=== PATIENT | female | born 1960 | race Caucasian/White ===

== ENCOUNTER 2020-08-21 20:07 | Inpatient (IN) ==
[2020-08-21] MEDS ORDERED: methylPREDNISolone 125 MG/2 ML VIAL IV STA (20:17)
[2020-08-21] MEDS ORDERED: ALBUT/IPRATROP 3MG/0.5MG NEB 3 ML VIAL NEB ONE (20:17)
[2020-08-21] MEDS ORDERED: MAGNESIUM SULFATE / D5W 1 GM/100 ML BAG IV STA ×2 (20:20→20:57)
--- NOTE | 2020-08-21 20:23 | Emergency Department Note ---
History of Present Illness General Chief complaint: Shortness of Breath/Dyspnea Stated complaint: SOB Time Seen by Provider: 08/21/20 20:17 Source: patient Mode of arrival: ambulatory Limitations: no limitations History of Present Illness Provider complaint: sob Onset (ago): day(s) Exacerbated By: + movement Associated symptoms: + chest pain, + cough, + fever/chills and + shortness of breath Treatments prior to arrival: none This is a 60-year-old female presents emergency department complaining of several days of increased cough and shortness of breath. Patient states she does have a history of COPD however does not wear home oxygen. Patient states she only recently moved to the area and tried to take out her nebulizer treatment to begin other breathing treatments at home. Patient states initially several days ago she thought she just had increased allergy symptoms with nasal congestion and cough. Patient states she then began to feel as though she was developing congestion in her chest and a possible recurrent bronchitis which she states she has had previously. No prior history of pneumonia. No history of heart problems. Patient denies any recent leg swelling or calf tenderness. She denies fevers or chills. Denies any known sick contact and states she has been vaccinated against coronavirus. Patient was 78% on room air when I was called to the room, patient was initially placed on nasal cannula at 4 L/min and slowly improved. RT was immediately contacted. Pt seen during a time of high acuity and national emergency pandemic while wearing PPE. Home Medications Medication Instructions Recorded Confirmed Type amlodipine 5 mg PO QAM 08/21/20 08/21/20 History aspirin 81 mg PO QAM 08/21/20 08/21/20 History atenolol 25 mg PO QAM 08/21/20 08/21/20 History atorvastatin 10 mg PO QAM 08/21/20 08/21/20 History calcium carbonate-vitamin D3 1 tab PO QAM 08/21/20 08/21/20 History [Calcium 500 + D (D3)] cholecalciferol (vitamin D3) 125 mcg PO QAM 08/21/20 08/21/20 History [Vitamin D3] escitalopram oxalate 10 mg PO QAM 08/21/20 08/21/20 History infliximab [Remicade] 0 mg IV DIRECTED 08/21/20 08/21/20 History lansoprazole 30 mg PO QAM 08/21/20 08/21/20 History lisinopril 20 mg PO QAM 08/21/20 08/21/20 History lorazepam 0.5 mg PO DAILY PRN 08/21/20 08/21/20 History metformin 500 mg PO QAM 08/21/20 08/21/20 History multivitamin 1 tab PO QAM 08/21/20 08/21/20 History vitamin B complex 1 tab PO QAM 08/21/20 08/21/20 History Allergies Allergy/AdvReac Type Severity Reaction Status Date / Time Iodinated Contrast Media Allergy Intermediate Hives Verified 08/21/20 20:58 Past Med/Surg History Medical History (Updated 08/23/20 @ 02:07 by Hanna Gandara DO) Anxiety and depression COPD (chronic obstructive pulmonary disease) Crohn's disease Diabetes mellitus GERD (gastroesophageal reflux disease) Hyperlipidemia Hypertension Tobacco use disorder Social History Smoking Status: Current every day smoker Cigarettes Per Day: 10-15; Hx Alcohol Use: Yes Alcohol type: hard liquor Hx Substance Use: No Preferred Language: Sammarinese Communication Ability: Effective Cad Operator Required: No Beliefs That Will Affect Care: None Current Living Situation: Family Current Living Situation Comment: Lives with brother and [place] Feels Safe at Home: Yes Safety Concerns: Feels Safe At This Time Assistive Devices: Oxygen - Continuous Assistive Devices Comment: O2 is acute Review of Systems See HPI for pertinent positives & negatives. and A total of 10 systems reviewed and were otherwise negative Physical Exam Vital Signs Vital Signs - 24 hr 08/21/20 20:08 08/21/20 20:16 08/21/20 20:18 Temperature 36.6 C Temperature Source Temporal Artery Scan Pulse Rate 93 H 87 Pulse Rate [Right Finger] Respiratory Rate 18 28 H Respiratory Effort / Characteristics Non-Labored Respiratory Depth Normal Blood Pressure 111/75 109/82 Blood Pressure Mean 87 91 Pulse Oximetry 83 L 98 Oxygen Delivery Method Room Air Room Air Oxygen Flow Rate Fraction of Inspired Oxygen 77 Sepsis Recent Fever Within 48 Hours No Sepsis New/Unexplained Change in Mental Status No Sepsis Action Taken by Nursing No Action Required Oxygen Flow Rate - Titration 6 Pulse Oximetry Post Tiitration 96 08/21/20 21:02 08/21/20 21:24 08/21/20 21:30 Temperature Temperature Source Pulse Rate 93 H 94 H Pulse Rate [Right Finger] 91 H Respiratory Rate 20 27 H 26 H Respiratory Effort / Characteristics Non-Labored Spontaneous Respiratory Depth Blood Pressure 124/73 126/74 Blood Pressure Mean 90 91 Pulse Oximetry 95 98 98 Oxygen Delivery Method Nasal Cannula Oxygen Flow Rate 4 Fraction of Inspired Oxygen Sepsis Recent Fever Within 48 Hours Sepsis New/Unexplained Change in Mental Status Sepsis Action Taken by Nursing Oxygen Flow Rate - Titration Pulse Oximetry Post Tiitration 08/21/20 22:00 Temperature Temperature Source Pulse Rate 106 H Pulse Rate [Right Finger] Respiratory Rate 22 Respiratory Effort / Characteristics Respiratory Depth Blood Pressure 160/112 H Blood Pressure Mean 128 Pulse Oximetry 98 Oxygen Delivery Method Oxygen Flow Rate Fraction of Inspired Oxygen Sepsis Recent Fever Within 48 Hours Sepsis New/Unexplained Change in Mental Status Sepsis Action Taken by Nursing Oxygen Flow Rate - Titration Pulse Oximetry Post Tiitration GENERAL: alert, well appearing, well nourished, no distress, non-toxic EYE EXAM: normal conjunctiva, PERRL and EOM's grossly intact OROPHARYNX: no exudate, no erythema, lips, buccal mucosa, and tongue normal and mucous membranes are moist NECK: supple, no nuchal rigidity, no adenopathy, non-tender LUNGS: Decreased to auscultation. Normal chest wall mechanics, slightly barrel chested, increased work of breathing and tachypnea noted, faint scattered expiratory wheeze, no rhonchi or rales HEART: no murmurs, S1 normal and S2 normal ABDOMEN: abdomen soft, non-tender, normo-active bowel sounds, no masses, no rebound or guarding. BACK: Back is symmetrical on inspection and there is no deformity, no midline tenderness, no CVA tenderness. SKIN: no rashes and no bruising UPPER EXTREMITIES: upper extremities are grossly normal. FROM, nml pulses b/l. LOWER EXTREMITIES: No pitting edema. FROM, nml pulses b/l. NEURO EXAM: Normal sensorium, cranial nerves II-XII grossly intact, normal speech, no gross weakness of arms, no gross weakness of legs. Gross sensation intact. Course Administered Medications Albuterol (Albut/Ipratrop 3mg/0.5mg Neb 3 Ml Vial) 3 ml NEB [facility] Stop: 09/21/20 06:59 Last Admin: 08/22/20 17:59 Dose: 3 ml Documented by: [id number] Admin: 08/22/20 15:23 Dose: 3 ml Documented by: [id number] Admin: 08/22/20 11:08 Dose: 3 ml Documented by: [id number] Admin: 08/22/20 06:55 Dose: 3 ml Documented by: [id number] Amlodipine Besylate (Amlodipine Besylate 5 Mg Tab) [facility] [place]: 09/21/20 08:59 Last Admin: 08/22/20 09:56 Dose: 5 mg Documented by: [id number] Aspirin (Aspirin 81 Mg Ectab) 81 mg PO [facility] Stop: 09/21/20 08:59 Last Admin: 08/22/20 09:55 Dose: 81 mg Documented by: [id number] Atenolol (Atenolol 25 Mg Tablet) 25 mg PO [facility] Stop: 09/21/20 08:59 Last Admin: 08/22/20 09:56 Dose: 25 mg Documented by: [id number] Atorvastatin Calcium (Atorvastatin 10 Mg Tab) 10 mg PO [facility] Stop: 09/21/20 08:59 Last Admin: 08/22/20 09:56 Dose: 10 mg Documented by: [id number] Enoxaparin Sodium (Enoxaparin Inj 40 Mg/0.4 Ml Syr) 40 mg SQ Q24H [facility] Stop: 09/21/20 07:59 Last Admin: 08/22/20 09:47 Dose: 40 mg Documented by: [id number] Escitalopram Oxalate (Escitalopram Oxalate 10 Mg Tab) 10 [facility] [place]: 09/21/20 08:59 Last Admin: 08/22/20 09:55 Dose: 10 mg Documented by: [id number] Guaifenesin (Guaifenesin 600 Mg Tabcr) 600 mg PO Q12 [facility] Stop: 09/21/20 08:59 Last Admin: 08/22/20 20:12 Dose: 600 mg Documented by: [id number] Admin: 08/22/20 09:54 Dose: 600 mg Documented by: [id number] Insulin Aspart (Insulin Aspart 100 Units/Ml 3 Ml Pen) [facility]: 09/21/20 00:59 Last Admin: 08/22/20 20:51 Dose: 9 units Documented by: [id number] Cosigned by: [id number] Admin: 08/22/20 17:29 Dose: 10 units Documented by: [id number] Cosigned by: [id number] Admin: 08/22/20 12:45 Dose: 5 units Documented by: [id number] Cosigned by: [id number] Admin: 08/22/20 09:43 Dose: 6 units Documented by: [id number] Cosigned by: [id number] Admin: 08/22/20 01:29 Dose: 6 units Documented by: [id number] Cosigned by: [id number] Lisinopril (Lisinopril 20 Mg Tab) 20 mg PO QAM [facility] Stop: 09/21/20 08:59 Last Admin: 08/22/20 09:55 Dose: 20 mg Documented by: [id number] Multivitamins (Multivitamin Tab) 1 tab PO QAM [facility] Stop: 09/21/20 08:59 Last Admin: 08/22/20 09:54 Dose: 1 tab Documented by: [id number] Multivitamins/Minerals (Calcium 600mg + Vit D 400 Iu Tab) 1 tab PO QAM [facility] Stop: 09/21/20 08:59 Last Admin: 08/22/20 09:56 Dose: 1 tab Documented by: [id number] Pantoprazole Sodium (Pantoprazole 40 Mg Tab) 40 [facility] [place] 09/21/20 08:59 Last Admin: 08/22/20 09:54 Dose: 40 mg Documented by: [id number] Vitamin B Complex (Vitamin B Complex Tab) 1 tab [facility] [place]: 09/21/20 08:59 Last Admin: 08/22/20 09:54 Dose: 1 tab Documented by: [id number] Vitamin D (Cholecalciferol 1,000 Units 25 Mcg Tab) 5,000 units PO QAM [facility] Stop: 09/21/20 08:59 Last Admin: 08/22/20 09:55 Dose: 5,000 units Documented by: [id number] Discontinued Medications Albuterol (Albut/Ipratrop 3mg/0.5mg Neb 3 Ml Vial) 12 ml NEB ONE ONE Stop: 08/21/20 20:18 Last Admin: 08/21/20 20:52 Dose: 12 ml Documented by: [id number] Magnesium Sulfate/Dextrose (Magnesium Sulfate / D5w) 1 gm in 100 mls @ 100 mls/hr IV NOW STA Stop: 08/21/20 21:19 Last Infusion: 08/21/20 22:16 Dose: 0 mls/hr Documented by: [id number] Admin: 08/21/20 20:34 Dose: 100 mls/hr Documented by: [id number] Magnesium Sulfate/Dextrose (Magnesium Sulfate / D5w) 1 gm in 100 mls @ 100 mls/hr IV NOW STA Stop: 08/21/20 21:56 Last Infusion: 08/21/20 22:31 Dose: 0 mls/hr Documented by: [id number] Admin: 08/21/20 21:21 Dose: 100 mls/hr Documented by: [id number] Azithromycin 500 mg/ Dextrose 255 mls @ 125 mls/hr IV Q24H [facility] Stop: 08/29/20 00:59 Last Infusion: 08/22/20 04:45 Dose: 0 mls/hr Documented by: [id number] Admin: 08/22/20 01:37 Dose: 125 mls/hr Documented by: [id number] Methylprednisolone 60 mg/ (Syringe) 0.96 mls @ 1.5 mls/min IV Q6H [facility] Stop: 09/21/20 01:59 Last Admin: 08/22/20 09:49 Dose: 1.5 mls/min Documented by: [id number] Admin: 08/22/20 03:17 Dose: 1.5 mls/min Documented by: [id number] Insulin Aspart (Insulin Aspart 100 Units/Ml 3 Ml Pen) 6 units SC ONE ONE Stop: 08/22/20 07:01 Last Admin: 08/22/20 07:22 Dose: 6 units Documented by: [id number] Cosigned by: [id number] Insulin Glargine (Insulin Glargine Solostar 100 Units/Ml 3 Ml Pen) 10 units SC BID [facility] Stop: 09/21/20 00:54 Last Admin: 08/22/20 09:51 Dose: 10 units Documented by: [id number] Cosigned by: [id number] Admin: 08/22/20 01:29 Dose: 10 units Documented by: [id number] Cosigned by: [id number] Methylprednisolone (Methylprednisolone 125 Mg/2 Ml Vial) 60 mg IV NOW STA Stop: 08/21/20 20:18 Last Admin: 08/21/20 20:34 Dose: 60 mg Documented by: [id number] Medical Decision Making Differential Diagnosis Differential diagnoses includes but is not limited to pneumonia, bronchitis, COPD/Asthma exacerbation, pneumothorax, pulmonary embolism, congestive heart failure, acute coronary syndrome Medical Records Attestation: I reviewed the patient's medical records. Home Medications Current Medication List: was personally reviewed by me Laboratory Data Attestation: I reviewed the patient's lab results. Result diagrams: 08/21/20 20:25 08/21/20 20:25 Lab Results 08/21/20 08/21/20 08/21/20 Range/Units 20:25 20:25 21:00 WBC 7.22 (4.8-10.8) K/uL RBC 3.93 L (4.2-5.4) M/uL Hgb 13.1 (12.0-16.0) g/dL Hct 38.2 (37-47) % MCV 97.2 (80-100) fL MCH 33.3 (25-34) pg MCHC 34.3 (32-36) g/dL RDW Std Deviation 42.4 (36.4-46.3) fL RDW Coeff of [place] 11.8 (11.5-14.5) % Plt Count 154 (130-400) K/uL MPV 10.4 (7.4-10.4) fL Immature Gran % (Auto) 0.3 % Neut % (Auto) 63.6 % Lymph % (Auto) 26.3 % [place] % (Auto) 9.4 % Eos % (Auto) 0.0 % Baso % (Auto) 0.4 % Neut # (Auto) 4.59 (1.4-6.5) K/uL Lymph # (Auto) 1.90 (1.2-3.4) K/uL [place] # (Auto) 0.68 H (0.11-0.59) K/uL Eos # (Auto) 0.00 (0-0.5) K/uL Baso # (Auto) 0.03 (0-0.2) K/uL Immature Gran # (Auto) 0.02 (0.00-0.02) K/uL POC pH (7.35-7.45) POC pCO2 (35-46) mmHg POC pO2 (80-95) mmHg POC HCO3 (19-24) cookie/L POC Total CO2 (24-31) mmol/L POC Base Excess (-9-1.8) cookie/L POC ABG O2 Sat (90-95) % Sodium 135 L (136-145) mmol/L Potassium 3.8 (3.5-5.1) mmol/L Chloride 100 (98-107) mmol/L Carbon Dioxide 27 (21-32) mmol/L Anion Gap 8.0 (3-11) BUN 16 (7-18) mg/dl Creatinine 1.04 (0.6-1.2) mg/dl Est Cr Clr Drug Dosing 59.1 ml/min Est GFR ( Amer) 66.7 ml/min Est GFR (Non-Af Amer) 57.5 ml/min BUN/Creatinine Ratio 15.7 (10-20) Glucose 113 H (70-99) mg/dl Calcium 9.0 (8.5-10.1) mg/dl Magnesium 1.4 L (1.8-2.4) mg/dl Total Bilirubin 0.4 (0.2-1) mg/dl AST 25 (15-37) U/L ALT 48 (12-78) U/L Alkaline Phosphatase 74 (45-117) U/L Troponin I < 0.015 (0-0.045) ng/ml NT-Pro-B Natriuret Pep 215 (0-900) pg/ml Total Protein 8.4 H (6.4-8.2) gm/dl Albumin 4.3 (3.4-5.0) gm/dl Globulin 4.1 H (2.5-4.0) gm/dl Albumin/Globulin Ratio 1.0 (0.9-2) COVID-19 Eval Order Covid19 at [facility] SARS-CoV-2 (PCR) (Negative) 08/21/20 08/21/20 Range/Units 21:00 21:03 WBC (4.8-10.8) K/uL RBC (4.2-5.4) M/uL Hgb (12.0-16.0) g/dL Hct (37-47) % MCV (80-100) fL MCH (25-34) pg MCHC (32-36) g/dL RDW Std Deviation (36.4-46.3) fL RDW Coeff of [place] (11.5-14.5) % Plt Count (130-400) K/uL MPV (7.4-10.4) fL Immature Gran % (Auto) % Neut % (Auto) % Lymph % (Auto) % [place] % (Auto) % Eos % (Auto) % Baso % (Auto) % Neut # (Auto) (1.4-6.5) K/uL Lymph # (Auto) (1.2-3.4) K/uL [place] # (Auto) (0.11-0.59) K/uL Eos # (Auto) (0-0.5) K/uL Baso # (Auto) (0-0.2) K/uL Immature Gran # (Auto) (0.00-0.02) K/uL POC pH 7.42 (7.35-7.45) POC pCO2 41 (35-46) mmHg POC pO2 72 L (80-95) mmHg POC HCO3 27 H (19-24) cookie/L POC Total CO2 28 (24-31) mmol/L POC Base Excess 2.0 H (-9-1.8) cookie/L POC ABG O2 Sat 95.0 (90-95) % Sodium (136-145) mmol/L Potassium (3.5-5.1) mmol/L Chloride (98-107) mmol/L Carbon Dioxide (21-32) mmol/L Anion Gap (3-11) BUN (7-18) mg/dl Creatinine (0.6-1.2) mg/dl Est Cr Clr Drug Dosing ml/min Est GFR ( Amer) ml/min Est GFR (Non-Af Amer) ml/min BUN/Creatinine Ratio (10-20) Glucose (70-99) mg/dl Calcium (8.5-10.1) mg/dl Magnesium (1.8-2.4) mg/dl Total Bilirubin (0.2-1) mg/dl AST (15-37) U/L ALT (12-78) U/L Alkaline Phosphatase (45-117) U/L Troponin I (0-0.045) ng/ml NT-Pro-B Natriuret Pep (0-900) pg/ml Total Protein (6.4-8.2) gm/dl Albumin (3.4-5.0) gm/dl Globulin (2.5-4.0) gm/dl Albumin/Globulin Ratio (0.9-2) COVID-19 Eval Order SARS-CoV-2 (PCR) NEGATIVE (Negative) Imaging Data Radiologist's Impression: Chest X-Ray 08/21/20 20:17 SINGLE VIEW CHEST CLINICAL HISTORY: Dyspnea. FINDINGS: An AP, portable, upright chest radiograph is compared to study dated 12/06/2009. The cardiomediastinal silhouette is unremarkable. The lungs and pleur al spaces are clear. No pneumothorax is seen. The bony thorax is grossly intact. IMPRESSION: No active disease in the chest. ACT 112: Negative or not required by law. Electronically signed by: Shukri Casper M.D. 08/21/2020 8:47 PM ECG Data Attestation: I personally reviewed and interpreted this ECG as follows: Indication: + SOB/dyspnea Rate (beats per minute): 87 Rhythm: + normal sinus ECG Intervals/blocks: + Normal QRS and + Normal QT ECG [place]: + Left axis deviation ECG ST segments: + Normal ST segments MDM Narrative Patient ill-appearing on arrival here with significant increased work of breathing and markedly diminished breath sounds. Patient does have a history of COPD however does not wear home oxygen and initial saturation on room air was 78%. Patient did improve with application of nasal cannula and RT was immediately contacted. Patient placed on a continuous nebulizer treatment and slowly began to improve. With improved air movement more wheezing was finally heard. No hypercapnia noted on ABG. Patient's other labs and chest x-ray reassuring. Given her description of recent evolving symptoms and what she tho ught was likely seasonal allergies, I am more suspicious of bronchitis or COPD exacerbation. Patient was given IV magnesium and IV Solu-Medrol. Patient had no fever and no leukocytosis, no obvious infiltrate on chest x-ray, use of antibiotics was deferred to the hospitalist. Case discussed with hospitalist for additional evaluation and management. Patient was made aware of all results, verbalized understanding was in agreement with plan. I do not suspect ACS, CHF, or PE at this time. An order was placed for continuous cardiac monitoring. The monitor shows a rate of _86_ with _normal sinus rhythm. Impression & Plan Hypoxia, Acute exacerbation of chronic obstructive pulmonary disease (COPD), Hypomagnesemia Discharge Plan Visit Data Chief Complaint: Shortness of Breath/Dyspnea Stated Complaint: SOB ED Provider: Hanna Gandara Discharge Problem: Hypoxia, Acute exacerbation of chronic obstructive pulmonary disease (COPD), Hypomagnesemia Patient Disposition: Admitted As Inpatient Discharge Instructions Interventions: ED Discharge Assessment Last Done: 08/21/20 23:28
[2020-08-21 20:35] LABS: Basophils # (auto) 0.03 K/uL (0-0.2); Basophils % (auto) 0.4 %; Hematocrit (blood only) 38.2 % (37-47); Hemoglobin 13.1 g/dL (12.0-16.0); Immature Granulocytes # (auto) 0.02 K/uL (0.00-0.02); Immature Granulocytes % (auto) 0.3 %; Lymphocytes % (auto) 26.3 %; Mean Corpuscular Hemoglobin 33.3 pg (25-34); Mean Corpuscular Hgb Conc 34.3 g/dL (32-36); Mean Corpuscular Volume 97.2 fL (80-100); Mean Platelet Volume 10.4 fL (7.4-10.4); Monocytes # (auto) 0.68 K/uL (0.11-0.59); Monocytes % (auto) 9.4 %; Neutrophils # (auto) 4.59 K/uL (1.4-6.5); Neutrophils % (auto) 63.6 %; Platelet Count 154 K/uL (130-400); RDW Coefficient of Variation 11.8 % (11.5-14.5); RDW Standard Deviation 42.4 fL (36.4-46.3); Red Blood Count 3.93 M/uL (4.2-5.4); White Blood Count 7.22 K/uL (4.8-10.8)
--- NOTE | 2020-08-21 20:48 | XRay Report ---
SINGLE VIEW CHEST CLINICAL HISTORY: Dyspnea. FINDINGS: An AP, portable, upright chest radiograph is compared to study dated 12/06/2009. The cardiom ediastinal silhouette is unremarkable. The lungs and pleural spaces are clear. No pneumothorax is see n. The bony thorax is grossly intact. IMPRESSION: No active disease in the chest. ACT 112: Negative or not required by law. Electronically signed by: Shukri Casper M.D. 08/21/2020 8:47 PM
[2020-08-21 20:53] LABS: Alanine Aminotransferase 48 U/L (12-78); Albumin Level 4.3 gm/dl (3.4-5.0); Aspartate Aminotransferase 25 U/L (15-37); BUN Creatinine Ratio 15.7 (10-20); Blood Urea Nitrogen 16 mg/dl (7-18); Carbon Dioxide 27 mmol/L (21-32); Chloride 100 mmol/L (98-107); Creatinine Clr Calc Pharmacy 59.1 ml/min; Est GFR (African American) 66.7 ml/min; Est GFR (Non-African American) 57.5 ml/min; Glucose 113 mg/dl (70-99); Magnesium 1.4 mg/dl (1.8-2.4); Potassium 3.8 mmol/L (3.5-5.1); Sodium 135 mmol/L (136-145)
[2020-08-21 20:57] LABS: Alkaline Phosphatase 74 U/L (45-117); Bilirubin,Total 0.4 mg/dl (0.2-1); Globulin 4.1 gm/dl (2.5-4.0); NT Pro B Type Natriuretic Pept 215 pg/ml (0-900); Total Protein 8.4 gm/dl (6.4-8.2); Troponin I < 0.015 ng/ml (0-0.045)
[2020-08-21 21:17] LABS: iSTAT Arterial Blood Gas HCO3 27 meg/L (19-24); iSTAT Arterial Blood Gas pCO2 41 mmHg (35-46); iSTAT Arterial Blood Gas pH 7.42 (7.35-7.45); iSTAT Arterial Blood Gas pO2 72 mmHg (80-95); iSTAT Carbon Dioxide 28 mmol/L (24-31)
--- NOTE | 2020-08-21 22:19 | History & Physical Report ---
Date of Service August 21, 2020 Assessment & Plan (1) Acute exacerbation of chronic obstructive pulmonary disease (COPD): Acute COPD exacerbation with hypoxia- Duonebs every 4 hours while awake and every 2 hours when necessary. Methylprednisolone 60 mg IV every 6 hours Guaifenesin extended release 600 mg p.o. twice daily Azithromycin 500 mg IV daily Nasal cannula oxygen, titrate to keep pulse ox around 94% Present on Admission?: Yes (2) Hypoxia: See above Present on Admission?: Yes (3) Crohn's disease: On Remicade as outpatient Present on Admission?: Yes (4) Hypertension: Continue amlodipine, aspirin, atenolol and lisinopril Present on Admission?: Yes (5) Hyperlipidemia: Continue atorvastatin Present on Admission?: Yes (6) Anxiety and depression: Continue Escitalopram and lorazepam Present on Admission?: Yes (7) GERD (gastroesophageal reflux disease): Continue lansoprazole/pantoprazole. If no other reason for low magnesium, may need to manager change to a medication like famotidine Present on Admission?: Yes (8) Diabetes mellitus: Hold Metformin Placed on Accu-Cheks before meals and at bedtime with NovoLog coverage per scale Check hemoglobin A1c Present on Admission?: Yes (9) Tobacco use disorder: Cessation counseling Present on Admission?: Yes (10) Hypomagnesemia: Magnesium 1.4 upon admission. Replace with 2 g of mag IV, and recheck laboratories in a.m. Present on Admission?: Yes History of Present Illness Chief Complaint: The patient presents with worsening intermittently productive cough and shortness of breath over the past 4 days. Primary Care Provider: NO PCP The patient is a 60-year-old female with a past medical history including Crohn's disease, hypertension, hyperlipidemia, vitamin D deficiency, anxiety with depression, GERD, diabetes mellitus and tobacco use disorder. She denies any recent travels or sick exposures. She does not require oxygen use at home. She has not had symptoms like this for couple years. She was COVID-19 negative while in the ED. Significant abnormal laboratories: Sodium 135, glucose 113, magnesium 1.4. Lowest pulse ox upon admission was 83% on room air In the emergency department, patient received a DuoNeb, Solu-Medrol 60 mg IV and magnesium sulfate 2 g IV by the ED. Allergies Allergy/AdvReac Type Severity Reaction Status Date / Time Iodinated Contrast Media Allergy Intermediate Hives Verified 08/21/20 20:58 Home Medications Medication Instructions Recorded Confirmed Type amlodipine 5 mg PO QAM 08/21/20 08/21/20 History aspirin 81 mg PO QAM 08/21/20 08/21/20 History atenolol 25 mg PO QAM 08/21/20 08/21/20 History atorvastatin 10 mg PO QAM 08/21/20 08/21/20 History calcium carbonate-vitamin D3 1 tab PO QAM 08/21/20 08/21/20 History [Calcium 500 + D (D3)] cholecalciferol (vitamin D3) 125 mcg PO QAM 08/21/20 08/21/20 History [Vitamin D3] escitalopram oxalate 10 mg PO QAM 08/21/20 08/21/20 History infliximab [Remicade] 0 mg IV DIRECTED 08/21/20 08/21/20 History lansoprazole 30 mg PO QAM 08/21/20 08/21/20 History lisinopril 20 mg PO QAM 08/21/20 08/21/20 History lorazepam 0.5 mg PO DAILY PRN 08/21/20 08/21/20 History metformin 500 mg PO QAM 08/21/20 08/21/20 History multivitamin 1 tab PO QAM 08/21/20 08/21/20 History vitamin B complex 1 tab PO QAM 08/21/20 08/21/20 History Past Med/Surg History Medical History COPD (chronic obstructive pulmonary disease) Crohn's disease Social History Smoking Status: Current every day smoker Cigarettes Per Day: 10-15; Hx Alcohol Use: Yes Alcohol type: hard liquor Hx Substance Use: No Preferred Language: [place] Communication Ability: Effective 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 Beliefs That Will Affect Care: None Current Living Situation: Family Current Living Situation Comment: Lives with brother and [place] Feels Safe at Home: Yes Safety Concerns: Feels Safe At This Time Assistive Devices: Glasses and Oxygen - Continuous Assistive Devices Comment: O2 is acute Review of Systems Review of Systems: The patient denies chest pain, palpitations, lower extremity swelling, sore throat, fevers, chills, sweats, nausea, vomiting, diarrhea , constipation, abdominal pain, pelvic pain, blood in urine or stool, dysuria, urinary frequency or urgency, lightheadedness, dizziness, headache, memory loss, loss of consciousness, rash, abnormal bruising or bleeding, imbalance, focal or generalized weakness, numbness or tingling in arms or legs, generalized arthralgias or myalgias, back or neck pain, or night sweats. The review of systems is otherwise negative other than for that already noted above, and at least 10 systems have been reviewed. Physical Exam Physical Exam: The patient is awake, alert and oriented 3, well developed and well nourished, normocephalic and atraumatic, lying in bed and in no acute distress. HEENT--PERRL, EOMI, mucous membranes and oropharynx normal Neck--supple. No JVD. No bruits. Thyroid normal, trachea midline, no adenopathy. Heart--normal S1 and S2. No murmurs, rubs or gallops. Lungs--significantly decreased breath sounds throughout. Faint wheezing anteriorly on the right. No respiratory distress, no accessory muscle use. Abdomen--normal bowel sounds and soft. Nontender. Nondistended, no hernias or masses, no organomegaly. Extremities--no cyanosis or clubbing. No edema. Dermatologic--normal skin turgor, normal color, no abnormal lymph nodes, no rash. Neurologic--cranial nerves II through XII grossly intact. Rheumatologic--normal range of motion. Psychiatric--normal affect. Results & Data Results & Data ([facility]) Vital Signs (Past 12 Hours) Vital Signs Temp Pulse Pulse Resp BP Pulse Ox 08/21/20 22:00 106 H 22 160/112 H 98 08/21/20 21:30 94 H 26 H 126/74 98 08/21/20 21:24 93 H 27 H 124/73 98 08/21/20 21:02 91 H 20 95 08/21/20 20:18 87 28 H 109/82 98 08/21/20 20:08 97.9 F 93 H 18 111/75 83 L Laboratory Results Laboratory Results WBC 7.22 K/uL (4.8-10.8) 08/21/20 20:25 RBC 3.93 M/uL (4.2-5.4) L 08/21/20 20: Hgb 13.1 g/dL (12.0-16.0) 08/21/20 20: Hct 38.2 % (37-47) 08/21/20: MCV 97.2 fL (80-100) 08/21/20 20: MCH 33.3 pg (25-34) 08/21/20: MCHC 34.3 g/dL (32-36) 08/21/20: RDW Std Deviation 42.4 fL (36.4-46.3) 08/21/20: RDW Coeff of Bijan 11.8 % (11.5-14.5) 08/21/20: Plt Count 154 K/uL (130-400) 08/21/20: MPV 10.4 fL (7.4-10.4) 08/21/20: Immature Gran % (Auto) 0.3 % 08/21/20: Neut % (Auto) 63.6 % 08/21/20: Lymph % (Auto) 26.3 % 08/21/20: [place] % (Auto) 9.4 % 08/21/20: Eos % (Auto) 0.0 % 08/21/20: Baso % (Auto) 0.4 % 08/21/20: Neut # (Auto) 4.59 K/uL (1.4-6.5) 08/21/20: Lymph # (Auto) 1.90 K/uL (1.2-3.4) 08/21/20: [place]es # (Auto) 0.68 K/uL (0.11-0.59) H 08/21/20: Eos # (Auto) 0.00 K/uL (0-0.5) 08/21/20: Baso # (Auto) 0.03 K/uL (0-0.2) 08/21/20: Immature Gran # (Auto) 0.02 K/uL (0.00-0.02) 08/21/20 20: POC pH 7.42 (7.35-7.45) 08/21/20 21:03 POC pCO2 41 mmHg (35-46) 08/21/20 21:03 POC pO2 72 mmHg (80-95) L 08/21/20 21:03 POC HCO3 27 cookie/L (19-24) H 08/21/20 21:03 POC Total CO2 28 mmol/L (24-31) 08/21/20 21:03 POC Base Excess 2.0 cookie/L (-9-1.8) H 08/21/20 21:03 POC ABG O2 Sat 95.0 % (90-95) 08/21/20 21:03 Sodium 135 mmol/L (136-145) L 08/21/20 20:25 Potassium 3.8 mmol/L (3.5-5.1) 08/21/20 20:25 Chloride 100 mmol/L (98-107) 08/21/20 20:25 Carbon Dioxide 27 mmol/L (21-32) 08/21/20 20:25 Anion Gap 8.0 (3-11) 08/21/20 20:25 BUN 16 mg/dl (7-18) 08/21/20 20:25 Creatinine 1.04 mg/dl (0.6-1.2) 08/21/20 20:25 Est Cr Clr Drug Dosing 59.1 ml/min 08/21/20 20:25 Est GFR ( Amer) 66.7 ml/min 08/21/20 20:25 Est GFR (Non-Af Amer) 57.5 ml/min 08/21/20 20:25 BUN/Creatinine Ratio 15.7 (10-20) 08/21/20 20:25 Glucose 113 mg/dl (70-99) H 08/21/20 20:25 POC Glucose 340 mg/dl (70-99) H* 08/22/20 01:20 Calcium 9.0 mg/dl (8.5-10.1) 08/21/20 20:25 Magnesium 1.4 mg/dl (1.8-2.4) L 08/21/20 20:25 Total Bilirubin 0.4 mg/dl (0.2-1) 08/21/20 20:25 AST 25 U/L (15-37) 08/21/20 20:25 ALT 48 U/L (12-78) 08/21/20 20:25 Alkaline Phosphatase 74 U/L (45-117) 08/21/20 20:25 Troponin I < 0.015 ng/ml (0-0.045) 08/21/20 20:25 NT-Pro-B Natriuret Pep 215 pg/ml (0-900) 08/21/20 20:25 Total Protein 8.4 gm/dl (6.4-8.2) H 08/21/20 20:25 Albumin 4.3 gm/dl (3.4-5.0) 08/21/20 20:25 Globulin 4.1 gm/dl (2.5-4.0) H 08/21/20 20:25 Albumin/Globulin Ratio 1.0 (0.9-2) 08/21/20 20:25 COVID-19 Eval Order Covid19 at [facility] 08/21/20 21:00 SARS-CoV-2 (PCR) NEGATIVE (Negative) 08/21/20 21:00 Impressions Chest X-Ray 08/21/20 20:17 SINGLE VIEW CHEST CLINICAL HISTORY: Dyspnea. FINDINGS: An AP, portable, upright chest radiograph is compared to study dated 12/06/2009. The cardiomediastinal silhouette is unremarkable. The lungs and pleural spaces are clear. No pneumothorax is seen. The bony thorax is grossly intact. IMPRESSION: No active disease in the chest. ACT 112: Negative or not required by law. Electronically signed by: Shukri Casper M.D. 08/21/2020 8:47 PM Code Status & VTE Plan Code Status Full code VTE Prophylaxis Plan VTE Prophylaxis will be ordered: Yes PG Care Time/CCT Total # of Minutes Spent Total Time Spent with Patient: Total time spent is greater than 50% in coordination of care (as documented) at patient's floor/unit and/or counseling patient: Coding Level of Care Code 04521 Initial Inpt Care Lvl 3 Diagnoses Acute exacerbation of chronic obstructive pulmonary disease (COPD) J44.1 Hypoxia R09.02 Crohn's disease K50.90 Hypertension I10 Hyperlipidemia E78.5 Anxiety and depression F41.9; F32.9 GERD (gastroesophageal reflux disease) K21.9 Diabetes mellitus E11.9 Tobacco use disorder F17.200 Hypomagnesemia E83.42
[2020-08-22] MEDS ORDERED: ACETAMINOPHEN 325 MG TAB PO PRN
[2020-08-22] MEDS ORDERED: ONDANSETRON INJ 2 MG/ML 2 ML VIAL IV PRN
[2020-08-22] MEDS ORDERED: LORazepam 0.5 MG TAB PO PRN
[2020-08-22] MEDS ORDERED: DEXTROSE 50% 50 ML SYRINGE IV PRN (00:46)
[2020-08-22] MEDS ORDERED: GLUCOSE 10 TABS/TUBE PO PRN (00:46)
[2020-08-22] MEDS ORDERED: GLUCAGON FOR INJ 1 MG VIAL SQ PRN (00:46)
[2020-08-22] MEDS ORDERED: CARBOHYDRATES FOR HYPOGLYCEMIA PO PRN (00:46)
[2020-08-22] MEDS ORDERED: GLUCOSE 40% GEL 15 GM TUBE PO PRN (00:46)
[2020-08-22] MEDS ORDERED: AZITHROMYCIN 500 MG in DEXTROSE 5% 250 ML IV SCH (01:00)
[2020-08-22] MEDS: INSULIN GLARGINE SOLOSTAR 100 UNITS/ML 3 ML PEN SC SCH ×2 (01:29→09:51)
[2020-08-22] MEDS: INSULIN ASPART 100 UNITS/ML 3 ML PEN SC SCH ×5 (01:29→20:51)
[2020-08-22] MEDS: methylPREDNISolone 60 MG in SYRINGE 0 ML IV SCH ×2 (03:17→09:49)
[2020-08-22] MEDS ORDERED: INSULIN ASPART PER UNIT 6 UNITS in SYRINGE 0 ML SC STA (06:53)
[2020-08-22] MEDS: ALBUT/IPRATROP 3MG/0.5MG NEB 3 ML VIAL NEB SCH ×4 (06:55→17:59)
[2020-08-22] MEDS ORDERED: INSULIN ASPART 100 UNITS/ML 3 ML PEN SC ONE (07:00)
[2020-08-22] MEDS ORDERED: INSULIN GLARGINE SOLOSTAR 100 UNITS/ML 3 ML PEN SC SCH ×2 (09:00→21:00)
[2020-08-22] MEDS: ENOXAPARIN INJ 40 MG/0.4 ML SYR SQ SCH (09:47)
[2020-08-22] MEDS: VITAMIN B COMPLEX TAB PO SCH (09:54)
[2020-08-22] MEDS: MULTIVITAMIN TAB PO SCH (09:54)
[2020-08-22] MEDS: guaiFENesin 600 MG TABCR PO SCH ×2 (09:54→20:12)
[2020-08-22] MEDS: PANTOprazole 40 MG TAB PO SCH (09:54)
[2020-08-22] MEDS: CHOLECALCIFEROL 1,000 UNITS 25 MCG TAB PO SCH (09:55)
[2020-08-22] MEDS: lisinopril 20 MG TAB PO SCH (09:55)
[2020-08-22] MEDS: ESCITALOPRAM OXALATE 10 MG TAB PO SCH (09:55)
[2020-08-22] MEDS: ASPIRIN 81 MG ECTAB PO SCH (09:55)
[2020-08-22] MEDS: amLODIPine BESYLATE 5 MG TAB PO SCH (09:56)
[2020-08-22] MEDS: ATENOLOL 25 MG TABLET PO SCH (09:56)
[2020-08-22] MEDS: ATORVASTATIN 10 MG TAB PO SCH (09:56)
[2020-08-22] MEDS: CALCIUM 600MG + VIT D 400 IU TAB PO SCH (09:56)
[2020-08-22] MEDS ORDERED: ALBUT/IPRATROP 3MG/0.5MG NEB 3 ML VIAL NEB PRN (13:02)
--- NOTE | 2020-08-22 13:11 | Hospitalist Progress Note ---
Date of Service August 22, 2020 Assessment & Plan (1) Acute exacerbation of chronic obstructive pulmonary disease (COPD): No infiltrate on CXR. - Switched to azithromycin PO. - Duonebs standing and PRN - Switch to prednisone - Guaifenesin extended release 600 mg p.o. twice daily - Wean O2 as able -> Not on home O2. (2) Hypoxia: See above (3) Crohn's disease: On Remicade as outpatient. No indication of flare. - Monitor (4) Diabetes mellitus: No known A1c. - Hold metformin - Sugars not well controlled today. Lowered steroid to help. Adjusted sliding scale and added NPH in the morning to help counteract the steroid effect. (5) Hypertension: BP today is 120/70. - Continue amlodipine, aspirin, atenolol, and lisinopril (6) Hyperlipidemia: - Continue atorvastatin (7) Anxiety and depression: - Continue escitalopram and lorazepam (8) GERD (gastroesophageal reflux disease): - Continue PPI (9) Tobacco use disorder: Cessation counseling (10) DVT prophylaxis: Lovenox 40 mg SQ daily Admission and Anticipated Discharge Date Admission Date: August 21, 2020 Subjective Improving today. Definitely feeling better, less wheezing, less shortness of breath. Reports no fevers/chills, chest pain, abdominal pain, nausea, or vomiting. Physical Exam Constitutional: WD/WN, vitals as above Eyes: EOM intact bilaterally; no conjunctival abnormality ENMT: external ear and nose normal, oropharynx normal Neck: trachea midline, no thyromegaly normal visual inspection Respiratory: no respiratory distress Auscultation: + wheezes (Mild, end expiratory) Cardiovascular: RRR, no murmur, no edema Gastrointestinal (Abdomen): Inspection/Auscultation: abdomen normal to inspection; abdomen not distended Musculoskeletal: no cyanosis or clubbing, extremities motor strength 5/5 Skin: no rashes, warm and dry Neurologic: moves all extremities and awake Psychiatric: Orientation: alert, oriented to person and cooperative Results & Data Results & Data ([facility]) Vital Signs (Past 12 Hours) Vital Signs Temp Pulse Pulse Pulse Resp BP Pulse Ox 08/22/20 11:42 36.6 C 74 18 120/68 95 08/22/20 11:10 80 20 94 08/22/20 06:55 79 18 97 08/22/20 06:36 36.7 C 78 18 111/68 99 08/22/20 03:09 36.8 C 92 H 16 106/62 97 08/22/20 02:27 97 H PG Care Time/CCT Total # of Minutes Spent Total Time Spent with Patient: Total time spent is greater than 50% in coordination of care (as documented) at patient's floor/unit and/or counseling patient: Coding Level of Care Code 23088 Subseq Hosp Care Lvl 3 Diagnoses Acute exacerbation of chronic obstructive pulmonary disease (COPD) J44.1 Hypoxia R09.02 Crohn's disease K50.90 Diabetes mellitus E11.9 Hypertension I10 Hyperlipidemia E78.5 Anxiety and depression F41.9; F32.9 GERD (gastroesophageal reflux disease) K21.9 Tobacco use disorder F17.200 DVT prophylaxis Z29.9
--- NOTE | 2020-08-22 15:12 | Electrocardiogram Report ---
Test Reason : Blood Pressure : / mmHG Vent. Rate : 087 BPM Atrial Rate : 087 BPM P-R Int : 154 ms QRS Dur : 086 ms QT Int : 364 ms P-R-T Axes : 080 -71 077 degrees QTc Int : 438 ms Normal sinus rhythm Left anterior fascicular block Abnormal ECG When compared with ECG of 06-DEC-2009 22:52, Left anterior fascicular block is now Present Confirmed by Barber Mccoy ([id number]) on 08/22/2020 3:12:31 PM Referred By: REFERRED SELF Confirmed By:Barber Mccoy
[2020-08-23] MEDS ORDERED: INSULIN ASPART PER SC STA (02:13)
[2020-08-23] MEDS ORDERED: INSULIN ASPART 100 UNITS/ML 3 ML PEN SC ONE (02:45)
[2020-08-23] MEDS: ALBUT/IPRATROP 3MG/0.5MG NEB 3 ML VIAL NEB SCH ×2 (07:04→10:30)
[2020-08-23 07:22] LABS: Hematocrit (blood only) 37.2 % (37-47); Hemoglobin 12.6 g/dL (12.0-16.0); Mean Corpuscular Hemoglobin 33.2 pg (25-34); Mean Corpuscular Hgb Conc 33.9 g/dL (32-36); Mean Corpuscular Volume 97.9 fL (80-100); Mean Platelet Volume 10.3 fL (7.4-10.4); Platelet Count 157 K/uL (130-400); RDW Coefficient of Variation 11.8 % (11.5-14.5); RDW Standard Deviation 42.2 fL (36.4-46.3); White Blood Count 14.01 K/uL (4.8-10.8)
[2020-08-23 08:11] LABS: BUN Creatinine Ratio 37.4 (10-20); Calcium 8.7 mg/dl (8.5-10.1); Est GFR (African American) 78.4 ml/min; Est GFR (Non-African American) 67.6 ml/min; Magnesium 2.2 mg/dl (1.8-2.4); Potassium 4.7 mmol/L (3.5-5.1)
[2020-08-23] MEDS: INSULIN ASPART 100 UNITS/ML 3 ML PEN SC SCH ×2 (08:54→12:03)
[2020-08-23] MEDS: ENOXAPARIN INJ 40 MG/0.4 ML SYR SQ SCH (08:56)
[2020-08-23] MEDS: ATORVASTATIN 10 MG TAB PO SCH (08:57)
[2020-08-23] MEDS: ATENOLOL 25 MG TABLET PO SCH (08:57)
[2020-08-23] MEDS: CHOLECALCIFEROL 1,000 UNITS 25 MCG TAB PO SCH (08:57)
[2020-08-23] MEDS: PANTOprazole 40 MG TAB PO SCH (08:58)
[2020-08-23] MEDS: amLODIPine BESYLATE 5 MG TAB PO SCH (08:58)
[2020-08-23] MEDS: CALCIUM 600MG + VIT D 400 IU TAB PO SCH (08:58)
[2020-08-23] MEDS: lisinopril 20 MG TAB PO SCH (08:58)
[2020-08-23] MEDS: ESCITALOPRAM OXALATE 10 MG TAB PO SCH (08:58)
[2020-08-23] MEDS: VITAMIN B COMPLEX TAB PO SCH (08:58)
[2020-08-23] MEDS: guaiFENesin 600 MG TABCR PO SCH (08:58)
[2020-08-23] MEDS: MULTIVITAMIN TAB PO SCH (08:58)
[2020-08-23] MEDS: ASPIRIN 81 MG ECTAB PO SCH (08:58)
[2020-08-23] MEDS ORDERED: INSULIN HUMAN NPH SC SCH (09:00)
[2020-08-23] MEDS ORDERED: predniSONE 20 MG TAB PO SCH (09:00)
[2020-08-23] MEDS ORDERED: AZITHROMYCIN 250 MG TAB PO SCH (09:00)
--- NOTE | 2020-08-23 16:44 | Discharge Summary ---
Date of Service August 23, 2020 Admission HPI Per Admitting Provider The patient is a 60-year-old female with a past medical history including Crohn's disease, hypertension, hyperlipidemia, vitamin D deficiency, anxiety with depression, GERD, diabetes mellitus and tobacco use disorder. She denies any recent travels or sick exposures. She does not require oxygen use at home. She has not had symptoms like this for couple years. She was COVID-19 negative while in the ED. Significant abnormal laboratories: Sodium 135, glucose 113, magnesium 1.4. Lowest pulse ox upon admission was 83% on room air In the emergency department, patient received a DuoNeb, Solu-Medrol 60 mg IV and magnesium sulfate 2 g IV by the ED. Principal Diagnosis COPD exacerbation Discharge Exam Constitutional WD/WN, vitals as above Eyes EOM intact bilaterally; no conjunctival abnormality ENMT external ear and nose normal, oropharynx normal Neck trachea midline, no thyromegaly normal visual inspection Respiratory no respiratory distress Auscultation: + wheezes (Mild, end expiratory) Cardiovascular RRR, no murmur, no edema Gastrointestinal (Abdomen) Inspection/Auscultation: abdomen normal to inspection; abdomen not distended Musculoskeletal no cyanosis or clubbing, extremities motor strength 5/5 Skin no rashes, warm and dry Neurologic moves all extremities and awake Psychiatric Orientation: alert, oriented to person and cooperative Discharge Data Allergies Allergy/AdvReac Type Severity Reaction Status Date / Time Iodinated Contrast Media Allergy Intermediate Hives Verified 08/21/20 20:58 Consultations 08/21/20 22:27 ED Decision to Admit Stat Hospital Course (1) Acute exacerbation of chronic obstructive pulmonary disease (COPD): No infiltrate on CXR. - Switched to azithromycin PO. - Duonebs standing and PRN - Switch to prednisone - Guaifenesin extended release 600 mg p.o. twice daily - Wean O2 as able -> Not on home O2. - [place] better by discharge. [place] she would be safe at home and could recover better there. Weaned off O2. Discharged on prednisone and final 3 days of azithromycin. Unfortunately, does not have insurance. All inhalers (apart from albuterol) were $200 - $500 /month. Will need to work with PCP to see what might be affordable. (2) Hypoxia: See above (3) Crohn's disease: On Remicade as outpatient. No indication of flare. - Monitor (4) Diabetes mellitus: No known A1c. - Hold metformin - Sugars not well controlled in the hospital. - Discussed with glycemic pharmacist. Given short duration of steroids, increasing metformin is the most practical and cost-effective method to improve glycemic control. Will need to follow with PCP. (5) Hypertension: BP today is 120/70. - Continue amlodipine, aspirin, atenolol, and lisinopril (6) Hyperlipidemia: - Continue atorvastatin (7) Anxiety and depression: - Continue escitalopram and lorazepam (8) GERD (gastroesophageal reflux disease): - Continue PPI (9) Tobacco use disorder: Cessation counseling (10) DVT prophylaxis: Lovenox 40 mg SQ daily Total Time Total Time Spent Total Time Spent (In Minutes): 35 Discharge Plan Discharge Items Patient Disposition: Home - Self-Care Reason For Visit: COPD EXACERBATION Discharge Diagnosis: COPD exacerbation Activity: Resume your previous activity Non-emergency contact: Primary Care Provider Call non-emergency contact if: your symptoms worsen Follow-up/Referrals: Fariba Abdi MD [Physician] - 08/25/20 4:30 pm PCP,NO [Primary Care Provider] - Diet: Carb Consistent or DM2 Addtl Attending Provider Instructions: Ms. Calloway, You were admitted to the hospital for shortness of breath and cough. We treated you with antibiotics and a steroid and this has improved your breathing! This is great! Unfortunately, your regimen for COPD is not ideal, and this is possibly because the inhalers have such a high cost. Please finish the 3 days of steroids and antibiotics to help you feel better. I have also sent an "as needed" albuterol inhaler to your pharmacy as well as a longer-acting inhaler. Hopefully these can help you breath better on a daily basis. Please see your PCP to help with your breathing. Please start taking your metformin twice a day to help keep your blood sugars under better control. This can be slowly increased by your PCP. Pending Studies at Discharge: No Stand-Alone Forms: My [facility] [place], Smoking Cessation Medications and DC Order Prescriptions: New azithromycin 250 mg Tablet 250 mg PO QAM Qty: 3 RF: 0 prednisone 20 mg Tablet 40 mg PO QAM Qty: 6 RF: 0 albuterol sulfate 90 mcg/actuation HFA aerosol inhaler 2 inh inhalation Q6H PRN (Reason: shortness of breath or wheezing) Qty: 6.7 RF: 0 tiotropium bromide 18 mcg capsule, w/inhalation device 1 cap inhalation DAILY Qty: 30 RF: 0 Continued multivitamin Tablet 1 tab PO QAM RF: 0 atorvastatin 10 mg tablet 10 mg PO QAM RF: 0 atenolol 25 mg tablet 25 mg PO QAM RF: 0 amlodipine 5 mg tablet 5 mg PO QAM RF: 0 aspirin 81 mg Tablet,Delayed Release (Dr/Ec) 81 mg PO QAM RF: 0 lorazepam 0.5 mg Tablet 0.5 mg PO DAILY PRN (Reason: Anxiety) RF: 0 Remicade 100 mg recon soln 0 mg IV DIRECTED RF: 0 lansoprazole 30 mg capsule,delayed release(DR/EC) 30 mg PO QAM RF: 0 vitamin B complex Tablet 1 tab PO QAM RF: 0 lisinopril 40 mg tablet 20 mg PO QAM RF: 0 escitalopram oxalate 10 mg tablet 10 mg PO QAM RF: 0 calcium carbonate-vitamin D3 500 mg(1,250mg) -125 unit Tablet 1 tab PO QAM RF: 0 cholecalciferol (vitamin D3) [Vitamin D3] 125 mcg (5,000 unit) Tablet 125 mcg PO QAM RF: 0 Changed metformin 500 mg tablet extended release 24 hr 500 mg PO BID Qty: 60 RF: 0 Discharge Orders: Discharge Order (Routine); Ordered 08/23/20 Ordered By: Maurilio Elam Admission Data Admit Date/Time: 08/21/20 22:18 Attending Provider: Maurilio Elam Admit Provider: Devendra Horowitz Primary Care Provider: PCP,NO Other Providers: Maurilio Elam Other Interventions: Discharge Summary Assessment (RN) Last Done: 08/23/20 12:44 Coding Level of Care Code D/C Day Management >30 mins Diagnoses Acute exacerbation of chronic obstructive pulmonary disease (COPD) J44.1 Hypoxia R09.02 Crohn's disease K50.90 Diabetes mellitus E11.9 Hypertension I10 Hyperlipidemia E78.5 Anxiety and depression F41.9; F32.9 GERD (gastroesophageal reflux disease) K21.9 Tobacco use disorder F17.200 DVT prophylaxis Z29.9
== END 2020-08-23 13:54 | disposition home or self-care (01) | DRG 191 ==
LOC: ED 20:07 → SUATTDRO 22:18 → 2W 22:18
DX: R09.02 Hypoxemia; F41.9 Anxiety disorder, unspecified; Z79.82 Long term (current) use of aspirin; E78.5 Hyperlipidemia, unspecified; E83.42 Hypomagnesemia; Z79.84 Long term (current) use of oral hypoglycemic drugs; I10 Essential (primary) hypertension; E11.9 Type 2 diabetes mellitus without complications; F17.210 Nicotine dependence, cigarettes, uncomplicated; K50.90 Crohn's disease, unspecified, without complications; J44.1 Chronic obstructive pulmonary disease with (acute) exacerbation; F32.9 Major depressive disorder, single episode, unspecified; K21.9 Gastro-esophageal reflux disease without esophagitis

== ENCOUNTER 2021-03-28 16:48 | Inpatient (IN) ==
--- NOTE | 2021-03-28 17:36 | XRay Report ---
XR chest 1V portable CLINICAL HISTORY: Syncope. COMPARISON STUDY: Chest CT January 29, 2021. Chest radiograph August 21, 2020. FINDINGS: Lung volumes are normal. Lungs are clear. There is no pneumothorax or pleural effusion. Car diac size is normal. Mediastinal contours are normal. There is no evidence for pulmonary edema. Nippl e shadow projects over the right lower lung. IMPRESSION: No acute cardiopulmonary findings. ACT 112: Negative or not required by law. Electronically signed by: Lukas Abdi M.D. 03/28/2021 5:35 PM
[2021-03-28 17:39] LABS: Basophils # (auto) 0.02 K/uL (0-0.2); Basophils % (auto) 0.2 %; Eosinophils # (auto) 0.04 K/uL (0-0.5); Eosinophils % (auto) 0.5 %; Hematocrit (blood only) 37.3 % (37-47); Immature Granulocytes # (auto) 0.03 K/uL (0.00-0.02); Immature Granulocytes % (auto) 0.4 %; Lymphocytes # (auto) 1.35 K/uL (1.2-3.4); Lymphocytes % (auto) 16.2 %; Mean Corpuscular Hemoglobin 33.5 pg (25-34); Mean Corpuscular Hgb Conc 34.9 g/dL (32-36); Mean Corpuscular Volume 96.1 fL (80-100); Mean Platelet Volume 10.2 fL (7.4-10.4); Monocytes # (auto) 0.91 K/uL (0.11-0.59); Monocytes % (auto) 10.9 %; Neutrophils % (auto) 71.8 %; Platelet Count 227 K/uL (130-400); RDW Coefficient of Variation 12.2 % (11.5-14.5); RDW Standard Deviation 42.6 fL (36.4-46.3); Red Blood Count 3.88 M/uL (4.2-5.4); White Blood Count 8.35 K/uL (4.8-10.8)
[2021-03-28 18:01] LABS: Troponin I < 0.03 ng/ml (0-0.04)
[2021-03-28 18:09] LABS: Anion Gap 12 (3-11); BUN Creatinine Ratio 21.6 (10-20); Blood Urea Nitrogen 22 mg/dl (6-23); Calcium 8.1 mg/dl (8.5-10.1); Carbon Dioxide 23 mmol/L (21-32); Chloride 96 mmol/L (98-107); Creatinine Clr Calc Pharmacy 64.4 ml/min; Est GFR (African American) 68.3 ml/min; Est GFR (Non-African American) 58.9 ml/min; Glucose 191 mg/dl (70-99(Fasting)); Potassium 4.2 mmol/L (3.5-5.1); Sodium 131 mmol/L (136-145)
[2021-03-28 18:12] LABS: Alanine Aminotransferase 20 U/L (7-52); Albumin Globulin Ratio 1.6 (0.9-2); Albumin Level 4.4 gm/dl (3.4-5.0); Alkaline Phosphatase 60 U/L (34-104); Aspartate Aminotransferase 19 U/L (13-39); Bilirubin,Total 0.5 mg/dl (0.2-1.0); Globulin 2.7 gm/dl (2.5-4.0); Magnesium < 0.5 mg/dl (1.7-2.4); Total Protein 7.1 gm/dl (6.0-8.3)
--- NOTE | 2021-03-28 18:51 | Emergency Department Note ---
History of Present Illness General Chief complaint: Fall Stated complaint: FELL, LIGHTHEADED, DIZZY SPELLS Time Seen by Provider: 03/28/21 18:39 Source: patient Mode of arrival: ambulatory Limitations: no limitations History of Present Illness Provider complaint: fall, head injury Onset (ago): month(s) 1 Maximum Pain Intensity: 2 This is a 60-year-old female presents the emergency department complaining of weakness and fall. Patient states she has had increased weakness leading to multiple falls over the course of the last month. She states today she was in the [employer] parking lot and fell backwards and struck her head. She denies any loss of consciousness and states to gentleman there helped her up. She was advised by her PCP to come to the emergency room. Patient states she fell several days ago in addition, and does show areas of resolving ecchymosis over the left elbow. Patient states she has had intermittent weakness that does slowly seem to be worsening, with accompanying muscle aches and lightheadedness. Patient denies any prior similar events. Patient denies headaches, chest pain, palpitations or recent illness. Patient does have a history of COPD and follows with pulmonology. She states she saw pulmonology approximately month ago and additional allergy medications were prescribed. She states her family doctor also increased her Metformin from 500 mg daily to 1000 mg twice daily. She states since the change in her Metformin she has had increased diarrhea, however she was told to expect that due to the side effects of Metformin. Pt seen during a time of high acuity and national emergency pandemic while wearing PPE. Home Medications Medication Instructions Recorded Confirmed Type aspirin 81 mg tablet,delayed 81 mg PO QAM 08/21/20 03/28/21 History release calcium carbonate 500 mg-vitamin 1 tab PO QAM 08/21/20 03/28/21 History D3 3.125 mcg (125 unit) tablet cholecalciferol (vitamin D3) 125 125 mcg PO QAM 08/21/20 03/28/21 History mcg (5,000 unit) tablet (Vitamin D3) lansoprazole 30 mg capsule,delayed 30 mg PO QAM 08/21/20 03/28/21 History release (Prevacid) lisinopril 40 mg tablet 20 mg PO QAM 08/21/20 03/28/21 History multivitamin 1 tab PO QAM 08/21/20 03/28/21 History vitamin B complex 1 tab PO QAM 08/21/20 03/28/21 History albuterol sulfate 90 mcg/actuation 2 inh INHALATION Q6H PRN #6.7 g 08/23/20 03/28/21 Rx aerosol inhaler amlodipine 5 mg tablet 5 mg PO QAM 09/27/20 03/28/21 History fluticasone fur. 100 mcg-umeclid 1 inh INHALATION QAM #60 ea 10/13/20 03/28/21 Rx 62.5 mcg-vilant 25 mcg inhalat.powder (Trelegy Ellipta) atenolol 25 mg tablet 25 mg PO DAILY #90 tab 01/19/21 03/28/21 Rx escitalopram oxalate 10 mg tablet 10 mg PO DAILY #90 tab 01/19/21 03/28/21 Rx doxycycline hyclate 100 mg capsule 100 mg PO BID 7 Days #14 cap 01/29/21 03/28/21 Rx azithromycin 250 mg tablet 250 mg PO MOWEFR 30 Days #18 tab 02/02/21 03/28/21 Rx chlorpheniramine maleate 4 mg 4 mg PO Q12H 30 Days #60 tab 02/02/21 03/28/21 Rx tablet (Allergy Relief (chlorpheniramine)) pseudoephedrine HCl 120 mg 120 mg PO BID 30 Days #60 tab 02/02/21 03/28/21 Rx tablet,extended release (Sudafed 12 Hour) roflumilast 250 mcg tablet 250 mcg PO DAILY 28 Days #28 tab 02/02/21 03/28/21 Rx (Daliresp) sodium chloride, sodium See Rx Instructions .ROUTE 02/02/21 03/28/21 Rx bicarb-nasal rinse squeeze bottle .COMPLEX #50 ea with packet (Neilmed Sinus Rinse Complete) atorvastatin 40 mg tablet 40 mg PO DAILY #90 tab 02/03/21 03/28/21 Rx metformin 1,000 mg tablet,extended 2,000 mg PO DAILY #180 tab 02/03/21 03/28/21 Rx release 24hr fluticasone propionate 50 1 spray INTRANASAL BID #18.2 ml 03/22/21 03/28/21 Rx mcg/actuation nasal spray,suspension (Flonase Allergy Relief) Allergies Allergy/AdvReac Type Severity Reaction Status Date / Time Iodinated Contrast Media Allergy Intermediate Hives Verified 03/28/21 19:33 Past Med/Surg History Medical History Anxiety and depression Chronic sinusitis COPD (chronic obstructive pulmonary disease) Coronary artery disease Seen on lung CT scan Crohn's disease in remission GERD (gastroesophageal reflux disease) Hyperlipidemia Hypertension Osteoarthritis Tobacco abuse Tubular adenoma (10/2020) Type 2 diabetes mellitus Surgical History History of bilateral tubal ligation History of section History of colonoscopy History of esophagogastroduodenoscopy (EGD) History of tonsillectomy History of tooth extraction Family History Aunt Breast cancer Mother Diabetes Hypertension Other Cancer Heart disease Lung disease No family history of adverse response to anesthesia Denies family history of Ovarian cancer Prostate cancer Myocardial infarction Colorectal cancer Asthma Social History Smoking Status: Current every day smoker Age Quit Using Tobacco: 11; packs per day: 1; Years Smoked: 49; Cigarettes Per Day: 20; Second Hand Exposure: No; Hx Alcohol Use: No Hx Substance Use: No Preferred Language: Luxembourgish Communication Ability: Effective Visual Impairment: No Limitations Hearing Ability: Normal [employer] Required: No Beliefs That Will Affect Care: None marital status: / Current Living Situation: Family Current Living Situation Comment: Lives with brother and sister in law Feels Safe at Home: Yes Dental Care, Regularly: Yes Physical Activity Frequency: Does not Exercise Assistive Devices: Glasses Review of Systems A total of 10 systems reviewed and were otherwise negative All systems reviewed & are unremarkable except as noted in HPI & below Physical Exam Vital Signs Vital Signs - 24 hr 03/28/21 16:55 03/28/21 20:00 03/28/21 20:30 Temperature 36.3 C L Temperature Source Oral Pulse Rate - Lying Pulse Rate - Sitting Pulse Rate - Standing Pulse Rate 71 Respiratory Rate 18 Respiratory Effort / Characteristics Non-Labored Respiratory Depth Normal Blood Pressure - Lying Blood Pressure - Sitting Blood Pressure- Standing Blood Pressure 116/82 146/93 H 143/88 H Blood Pressure Mean 93 110 106 Blood Pressure Position Sitting Pulse Oximetry 97 Oxygen Delivery Method Room Air Sepsis Recent Fever Within 48 Hours No Sepsis New/Unexplained Change in Mental Status No Sepsis Action Taken by Nursing No Action Required 03/28/21 21:53 Temperature Temperature Source Pulse Rate - Lying 78 Pulse Rate - Sitting 79 Pulse Rate - Standing 91 H Pulse Rate Respiratory Rate Respiratory Effort / Characteristics Respiratory Depth Blood Pressure - Lying 133/89 Blood Pressure - Sitting 157/94 H Blood Pressure- Standing 122/95 Blood Pressure Blood Pressure Mean Blood Pressure Position Pulse Oximetry Oxygen Delivery Method Sepsis Recent Fever Within 48 Hours Sepsis New/Unexplained Change in Mental Status Sepsis Action Taken by Nursing GENERAL: alert, well appearing, thin body habitus, no distress, non-toxic HEAD: nc/at, no adkins signs, no raccoon eyes EYE EXAM: normal conjunctiva, PERRL and EOM's grossly intact, no nystagmus OROPHARYNX: no exudate, no erythema, lips, buccal mucosa, and tongue normal and mucous membranes are moist NECK: supple, no nuchal rigidity, no adenopathy, non-tender LUNGS: Clear to auscultation. Normal chest wall mechanics, no w/r/r HEART: no murmurs, S1 normal and S2 normal ABDOMEN: abdomen soft, non-tender, normo-active bowel sounds, no masses, no rebound or guarding. BACK: Back is symmetrical on inspection and there is no deformity, no midline tenderness, no CVA tenderness. SKIN: no rashes and no bruising UPPER EXTREMITIES: upper extremities are grossly normal. FROM, nml pulses b/l. LOWER EXTREMITIES: No pitting edema. FROM, nml pulses b/l. NEURO EXAM: Normal sensorium, cranial nerves II-XII grossly intact, normal speech, no gross weakness of arms, no gross weakness of legs. No ataxia. Gross sensation intact. Course Administered Medications Discontinued Medications Magnesium Sulfate/Dextrose (Magnesium Sulfate / D5w) 1 gm in 100 mls @ 100 mls/hr IV Q1H RHIANNON Stop: 03/28/21 20:38 Last Infusion: 03/28/21 22:18 Dose: 0 mls/hr Documented by: [id number] Admin: 03/28/21 20:41 Dose: 100 mls/hr Documented by: [id number] Infusion: 03/28/21 20:41 Dose: 0 mls/hr Documented by: [id number] Admin: 03/28/21 19:27 Dose: 100 mls/hr Documented by: [id number] Medical Decision Making Differential Diagnosis Differential diagnosis includes etiologies such as benign positional vertigo, dehydration, hypovolemia, anemia, tumor, infection, hypoglycemia, electrolyte abnormalities, cardiac sources, intracerebral event, toxicologic, neurologic, as well as others were entertained. Medical Records Attestation: I reviewed the patient's medical records. Home Medications Current Medication List: was personally reviewed by me Laboratory Data Attestation: I reviewed the patient's lab results. Result diagrams: 03/28/21 17:23 03/28/21 17:23 Lab Results 03/28/21 03/28/21 03/28/21 Range/Units 17:23 17:23 17:23 WBC 8.35 (4.8-10.8) K/uL RBC 3.88 L (4.2-5.4) M/uL Hgb 13.0 (12.0-16.0) g/dL Hct 37.3 (37-47) % MCV 96.1 (80-100) fL MCH 33.5 (25-34) pg MCHC 34.9 (32-36) g/dL RDW Std Deviation 42.6 (36.4-46.3) fL RDW Coeff of [place] 12.2 (11.5-14.5) % Plt Count 227 (130-400) K/uL MPV 10.2 (7.4-10.4) fL Immature Gran % (Auto) 0.4 % Neut % (Auto) 71.8 % Lymph % (Auto) 16.2 % [place] % (Auto) 10.9 % Eos % (Auto) 0.5 % Baso % (Auto) 0.2 % Neut # (Auto) 6.00 (1.4-6.5) K/uL Lymph # (Auto) 1.35 (1.2-3.4) K/uL [place] # (Auto) 0.91 H (0.11-0.59) K/uL Eos # (Auto) 0.04 (0-0.5) K/uL Baso # (Auto) 0.02 (0-0.2) K/uL Immature Gran # (Auto) 0.03 H (0.00-0.02) K/uL Sodium 131 L (136-145) mmol/L Potassium 4.2 (3.5-5.1) mmol/L Chloride 96 L (98-107) mmol/L Carbon Dioxide 23 (21-32) mmol/L Anion Gap 12 H (3-11) BUN 22 (6-23) mg/dl Creatinine 1.02 (0.6-1.2) mg/dl Est Cr Clr Drug Dosing 64.4 ml/min Est GFR ( Amer) 68.3 ml/min Est GFR (Non-Af Amer) 58.9 ml/min BUN/Creatinine Ratio 21.6 H (10-20) Glucose 191 H (70-99(Fasting)) mg/dl Calcium 8.1 L (8.5-10.1) mg/dl Magnesium < 0.5 L* (1.7-2.4) mg/dl Total Bilirubin 0.5 (0.2-1.0) mg/dl AST 19 (13-39) U/L ALT 20 (7-52) U/L Alkaline Phosphatase 60 (34-104) U/L Troponin I < 0.03 (0-0.04) ng/ml Total Protein 7.1 (6.0-8.3) gm/dl Albumin 4.4 (3.4-5.0) gm/dl Globulin 2.7 (2.5-4.0) gm/dl Albumin/Globulin Ratio 1.6 (0.9-2) TSH 1.148 (0.300-4.500) uIu/ml SARS-CoV-2, RNA, NAAT (NEGATIVE) 03/28/21 Range/Units 20:08 WBC (4.8-10.8) K/uL RBC (4.2-5.4) M/uL Hgb (12.0-16.0) g/dL Hct (37-47) % MCV (80-100) fL MCH (25-34) pg MCHC (32-36) g/dL RDW Std Deviation (36.4-46.3) fL RDW Coeff of [place] (11.5-14.5) % Plt Count (130-400) K/uL MPV (7.4-10.4) fL Immature Gran % (Auto) % Neut % (Auto) % Lymph % (Auto) % [place] % (Auto) % Eos % (Auto) % Baso % (Auto) % Neut # (Auto) (1.4-6.5) K/uL Lymph # (Auto) (1.2-3.4) K/uL [place] # (Auto) (0.11-0.59) K/uL Eos # (Auto) (0-0.5) K/uL Baso # (Auto) (0-0.2) K/uL Immature Gran # (Auto) (0.00-0.02) K/uL Sodium (136-145) mmol/L Potassium (3.5-5.1) mmol/L Chloride (98-107) mmol/L Carbon Dioxide (21-32) mmol/L Anion Gap (3-11) BUN (6-23) mg/dl Creatinine (0.6-1.2) mg/dl Est Cr Clr Drug Dosing ml/min Est GFR ( Amer) ml/min Est GFR (Non-Af Amer) ml/min BUN/Creatinine Ratio (10-20) Glucose (70-99(Fasting)) mg/dl Calcium (8.5-10.1) mg/dl Magnesium (1.7-2.4) mg/dl Total Bilirubin (0.2-1.0) mg/dl AST (13-39) U/L ALT (7-52) U/L Alkaline Phosphatase (34-104) U/L Troponin I (0-0.04) ng/ml Total Protein (6.0-8.3) gm/dl Albumin (3.4-5.0) gm/dl Globulin (2.5-4.0) gm/dl Albumin/Globulin Ratio (0.9-2) TSH (0.300-4.500) uIu/ml SARS-CoV-2, RNA, NAAT NEGATIVE (NEGATIVE) Imaging Data Radiologist's Impression: Chest X-Ray 03/28/21 16:58 XR chest 1V portable CLINICAL HISTORY: Syncope. COMPARISON STUDY: Chest CT January 29, 2021. Chest radiograph August 21, 2020. FINDINGS: Lung volumes are normal. Lungs are clear. There is no pneumothorax or pleural effusion. Cardiac size is normal. Mediastinal contours are normal. There is no evidence for pulmonary edema. Nipple shadow projects over the right lower lung. IMPRESSION: No acute cardiopulmonary findings. ACT 112: Negative or not required by law. Electronically signed by: Lukas Abdi M.D. 03/28/2021 5:[address] 03/28/21 19:00 CT OF THE HEAD WITHOUT CONTRAST CLINICAL HISTORY: trauma COMPARISON STUDY: No previous studies for comparison. CT DOSE: 537.48 mGy.cm TECHNIQUE: Helical axial images of the head were obtained without IV contrast. Automated exposure control was utilized for the study. A dose lowering technique was utilized adhering to the principles of ALARA. FINDINGS: No acute intracranial hemorrhage, midline shift or mass effect is present. The ventricular system is unremarkable. The basal cisterns are patent. No extra-axial collections are present. There are no findings to suggest acute dural sinus thrombosis or acute territorial infarct. There is no calvarial fracture. Trace fluid within the bilateral mastoid air cells is present. There are secretions within the dependent aspects of the maxillary sinuses. IMPRESSION: 1. No acute intracranial findings. 2. No calvarial fracture. ACT 112: Negative or not required by law. Electronically signed by: Lukas Abdi M.D. 03/28/2021 7:55 PM ECG Data Attestation: I personally reviewed and interpreted this ECG as follows: Indication: + weakness Rate (beats per minute): 83 Rhythm: + normal sinus ECG Intervals/blocks: + Normal QRS and + Normal QT ECG [place]: + Normal ECG ST segments: + Normal ST segments MDM Narrative This is a 60-year-old female who presents due to concern for fall today. Patient describes 1 month of increased dizziness, weakness, and several frequent falls. Protocol orders initiated by nursing staff as patient was initially seen in the waiting room as there was no available ER bed. Patient was hemodynamically stable. Labs reviewed with the patient during my exam patient found to have sev ere hypomagnesemia. Patient otherwise hemodynamically stable, EKG reassuring. CT imaging unremarkable in light of recent dizziness as well as close head injury sustained today. Patient otherwise had a nonfocal neuro exam. We did discuss recent medication changes, with side effect of diarrhea due to increase in Metformin as potentially contributing to this. I do suspect the hypomagnesemia likely has been contributing to her weakness and dizziness. Discussed with patient need for repletion with IV magnesium and ongoing monitoring as well as additional evaluation. She verbalized understanding and was in agreement with plan. Case discussed with hospitalist. I do not suspect additional occult tra umatic injury. No other evidence for focal infection. No evidence for GENESIS. An order was placed for continuous cardiac monitoring. The monitor shows a rate of _78_ with _normal sinus_ rhythm. Impression & Plan Dizziness, Fall, Hypomagnesemia, CHI (closed head injury) Discharge Plan Visit Data Chief Complaint: Fall Stated Complaint: FELL, LIGHTHEADED, DIZZY SPELLS ED Provider: Hanna Gandara Discharge Problem: Dizziness, Fall, Hypomagnesemia, CHI (closed head injury) Patient Disposition: Being Evaluated by Hospitalist Forms Stand Alone Forms: My [facility] Prescriptions Prescriptions: No Action Trelegy Ellipta 100-62.5-25 mcg blister with device 1 inh inhalation QAM Qty: 60 RF: 5 escitalopram oxalate 10 mg tablet 10 mg PO DAILY Qty: 90 RF: 3 atenolol 25 mg tablet 25 mg PO DAILY Qty: 90 RF: 3 doxycycline hyclate 100 mg capsule 100 mg PO BID 7 Days Qty: 14 RF: 0 metformin 1,000 mg tablet extended release 24hr 2,000 mg PO DAILY Qty: 180 RF: 3 atorvastatin 40 mg tablet 40 mg PO DAILY Qty: 90 RF: 3 fluticasone propionate [Flonase Allergy Relief] 50 mcg/actuation spray,suspension 1 spray intranasal BID Qty: 18.2 RF: 2 pseudoephedrine HCl [Sudafed 12 Hour] 120 mg tablet extended release 120 mg PO BID 30 Days Qty: 60 RF: 3 chlorpheniramine maleate [Allergy Relief(chlorpheniramn)] 4 mg tablet 4 mg PO Q12H 30 Days Qty: 60 RF: 3 Neilmed Sinus Rinse Complete Packet With Rinse Device See Rx Instructions .Route .COMPLEX Qty: 50 RF: 3 azithromycin 250 mg tablet 250 mg PO MOWEFR 30 Days Qty: 18 RF: 6 Daliresp 250 mcg tablet 250 mcg PO DAILY 28 Days Qty: 28 RF: 4 multivitamin Tablet 1 tab PO QAM RF: 0 aspirin 81 mg Tablet,Delayed Release (Dr/Ec) 81 mg PO QAM RF: 0 lansoprazole [Prevacid] 30 mg capsule,delayed release(DR/EC) 30 mg PO QAM RF: 0 vitamin B complex Tablet 1 tab PO QAM RF: 0 lisinopril 40 mg tablet 20 mg PO QAM RF: 0 calcium carbonate-vitamin D3 500 mg(1,250mg) -125 unit Tablet 1 tab PO QAM RF: 0 cholecalciferol (vitamin D3) [Vitamin D3] 125 mcg (5,000 unit) Tablet 125 mcg PO QAM RF: 0 albuterol sulfate 90 mcg/actuation HFA aerosol inhaler 2 inh inhalation Q6H PRN (Reason: shortness of breath or wheezing) Qty: 6.7 RF: 0 amlodipine 5 mg tablet 5 mg PO QAM RF: 0 Referrals Referrals: Fariba Abdi MD [Primary Care Provider] -
[2021-03-28] MEDS: MAGNESIUM SULFATE / D5W 1 GM/100 ML BAG IV SCH ×2 (19:27→20:41)
--- NOTE | 2021-03-28 19:57 | CT Scan Report ---
CT OF THE HEAD WITHOUT CONTRAST CLINICAL HISTORY: trauma COMPARISON STUDY: No previous studies for comparison. CT DOSE: 537.48 mGy.cm TECHNIQUE: Helical axial images of the head were obtained without IV contrast. Automated exposure con trol was utilized for the study. A dose lowering technique was utilized adhering to the principles o f ALARA. FINDINGS: No acute intracranial hemorrhage, midline shift or mass effect is present. The ventricular system is unremarkable. The basal cisterns are patent. No extra-axial collections are present. There are no findings to suggest acute dural sinus thrombosis or acute territorial infarct. There is no alejo varial fracture. Trace fluid within the bilateral mastoid air cells is present. There are secretions within the dependent aspects of the maxillary sinuses. IMPRESSION: 1. No acute intracranial findings. 2. No calvarial fracture. ACT 112: Negative or not required by law. Electronically signed by: Lukas Abdi M.D. 03/28/2021 7:55 PM
--- NOTE | 2021-03-28 20:26 | History & Physical Report ---
Date of Service March 28, 2021 Assessment & Plan (1) Fall: Plan: 60 yo female with PMHx of crohns, COPD, CAD, GERD, HLD, HTN, and DM2 presented to the ER for presyncope and fall. (1) Fall -presented with increasing episodes of presyncope and falls over the last 2 months. -possible ddx hypomagnesia, hyponatremia, orthostatic hypotension, POTS, vasovagal -less likely cardiogenic -chest XR: no acute findings -head CT: no acute findings -EKG: normal sinus, anterior infarct age undetermined -orthostatics pending; consider tilt table testing -consider echo if symptomatic after magnesium correction -fall precautions placed -CBC, BMP am (2) Hypomagnesemia -Mg <0.5 -1g IV magnesium x2 in ED -will start magnesium drip: 1g/hr, monitor q4h labs -placed communication note for deep tendon reflexes q4h -monitor telemetry -ionized calcium pending -random spot urine creatinine and urine magnesium pending; calculate fractional excretion magnesium to evaluate for GI vs renal loss (3) Hyponatremia -Na 131, likely due to dehydration, monitor (4) H/o of peripheral artery bypass, left leg -complains of worsening numbness/tingling in left leg over the past few months -would consider left leg arterial doppler in near future as an outpatient (4) HTN -cont. home amlodipine, atenolol, lisinopril (5) HLD -cont. home statin (6) COPD -cont. home albuterol, roflumilast, azithromycin (7) CAD -cont. home aspirin, statin (8) Anxiety/depression -cont. home lexapro (9) GERD -hold PPI; potential cause of hypomagnesemia (10) DM2 -hold metformin -SSI + basal insulin DVT ppx: heparin 5000 units BID FEN/GI: heart healthy, DM2 Code Status: Full Dispo: med/tele History of Present Illness Chief Complaint: Dizziness, Fall Primary Care Provider: Fariba Abdi MD 60 yo female with PMHx of crohns in remission, COPD, CAD, GERD, HLD, HTN, and DM2 presented to the ER for presyncope and fall. She has been experiencing these symptoms for the last 4-6 weeks but have become progressively more frequent. When she begins walking after standing up, she will begin getting lightheaded and dizzy. She has had trouble with her balance especially going up and down stairs. Many times she feels the need to catch herself to prevent falling. She does have prodrome symptoms including lightheadedness, tremors, nausea, and cold sweats. Relief with sitting or laying down till spells pass. Today was her most recent fall in the [employer] parking lot. She fell backwards and hit her head but denies LOC. She states these falls are more due to feeling nauseous and dizzy rather than weakness. Alcohol use limited to a couple of drinks per month. She also complains of some loose stools over the last month about 2x/day. Denies changes in diet, no loss of appetite, stays well hydrated. She has had some medication changes as well in the past month, but states these symptoms, although not as frequent, did begin before any of the changes. 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 medications as well -denies change in PPI Allergies Allergy/AdvReac Type Severity Reaction Status Date / Time Iodinated Contrast Media Allergy Intermediate Hives Verified 03/28/21 19:33 Home Medications Medication Instructions Recorded Confirmed Type aspirin 81 mg tablet,delayed 81 mg PO QAM 08/21/20 03/28/21 History release calcium carbonate 500 mg-vitamin 1 tab PO QAM 08/21/20 03/28/21 History D3 3.125 mcg (125 unit) tablet cholecalciferol (vitamin D3) 125 125 mcg PO QAM 08/21/20 03/28/21 History mcg (5,000 unit) tablet (Vitamin D3) lansoprazole 30 mg capsule,delayed 30 mg PO QAM 08/21/20 03/28/21 History release (Prevacid) lisinopril 40 mg tablet 20 mg PO QAM 08/21/20 03/28/21 History multivitamin 1 tab PO QAM 08/21/20 03/28/21 History vitamin B complex 1 tab PO QAM 08/21/20 03/28/21 History albuterol sulfate 90 mcg/actuation 2 inh INHALATION Q6H PRN #6.7 g 08/23/20 03/28/21 Rx aerosol inhaler amlodipine 5 mg tablet 5 mg PO QAM 09/27/20 03/28/21 History fluticasone fur. 100 mcg-umeclid 1 inh INHALATION QAM #60 ea 10/13/20 03/28/21 Rx 62.5 mcg-vilant 25 mcg inhalat.powder (Trelegy Ellipta) atenolol 25 mg tablet 25 mg PO DAILY #90 tab 01/19/21 03/28/21 Rx escitalopram oxalate 10 mg tablet 10 mg PO DAILY #90 tab 01/19/21 03/28/21 Rx doxycycline hyclate 100 mg capsule 100 mg PO BID 7 Days #14 cap 01/29/21 03/28/21 Rx azithromycin 250 mg tablet 250 mg PO MOWEFR 30 Days #18 tab 02/02/21 03/28/21 Rx chlorpheniramine maleate 4 mg 4 mg PO Q12H 30 Days #60 tab 02/02/21 03/28/21 Rx tablet (Allergy Relief (chlorpheniramine)) pseudoephedrine HCl 120 mg 120 mg PO BID 30 Days #60 tab 02/02/21 03/28/21 Rx tablet,extended release (Sudafed 12 Hour) roflumilast 250 mcg tablet 250 mcg PO DAILY 28 Days #28 tab 02/02/21 03/28/21 Rx (Daliresp) sodium chloride, sodium See Rx Instructions .ROUTE 02/02/21 03/28/21 Rx bicarb-nasal rinse squeeze bottle .COMPLEX #50 ea with packet (Neilmed Sinus Rinse Complete) atorvastatin 40 mg tablet 40 mg PO DAILY #90 tab 02/03/21 03/28/21 Rx metformin 1,000 mg tablet,extended 2,000 mg PO DAILY #180 tab 02/03/21 03/28/21 Rx release 24hr fluticasone propionate 50 1 spray INTRANASAL BID #18.2 ml 03/22/21 03/28/21 Rx mcg/actuation nasal spray,suspension (Flonase Allergy Relief) Past Med/Surg History Medical History Anxiety and depression Chronic sinusitis COPD (chronic obstructive pulmonary disease) Coronary artery disease Seen on lung CT scan Crohn's disease in remission GERD (gastroesophageal reflux disease) Hyperlipidemia Hypertension Osteoarthritis Tobacco abuse Tubular adenoma (10/2020) Type 2 diabetes mellitus Surgical History History of bilateral tubal ligation History of section History of colonoscopy History of esophagogastroduodenoscopy (EGD) History of tonsillectomy History of tooth extraction Family History Aunt Breast cancer Mother Diabetes Hypertension Other Cancer Heart disease Lung disease No family history of adverse response to anesthesia Denies family history of Ovarian cancer Prostate cancer Myocardial infarction Colorectal cancer Asthma Social History Smoking Status: Current every day smoker Age Quit Using Tobacco: 11; packs per day: 1; Years Smoked: 49; Cigarettes Per Day: 20; Second Hand Exposure: No; Hx Alcohol Use: No Hx Substance Use: No Preferred Language: Urdu Communication Ability: Effective Visual Impairment: No Limitations Hearing Ability: Normal Employee Benefits Specialist Required: No Beliefs That Will Affect Care: None marital status: / Current Living Situation: Family Current Living Situation Comment: Lives with brother and sister in law Feels Safe at Home: Yes Dental Care, Regularly: Yes Physical Activity Frequency: Does not Exercise Assistive Devices: Glasses Review of Systems Review of Systems: Constitutional: denies fevers, chills, fatigue HEENT: denies congestion, sore throat CV: denies chest pain, palpitations Resp: +chronic cough (due to COPD). denies shortness of breath GI: +loose stools. denies abdominal pain, nausea, vomiting, constipation : denies pain with urination, change in urinary frequency Skin: denies new rash Neuro: +numbness and tingling in left leg for past 4 months (history of peripheral artery bypass left leg), +LE weakness when walking (chronically) Physical Exam Physical Exam: Constitutional: in no acute distress, pleasant and normal affect. Vitals as below.. HEENT: Wears glasses. No scleral injection or discharge.Clear oropharynx.No exudate.TMs clear bilaterally. Neck: Supple without lymphadenopathy or thyromegaly. Trachea midline. Lungs: Clear to auscultation bilaterally. Cardiac: Regular rate and rhythm.No murmurs.No extremity edema. Pedal pulses present. Abdomen: Bowel sounds present. Soft, nontender, and nondistended.No guarding. MSK: Full ROM of hips and knees. Extremities motor strength 5/5. Normal sensation. Positive straight leg raise bilaterally. Skin: abrasions over left elbow region s/p fall without signs of infection Neurologic: 2+ patellar and ankle tendon reflexes bilaterally. PERRL. Negative [id number] test. When patient stood up from bed she did begin to get shaky and dizzy. Results & Data Results & Data ([facility]) Vital Signs (Past 12 Hours) Vital Signs Temp Pulse Resp BP Pulse Ox 03/28/21 16:55 36.3 C L 71 18 116/82 97 Laboratory Results Laboratory Results WBC 8.35 K/uL (4.8-10.8) 03/28/21 17: RBC 3.88 M/uL (4.2-5.4) L 03/28/21 17: Hgb 13.0 g/dL (12.0-16.0) 03/28/21 17: Hct 37.3 % (37-47) 03/28/21 17: MCV 96.1 fL (80-100) 03/28/21 17: MCH 33.5 pg (25-34) 03/28/21 17: MCHC 34.9 g/dL (32-36) 03/28/21 17: RDW Std Deviation 42.6 fL (36.4-46.3) 03/28/21 17: RDW Coeff of Bijan 12.2 % (11.5-14.5) 03/28/21 17: Plt Count 227 K/uL (130-400) 03/28/21 17: MPV 10.2 fL (7.4-10.4) 03/28/21 17: Immature Gran % (Auto) 0.4 % 03/28/21: Neut % (Auto) 71.8 % 03/28/21 17: Lymph % (Auto) 16.2 % 03/28/21 17: Martin % (Auto) 10.9 % 03/28/21 17: Eos % (Auto) 0.5 % 03/28/21 17: Baso % (Auto) 0.2 % 03/28/21 17: Neut # (Auto) 6.00 K/uL (1.4-6.5) 03/28/21 17: Lymph # (Auto) 1.35 K/uL (1.2-3.4) 03/28/21 17:23 Martin # (Auto) 0.91 K/uL (0.11-0.59) H 03/28/21 17:23 Eos # (Auto) 0.04 K/uL (0-0.5) 03/28/21 17: Baso # (Auto) 0.02 K/uL (0-0.2) 03/28/21 17: Immature Gran # (Auto) 0.03 K/uL (0.00-0.02) H 03/28/21 17: Sodium 131 mmol/L (136-145) L 03/28/21 17: Potassium 4.2 mmol/L (3.5-5.1) 03/28/21 17: Chloride 96 mmol/L (98-107) L 03/28/21 17: Carbon Dioxide 23 mmol/L (21-32) 03/28/21 17:23 Anion Gap 12 (3-11) H 03/28/21 17:23 BUN 22 mg/dl (6-23) 03/28/21 17: Creatinine 1.02 mg/dl (0.6-1.2) 03/28/21 17: Est Cr Clr Drug Dosing 64.4 ml/min 03/28/21 17:23 Est GFR ( Amer) 68.3 ml/min 03/28/21 17: Est GFR (Non-Af Amer) 58.9 ml/min 03/28/21 17:23 BUN/Creatinine Ratio 21.6 (10-20) H 03/28/21 17: Glucose 191 mg/dl (70-99(Fasting)) H 03/28/21 17: Calcium 8.1 mg/dl (8.5-10.1) L 03/28/21 17: Magnesium < 0.5 mg/dl (1.7-2.4) L* 03/28/21 17: Total Bilirubin 0.5 mg/dl (0.2-1.0) 01/26/22 17:23 AST 19 U/L (13-39) 03/28/21 17:23 ALT 20 U/L (7-52) 03/28/21 17:23 Alkaline Phosphatase 60 U/L (34-104) 03/28/21 17:23 Troponin I < 0.03 ng/ml (0-0.04) 03/28/21 17:23 Total Protein 7.1 gm/dl (6.0-8.3) 03/28/21 17:23 Albumin 4.4 gm/dl (3.4-5.0) 03/28/21 17:23 Globulin 2.7 gm/dl (2.5-4.0) 03/28/21 17: Albumin/Globulin Ratio 1.6 (0.9-2) 03/28/21 17: TSH 1.148 uIu/ml (0.300-4.500) 03/28/21 17:23 SARS-CoV-2, RNA, NAAT NEGATIVE (NEGATIVE) 03/28/21 20:08 Impressions Chest X-Ray 03/28/21 16:58 XR chest 1V portable CLINICAL HISTORY: Syncope. COMPARISON STUDY: Chest CT January 29, 2021. Chest radiograph August 21, 2020. FINDINGS: Lung volumes are normal. Lungs are clear. There is no pneumothorax or pleural effusion. Cardiac size is normal. Mediastinal contours are normal. There is no evidence for pulmonary edema. Nipple shadow projects over the right lower lung. IMPRESSION: No acute cardiopulmonary findings. ACT 112: Negative or not required by law. Electronically signed by: Lukas Abdi M.D. 03/28/2021 5:[address] 03/28/21 19:00 CT OF THE HEAD WITHOUT CONTRAST CLINICAL HISTORY: trauma COMPARISON STUDY: No previous studies for comparison. CT DOSE: 537.48 mGy.cm TECHNIQUE: Helical axial images of the head were obtained without IV contrast. Automated exposure control was utilized for the study. A dose lowering technique was utilized adhering to the principles of ALARA. FINDINGS: No acute intracranial hemorrhage, midline shift or mass effect is present. The ventricular system is unremarkable. The basal cisterns are patent. No extra-axial collections are present. There are no findings to suggest acute dural sinus thrombosis or acute territorial infarct. There is no calvarial fracture. Trace fluid within the bilateral mastoid air cells is present. There are secretions within the dependent aspects of the maxillary sinuses. IMPRESSION: 1. No acute intracranial findings. 2. No calvarial fracture. ACT 112: Negative or not required by law. Electronically signed by: Lukas Abdi M.D. 03/28/2021 7:55 PM Supervising Physician Co-Signing Physician Notes Patient seen and examined, chart reviewed, case discussed with Dr. Garcia and I agree with the assessment and plan as above. In brief, patient is a 60yo female presenting with weakness and frequent falls. Found with severely low Mg at <0.5 Exam is unremarkable +S1/S2, regular Lungs CTA Abd soft, NT/ND Ext warm, well perfused Reflexes 2+ Labs and images reviewed Assessment/Plan -Mg repletion with drip - discussed with pharmacy. -Monitor Mg levels q 4 hours -Monitor reflexes -Check orthostatics -Remainder as above Resident Activity Tracking Resident Involvement: Resident Care Provided Care Provided: Adult Hospital Medicine
--- NOTE | 2021-03-28 23:46 | Communication Note ---
Date of Service: March 28, 2021 Due to severe hypomagnesemia, please check deep tendon reflexes q4h while on magnesium drip. Resident Activity Tracking Resident Involvement: Resident Care Provided Care Provided: Adult [facility]
[2021-03-29] MEDS ORDERED: DEXTROSE 50% 50 ML SYRINGE IV PRN (00:40)
[2021-03-29] MEDS ORDERED: POLYETHYLENE (MIRALAX) 17 GM PACK PO PRN ×2 (00:40→05:04)
[2021-03-29] MEDS ORDERED: GLUCOSE 40% GEL 15 GM TUBE PO PRN (00:40)
[2021-03-29] MEDS ORDERED: ALBUTEROL HFA 8 GM INHALER INH PRN (00:40)
[2021-03-29] MEDS ORDERED: CARBOHYDRATES FOR HYPOGLYCEMIA PO PRN (00:40)
[2021-03-29] MEDS ORDERED: ACETAMINOPHEN 325 MG TAB PO PRN (00:40)
[2021-03-29] MEDS ORDERED: MAGNESIUM SULFATE / WTR 40 GM/1,000 ML BAG IV SCH (00:40)
[2021-03-29] MEDS ORDERED: GLUCOSE 10 TABS/TUBE PO PRN (00:40)
[2021-03-29] MEDS ORDERED: ALUMINUM/MAGNESIUM SUSP 30 ML UDC PO PRN (00:40)
[2021-03-29] MEDS ORDERED: MAGNESIUM HYDROXIDE SUSP 30 ML UDC PO PRN (00:40)
[2021-03-29] MEDS ORDERED: GLUCAGON FOR INJ 1 MG VIAL SQ PRN (00:40)
[2021-03-29] MEDS ORDERED: MoRPHine SULFATE 2 MG/ML CARP IV PRN (00:40)
[2021-03-29] MEDS ORDERED: ONDANSETRON INJ 2 MG/ML 2 ML VIAL IV PRN (00:40)
[2021-03-29] MEDS ORDERED: NITROGLYCERIN SL 0.4 MG/TAB TAB SL PRN (00:40)
[2021-03-29 01:30] LABS: Appearance Urine Clear (Clear); Bilirubin Urine Negative (Negative); Blood Urine Negative (Negative); Color Urine Yellow; Glucose Urine UA Negative (Negative); Ketones Urine Negative (Negative); Leukocyte Esterase Urine Negative (Negative); Nitrite Urine Negative (Negative); Protein Urine Negative (Negative); Specific Gravity Urine 1.005 (1.000-1.030); Urobilinogen Urine Negative (Negative); pH Urine 5.5 (4.5-7.5)
--- NOTE | 2021-03-29 05:41 | Billing Data ---
Date of Service March 28, 2021 Coding Level of Care Code 10544 Initial Inpt Care Lvl 3
[2021-03-29 05:59] LABS: Basophils # (auto) 0.02 K/uL (0-0.2); Basophils % (auto) 0.4 %; Eosinophils % (auto) 1.8 %; Hematocrit (blood only) 36.5 % (37-47); Hemoglobin 12.6 g/dL (12.0-16.0); Immature Granulocytes # (auto) 0.02 K/uL (0.00-0.02); Immature Granulocytes % (auto) 0.4 %; Mean Corpuscular Hemoglobin 33.3 pg (25-34); Mean Corpuscular Hgb Conc 34.5 g/dL (32-36); Mean Corpuscular Volume 96.6 fL (80-100); Mean Platelet Volume 10.1 fL (7.4-10.4); Monocytes # (auto) 0.52 K/uL (0.11-0.59); Monocytes % (auto) 9.3 %; Neutrophils # (auto) 3.54 K/uL (1.4-6.5); Neutrophils % (auto) 63.1 %; Platelet Count 208 K/uL (130-400); RDW Coefficient of Variation 12.2 % (11.5-14.5); RDW Standard Deviation 42.9 fL (36.4-46.3); Red Blood Count 3.78 M/uL (4.2-5.4)
[2021-03-29 06:32] LABS: BUN Creatinine Ratio 19.5 (10-20); Calcium 8.5 mg/dl (8.5-10.1); Creatinine Clr Calc Pharmacy 80.1 ml/min; Est GFR (African American) 88.9 ml/min; Est GFR (Non-African American) 76.7 ml/min; Magnesium 2.5 mg/dl (1.7-2.4); Potassium 4.1 mmol/L (3.5-5.1)
[2021-03-29] MEDS ORDERED: STAT IV STA (07:33)
--- NOTE | 2021-03-29 07:41 | Hospitalist Progress Note ---
Date of Service March 29, 2021 Assessment & Plan (1) Fall: Plan: 60 yo female with PMHx of Crohn's disease, COPD, CAD, GERD, HLD, HTN, and DM2 admitted for generalized weakness with hypocalcemia and hypomagnesemia. Lightheadedness, fall: - Presented with increasing episodes of presyncope and falls over the last 2 months. - Suspect symptoms are multifactorial with orthostatic hypotension, electrolyte derangements, loose stools. - No signs on labwork to suggest infectious cause. - CT Head without evidence of stroke, bleeding. - Noted to have hypocalcemia and hypomagnesemia on admit, see interventions below. - Orthostatic vitals positive, will hold amlodipine. - No findings on telemetry to suggest cardiac arrhythmia. - Echo without significant valvular pathology. Normal EF with Grade I diastolic dysfunction (abnormal relaxation pattern). - PT and OT orders placed; patient to be evaluated before discharge. Hypomagnesemia: - Mg <0.5 on admission. - Received 1g IV magnesium x2 in ED, and was on magnesium gtt for several hours with repeat Mg of 2.5. - Repeat Mg in AM. - Etiology possibly due to GI losses from metformin dose increase. Hypocalcemia: - Possibly from HypoMg. Repleted with 1g calcium gluconate today. - PTH and Vitamin D levels normal. - Repeat BMP in AM. HTN: - Hold home amlodipine, lisinopril. HLD: - Continue home statin. COPD: - Continue home albuterol, roflumilast, azithromycin. CAD: - Continue home aspirin, statin. Anxiety/depression: - Continue home Lexapro, atenolol. GERD: - D/C PPI due to hypomagnesemia. - Famotidine 20mg BID for GERD. DM2: - Hold metformin in favor of basal/bolus insulin. Code Status: Full Code DVT ppx: Heparin 5000 units BID FEN/GI: heart healthy, DM2 Dispo: med/surg with telemetry Admission and Anticipated Discharge Date Admission Date: March 28, 2021 Supervising Physician Co-Signing Physician Notes Patient seen and examined with PGY-3 Dr. Schroeder. Agree with history, exam findings, assessment and plan of care as outlined. In brief, Ms. Calloway is a 60 year old female with history of COPD, TONYA, HTN, GERD, DM admitted with presyncope and a fall. This morning, she feels better, but mostly gets dizzy with position changes. No dizziness with turning her head. No palpitations or chest pain. VS and nursing notes reviewed. Well appearing. Heart with regular rate and rhythm. Lungs are clear to auscultation; no wheezing, ronchi, or rales. Labs and imaging reviewed. 1. Fall, presyncope. CXR and CT Head unremarkable. EKG with sinus rhythm. Continue CCM. Positive orthostatics this morning. TTE with grade 1 diastolic dysfunction; no valvular dysfunction. D/ana amlodipine for now. Titrate to a seated or standing blood pressure rather than a supine blood pressure. 2. HTN/CAD. D/Ana amlodipine. Continue atenolol, lisinopril, statin. 3. Hyponatremia. Na 131 initially, now 136 after IVFs. 4. Hypomagnesemia. S/p IV mag. Now Mg 2.5. Stopped PPI. No reflux symptoms, but if they recur, consider H2 dali. 5. Hypocalcemia. Unclear cause. PTH and vitamin D levels within normal range. May be secondary to all the other electrolyte derangements. S/p calcium gluconate. Recheck calcium level in the AM. 6. DM. basal bolus insulin. Other chronic issues are stable; home medications continued. Dispo: possible discharge tomorrow if she continues to do well and blood pressures are adequate. Subjective Patient without acute events overnight. Reports feeling less lightheaded with walking and sitting today as compared to the last several weeks. No complaints of chest pain, SOB, palpitations. Admits that she has had increase in loose stools since increasing metformin dose about 6 weeks ago. She also reports that she only ever feels the lightheadedness sensation when she is standing up or walking. Review of Systems Review of Systems: All systems reviewed & are unremarkable except as noted in HPI & below Constitutional: no fever, no chills and no malaise Respiratory: no cough and no dyspnea Cardiovascular: no chest pain, no palpitations and no edema Gastrointestinal: + diarrhea/loose stools; no abdominal pain and no constipation Genitourinary: no dysuria and no hematuria Physical Exam Constitutional: WD/WN, vitals as above Respiratory: normal respiratory effort, lungs clear to auscultation Cardiovascular: RRR, no murmur, no edema Gastrointestinal (Abdomen): normal bowel sounds, soft, nontender, no hepatosplenomegaly Skin: no rashes, warm and dry Psychiatric: A+Ox3, euthymic affect Results & Data Results & Data ([facility]) Vital Signs (Past 12 Hours) Vital Signs Pulse Pulse Resp BP BP Pulse Ox Pulse Ox 03/29/21 04:51 90 24 133/67 95 03/29/21 00:40 83 21 160/82 H 96 96 03/29/21 00:35 88 18 162/90 H 96 03/28/21 20:30 143/88 H 03/28/21 20:00 146/93 H Resident Activity Tracking Resident Involvement: Resident Care Provided Care Provided: Adult Hospital Medicine
[2021-03-29] MEDS ORDERED: CALCIUM GLUCONATE 10% 1,000 MG in DEXTROSE 5% 50 ML IV ONE (07:45)
[2021-03-29] MEDS: ATORVASTATIN 40 MG TAB PO SCH (08:24)
[2021-03-29] MEDS: ASPIRIN 81 MG ECTAB PO SCH (08:24)
[2021-03-29] MEDS: HEPARIN SOD 5,000 UNIT/0.5 ML VIAL SQ SCH ×2 (08:25→20:20)
[2021-03-29] MEDS: ROFLUMILAST 500 MCG TAB PO SCH (08:25)
[2021-03-29] MEDS: ATENOLOL 25 MG TABLET PO SCH (08:25)
[2021-03-29] MEDS: ESCITALOPRAM OXALATE 10 MG TAB PO SCH (08:25)
[2021-03-29] MEDS: INSULIN GLARGINE SOLOSTAR 100 UNITS/ML 3 ML PEN SC SCH ×2 (08:40→20:19)
[2021-03-29] MEDS ORDERED: lisinopril 20 MG TAB PO SCH (09:00)
[2021-03-29] MEDS ORDERED: amLODIPine BESYLATE 5 MG TAB PO SCH (09:00)
[2021-03-29] MEDS: INSULIN ASPART PER UNIT SC SCH ×4 (09:45→20:20)
--- NOTE | 2021-03-29 11:31 | XCELERA ---
[id number]
--- NOTE | 2021-03-29 12:09 | Electrocardiogram Report ---
Test Reason : Blood Pressure : / mmHG Vent. Rate : 083 BPM Atrial Rate : 083 BPM P-R Int : 150 ms QRS Dur : 082 ms QT Int : 374 ms P-R-T Axes : 079 060 078 degrees QTc Int : 439 ms Normal sinus rhythm Anterior infarct , age undetermined Abnormal ECG When compared with ECG of 21-AUG-2020 20:19, Left anterior fascicular block is no longer Present Anterior infarct is now Present Confirmed by Umer Soriano ([id number]) on 03/29/2021 12:09:41 PM Referred By: REFERRED SELF Confirmed By:Eleno Soriano
[2021-03-29] MEDS: FAMOTIDINE 20 MG TAB PO SCH (20:19)
--- NOTE | 2021-03-30 06:58 | Hospitalist Progress Note ---
Date of Service March 30, 2021 Assessment & Plan (1) Fall: Plan: 60 yo female with PMHx of Crohn's disease, COPD, CAD, GERD, HLD, HTN, and DM2 admitted for generalized weakness with hypocalcemia and hypomagnesemia. Lightheadedness, fall: - Presented with increasing episodes of presyncope and falls over the last 2 months. - Suspect symptoms are multifactorial with orthostatic hypotension, electrolyte derangements, loose stools. - No signs on labwork to suggest infectious cause. - CT Head without evidence of stroke, bleeding. - Noted to have hypocalcemia and hypomagnesemia on admit, see interventions below. - Orthostatic vitals positive, will hold amlodipine. - No findings on telemetry to suggest cardiac arrhythmia. - Echo without significant valvular pathology. Normal EF with Grade I diastolic dysfunction (abnormal relaxation pattern). - PT and OT orders placed; patient to be evaluated before discharge. Hypomagnesemia: - Mg <0.5 on admission. - Received 1g IV magnesium x2 in ED, and was on magnesium gtt for several hours with repeat Mg of 2.5. - Repeat Mg in AM. - Etiology possibly due to GI losses from metformin dose increase. Hypocalcemia: - Possibly from HypoMg. Repleted with 1g calcium gluconate today. - PTH and Vitamin D levels normal. - Repeat BMP in AM. HTN: - Hold home amlodipine, lisinopril. HLD: - Continue home statin. COPD: - Continue home albuterol, roflumilast, azithromycin. CAD: - Continue home aspirin, statin. Anxiety/depression: - Continue home Lexapro, atenolol. GERD: - D/C PPI due to hypomagnesemia. - Famotidine 20mg BID for GERD. DM2: - Hold metformin in favor of basal/bolus insulin. Code Status: Full Code DVT ppx: Heparin 5000 units BID FEN/GI: heart healthy, DM2 Dispo: med/surg with telemetry Admission and Anticipated Discharge Date Admission Date: March 28, 2021 Results & Data Results & Data ([facility]) Vital Signs (Past 12 Hours) Vital Signs Temp Pulse Pulse Resp BP Pulse Ox 03/30/21 03:30 36.7 C 71 18 128/74 96 03/29/21 22:37 36.7 C 83 18 155/74 H 98 03/29/21 22:19 76 03/29/21 19:19 36.5 C 88 18 94/58 L 97
[2021-03-30 07:29] LABS: Albumin Globulin Ratio 1.5 (0.9-2); Albumin Level 4.2 gm/dl (3.4-5.0); BUN Creatinine Ratio 24.4 (10-20); Bilirubin,Total 0.4 mg/dl (0.2-1.0); Calcium 8.8 mg/dl (8.5-10.1); Est GFR (African American) 79.4 ml/min; Est GFR (Non-African American) 68.5 ml/min; Globulin 2.8 gm/dl (2.5-4.0); Magnesium 1.7 mg/dl (1.7-2.4); Potassium 4.6 mmol/L (3.5-5.1)
[2021-03-30] MEDS: ROFLUMILAST 500 MCG TAB PO SCH (08:04)
[2021-03-30] MEDS: INSULIN ASPART PER UNIT SC SCH ×2 (08:04→12:18)
[2021-03-30] MEDS: ESCITALOPRAM OXALATE 10 MG TAB PO SCH (08:07)
[2021-03-30] MEDS: ATENOLOL 25 MG TABLET PO SCH (08:07)
[2021-03-30] MEDS: FAMOTIDINE 20 MG TAB PO SCH (08:07)
[2021-03-30] MEDS: ATORVASTATIN 40 MG TAB PO SCH (08:07)
[2021-03-30] MEDS: INSULIN GLARGINE SOLOSTAR 100 UNITS/ML 3 ML PEN SC SCH (08:07)
[2021-03-30] MEDS: ASPIRIN 81 MG ECTAB PO SCH (08:07)
[2021-03-30] MEDS: HEPARIN SOD 5,000 UNIT/0.5 ML VIAL SQ SCH (08:07)
[2021-03-30] MEDS ORDERED: AZITHROMYCIN 250 MG TAB PO SCH (09:00)
--- NOTE | 2021-03-30 15:34 | Discharge Summary ---
Date of Service March 30, 2021 Admission HPI Per Admitting Provider 60 yo female with PMHx of crohns in remission, COPD, CAD, GERD, HLD, HTN, and DM2 presented to the ER for presyncope and fall. She has been experiencing these symptoms for the last 4-6 weeks but have become progressively more frequent. When she begins walking after standing up, she will begin getting lightheaded and dizzy. She has had trouble with her balance especially going up and down stairs. Many times she feels the need to catch herself to prevent falling. She does have prodrome symptoms including lightheadedness, tremors, nausea, and cold sweats. Relief with sitting or laying down till spells pass. Today was her most recent fall in the [employer] parking lot. She fell backwards and hit her head but denies LOC. She states these falls are more due to feeling nauseous and dizzy rather than weakness. Alcohol use limited to a couple of drinks per month. She also complains of some loose stools over the last month about 2x/day. Denies changes in diet, no loss of appetite, stays well hydrated. She has had some medication changes as well in the past month, but states these symptoms, although not as frequent, did begin before any of the changes. Medication changes were as follows: -metformin 500mg to 2000mg daily; fasting glucose doesn't drop below 140 when she checks -lisinopril from 20mg to 40mg daily; systolic over 100 when she checks at home -manager storage changed some of the allergy medications as well -denies change in PPI Admission Exam Per Admitting Provider Constitutional: in no acute distress, pleasant and normal affect. Vitals as below.. HEENT: Wears glasses. No scleral injection or discharge.Clear oropharynx.No exudate.TMs clear bilaterally. Neck: Supple without lymphadenopathy or thyromegaly. Trachea midline. Lungs: Clear to auscultation bilaterally. Cardiac: Regular rate and rhythm.No murmurs.No extremity edema. Pedal pulses present. Abdomen: Bowel sounds present. Soft, nontender, and nondistended.No guarding. MSK: Full ROM of hips and knees. Extremities motor strength 5/5. Normal sensation. Positive straight leg raise bilaterally. Skin: abrasions over left elbow region s/p fall without signs of infection Neurologic: 2+ patellar and ankle tendon reflexes bilaterally. PERRL. Negative zwhxbn-st-yiwe test. When patient stood up from bed she did begin to get shaky and dizzy. Principal Diagnosis Lightheadedness, fall Discharge Exam Constitutional WD/WN, vitals as above Respiratory normal respiratory effort, lungs clear to auscultation Cardiovascular RRR, no murmur, no edema Gastrointestinal (Abdomen) normal bowel sounds, soft, nontender, no hepatosplenomegaly Discharge Data Allergies Allergy/AdvReac Type Severity Reaction Status Date / Time Iodinated Contrast Media Allergy Intermediate Hives Verified 03/28/21 19:33 Consultations 03/28/21 19:49 ED Decision to Admit Stat Ordered Studies 03/28/21 19:00 CT head/brain wo con Stat Hospital Course (1) Fall: 60 yo female with PMHx of Crohn's disease, COPD, CAD, GERD, HLD, HTN, and DM2 admitted for generalized weakness with hypocalcemia and hypomagnesemia. Lightheadedness, fall - Presented with increasing episodes of presyncope and falls over the last 2 months. - Suspect symptoms are multifactorial with orthostatic hypotension, electrolyte derangements, loose stools. - No signs on labwork to suggest infectious cause. - CT Head without evidence of stroke, bleeding. - Noted to have hypocalcemia and hypomagnesemia on admit, see interventions below. - Orthostatic vitals positive, will hold amlodipine. - No findings on telemetry to suggest cardiac arrhythmia. - Echo without significant valvular pathology. Normal EF with Grade I diastolic dysfunction (abnormal relaxation pattern). Hypomagnesemia - Mg <0.5 on admission. - Received 1g IV magnesium x2 in ED, and was on magnesium gtt for several hours with repeat Mg of 2.5. - Repeat Mg in AM. - Etiology possibly due to GI losses from metformin dose increase. Hypocalcemia - Possibly from HypoMg. Repleted with 1g calcium gluconate today. - PTH and Vitamin D levels normal. HTN - Hold home atenolol, amlodipine, lisinopril. Held all antihypertensives at discharge, as pressures were stable, well within normal ranges without them. Told patient to follow-up with PCP for further management. HLD: - Continue home statin. COPD: - Continue home albuterol, roflumilast, azithromycin. CAD: - Continue home aspirin, statin. Anxiety/depression: - Continue home Lexapro, atenolol. GERD: - D/C PPI due to hypomagnesemia. - Famotidine 20mg BID for GERD. DM2: - Hold metformin in favor of basal/bolus insulin. Total Time Total Time Spent Total Time Spent (In Minutes): <30 Discharge Plan Discharge Items Patient Disposition: Home - Self-Care Reason For Visit: DIZZINESS, FALL Discharge Diagnosis: Lightheadedness, fall Activity: Per Instructions section Non-emergency contact: Primary Care Provider Call non-emergency contact if: your symptoms worsen and you have a fever Follow-up/Referrals: Fariba Abdi MD [Primary Care Provider] - 04/09/21 4:00 pm Diet: Regular Addtl Attending Provider Instructions: You were admitted to the hospital for lightheadedness and associated falls. You were treated with fluids, imaging, medications and evaluated by our physicians. A discharge summary will be sent to your primary care physician to ensure continuity of care. Please bring this discharge summary with you to your next office appointment so that your provider can review it at that time. Follow-up appointments: * Make a follow-up appointment with your PCP within the next week. It is very important that you follow up with them shortly after discharge from the hospital. Medications: Your medication list has been reviewed and reconciled upon discharge to ensure accuracy and continuity of care. An updated list of all your medications is included with your hospital discharge paperwork. Please review this list closely, and make note of any changes. * We stopped your blood pressure medications Lisinopril, Amlodipine, and Atenolol. Please, do not take them until you have been seen by your primary care physician. * We stopped your Prevacid, as we believe it may have been contributing to your low magnesium. We replaced it with a different medication called Pepcid. Take Pepcid 20 mg twice daily as needed for management of your GERD. Take your medications as instructed; do not skip a dose of your medicines. Make sure all of your doctors know every medicine you are taking (including musf-zcv-tgwyxtq medicines, vitamins, and supplements). Call your primary care provider before taking any new medicines (including dmam-ivv-lgdqpfx medicines, vitamins, and supplements), because some of these may interact with your current medications, or may make your symptoms worse. Tell your primary care provider if you cannot afford your medications. CONTACT YOUR PRIMARY CARE PROVIDER if you experience any of the following: * Sudden weakness, lightheadedness, or dizziness * Increased muscle twitching, spasms or muscle weakness * Difficulty following your treatment plan, or difficulty taking medications CALL 911 OR GO TO THE EMERGENCY DEPARTMENT if you experience any of the following: * Sudden, severe abdominal pain or nausea/vomiting * Severe chest pain, or chest pain that radiates (moves) to your jaw or arm * Sudden, severe shortness of breath or difficulty breathing Thank you for allowing us to participate in your care. Pending Studies at Discharge: No Stand-Alone Forms: My [facility] GiveLoop, Smoking Cessation Medications and DC Order Prescriptions: New famotidine 20 mg Tablet 20 mg PO BID Qty: 60 RF: 0 Continued Trelegy Ellipta 100-62.5-25 mcg blister with device 1 inh inhalation QAM Qty: 60 RF: 5 escitalopram oxalate 10 mg tablet 10 mg PO DAILY Qty: 90 RF: 3 doxycycline hyclate 100 mg capsule 100 mg PO BID 7 Days Qty: 14 RF: 0 metformin 1,000 mg tablet extended release 24hr 2,000 mg PO DAILY Qty: 180 RF: 3 atorvastatin 40 mg tablet 40 mg PO DAILY Qty: 90 RF: 3 fluticasone propionate [Flonase Allergy Relief] 50 mcg/actuation spray,suspension 1 spray intranasal BID Qty: 18.2 RF: 2 pseudoephedrine HCl [Sudafed 12 Hour] 120 mg tablet extended release 120 mg PO BID 30 Days Qty: 60 RF: 3 chlorpheniramine maleate [Allergy Relief(chlorpheniramn)] 4 mg tablet 4 mg PO Q12H 30 Days Qty: 60 RF: 3 Neilmed Sinus Rinse Complete Packet With Rinse Device See Rx Instructions .Route .COMPLEX Qty: 50 RF: 3 azithromycin 250 mg tablet 250 mg PO MOWEFR 30 Days Qty: 18 RF: 6 multivitamin Tablet 1 tab PO QAM RF: 0 aspirin 81 mg Tablet,Delayed Release (Dr/Ec) 81 mg PO QAM RF: 0 lansoprazole [Prevacid] 30 mg capsule,delayed release(DR/EC) 30 mg PO QAM RF: 0 vitamin B complex Tablet 1 tab PO QAM RF: 0 calcium carbonate-vitamin D3 500 mg(1,250mg) -125 unit Tablet 1 tab PO QAM RF: 0 cholecalciferol (vitamin D3) [Vitamin D3] 125 mcg (5,000 unit) Tablet 125 mcg PO QAM RF: 0 albuterol sulfate 90 mcg/actuation HFA aerosol inhaler 2 inh inhalation Q6H PRN (Reason: shortness of breath or wheezing) Qty: 6.7 RF: 0 Discontinued atenolol 25 mg tablet 25 mg PO DAILY Qty: 90 RF: 3 lisinopril 40 mg tablet 20 mg PO QAM RF: 0 amlodipine 5 mg tablet 5 mg PO QAM RF: 0 Discharge Orders: Discharge Order (Routine); Ordered 03/30/21 Ordered By: Tushar Adair Admission Data Admit Date/Time: 03/28/21 23:04 Attending Provider: Edd Bill Admit Provider: Milton Garcia Primary Care Provider: Fariba Abdi Other Providers: Tere Rapp Other Interventions: Discharge Summary Assessment (RN) Last Done: 03/30/21 15:32 Supervising Physician Co-Signing Physician Notes Attending attestation Pt seen and examined in concert with Dr. Adair. In agreement with the documented findings as noted in the resident documentation with any exceptions or additions as noted here. Ongoing stable LUE pain with activity well controlled on present medication regimen. On examination, S1/S2 nl RRR no MCG. CTAB. Abd NT/ND BS+ve Lightheadedness w/ fall, likely orthostatic - PT/OT evaluation with good tolerance, no further orthostatic symptom Hypertension - currently off BP medications and tolerating well. Encourage restart under primary care supervision Hypomagnesemia - improved, encourage oral supplementation, avoid PPI 2/2 Mg lowering effect. Else see resident documentation as noted. Total attending time spent on this patients case on the day of discharge: 40 minutes. Resident Activity Tracking Resident Involvement: Resident Care Provided Care Provided: Adult Hospital Medicine
[2021-04-03 18:56] LABS: Magnesium, Random Urine 58 mg/g creat (22-130)
== END 2021-03-30 16:47 | disposition home or self-care (01) | DRG 312 ==
LOC: ED 16:48 → EDINP 23:04 → SUATTDRO 23:04 → EDINP 03-29 00:35 → 2N 03-29 12:22

== ENCOUNTER 2023-11-03 14:41 | Inpatient (IN) ==
--- OUTSIDE RECORDS SUMMARY | 2023-11-03 14:46 | External Medical Summary | Continuity of Care Document ---
Author Name Unknown Organization [address] Address [address] [facility] [address] [facility] [address] [place] [id number] Care Team Providers Care Obiee Consultant Name Role Phone Fariba Abdi Primary Care Physician [phone] [id number] Date(s[facility] 10/22/23 - 10/22/[address] [place] [facility] [place] [facility] [address] [facility] [place] [address] [phone] Encounter Diagnosis Aortoiliac occlusive disease(Discharge Diagnosis) - 10/22/23 Discharge Disposition: Home or Self Care Attending Physician: MD East Aditya Referring Physician: MD Kita, Sebastian Allergies, Adverse Reactions, Alerts Substance Criticality Severity Reaction Reaction Severity Status mercaptopurine Pancreatitis Ac tive IVP dye Hives Active Medications acetaminophen Start: 09/17/23 10:10:00 AM EDT, 650 mg =, PO, q6h Start Date: 09/17/23 Status: Ordered albuterol CFC free 90 mcg/inh MDI Start: 04/14/23 3:21:00 PM EST, 2 puff, inhaled, qid, PRN: as needed for wheezing Start Date: 04/14/23 Status: Ordered amiodarone 200 mg oral tablet Start: 09/17/23 9:57:00 AM EDT, 1 tab, PO, Daily Start Date: 09/17/23 Status: Ordered aspirin 81 mg oral delayed release tablet Start: 04/14/23 3:21:00 PM EST, 1 tab, PO, qAM Start Date: 04/14/23 Status: Ordered atorvastatin 40 mg oral tablet 1 tab, PO, qhs Start Date: 04/14/23 Status: Ordered escitalopram 10 mg oral tablet 1 tab, PO, qAM, take 1 tablet by mouth once daily Start Date: 04/14/23 Status: Ordered gabapentin 100 mg oral capsule Start: 10/22/23 12:07:00 PM EDT, 1 cap, PO, tid, Disp# 90 cap, Refills: 2, Pharmacy: [id number] Start Date: 10/22/23 Status: Ordered glimepiride 1 mg oral tablet take 1 tablet by mouth every morning with BREAKFAST Start Date: 04/14/23 Status: Ordered labetalol 100 mg oral tablet Start: 09/17/23 9:59:00 AM EDT, 2 tab, PO, bid Start Date: 09/17/23 Status: Ordered lisinopril 40 mg oral tablet Start: 09/17/23 9:56:00 AM EDT, 1 tab, PO, Daily Start Date: 09/17/23 Status: Ordered MetFORMIN (Eqv-Glucophage XR) 500 mg oral tablet, extended release 1 tab, PO, bid, morning and evening Start Date: 04/14/23 Status: Ordered mirtazapine Start: 09/17/23 9:59:00 AM EDT, 7.5 mg =, PO, qPM Start Date: 09/17/23 Status: Ordered multivitamin Start: 04/14/23 3:22:00 PM EST, 1 tab, PO, qAM Start Date: 04/14/23 Status: Ordered omeprazole 20 mg oral delayed release capsule 1 cap, PO, qAM, take 1 capsule by mouth daily Start Date: 04/14/23 Status: Ordered oxyCODONE 5 mg oral tablet Start: 09/17/23 10:01:00 AM EDT, 5 mg =, PO, q4h, Disp# 30 tab, Refills: 0, PRN: pain - moderate (4-6) Start Date: 09/17/23 Status: Ordered rivaroxaban 20 mg oral tablet Start: 09/17/23 9:56:00 AM EDT, 1 tab, PO, Daily Start Date: 09/17/23 Status: Ordered Trelegy Ellipta 100 mcg-62.5 mcg-25 mcg/inh inhalation powder 1 puff, inhaled, qAM, inhale 1 puff by mouth and INTO THE LUNGS once daily Start Date: 04/14/23 Status: Ordered Mental Status 10/22/23 Barriers to Learning one year None evide nt Mandatory Health Literacy Documentation Yes Communication Barrier Present No Health Literacy Communication Barriers N ever Primary Language [place] Problem List Condition Confirmation Course Effective Dates Status Health St atus Informant Diabetes mellitus Confirmed Active Aortoiliac occlusive disease Confirmed Active Peripheral arterial disease Confirmed Active Subclavian artery stenosis Confirmed Active Tobacco user Confirmed Active Diagnosis Diagnosis Type Effective Dates Health Status Clinical Service Informant Aortoiliac occlusive disease Discharge Diagnosis 10/22/23 Procedures Procedure Date Related Diagnosis Body Site Status Artery- bypass 2013 Completed section Complete d Colonoscopy Completed Tonsillectomy Completed Social History Social History Type Response Smoking Status Former Smoker, quit > 1 yr Sex Female Sex Representation Female (finding) Implantable Device List Procedure Provider Procedure Date Device Type Site Unknown Unknown 08/29/23 Unknown Unknown Device Identifier Serial Number Lot or Batch Number Manufacturing Date Expiration Date Distinct Identification Code MRI Safety Implantable Status Assigning Authority Unknown Unknown [id number] Unknown 11/30/26 Unknown Unknown Active Unkn own Patient Care team information Care Team Personnel Name: MD Abdi Cynthia D Position: Referring Member Role: Primary Care Provider [address]: [address] [place] [id number] [place] Name: FLAVIO Ramos Terra L Position: Nurse Pract - Vascular Surg Member Role: Lifetime Relationship Address: [address] [place] [address] [place] Name: Vasu Jeong Amy E Position: Pharmacist Member Role: Pharmacy - Lifetime Address: [facility] [address] [place] [address] [place] Name: Vasu Box Ann Position: Pharmacist Member Role: Pharmacy - Lifetime Name: DIMA Quevedo Lynn Position: Physician House Nurse Exempt - Vasc Surg Member Role: Lifetime Relationship Address: [address] [place] [id number] [place] Care Team Related Persons Name: INDIGO BAEZ
--- OUTSIDE RECORDS SUMMARY | 2023-11-03 14:46 | External Medical Summary | Continuity of Care Document ---
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 Name Role Phone Chapo Abdi Primary Care Physician [phone] [facility] [id number] Date(s): 08/29/23 - 09/17/[address] [id number] [phone] Encounter Diagnosis Acute pain(Discharge Diagnosis) - 08/29/23 Hypotension(Discharge Diagnosis) - 08/30/23 Lactic acidosis(Discharge Diagnosis) - 08/31/23 Acute blood loss anemia(Discharge Diagnosis) - 08/31/23 Thrombocytopenia(Discharge Diagnosis) - 08/31/23 Critical illness myopathy(Discharge Diagnosis) - 09/06/23 Anxiety(Discharge Diagnosis) - 09/04/23 Leukocytosis(Discharge Diagnosis) - 09/11/23 Encounter for geriatric assessment(Discharge Diagnosis) - 09/15/23 Insomnia(Discharge Diagnosis) - 09/15/23 Nicotine dependence with withdrawal(Discharge Diagnosis) - 09/15/23 Mesenteric ischemia due to arterial insufficiency(Discharge Diagnosis) - 08/29/23 Peripheral arterial disease(Discharge Diagnosis) - 09/04/23 Acute hypoxic respiratory failure(Discharge Diagnosis) - 09/04/23 Critical limb ischemia of both lower extremities(Discharge Diagnosis) - 08/29/23 Atrial fibrillation with RVR(Discharge Diagnosis) - 09/02/23 Hypertension(Discharge Diagnosis) - 09/04/23 Accelerated essential hypertension(Discharge Diagnosis) - 09/17/23 Discharge Disposition: Inpatient Rehab Facility/Unit Attending Physician: MD East Aditya Admitting Physician: MD East Aditya Allergies, Adverse Reactions, Alerts Substance Criticality Severity Reaction Reaction Severity Status mercaptopurine Pancreatitis Ac tive IVP dye Hives Active Functional Status 09/17/23 Neurological Symptoms Weakness ADLs Moderate assistance Facial Symmetry Symmetric Gait Steady Swallowing Difficulty None Level of Consciousness Neuro Alert Hallucinations Present None History of Fall in Last 3 Months Nicolas N o Presence of Secondary Diagnosis Nicolas Ye s Use of Ambulatory Aid Nicolas Crutches/can e/walker IV/Heparin Lock Fall Risk Nicolas Yes Gait/Transferring Fall Risk Nicolas Weak Mental Status Fall Risk Nicolas Oriented t o own ability Nicolas Fall Risk Score 60 Nicolas Fall Risk High risk Speech Pattern Clear Medications acetaminophen Start: 09/17/23 10:10:00 AM EDT, [...] PO, qhs Start Date: 04/14/23 Status: Ordered doxycycline Start: 09/17/23 9:59:00 AM EDT, 100 mg =, PO, bid Start Date: 09/17/23 Status: Ordered escitalopram 10 mg oral tablet 1 tab, PO, qAM, take 1 tablet by mouth once daily Start Date: 04/14/23 Status: Ordered glimepiride 1 mg oral tablet take 1 tablet by mouth every morning with BREAKFAST Start Date: 04/14/23 Status: Ordered HumaLOG Sliding Scale Ultra Low Dose Range: SSI, injection, subQ, 09/16/23 10:00:00 PM EDT, 09/16/23 9:10:36 PM EDT, Estimated correction need for patients using total insulin daily dose less than or equal to 30 units. Nursing to order low dose syringes from [facility] (see order comments)., 09/13/23 11:00:00 EDT Start Date: 09/16/23 Stop Date: 09/16/23 Status: Completed HumaLOG Sliding Scale Ultra Low Dose Range: SSI, injection, subQ, 09/17/23 7:30:00 AM EDT, 09/17/23 7:48:53 AM EDT, Estimated correction need for patients using total insulin daily dose less than or equal to 30 units. Nursing to order low dose syringes from [facility] (see order comments)., 09/13/23 11:00:00 EDT Start Date: 09/17/23 Stop Date: 09/17/23 Status: Completed HumaLOG Sliding Scale Ultra Low Dose Range: SSI, injection, subQ, 09/17/23 11:30:00 AM EDT, 09/17/23 12:36:23 PM EDT, Estimated correction need for patients using total insulin daily dose less than or equal to 30 units. Nursing to order low dose syringes from [facility] (see order comments)., 09/13/23 11:00:00 EDT Start Date: 09/17/23 Stop Date: 09/17/23 Status: Completed labetalol 100 mg oral tablet Start: 09/17/23 9:59:00 AM EDT, 2 tab, PO, bid Start Date: 09/17/23 Status: Ordered lisinopril 40 mg oral tablet Start: 09/17/23 9:56:00 AM EDT, 1 tab, PO, Daily Start Date: 09/17/23 Status: Ordered Melatonin Start: 09/17/23 10:00:00 AM EDT, 3 mg =, PO, qhs, PRN: insomnia Start Date: 09/17/23 Status: Ordered MetFORMIN (Eqv-Glucophage XR) 500 mg oral tablet, extended release 1 tab, PO, bid, morning and evening Start Date: 04/14/23 Status: Ordered MiraLax Start: 09/17/23 10:00:00 AM EDT, 17 g =, PO, Daily, PRN: constipation Start Date: 09/17/23 Status: Ordered mirtazapine Start: 09/17/23 9:59:00 AM [...] moderate (4-6) Start Date: 09/17/23 Status: Ordered povidone iodine 10% topical ointment Start: 09/17/23 10:10:00 AM EDT, 1 appl, topical, Daily, apply thin film to abdominal incision and left groin incision daily, PRN: dressing changes Start Date: 09/17/23 Status: Ordered rivaroxaban 20 mg oral tablet Start: 09/17/23 9:56:00 AM EDT, 1 tab, PO, Daily Start Date: 09/17/23 Status: Ordered Trelegy Ellipta 100 mcg-62.5 mcg-25 mcg/inh inhalation powder 1 puff, inhaled, qAM, inhale 1 puff by mouth and INTO THE LUNGS once daily Start Date: 04/14/23 Status: Ordered Mental Status 09/10/23 Primary Language Cymraes 09/09/23 Communication Barrier Present No Problem List Condition Confirmation Course Effective Dates Status Health St atus Informant Diabetes mellitus Confirmed Active Aortoiliac occlusive disease Confirmed Active Peripheral arterial disease Confirmed Active Subclavian artery stenosis Confirmed Active Tobacco user Confirmed Active Diagnosis Diagnosis Type Effective Dates Health Status Clinical Service Informant Acute pain Discharge Diagnosis 08/29/23 Non-Specified Mesenteric ischemia due to arterial insufficiency Discharge Diagnosis 08/29/23 Non-Specified Critical limb ischemia of both lower extremities Discharge Diagnosis 08/29/23 Non-Specified Hypotension Discharge Diagnosis 08/30/23 Non-Specified Acute blood loss anemia Discharge Diagnosis 08/31/23 Non-Specified Thrombocytopenia Discharge Diagnosis 08/31/23 Non-Specified Lactic acidosis Discharge Diagnosis 08/31/23 Non-Specified Atrial fibrillation with RVR Discharge Diagnosis 09/02/23 Anxiety Discharge Diagnosis 09/04/23 Non-Specified Acute hypoxic respiratory failure Discharge Diagnosis 09/04/23 Non-Specified Peripheral arterial disease Discharge Diagnosis 09/04/23 Non-Specified Hypertension Discharge Diagnosis 09/04/23 Non-Specified Critical illness myopathy Discharge Diagnosis 09/06/23 Non-Specified Leukocytosis Discharge Diagnosis 09/11/23 Non-Specified Encounter for geriatric assessment Discharge Diagnosis 09/15/23 Non-Specified Insomnia Discharge Diagnosis 09/15/23 Non-Specified Nicotine dependence with withdrawal Discharge Diagnosis 09/15/23 Non-Specified Accelerated essential hypertension Discharge Diagnosis 09/17/23 Non-Specified Procedures Procedure Date Related Diagnosis Body Site Status Artery- bypass 2013 Completed section Complete d Colonoscopy Completed Tonsillectomy Completed Results Laboratory List Name Date Glucose Meter (GLUCOSE METER) 09/17/23 Glucose Meter (GLUCOSE METER) 09/17/23 Vitamin D, 25-Hydroxy Level, Total Complete Blood Count (CBC w Platelets) Magnesium Level 09/17/23 Nephrology Panel 09/17/23 Glucose Meter (GLUCOSE METER) 09/16/23 Complete Blood Count (CBC w Platelets) Magnesium Level 09/16/23 Nephrology Panel 09/16/23 Partial Thromboplastin Time (PTT) 4 Partial Thromboplastin Time (PTT) 4 Partial Thromboplastin Time (PTT) 4 Magnesium Level 09/15/23 Complete Blood Count (CBC w Platelets) Nephrology Panel 09/15/23 Vancomycin, Trough Level 09/13/23 MRSA Surveillance (Nasal Swab) 09/12/23 Added on Lab order 09/11/23 Complete Blood Count w Differential (CBC ,DIFFH) 09/11/23 Added on Lab order 09/10/23 Vancomycin, Trough Level 09/10/23 Lactic Acid Level 09/09/23 Lactic Acid Level 09/09/23 Lactic Acid Level 09/09/23 Urine Analysis w/ Reflexed Microscopic. (UA w/ Reflexed Microscopic.) 09/08/23 Specimen Type (SPECIMEN TYPE) 09/08/23 Urine Container on Hold in Laboratory (E XTRA URINE) 09/08/23 Blood Type/Antibody Screen ( for possible transfusion) (Type and Screen (for possible transfusion)) 09/08/23 Troponin T ( 5th Gen) 09/07/23 Troponin T ( 5th Gen) 09/07/23 Added on Lab order 09/07/23 Blood Glucose Monitoring Nurse POC (Gluc ose Meter Nurse POC) 09/07/23 Blood Glucose Monitoring Nurse POC (Gluc ose Meter Nurse POC) 09/07/23 Amylase Level 09/07/23 Bilirubin, Direct (Fractionated Bilirubi n) 09/07/23 Bilirubin, Total (Total Bilirubin) 4 Lipase Level 09/07/23 ALT Level (ALT) 09/07/23 AST Level (AST) 09/07/23 Calcium, Ionized (Ionized Calcium) 4 Calcium, Ionized 09/03/23 Calcium, Ionized (Ionized Calcium) 4 Hepatic Function Panel 09/03/23 Arterial Blood Gases w/ Hgb and O2 Sat ( ABGs, w/ Hgb and O2 Sat) 09/02/23 Prothrombin Time w/ INR 09/02/23 Troponin T ( 5th Gen) 09/02/23 Potassium Level, Whole Blood (K Level, W hole Blood) 09/02/23 Potassium Level, Whole Blood (K Level, W hole Blood) 09/02/23 Arterial Blood Gases w/ Hgb and O2 Sat ( ABGs, w/ Hgb and O2 Sat) 09/02/23 Hepatic Function Panel 09/02/23 Prothrombin Time w/ INR 09/02/23 Liver Profile (LIVER PROFILE) 09/02/23 Protein, Total (PROTEIN) 09/02/23 Arterial Blood Gases w/ Hgb and O2 Sat ( ABGs, w/ Hgb and O2 Sat) 09/01/23 Prothrombin Time w/ INR 09/01/23 Arterial Blood Gases w/ Hgb and O2 Sat ( ABGs, w/ Hgb and O2 Sat) 09/01/23 Blood Type/Antibody Screen ( for possible transfusion) (Type and Screen (for possible transfusion)) 09/01/23 Arterial Blood Gases w/ Hgb and O2 Sat ( ABGs, w/ Hgb and O2 Sat) 08/31/23 Arterial Blood Gases w/ Hgb and O2 Sat ( ABGs, w/ Hgb and O2 Sat) 08/31/23 Istat Gases Arterial (RES THERAPY) (I-ST AT GAS,ART(RESPIRATORY THERAPY)) 08/31/23 Potassium Level, Whole Blood (K Level, W hole Blood) 08/31/23 Arterial Blood Gases w/ Hgb and O2 Sat ( ABGs, w/ Hgb and O2 Sat) 08/31/23 Lactic Acid Level, Whole Blood 08/31/23 Extra Green ([place] Heparin) (EXTRA GRE EN (LIHEP)) 08/31/23 Arterial Blood Gases w/ Hgb and O2 Sat ( ABGs, w/ Hgb and O2 Sat) 08/30/23 Lactic Acid Level, Whole Blood 08/30/23 Lactic Acid Level, Whole Blood 08/30/23 Prepare Platelets. 08/30/23 Istat Gases Arterial (RES THERAPY) (I-ST AT GAS,ART(RESPIRATORY THERAPY)) 08/29/23 MRSA Surveillance (Nasal Swab) 08/29/23 IStat Gases, Arterial (ANES) (I-STAT GAS ,ART(ANES)) 08/29/23 Fibrinogen 08/29/23 IStat Gases, Arterial (ANES) (I-STAT GAS ,ART(ANES)) 08/29/23 IStat Gases, Venous (ANES) (I-STAT GAS,V EN(ANES)) 08/29/23 ATC, Celite, by I-Stat (Anes) (ACT CELIT E ISTAT (ANES)) 08/29/23 ATC, Celite, by I-Stat (Anes) (ACT CELIT E ISTAT (ANES)) 08/29/23 ATC, Celite, by I-Stat (Anes) (ACT CELIT E ISTAT (ANES)) 08/29/23 Blood Glucose Monitoring Nurse POC (Gluc ose Meter Nurse POC) 08/29/23 Blood Type (ABO/Rh) 08/29/23 Blood Type/Antibody Screen ( for possible transfusion) (Type and Screen (for possible transfusion)) 08/29/23 Most recent to oldest [Reference Range]: 1 2 3 4 Hct, POC [38-51 %] 34 % *LOW* (08/31/23 9:19 AM) 34 % *LOW* (08/29/23 6:42 PM) 24 % *LOW* (08/29/23 4:51 PM) Hgb, POC [12-17 g/dL] 11.6 g/dL *LOW* (08/31/23 9:19 AM) 11.6 g/dL *LOW* (08/29/23 6:42 PM) 8.2 g/dL *LOW* (08/29/23 4:51 PM) Green ([place] Heparin) Specimen available from 0 to 3 days based on specimen stability. Please use addon order if you wish to order testing. (08/31/23 3:06 AM) Urine Container Specimen available from 0 to 3 days based on specimen stability. Please use addon order if you wish to order testing. (09/08/23 2:15 PM) ABO/Rh A POSITIVE (09/08/23 3:38 AM) A POSITIVE (09/01/23 2:57 AM) A POSITIVE (08/29/23 7:20 AM) A POSITIVE (08/29/23 7:20 AM) Antibody Scr NEGATIVE (09/08/23 3:38 AM) NEGATIVE (09/01/23 2:57 AM) NEGATIVE (08/29/23 7:20 AM) Expires at 0600AM on 09/11/2023 (09/08/23 3:38 AM) 09/04/2023 (09/01/23 2:57 AM) 09/01/2023 (08/29/23 7:20 AM) # Units 3 (09/08/23 3:38 AM) 0 (09/01/23 2:57 AM) 1 (08/30/23 5:08 PM) R Number NRQ (09/08/23 3:38 AM) NRQ (09/01/23 2:57 AM) NRQ (08/29/23 7:20 AM) eGFR CKD-EPI [>60 mL/min/1.73 m2] 75 mL/min/1.73 m2 (09/17/23 4:29 AM) 65 mL/min/1.73 m2 (09/16/23 3:49 AM) 79 mL/min/1.73 m2 (09/15/23 7:01 AM) Base Deficit, POC [0-2 mmol/L] 2 mmol/L (08/29/23 6:42 PM) 1 mmol/L (08/29/23 4:51 PM) 3 mmol/L *HI* (08/29/23 3:32 PM) Base Deficit (v), POC [0-2 mmol/L] 8 mmol/L *HI* (08/29/23 1:48 PM) Blood Glucose [70-120 mg/dL] 156 mg/dL 1 *HI* (09/17/23 12:36 PM) 166 mg/dL 2 *HI* (09/17/23 7:48 AM) 203 mg/dL 3 *HI* (09/16/23 9:10 PM) Glu (wb), POC by IStat [70-105 mg/dL] 168 mg/dL *HI* (08/31/23 9:19 AM) 170 mg/dL *HI* (08/29/23 6:42 PM) 161 mg/dL *HI* (08/29/23 4:51 PM) Blood Glucose Ref Range [70 - 120 mg/dl] (09/07/23 4:34 PM) [70 - 120 mg/dl] (09/07/23 11:36 AM) [70 - 120 mg/dl] (08/29/23 7:24 AM) SaO2(a), POC [95-98 %] 95 % (08/31/23 9:19 AM) 98 % (08/29/23 6:42 PM) 98 % (08/29/23 4:51 PM) SaO2(v), POC [20-90 %] 99 % *HI* (08/29/23 1:48 PM) Vitamin D, 25-Hydroxy [30-100 ng/mL] 24 ng/mL 4 *LOW* (09/17/23 4:29 AM) Lactate, Whole Blood [0.6-1.8 mmol/L] 1.0 mmol/L (08/31/23 3:10 AM) 1.5 mmol/L (08/30/23 11:55 PM) 1.4 mmol/L (08/30/23 10:41 PM) Troponin T ( 5th Gen) [<14 ng/L] 23 ng/L 5 *HI* (09/07/23 6:58 PM) 22 ng/L 6 *HI* (09/07/23 5:53 PM) 52 ng/L 7 *HI* (09/02/23 1:47 PM) Troponin T ( 5th Gen) Delta 1-hour delta NEGATIVE (09/07/23 6:58 PM) NOT CALCULATED (09/07/23 5:53 PM) 2-hour delta NEGATIVE (09/02/23 1:47 PM) Request of Physician Diff to CBC (09/11/23 6:41 AM) Nephrology Panel (09/10/23 12:02 PM) AST ALT (09/07/23 10:22 AM) Action Taken YES (09/11/23 6:41 AM) YES (09/10/23 12:02 PM) YES (09/07/23 10:22 AM) FiO2 (a) 95 % (09/02/23 4:03 PM) 30 % (08/31/23 3:10 AM) 30 % (08/30/23 11:55 PM) O2 Flow (a) 1 L/min (09/02/23 4:03 PM) 2 L/min (09/02/23 2:33 AM) 2 L/min (09/01/23 3:56 PM) Estimated CrCl 64.86 mL/min (09/17/23 5:23 AM) 57.51 mL/min (09/16/23 5:21 AM) 68.03 mL/min (09/15/23 8:11 AM) MPV [9.0-12.2 fL] 9.8 fL (09/17/23 4:29 AM) 9.9 fL (09/16/23 3:49 AM) 9.7 fL (09/15/23 7:01 AM) Immature Gran% 2.3 % (09/11/23 6:41 AM) Neut% 77.6 % (09/11/23 6:41 AM) Lymph% 11.6 % (09/11/23 6:41 AM) Bledsoe% 7.7 % (09/11/23 6:41 AM) Baso% 0.4 % (09/11/23 6:41 AM) Eos% 0.4 % (09/11/23 6:41 AM) Immat Gran, Abs [0-0.4 K/uL] 0.36 K/uL (09/11/23 6:41 AM) Neut, Abs [2.0-7.7 K/uL] 11.91 K/uL *HI* (09/11/23 6:41 AM) Lymph, Abs [1.0-3.4 K/uL] 1.78 K/uL (09/11/23 6:41 AM) Bledsoe, Abs [0-1.0 K/uL] 1.19 K/uL *HI* (09/11/23 6:41 AM) Baso, Abs [0-0.1 K/uL] 0.06 K/uL (09/11/23 6:41 AM) Eos, Abs [0-0.5 K/uL] 0.06 K/uL (09/11/23 6:41 AM) Type of Diff: AUTO (09/11/23 6:41 AM) RDW [11.5-14.2 %] 17.0 % *HI* (09/17/23 4:29 AM) 16.8 % *HI* (09/16/23 3:49 AM) 16.7 % *HI* (09/15/23 7:01 AM) Base Deficit 1.6 mmol/L (09/02/23 2:33 AM) 1.3 mmol/L (09/01/23 3:56 PM) 0.3 mmol/L (09/01/23 2:57 AM) K, wb [3.5-5.0 mmol/L] 4.1 mmol/L (09/02/23 5:05 AM) 3.8 mmol/L (09/02/23 2:35 AM) 4.0 mmol/L (08/31/23 8:09 AM) pH (a), POC [7.35-7.45 unit] 7.459 unit *HI* (08/31/23 9:19 AM) 7.291 unit *LOW* (08/29/23 6:42 PM) 7.323 unit *LOW* (08/29/23 4:51 PM) pCO2 (a), POC [35-45 mmHg] 35.0 mmHg (08/31/23 9:19 AM) 52.2 mmHg *HI* (08/29/23 6:42 PM) 47.8 mmHg *HI* (08/29/23 4:51 PM) pO2 (a), POC [80-105 mmHg] 68 mmHg *LOW* (08/31/23 9:19 AM) 118 mmHg *HI* (08/29/23 6:42 PM) 119 mmHg *HI* (08/29/23 4:51 PM) Base XS(a), POC [0-3 mmol/L] 1 mmol/L (08/31/23 9:19 AM) HCO3(a), POC [22-26 mmol/L] 24.9 mmol/L (08/31/23 9:19 AM) 25.4 mmol/L (08/29/23 6:42 PM) 24.8 mmol/L (08/29/23 4:51 PM) Ion Ca(wb), POC [1.12-1.32 mmol/L] 1.13 mmol/L (08/31/23 9:19 AM) 1.18 mmol/L (08/29/23 6:42 PM) 1.08 mmol/L *LOW* (08/29/23 4:51 PM) Na (wb), POC [138-146 mmol/L] 140 mmol/L (08/31/23 9:19 AM) 139 mmol/L (08/29/23 6:42 PM) 140 mmol/L (08/29/23 4:51 PM) K (wb), POC [3.5-4.9 mmol/L] 4.1 mmol/L (08/31/23 9:19 AM) 5.0 mmol/L *HI* (08/29/23 6:42 PM) 5.0 mmol/L *HI* (08/29/23 4:51 PM) pH (v), POC [7.31-7.41 unit] 7.194 unit *Critical Low* (08/29/23 1:48 PM) pCO2 (v), POC [41-51 mmHg] 50.8 mmHg (08/29/23 1:48 PM) pO2 (v), POC [15-60 mmHg] 144 mmHg *HI* (08/29/23 1:48 PM) HCO3(v), POC [23-28 mmol/L] 19.7 mmol/L *LOW* (08/29/23 1:48 PM) Component RED CELLS (09/08/23 3:38 AM) RED CELLS (09/01/23 2:57 AM) PLATELETS (08/30/23 5:08 PM) Squamous Epithelial Cells (u) NONE (09/08/23 2:16 PM) MRSA Surveillance, on Admission [MSND] MRSA NOT detected (09/12/23 2:29 PM) MRSA NOT detected (08/29/23 6:41 PM) Anion Gap [5-14 mmol/L] 11 mmol/L (09/17/23 4:29 AM) 14 mmol/L (09/16/23 3:49 AM) 13 mmol/L (09/15/23 7:01 AM) Hgb(a) [12.0-18.0 g/dL] 10.1 g/dL *LOW* (09/02/23 4:03 PM) 10.5 g/dL *LOW* (09/02/23 2:33 AM) 10.1 g/dL *LOW* (09/01/23 3:56 PM) Alb [3.5-5.2 g/dL] 3.0 g/dL *LOW* (09/17/23 4:29 AM) 3.1 g/dL *LOW* (09/16/23 3:49 AM) 3.5 g/dL (09/15/23 7:01 AM) Alk Phos [35-115 unit/L] 47 unit/L 8 (09/03/23 3:18 AM) REQUEST CREDITED unit/L 9 (09/02/23 2:33 AM) 43 unit/L 10 (09/02/23 2:32 AM) ALT [0-33 unit/L] 12 unit/L (09/07/23 10:21 AM) 16 unit/L (09/03/23 3:18 AM) REQUEST CREDITED unit/L 11 (09/02/23 2:33 AM) Amylase [28-110 unit/L] 19 unit/L *LOW* (09/07/23 10:21 AM) AST [0-32 unit/L] 21 unit/L (09/07/23 10:21 AM) 26 unit/L (09/03/23 3:18 AM) REQUEST CREDITED unit/L 12 (09/02/23 2:33 AM) Bact (u) [NONE-NONE] NONE (09/08/23 2:16 PM) Base XS(a) 1.5 mmol/L (09/02/23 4:03 PM) 2.6 mmol/L (08/31/23 3:07 PM) 0.0 mmol/L (08/31/23 10:52 AM) Bili (u) [NEG] NEGATIVE 13 (09/08/23 2:16 PM) BUN [6-23 mg/dL] 16 mg/dL (09/17/23 4:29 AM) 15 mg/dL (09/16/23 3:49 AM) 13 mg/dL (09/15/23 7:01 AM) Ca [8.4-10.2 mg/dL] 8.7 mg/dL (09/17/23 4:29 AM) 8.5 mg/dL (09/16/23 3:49 AM) 8.8 mg/dL (09/15/23 7:01 AM) Ion Ca [1.15-1.27 mmol/L] 1.21 mmol/L (09/03/23 11:56 AM) 1.10 mmol/L *LOW* (09/03/23 8:01 AM) 1.07 mmol/L *LOW* (09/03/23 3:18 AM) Cl- [98-107 mmol/L] 103 mmol/L (09/17/23 4:29 AM) 102 mmol/L (09/16/23 3:49 AM) 97 mmol/L *LOW* (09/15/23 7:01 AM) HCO3 [22-29 mmol/L] 23 mmol/L (09/17/23 4:29 AM) 19 mmol/L *LOW* (09/16/23 3:49 AM) 21 mmol/L *LOW* (09/15/23 7:01 AM) Cret [0.60-1.00 mg/dL] 0.86 mg/dL (09/17/23 4:29 AM) 0.97 mg/dL (09/16/23 3:49 AM) 0.82 mg/dL (09/15/23 7:01 AM) D Bili [0.0-0.3 mg/dL] 0.4 mg/dL *HI* (09/07/23 10:21 AM) <0.2 mg/dL (09/03/23 3:18 AM) REQUEST CREDITED mg/dL 14 (09/02/23 2:33 AM) Vanco tr 20.8 ug/mL 15 (09/13/23 11:50 AM) 12.2 ug/mL 16 (09/10/23 12:01 PM) BF Source Urine in YELLOW top tube without preservatives (09/08/23 2:15 PM) Fibr [208-435 mg/dL] 114 mg/dL *LOW* (08/29/23 4:38 PM) Glu [74-109 mg/dL] 147 mg/dL 17 *HI* (09/17/23 4:29 AM) 136 mg/dL 18 *HI* (09/16/23 3:49 AM) 148 mg/dL 19 *HI* (09/15/23 7:01 AM) Gluc Meter [74-109 mg/dL] 156 mg/dL *HI* (09/17/23 12:04 PM) 166 mg/dL *HI* (09/17/23 7:43 AM) 203 mg/dL *HI* (09/16/23 9:08 PM) HCO3(a) [21-28 mmol/L] 26.6 mmol/L (09/02/23 4:03 PM) 22.9 mmol/L (09/02/23 2:33 AM) 22.4 mmol/L (09/01/23 3:56 PM) Hct [35-44 %] 35.0 % (09/17/23 4:29 AM) 36.1 % (09/16/23 3:49 AM) 34.7 % *LOW* (09/15/23 7:01 AM) Hgb [11.7-15.0 g/dL] 11.1 g/dL *LOW* (09/17/23 4:29 AM) 11.7 g/dL (09/16/23 3:49 AM) 11.7 g/dL (09/15/23 7:01 AM) INR [0.9-1.1] 1.3 20 *HI* (09/02/23 4:03 PM) 1.3 21 *HI* (09/02/23 2:32 AM) 1.3 22 *HI* (09/01/23 3:56 PM) K [3.5-5.1 mmol/L] 3.8 mmol/L 23 (09/17/23 4:29 AM) 4.2 mmol/L 24 (09/16/23 3:49 AM) 4.1 mmol/L (09/15/23 7:01 AM) Ketones [NEG mg/dL] NEGATIVE mg/dL 25 (09/08/23 2:16 PM) Lactate [0.5-2.2 mmol/L] 1.5 mmol/L (09/09/23 5:22 PM) 1.5 mmol/L (09/09/23 1:08 PM) 2.1 mmol/L (09/09/23 11:02 AM) Lipase [13-60 unit/L] 15 unit/L (09/07/23 10:21 AM) Leuk Est [NEG] NEGATIVE 26 (09/08/23 2:16 PM) MCH [28-33 pg] 30.5 pg (09/17/23 4:29 AM) 30.5 pg (09/16/23 3:49 AM) 31.0 pg (09/15/23 7:01 AM) MCHC [32-36 g/dL] 31.7 g/dL *LOW* (09/17/23 4:29 AM) 32.4 g/dL (09/16/23 3:49 AM) 33.7 g/dL (09/15/23 7:01 AM) MCV [81-96 fL] 96.2 fL *HI* (09/17/23 4:29 AM) 94.0 fL (09/16/23 3:49 AM) 91.8 fL (09/15/23 7:01 AM) Mg [1.6-2.6 mg/dL] 2.4 mg/dL (09/17/23 4:29 AM) 2.1 mg/dL (09/16/23 3:49 AM) 1.6 mg/dL (09/15/23 12:48 PM) Na [136-145 mmol/L] 137 mmol/L (09/17/23 4:29 AM) 135 mmol/L *LOW* (09/16/23 3:49 AM) 131 mmol/L *LOW* (09/15/23 7:01 AM) Nitrite (u) [NEG] NEGATIVE 27 (09/08/23 2:16 PM) SaO2(a) [95.0-98.0 %] 98.7 % *HI* (09/02/23 4:03 PM) 98.6 % *HI* (09/02/23 2:33 AM) 98.4 % *HI* (09/01/23 3:56 PM) pCO2(a) [35-48 mmHg] 43.0 mmHg (09/02/23 4:03 PM) 37.0 mmHg (09/02/23 2:33 AM) 33.0 mmHg *LOW* (09/01/23 3:56 PM) pH(a) [7.35-7.45 unit] 7.400 unit (09/02/23 4:03 PM) 7.400 unit (09/02/23 2:33 AM) 7.440 unit (09/01/23 3:56 PM) PO4 [2.5-4.5 mg/dL] 3.0 mg/dL (09/17/23 4:29 AM) 3.1 mg/dL (09/16/23 3:49 AM) 3.2 mg/dL (09/15/23 7:01 AM) Plts [150-350 K/uL] 250 K/uL (09/17/23 4:29 AM) 248 K/uL (09/16/23 3:49 AM) 230 K/uL (09/15/23 7:01 AM) pO2(a) [83-108 mmHg] 84.0 mmHg (09/02/23 4:03 PM) 90.0 mmHg (09/02/23 2:33 AM) 84.0 mmHg (09/01/23 3:56 PM) PT [12.0-14.2 seconds] 15.8 seconds *HI* (09/02/23 4:03 PM) 16.4 seconds *HI* (09/02/23 2:32 AM) 16.3 seconds *HI* (09/01/23 3:56 PM) PTT [23-35 seconds] 50 seconds 28 *HI* (09/16/23 3:49 AM) 40 seconds 29 *HI* (09/15/23 10:11 PM) 34 seconds (09/15/23 3:36 PM) RBC [3.90-5.00 M/uL] 3.64 M/uL *LOW* (09/17/23 4:29 AM) 3.84 M/uL *LOW* (09/16/23 3:49 AM) 3.78 M/uL *LOW* (09/15/23 7:01 AM) ACT (Celite), POC [74-125 seconds] 178 seconds *HI* (08/29/23 1:47 PM) 195 seconds *HI* (08/29/23 1:06 PM) 232 seconds *HI* (08/29/23 12:36 PM) T Bili [0.0-1.2 mg/dL] 2.0 mg/dL *HI* (09/07/23 10:21 AM) 0.5 mg/dL (09/03/23 3:18 AM) REQUEST CREDITED mg/dL 30 (09/02/23 2:33 AM) Temp(a) 36.6 C (09/02/23 4:03 PM) 36.6 C (09/02/23 2:33 AM) 36.7 C (09/01/23 3:56 PM) Prot [6.4-8.3 g/dL] 5.3 g/dL *LOW* (09/03/23 3:18 AM) REQUEST CREDITED g/dL 31 (09/02/23 2:33 AM) 5.7 g/dL *LOW* (09/02/23 2:32 AM) Appear (u) CLOUDY (09/08/23 2:16 PM) Color (u) RED 32 (09/08/23 2:16 PM) Glu (u) [NEG mg/dL] NEGATIVE mg/dL 33 (09/08/23 2:16 PM) Hgb (u) [NEG] LARGE 34 *Abnormal* (09/08/23 2:16 PM) pH (u) [5.0-8.0 unit] 5.0 unit 35 (09/08/23 2:16 PM) Prot (u) [NEG mg/dL] 30 mg/dL 36 *Abnormal* (09/08/23 2:16 PM) RBC (u) [0-4 /HPF] 50+ /HPF (09/08/23 2:16 PM) Urobili [0.1-1.0 EU/dL] 0.1-1.0 EU/dL 37 (09/08/23 2:16 PM) SG [1.005-1.030] 1.025 38 (09/08/23 2:16 PM) WBC (u) [0-4 /HPF] 0-4 /HPF (09/08/23 2:16 PM) Temp(v) 36.6 C (08/29/23 1:48 PM) WBC [4.0-10.4 K/uL] 8.45 K/uL (09/17/23 4:29 AM) 9.16 K/uL (7/16/24 3:49 AM) 9.63 K/uL (09/15/23 7:01 AM) 1Result Comment: Performed at: [facility], [address] [place] [address] [place] [id number] 2Result Comment: Performed at: [facility], [address] [place] [address] [place] [phone] 3Result Comment: Performed at: [address] [place] [phone] 4Result Comment: Deficiency: <20 ng/mL Insufficiency: 21-29 ng/mL Sufficiency: 30-100 ng/mL Potenial Toxicity: >150 ng/mL 5Result Comment: To use the high-sensitivity cTnT assay, at least 2 blood samples should be drawnat time 0 and then at least 1h later. If the cTnT concentration at time 0 is greater than or equal to 53 ng/L in a patient whose clinicalpresentation is consistent with acute coronary syndrome, then there is a high likelihood that acutemyocardial injury is present. However, confirmation of acute myocardial injury still requires a second cTnT aamir drawn. Delta cut-offs for determining the presence of acute myocardial injury have beenvalidated at the 1-hour and 2-hour time points referenced here. A 1-hour delta troponin >5 ng/L indicates acute myocardial injury. A 2h delta troponin >7 ng/L indicates acute myocardial injury. Values below these are consistent with chronic myocardial injury. For patients where there is a high index of suspicion for acute coronary syndrome, repeating the tests at 1 or 2 hours, and calculating a new delta, may be indicated. If the second sample is collected in less than 60 minutes, no delta calculationwill be performed. Deltas for blood samples drawn more than 3 hours apart have not been validated and will not be reported. Please interpret with caution. 6Result Comment: To use the high-sensitivity cTnT assay, at least 2 blood samples should be drawnat time 0 and then at least 1h later. If the cTnT concentration at time 0 is greater than or equal to 53 ng/L in a patient whose clinicalpresentation is consistent with acute coronary syndrome, then there is a high likelihood that acutemyocardial injury is present. However, confirmation of acute myocardial injury still requires a second cTnT aamir drawn. Delta cut-offs for determining the presence of acute myocardial injury have beenvalidated at the 1-hour and 2-hour time points referenced here. A 1-hour delta troponin >5 ng/L indicates acute myocardial injury. A 2h delta troponin >7 ng/L indicates acute myocardial injury. Values below these are consistent with chronic myocardial injury. For patients where there is a high index of suspicion for acute coronary syndrome, repeating the tests at 1 or 2 hours, and calculating a new delta, may be indicated. If the second sample is collected in less than 60 minutes, no delta calculationwill be performed. Deltas for blood samples drawn more than 3 hours apart have not been validated and will not be reported. Please interpret with caution. 7Result Comment: To use the high-sensitivity cTnT assay, at least 2 blood samples should be drawnat time 0 and then at least 1h later. If the cTnT concentration at time 0 is greater than or equal to 53 ng/L in a patient whose clinicalpresentation is consistent with acute coronary syndrome, then there is a high likelihood that acutemyocardial injury is present. However, confirmation of acute myocardial injury still requires a second cTnT aamir drawn. Delta cut-offs for determining the presence of acute myocardial injury have beenvalidated at the 1-hour and 2-hour time points referenced here. A 1-hour delta troponin >5 ng/L indicates acute myocardial injury. A 2h delta troponin >7 ng/L indicates acute myocardial injury. Values below these are consistent with chronic myocardial injury. For patients where there is a high index of suspicion for acute coronary syndrome, repeating the tests at 1 or 2 hours, and calculating a new delta, may be indicated. If the second sample is collected in less than 60 minutes, no delta calculationwill be performed. Deltas for blood samples drawn more than 3 hours apart have not been validated and will not be reported. Please interpret with caution. 8Result Comment: Low levels of ALKP may indicate a deficiency in zinc, magnesium, or malnutritionbutcan also be an indicator of a rare genetic disease hypophosphatasia (HPP). 9Result Comment: Lab orders combined with other orders received on the same specimen. 10Result Comment: Low levels of ALKP may indicate a deficiency in zinc, magnesium, or malnutritionbutcan also be an indicator of a rare genetic disease hypophosphatasia (HPP). 11Result Comment: Lab orders combined with other orders received on the same specimen. 12Result Comment: Lab orders combined with other orders received on the same specimen. 13Result Comment: POSSIBLE INTERFERING SUBSTANCE. RESULTS MAY BE UNRELIABLE. 14Result Comment: Lab orders combined with other orders received on the same specimen. 15Result Comment: Trough Level: Therapeutic Level: 10.0-15.0 ug/mL (but 15.0-20.0 ug/mL for some indications) Potentially Toxic Level: >20.0 ug/mL 16Result Comment: Trough Level: Therapeutic Level: 10.0-15.0 ug/mL (but 15.0-20.0 ug/mL for some indications) Potentially Toxic Level: >20.0 ug/mL 17Result Comment: ADA recommendation for FASTING Serum/Plasma Glucose: Normal: 70-100 mg/dL Prediabetes: 100-125 mg/dL Diabetes: 126 mg/dL or higher 18Result Comment: ADA recommendation for FASTING Serum/Plasma Glucose: Normal: 70-100 mg/dL Prediabetes: 100-125 mg/dL Diabetes: 126 mg/dL or higher 19Result Comment: ADA recommendation for FASTING Serum/Plasma Glucose: Normal: 70-100 mg/dL Prediabetes: 100-125 mg/dL Diabetes: 126 mg/dL or higher 20Result Comment: Suggested therapeutic range for low-intensity Coumadin therapy for venous thromboembolism is INR 2.0-3.0 (ex: atrial fibrillation, history of TIA/stroke). For high risk patients, the suggested therapeutic range is INR 2.5-3.5 (ex: mechanical prosthetic valves). 21Result Comment: Suggested therapeutic range for low-intensity Coumadin therapy for venous thromboembolism is INR 2.0-3.0 (ex: atrial fibrillation, history of TIA/stroke). For high risk patients, the suggested therapeutic range is INR 2.5-3.5 (ex: mechanical prosthetic valves). 22Result Comment: Suggested therapeutic range for low-intensity Coumadin therapy for venous thromboembolism is INR 2.0-3.0 (ex: atrial fibrillation, history of TIA/stroke). For high risk patients, the suggested therapeutic range is INR 2.5-3.5 (ex: mechanical prosthetic valves). 23Result Comment: HEMOLYZED SPECIMEN 24Result Comment: HEMOLYZED SPECIMEN 25Result Comment: POSSIBLE INTERFERING SUBSTANCE. RESULTS MAY BE UNRELIABLE. 26Result Comment: POSSIBLE INTERFERING SUBSTANCE. RESULTS MAY BE UNRELIABLE. 27Result Comment: POSSIBLE INTERFERING SUBSTANCE. RESULTS MAY BE UNRELIABLE. 28Result Comment: Heparin therapeutic range for Anti XA Activity from 0.3 to 0.7 IU/mL is 65-105 seconds. 29Result Comment: Heparin therapeutic range for Anti XA Activity from 0.3 to 0.7 IU/mL is 65-105 seconds. 30Result Comment: Lab orders combined with other orders received on the same specimen. 31Result Comment: Lab orders combined with other orders received on the same specimen. 32Result Comment: POSSIBLE INTERFERING SUBSTANCE. RESULTS MAY BE UNRELIABLE. 33Result Comment: POSSIBLE INTERFERING SUBSTANCE. RESULTS MAY BE UNRELIABLE. 34Result Comment: POSSIBLE INTERFERING SUBSTANCE. RESULTS MAY BE UNRELIABLE. 35Result Comment: POSSIBLE INTERFERING SUBSTANCE. RESULTS MAY BE UNRELIABLE. 36Result Comment: POSSIBLE INTERFERING SUBSTANCE. RESULTS MAY BE UNRELIABLE. 37Result Comment: POSSIBLE INTERFERING SUBSTANCE. RESULTS MAY BE UNRELIABLE. 38Result Comment: POSSIBLE INTERFERING SUBSTANCE. RESULTS MAY BE UNRELIABLE. Orders for Microbiology Reports Name Date Nasal Culture 09/13/23 C difficile Toxin Gene PCR Assay. 4 Blood Culture (Aerobic AND Anaerobic) 09/07/23 Blood Culture (Aerobic AND Anaerobic) 09/07/23 Microbiology Reports TEST:Thr/Nasal.Cx STATUS:Auth (Verified) BODY SITE: SOURCE:Nasal COLLECTED DATE/TIME:09/13/23 6:20 PM Status FINAL 09/16/2023 TEST:C.Diff Toxin STATUS:Auth (Verified) BODY SITE: SOURCE:Stool COLLECTED DATE/TIME:09/10/23 5:55 PM Culture No Clostridium difficile toxin genes detected. TEST:Blood.Cx STATUS:Auth (Verified) BODY SITE: SOURCE:Blood COLLECTED DATE/TIME:09/07/23 10:35 AM Status FINAL 09/12/2023 TEST:Blood.Cx STATUS:Auth (Verified) BODY SITE: SOURCE:Blood COLLECTED DATE/TIME:09/07/23 10:21 AM Status FINAL 09/12/2023 Radiology Reports (Most Recent Ten) * Exam Date Time Procedure Performing Provider Status 09/09/23 10:11 AM VL Lower Ext Arterial Duplex Limited Y Nancy jenkins; Final Notes: (VL Lower Ext Arterial Duplex Limited) Reason For Exam: r/o R groin pseudoaneurysm VL Lower Ext Arterial Duplex Limited [facility] FINAL REPORT Name: PORTER JEFFERSON : 1960 Visit: [id number] Date: 09 Sep 2023 TYPE OF TEST: Extremity Arterial Duplex REASON FOR TEST R/O pseudoaneurysm INTERPRETATION/FINDINGS Arterial and venous duplex exam of the right groin reveals: 1. No evidence of pseudoaneurysm noted in the right groin. 2. Hematoma noted in the groin extending into the proximal thigh measuring 5.10cm x 4.71cm. 3.Patent distal external iliac, common femoral, profunda femoris, and proximal superficial femoral arteries without evidence of a significant stenosis. 4. Due to hematoma and patient in pain, limited visualization of the distal external iliac, common femoral, deep femoral, and proximal femoral veins. Phasic flow noted throughout. Cannot rule out thrombosis in these vessels. Lili Ramos notified of technologist's preliminary findings via [facility] at 1004am on 09/09/23 read back and verified. IMPRESSION/COMMENTS I have personally reviewed the data relevant to the interpretation of this study. TECHNOLOGIST: Nancy Garvey RVT PHYSICIAN: Dara Melara M.D. Signed: 09/09/2023 10:49 AM Final Dictated by:MD Melara Kristine L Dictated DT/TM:09/09/2023 10:49 Signed by:MD Melara Kristine L Signed (Electronic Signature):09/09/2023 10:49 Transcribed by:SOPHIE * Exam Date Time Procedure Performing Provider Status 09/09/23 12:20 AM US Abdomen Limited Afsaneh Virgen; F inal Notes: (US Abdomen Limited) Reason For Exam: leukocytosis US Abdomen Limited EXAMINATION: US Abdomen Limited CLINICAL HISTORY: RUQ eval for cholecystitis. Leukocytosis. Additional information from partial: Patient is on pain medication. COMPARISON: Abdominal radiograph dated 09/07/2023. FINDINGS: PANCREAS: Not visualized. LIVER: Normal size, contour, and echogenicity. No solid mass is seen. Visualized portal vein and hepatic vein show normal direction of flow. Length: 16.8 cm. GALLBLADDER AND BILE DUCTS: Bile ducts: No biliary dilation. Common bile duct: 7 mm. Gallbladder: Distended gallbladder with intraluminal biliary sludge. No gallbladder wall thickening. Fluid around the gallbladder favored to reflect sequela of intra-abdominal ascites rather than primary cholecystic fluid. RIGHT KIDNEY: Normal in size, shape, and echogenicity. Renal cortical thickness is maintained. Moderate right hydronephrosis. Length: 9.5 cm. OTHER: Perihepatic ascites. Right partially visualized pleural effusion. IMPRESSION: 1. No cholelithiasis or evidence of acute cholecystitis. Distended gallbladder with intraluminal debris, nonspecific. 2. Moderate right renal hydronephrosis. 3. Ascites. Right pleural effusion. [place] Act 112: This study does not meet the requirements of [place] Act 112. Dr. Alireza Estrella is the dictating resident. Finalized report status indicates that the attending has reviewed the images and report, and agrees with the interpretation. Preliminary report status should be regarded as NOT interpreted by the attending radiologist. Workstation ID: [id number] Final Dictated by:MD Estrella Luis T Dictated DT/TM:09/09/2023 6:56 Resident:MD Estrella Luis T Signed by:DO Pereira Ali H Signed (Electronic Signature):09/09/2023 6:54 a * Exam Date Time Procedure Performing Provider Status 09/08/23 9:11 AM US Groin Right Sukh Novak; Final Notes: (US Groin Right) Reason For Exam: new fluid collection US Groin Right EXAMINATION: US Groin Right CLINICAL HISTORY: new fluid collection COMPARISON: None. TECHNIQUE: Focused ultrasound evaluation of the proximal right lower extremity. FINDINGS: Complex cystic solid collection within the superficial soft tissues over the area of interest, measuring approximately 7.3 x 5 x 4.6 cm. The most superficial component of the collection is approximately 0.8 cm below the skin. No significant vascularity within the collection or surrounding hyperemia. Edematous surrounding superficial soft tissues. IMPRESSION: Complex collection in the area of interest, the appearance of which favours hematoma, less likely abscess. Adjacent soft tissue edema. Dr. Abraham Elam is the dictating resident. Finalized reports status indicates that the attendinghas reviewed the images and report, and agrees with the interpretation. Preliminary report status should be regarded as NOT interpreted by the attending radiologist. [place] Act 112: This study does not meet the requirements of [place] Act 112. Workstation ID: [id number] Final Dictated by:MD Elam Anthony Robert Dictated DT/TM:09/08/2023 1:30 Resident:MD Elam Anthony Robert Signed by:MD Martinez James H Signed (Electronic Signature):09/08/2023 1:29 p * Exam Date Time Procedure Performing Provider Status 09/08/23 7:43 AM XR Chest 1 View Juan Chapman; Bria ramos Notes: (XR Chest 1 View) Reason For Exam: elevated WBC r/o pneumonia XR Chest 1 View EXAMINATION: XR Chest 1 View CLINICAL HISTORY: elevated WBC r/o pneumonia COMPARISON: Multiple prior radiographs, most recent 09/07/2023. FINDINGS: AP view of the chest. Normal cardiac silhouette and pulmonary vasculature. No pneumonia seen. Smallbilateral pleural effusions. No pneumothorax. Stable osseous structures. IMPRESSION: 1. No findings suggest pneumonia. 2. Small bilateral pleural effusions, improved. Dr. Bryce Ramirez is the dictating resident. Finalized reports status indicates that the attending has reviewed the images and report, and agrees with the interpretation. Preliminary report status shouldbe regarded as NOT interpreted by the attending radiologist. Workstation ID: [id number] Final Dictated by:MD Ramirez Dan Dictated DT/TM:09/08/2023 10:54 Resident:MD Ramirez Dan Signed by:MD Rodriges Rekha Signed (Electronic Signature):09/08/2023 10:53 * Exam Date Time Procedure Performing Provider Status 09/07/23 5:37 PM XR Abdomen 1 View Dolph, Kendrick; Final Notes: (XR Abdomen 1 View) Reason For Exam: Abdominal pain and distrnsion XR Abdomen 1 View EXAMINATION: XR Abdomen 1 View CLINICAL HISTORY: Abdominal pain and distention COMPARISON: CT angiography abdomen and pelvis 06/16/2023. FINDINGS: Portable supine (2 images) abdomen. Scattered abdominal surgical clips related to recent vascular procedure. Skin hawa from the upper abdomen to the pelvis. Nonobstructive bowel gas pattern. No evidence of free air in supine position, noting this is suboptimal evaluation for pneumoperitoneum. Moderate degenerative changes in spine. IMPRESSION: Nonobstructive bowel gas pattern. Workstation ID: [id number] Final Dictated by:DO Hills Matthew D Dictated DT/TM:09/07/2023 5:46 Signed by:DO Hills Matthew D Signed (Electronic Signature):09/07/2023 5:45 p * Exam Date Time Procedure Performing Provider Status 09/07/23 9:38 AM XR Chest 1 View Stephan Preciado; Final Notes: (XR Chest 1 View) Reason For Exam: clinically indicated XR Chest 1 View EXAMINATION: XR Chest 1 View CLINICAL HISTORY: clinically indicated COMPARISON: 09/03/2023 FINDINGS: Upright AP chest radiograph. Interim removal of right IJ catheter. Surgical skin hawa in the left mid abdomen again seen. Persistent hypoinflation with elevation of the right hemidiaphragm. The heart and mediastinum are normal in size. The pulmonary vasculature is normal. Interstitial prominence seen previously has improved. Persistent blunting of the costophrenic angles, right greater than left with persistent hazy opacity involving the right lung base. No pneumothorax. IMPRESSION: Removal of right IJ catheter. Improved pulmonary edema. Small effusions, right greater than left as before. Workstation ID: [id number] Final Dictated by:MD Aceves Pamela L Dictated DT/TM:09/07/2023 10:09 Signed by:MD Aceves Pamela L Signed (Electronic Signature):09/07/2023 10:08 * Exam Date Time Procedure Performing Provider Status 09/03/23 6:17 AM XR Chest 1 View Heather Goodman; Final Notes: (XR Chest 1 View) Reason For Exam: Eval for pulmonary edema XR Chest 1 View EXAMINATION: XR Chest 1 View CLINICAL HISTORY: Eval for pulmonary edema COMPARISON: 09/02/2023 FINDINGS: Right internal jugular catheter with tip overlying the lower superior vena cava. Trace right pleural effusion with adjacent atelectasis. There are stable mild interstitial pulmonary edema. No pneumothorax. Heart size is unchanged. There are atherosclerotic calcifications of the aorta. There are degenerative changes of the spine. There are skin hawa overlying the epigastrium. IMPRESSION: Stable trace right pleural effusion and mild interstitial pulmonary edema/pulmonary vascular congestion. Workstation ID: [id number] Final Dictated by:MD Coulter Benjamin Dictated DT/TM:09/03/2023 9:24 Signed by:MD Coulter Benjamin Signed (Electronic Signature):09/03/2023 9:23 a * Exam Date Time Procedure Performing Provider Status 09/02/23 6:53 AM XR Chest 1 View Heather Goodman; Final Notes: (XR Chest 1 View) Reason For Exam: Eval for pulmonary edema, hx COPD XR Chest 1 View EXAMINATION: XR Chest 1 View CLINICAL HISTORY: Eval for pulmonary edema, hx COPD COMPARISON: Chest radiograph 09/01/2023. FINDINGS: Portable supine chest. Right IJ approach central catheter tip lower SVC. Gastric tube sidehole the proximal stomach, tip off inferior field of view. Skin hawa projecting over the left upper quadrant. Partially obscured cardiac silhouette. Slightly indistinct pulmonary vasculature with borderlineinterstitial prominence. Improved lung aeration with decreased left basilar atelectasis. Small right pleural effusion. Possible trace left pleural effusion. No pneumothorax. Unchanged osseous structures. IMPRESSION: 1. Pulmonary vascular congestion with possible interstitial edema. 2. Improved hypoventilatory changes. 3. Small right pleural effusion. Workstation ID: [id number] Final Dictated by:DO Hills Matthew D Dictated DT/TM:09/02/2023 8:21 Signed by:DO Hills Matthew D Signed (Electronic Signature):09/02/2023 8:20 a * Exam Date Time Procedure Performing Provider Status 09/01/23 5:26 AM XR Chest 1 View Rita Newman; Mo dified Notes: (XR Chest 1 View) Reason For Exam: hx COPD, POD 3 vascular surgery XR Chest 1 View EXAMINATION: XR Chest 1 View CLINICAL HISTORY: hx COPD, POD 3 vascular surgery COMPARISON: Comparison with prior imaging, most recent 08/31/2023 FINDINGS: Right IJ catheter tip in the low SVC. Gastric tube in the stomach, tip not included an side-port below the GE junction. Normal cardiomediastinal silhouette and pulmonary vascularity. Increased haziness in the lung bases may represent increased pleural effusions. No pneumothorax. IMPRESSION: Haziness in the lung bases may represent small bilateral pleural effusions, increased since yesterday. Workstation ID: [id number] Final Dictated by:MD Rodriges Rekha Dictated DT/TM:09/01/2023 8:42 Signed by:MD Rodriges Rekha Signed (Electronic Signature):09/01/2023 8:41 a * Exam Date Time Procedure Performing Provider Status 08/31/23 9:45 AM XR Chest 1 View Gary, Kendrick; Final Notes: (XR Chest 1 View) Reason For Exam: acute SOB XR Chest 1 View EXAMINATION: XR Chest 1 View CLINICAL HISTORY: acute SOB COMPARISON: Comparison with prior imaging, most recent 08/31/2023 FINDINGS: Right IJ catheter tip in the low SVC. Gastric tube in the stomach, tip not included. Normal cardiomediastinal silhouette and pulmonary vascularity. Right lung opacities and small right pleural effusion. No pneumothorax. IMPRESSION: Small right effusion and related atelectasis, not significantly changed since earlier today. Workstation ID: [id number] Final Dictated by:MD Rodriges Rekha Dictated DT/TM:08/31/2023 10:02 Signed by:MD Rodriges Rekha Signed (Electronic Signature):08/31/2023 10:01 Vital Signs Most recent to oldest [Reference Range]: 1 2 3 4 Height 173.0 cm (08/29/23 9:53 AM) 173.0 cm (08/29/23 7:00 AM) Patient Weight 71.5 kg (09/17/23 6:24 AM) 71.2 kg (09/16/23 4:00 AM) 72.7 kg (09/15/23 4:14 AM) Body Mass Index 24.29 kg/m2 (08/30/23 5:00 AM) 21.05 kg/m2 (08/29/23 7:50 PM) 21.05 kg/m2 (08/29/23 7:00 AM) Temperature [36.5-37.9 DegC] 36.2 DegC *LOW* (09/17/23 7:44 AM) 36.4 DegC *LOW* (09/17/23 4:18 AM) 37.8 DegC (09/17/23 12:23 AM) Heart Rate 66 bpm (09/17/23 7:44 AM) 64 bpm (09/17/23 4:18 AM) 59 bpm (09/17/23 12:23 AM) 62 bpm (09/17/23 12:23 AM) Respiratory Rate 16 br/min (09/17/23 12:34 PM) 18 br/min (09/17/23 7:44 AM) 22 br/min (09/17/23 4:18 AM) Blood Pressure 163/63mmHg (09/17/23 7:44 AM) 186/60mmHg (09/17/23 6:14 AM) 172/62mmHg (09/17/23 4:18 AM) Mean Blood Pressure 92 mmHg (09/17/23 7:44 AM) 96 mmHg (09/17/23 6:14 AM) 93 mmHg (09/17/23 4:18 AM) Cuff Pulse Pressure 100 mmHg (09/17/23 7:44 AM) 126 mmHg (09/17/23 6:14 AM) 110 mmHg (09/17/23 4:18 AM) BP Location # 1 Left Arm, Non-invasive (09/17/23 7:44 AM) Left Arm, Non-invasive (09/17/23 6:14 AM) Left Arm, Non-invasive (09/17/23 4:18 AM) Social History Social History Type Response Sm[facility] Implantable Device List Procedure Provider Procedure Date Device Type Site Unknown Unknown 08/29/23 Unknown Unknown Device Identifier Serial Number Lot or Batch Number Manufacturing Date Expiration Date Distinct Identification Code MRI Safety Implantable Status Assigning Authority Unknown Unknown [id number] Unknown 11/30/26 Unknown Unknown Active [employer] [facility] * Contributor_system, MUSE01: VERIFY, PERFORM Event Display: EKG Authored Date: [id number] Please click on link to see image. * Contributor_system, [email or web address]: VERIFY, PERFORM Event Display: EKG Authored Date: [id number] Please click on link to see image. * Contributor_system, [id number]: VERIFY, PERFORM Event Display: EKG Authored Date: Please click on link to see image. Anes H&P * MD Sima, Mendoza Muñiz: MODIFY MD Sima, Mendoza Muñiz: MODIFY, MODIFY MD Gao Parker Richard: MODIFY MD Carol, Virgilio: MODIFY, PERFORM MD Carol, Virgilio: PERFORM, VERIFY MD Carol, Virgilio: VERIFY, SIGN MD Carol, Virgilio: SIGN Event Display: Anes H&P Authored Date: Patient: PORTER JEFFERSON Age: 63 years Sex: Female : 1960 Associated Diagnoses: None Author: MD Medina Manpreet Preoperative Information Pre-Operative Diagnosis: Right groin I&D . History of Present Illness PORTER JEFFERSON Eis a 63 Yearsold,74.9 kg female with PMH of PAD s/p left femoral artery tofemoral artery bypass 10 years ago, HTN, HLD, T2DM, TUD, Crohn's, GERD who is presenting with LLE, chronic mesenteric ischemia, and critical limb ischemia. Patient had aortic endarterectomy with aorto bypass to R CAMMIE, [employer] bypass and jump to R [employer], reimplant of JOELLEN on 08/28. Hospital course complicated by systolics to 260 with required precedex 09/01/23, Afib with RVR 09/02/23 requiring 4x of amiodarone, thrombocytopenia, and potential bactermia (blood cultures pending but no growth to date). Pt also had new GENESIS. Patient was seen by cardiology for chest pain and post-op afib with RVR the night after his procedure. He was started on amiodarone drip and converted to NSR. He is currently on amiodarone 200 mg daily and baby aspirin. Hemodynamically stable without pressors. 2L NC sating 94%+. NPO: since midnight; appropriate ACCESS: PIV x3 PREVIOUS AIRWAY/ANESTHETICS: MAC 3 , grade 1v, yellow OPA required 7.0 ETT TYPE AND SCREEN/CROSS: Expires 09/11/23 RECENT TRANSFUSIONS: 1 U pRBCs 09/09/23 5:31 AM INFUSIONS: None documented MOST RECENT TTE/ESTEE: 06/20/23 TTE Summary 1. Normal left ventricular size and systolic function. 2. Estimated ejection fraction 60-65%. 3. No regional wall motion abnormalities. 4. Normal right ventricular size and function. 5. No significant valvular abnormalities. 6. No prior studies for comparison. STUDIES: 09/08/23 CXR FINDINGS: AP view of the chest. Normal cardiac silhouette and pulmonary vasculature. No pneumonia seen. Smallbilateral pleural effusions. No pneumothorax. Stable osseous structures. IMPRESSION: 1. No findings suggest pneumonia. 2. Small bilateral pleural effusions, improved. 09/09/23 US abdomen FINDINGS: PANCREAS: Not visualized. LIVER: Normal size, contour, and echogenicity. No solid mass is seen. Visualized portal vein and hepatic vein show normal direction of flow. Length: 16.8 cm. GALLBLADDER AND BILE DUCTS: Bile ducts: No biliary dilation. Common bile duct: 7 mm. Gallbladder: Distended gallbladder with intraluminal biliary sludge. No gallbladder wall thickening. Fluid around the gallbladder favored to reflect sequela of intra-abdominal ascites rather than primary cholecystic fluid. RIGHT KIDNEY: Normal in size, shape, and echogenicity. Renal cortical thickness is maintained. Moderate right hydronephrosis. Length: 9.5 cm. OTHER: Perihepatic ascites. Right partially visualized pleural effusion. IMPRESSION: 1. No cholelithiasis or evidence of acute cholecystitis. Distended gallbladder with intraluminal debris, nonspecific. 2. Moderate right renal hydronephrosis. 3. Ascites. Right pleural effusion. OXYGEN REQUIREMENT / VENTILATOR SETTINGS: Non-Invasive Oxygen Flow: 2 L/min (09/09/23 00:11:00) LABS: BMP: Date Na K Cl HC03 BUN Cret Glu Ca 09/09/2023 03:15 131 3.9 86 30 42 1.47 244 8.5 09/08/2023 03:14 131 3.8 86 33 31 1.08 214 8.9 09/07/2023 17:53 131 4.0 89 35 26 0.97 190 8.7 CBC: Date WBC Hgb Hct Plts Neut, Abs 09/09/2023 03:15 26.7 6.8 21.6 296 09/08/2023 03:14 20.2 8.6 27.3 299 09/07/2023 05:29 13.7 8.5 25.6 213 M.9 Phos: 2.9 Date: PT: PTT: INR: 09/09/23 03:15 37 09/08/23 18:24 86 09/08/23 10:42 94 Medical History Past medical history obtained and reviewed from the pre-procedure screening form as noted above. Any significant interval changes are noted below: Yes. Health Status Allergies: Allergic Reactions (Selected) Severity Not Documented IVP dye- Hives. Mercaptopurine- Pancreatitis.. Medications: Medication List (Selected) Prescriptions Prescribed Benadryl 25 mg oral tablet: See Instructions, 2 tab PO [address] scan, 2 tab, 0 Refill(s) Xarelto 2.5 mg oral tablet: 1 tab, PO, bid, 60 tab, 2 Refill(s) lisinopril 10 mg oral tablet: 1 tab, PO, Daily, 90 tab, 3 Refill(s) predniSONE 50 mg oral tablet: See Instructions, 1 tab PO 13 hours, 7 hours and [address] scan, 3 tab, 0 Refill(s) Documented Medications Documented B-Complex 50 oral tablet: 1 tab, PO, qAM MetFORMIN (Eqv-Glucophage XR) 500 mg oral tablet, extended release: 1 tab, PO, bid, morning and evening NeohMed Sinus Rinse Kit: Trelegy Ellipta 100 mcg-62.5 mcg-25 mcg/inh inhalation powder: 1 puff, inhaled, qAM, inhale 1 puff by mouth and INTO THE LUNGS once daily albuterol CFC free 90 mcg/inh MDI: 2 puff, inhaled, qid, PRN: as needed for wheezing aspirin 81 mg oral delayed release tablet: 1 tab, PO, qAM atorvastatin 40 mg oral tablet: 1 tab, PO, qhs azithromycin 250 mg oral tablet: 1 tab, PO, qMonWedFri escitalopram 10 mg oral tablet: 1 tab, PO, qAM, take 1 tablet by mouth once daily glimepiride 1 mg oral tablet: take 1 tablet by mouth every morning with BREAKFAST metoprolol succinate 25 mg oral tablet, extended release: 1 tab, PO, qhs multivitamin: 1 tab, PO, qAM omeprazole 20 mg oral delayed release capsule: 1 cap, PO, qAM, take 1 capsule by mouth daily. Physical Examination VS/Measurements: Vital Signs 09/09/2023 10:05 EDT Temperature 36.8 DegC Heart Rate 75 bpm Respiratory Rate 18 br/min Systolic Blood Pressure 97 mmHg Diastolic Blood Pressure 53 mmHg BP Location # 1 Left Arm Mean Blood Pressure 60 mmHg Oxygen Flow 1 L/min Oxygen Therapy Nasal cannula SpO2 93 % . Airway: Mallampati classification: I (soft palate, fauces, uvula, pillars visible). Mouth: Within normal limits, Teeth ( Within normal limits ). Respiratory: bilateral bibasilar crackles. Cardiovascular: Normal rate. Anesthesiologist Assessment and Plan Problems: No previous anesthetic complications, No a/w concerns. ASA Classification: Class III. Anesthetic Plan: Anesthetic technique discussed: General anesthesia. Induction discussed: Intravenously. Airway plan discussed: Oral endotracheal tube, Nasoendotracheal tube. Risks discussed: Nausea-vomiting, Headache, Sore throat, Dental injury, Allergic reaction, Serious complications, Nerve damage. Informed consent: Signed by patient, Signed by family, Consented from the patients son due to waxing and waning consciousness. History, Physical Exam, Assessment and Plan Completed: 09/09/2023 10:35:00, MD Sima, Mendoza Muñiz. Electronic Signature on File Electronically Reviewed/Signed by: Virgilio Medina MD Author Signature Dt/Tm:09/09/2023 02:40 PM Department of Anesthesia MK * MD Kita, Sebastian: MODIFY MD Kita, Sebastian: MODIFY, MODIFY Event Display: Pre-OP H & P Authored Date: PRE-OPERATIVE HISTORY AND PHYSICAL Name: PORTER JEFFERSON Patient Number: [id number] : 1960 Date of Service: 08/25/2023 PRE-OP Diagnosis: PAD, mesenteric ischemia Planned Procedure: AORTO-BIFEMORAL AND AORTO MESENTERIC BYPASS Chief Complaint: PAD, mesenteric ischemia History of Present Illness (including history relevant to procedure): 63 yo F with past medical history significant for PAD s/p right to left femoral artery to femoral artery bypass around 10 years back; now with critical limb ischemia of the left lower extremity (rest pain) and also chronic mesenteric ischemia. Review Of Systems: A complete review of systems was performed and was negative except as stated in HPI Past Medical History: Problems: Diabetes mellitus Tobacco user Subclavian artery stenosis Peripheral arterial disease Aortoiliac occlusive disease Procedure History Procedure Procedure Date Comments section Colonoscopy Tonsillectomy Artery- bypass 2013 Allergies and Sensitivities: mercaptopurine(Pancreatitis) IVP dye(Hives) Current Home Meds: (Last Updated 08/18 08:08) albuterol (albuterol CFC free 90 mcg/inh MDI) 2 puff inhaled qid PRN: as needed for wheezing aspirin (aspirin 81 mg oral delayed release tablet) 81 mg PO qAM atorvastatin (atorvastatin 40 mg oral tablet) 40 mg PO qhs azithromycin (azithromycin 250 mg oral tablet) 250 mg PO qMonWedFri diphenhydrAMINE (Benadryl 25 mg oral tablet) 2 tab PO [address] scan escitalopram (escitalopram 10 mg oral tablet) 10 mg PO qAM take 1 tablet by mouth once daily fluticasone/umeclidinium/vilanterol (Trelegy Ellipta 100 mcg-62.5 mcg-25 mcg/inh inhalation powder)1 puff inhaled qAM inhale 1 puff by mouth and INTO THE LUNGS once daily glimepiride (glimepiride 1 mg oral tablet) take 1 tablet by mouth every morning with BREAKFAST lisinopril (lisinopril 10 mg oral tablet) 10 mg PO Daily metFORMIN (MetFORMIN (Eqv-Glucophage XR) 500 mg oral tablet, extended release) 500 mg PO bid morning and evening metoprolol (metoprolol succinate 25 mg oral tablet, extended release) 25 mg PO qhs multivitamin 1 tab PO qAM multivitamin (B-Complex 50 oral tablet) 1 tab PO qAM omeprazole (omeprazole 20 mg oral delayed release capsule) 20 mg PO qAM take 1 capsule by mouth daily predniSONE (predniSONE 50 mg oral tablet) 1 tab PO 13 hours, 7 hours and [address] scan rivaroxaban (Xarelto 2.5 mg oral tablet) 2.5 mg PO bid sodium chloride nasal (NeilMed Sinus Rinse Kit) No Vital Signs Data Available Initial Wt: No Data Available Physical Exam: (relevant to the procedure, including heart and lung evaluation) General:NAD HEENT:NCAT Neck:soft, supple Cardiac:HD intact Lungs:nonlabored breathing Abdomen:soft, nontender, nondistended Extremities:warm, well-perfused Neuro:no focal deficits Skin:intact ASSESSMENT: Ms. Jefferson is a 63 y/o female who presents for the above listed procedure 1. Admit to the vascular surgery service for stated procedure. 2. NPO for surgery. 3. Begin IV. Start fluids Electronic Signature on File Electronically Reviewed/Signed by: Missy Overton MD Author Signature Dt/Tm:08/25/2023 09:13 AM Resident Division of Plastic and Reconstructive Surgery Electronically Reviewed/Signed by: Sebastian East M.D. Cosigner Signature Dt/Tm: 08/29/2023 07:27 AM Division of Vascular Surgery OJ * MD East Aditya: PERFORM Event Display: Pre-OP H & P Authored Date: [id number] Vascular Surgery Attending Addendum: I saw and examined the patient. No changes since last exam. No deep cuts or sores in bilateral lower extremities. I discussed the findings of her CT head and neck as well. She denies any symptoms suggestive of of amaurosis fugax/TIA/stroke. The current clinical condition, nature and natural history of disease, laboratory studies and the available imaging has been discussed and explained to the patient and/or their family. treatment plans in terms of current operative management and available alternatives have been explained to the patient and the family in their [place] language. Risks benefits and potential complications including infection, bleeding, multiple early or delayedinterventions, complications of organ systems that may affect heart, lungs, kidneys and conditions including but not limited to loss of limb or life or stroke especially given her current imaging that shows asymptomatic left-sided carotid stenosis has also been explained to the patient and family in their [place] language and all the questions have been answered to their satisfaction as they have verbalized an understanding. With respect to the patient's wishes, clinical condition and family discussion the patient and the family has chosen to proceed with bilateral groin exploration, expiratory laparotomy with aorto bifemoral bypass along with possible aortomesenteric bypass and all other related procedures that may require to be performed to maintain vascular integrity and perfusion. Electronic Signature on File Electronically Reviewed/Signed by: Sebastian East M.D. Author Signature Dt/Tm:08/29/2023 07:29 AM Division of Vascular Surgery [facility] Examination * Services, CPDI: PERFORM Event Display: [facility] Examination Authored Date: [id number] Surgical operation note * MD East Aditya: PERFORM Event Display: .Operative Report Authored Date: [id number] OPERATIVE REPORT Name: PORTER JEFFERSON Patient Number: [id number] : 1960 Date of Service: September 09, 2023 SURGEON: Dr. East [employer] COMPOSITES(s): Dr. Evans PREOPERATIVE DIAGNOSIS: 1. Severe peripheral arterial disease-aortic stenosis. 2 Critical limb ischemia left lower extremity status post aortobifemoral bypass 3. Right groin swelling/hematoma 4. Anemia of acute blood loss POSTOPERATIVE DIAGNOSIS: Same OPERATION PERFORMED: 1. Exploration of right groin and right femoral vessels 2. Pulse lavage of right groin and evacuation of hematoma 3. Right sartorius flap placement in the groin 4. Wound VAC application to the groin 7 x 2 x 2 cm ANESTHESIA: General COMPLICATIONS: None SPECIMENS: None ESTIMATED BLOOD LOSS: 200 cc INDICATIONS: Presenting here is a 63-year-old woman with past medical history significant for smoking and significant atherosclerotic disease of the visceral aorta that caused her to have mid aortic stenosis along with occlusion of the left iliac artery. Patient had presented with chronic mesenteric and critical limb ischemia of the left lower extremity. She underwent aortobifemoral bypass on August 29 2023. Patient recovered well from surgery however, on postoperative day 10 she started having leukocytosisand was also on a heparin drip for A-fib. It seems, the patient developed swelling of the right groin that was positive for hematoma on ultrasound duplex. Although, an ultrasound duplex did not show a positive sign for pseudoaneurysm given drop in her H&H along with leukocytosis and new swelling a plan was made to perform right groin exploration to evacuate hematoma and rule out infection. OPERATION: Nature and natural course of the disease and management plan including risks benefits and potentialcomplications and alternatives to the current management plan were explained to the patient. After answering all the questions posed by the patient the patient has chosen and given consent for this procedure. After ensuring presence of informed consent in the chart the patient was brought to the operating room and laid supine on the table. General anesthesia was administered after securing the airway with endotracheal intubation. Perioperative antibiotics were given. Patient was prepped and draped in usual sterile fashion. The surgeon and the assistant athletic trainer scrubbed in the usual sterile fashion. Auniversal timeout was carried out. The previous incision in the groin was opened up first incision was carried down through the skin subcutaneous tissue Cornel's Fascia. Evidence of seroma/previous hematoma was found as moderate to significant amount of blood clots were found from the superficial into the deeper space near the femoral sheath. Fel sheath was identified and was incised. At We also noticed the graft at this point which appeared to be clean without anyevidence of infection or staining had an intact anastomotic line without any extravasation. There was no evidence of pus/purulent tissue or necrotic tissue in the vicinity of the graft or in the deeptissue in general. It was the proximal part around the inguinal ligament there appeared to be good incorporation of the graft and the surrounding tissues. At this point we performed pulse lavage of the entire area and evacuated the hematoma. Given paucity of tissue available in the setting of a redo redo groin we decided to place a sartorius flap on top of the exposed graft.incised the fascia over the sartorius muscle and created flaps medially and laterally. The sartorius muscle was identified in its entirety and was mobilized laterally and all the way to the origin near the anterior superior iliac spine at which point there is tenderness insertion it was divided using electrocautery Bovie. The sartorius muscle was then mobilized laterally so as to swing over on top of the vessel carefully so as to not to damage the perforators medially or create tension on the perforators. At At this point the lateral border of the sartorius muscle was then sutured to tissue on the medial border of the femoral vessels so as to cover them using interrupted 2-0 Vicryl sutures. Remnant offemoral sheath distally around the SFA region was closed primarily using interrupted 2-0 Vicryl. also placed a #19 Vasyl at the space that was created after mobilizing the sartorius flap unde And then, this space was closed on top of the 19 Vasyl drain by suturing the lateral half of the fascia covering the sartorius muscle to the available edge of the sartorius muscle using interrupted Vicryl sutures. Deep tissue was then closed proximally and distally for about distance of 2 cm and then wound VAC was applied to the rest of the wound on top of the muscle and fascia. Patient tolerated the procedure well. I was present and scrubbed for the entirety of the case. At the end of the case and instrument and sponge count was performed and found to be accurate. FINDINGS: 1. Old hematoma and clot. 2. Generalized ooze from previous clean scar tissue 3. Clean graft with palpable pulse. Signs of incorporation proximally\\ 4. No evidence of purulent, necrotic or infected tissue Electronic Signature on File Electronically Reviewed/Signed by: Sebastian East M.D. Author Signature Dt/Tm:09/11/2023 02:29 PM Division of Vascular Surgery * MD Kita, Sebastian: PERFORM, MODIFY Event Display: .Operative Report Authored Date: OPERATIVE REPORT Name: PORTER JEFFERSON Patient Number: [id number] : 1960 Date of Service: August 29, 2023 SURGEON: Dr. East Co-surgeon: Dr. Bueno (2 surgeon case given extreme anatomical complexity of the case given severelyatherosclerotic and calcified aorta and mesenteric vessels adding significant physiological complexity to the case.) [employer] COMPOSITES(s): Dr. Tapia and Dr. June PREOPERATIVE DIAGNOSIS: 1. Severe peripheral arterial disease, atherosclerosis of the aorta. Critical limb ischemia left lower extremity 2. Chronic mesenteric ischemia POSTOPERATIVE DIAGNOSIS: Same OPERATION PERFORMED: 1. Redo exploration of bilateral common femoral, profundofemoral and superficial femoral arteries with sharp lysis of adhesions required. 2. Endarterectomy of bilateral common femoral, profundofemoral and superficial femoral arteries. Endarterectomy of the aorta 3. Ligation of previously placed femoral to femoral bypass graft 4. Exploratory laparotomy and exposure and exploration of aorta and superior mesenteric artery 5. Aortobifemoral bypass-16 x 8 graft. Aorto to right hypogastric with jump graft aorto hypogastriclimb to right common femoral. On the left side aortic limb anastomosed on the left common femoral artery distal to the femorofemoral bypass. 6. Reimplantation of the inferior mesenteric artery on the left limb of the aortofemoral bypass. ANESTHESIA: General COMPLICATIONS: None SPECIMENS: Plaque from femoral artery Plaque from aorta ESTIMATED BLOOD LOSS: Around 2 L INDICATIONS: Presenting here is a 63-year-old woman with past medical history significant for cigarette smoking hypertension hyperlipidemia. She has been following up for many many years for bilateral lower extremity claudication was found to have severe atherosclerotic disease. Investigation had shown that shehad a previous history of right to left femorofemoral bypass performed at an outside hospital around 10 years back for claudication symptoms. On her recent visit to my clinic she was transferred withsymptoms of rest pain on the left lower extremity. Imaging was suggestive of severe stenosis and atherosclerotic disease of the visceral aorta with stenosis in the infrarenal aortic segment. She alsohad significant stenosis of the SMA which was also atherosclerotic the diseased all throughout its course. She also had symptoms of abdominal pain postprandial along with weight loss. Furthermore, left JOELLEN seem to be stenosed and had low flow given aortic stenosis. She also had poor flow to the hypogastric vessels. Based on this a plan was made to discuss the patient the possibility of an aortobifemoral bypass along with the and aortomesenteric bypass if feasible. Patient has presented to the for the same. OPERATION: Nature and natural course of the disease and management plan including risks benefits and potentialcomplications and alternatives to the current management plan were explained to the patient. After answering all the questions posed by the patient the patient has chosen and given consent for this procedure. After ensuring presence of informed consent in the chart the patient was brought to the operating room and laid supine on the table. General anesthesia was administered after securing the airway with endotracheal intubation. Perioperative antibiotics were given. Patient was prepped and draped in usual sterile fashion. The surgeon and the assistant athletic trainer scrubbed in the usual sterile fashion. Auniversal timeout was carried out. Incision was made on the previous incision on the skin on the right side vertically near the right groin. Incision was deepened down to skin subcutaneous tissue Cornel's and camper's fascia. The previous graft was identified and traced to the right common femoral artery. The vessel was then dissected proximally and distally exposing the profundofemoral branches and also the superficial femoral artery. The common femoral artery was then exposed more proximal until the depth down to the distal external iliac artery the branches of the medial and lateral circumflex arteries were then controlled with Vesseloops and the vein of pain was divided and clipped. Blunt dissection was done on top of the common femoral artery for tunneling purposes. Significant scarring was encountered that required sharp dissection given previous operation. Similar procedure was then performed on the contralateral side that was also a redo operation where the skin was incised on top of the previous incision line.Dissection was then carried down to the graft which was further followed down to the common femoralartery. Scar tissue that was encountered was lysed using sharp dissection. Common femoral artery was then exposed proximally and distally. Proximally it was exposed all the way to the distal externaliliac artery. The vein of vein was then divided. Distally the SFA and the profundofemoral artery were identified and controlled with Vesseloops. Significant amount of time was spent in the redo exposure of bilateral groins to a TAVR procedure 1-1/2 to 2 hours. We then dilated her attention to the abdomen which was opened in midline using a scalpel. Since crepitus tissue was then opened. Fascia was then identified and was placed in the midline. Peritoneum was then identified and was pulled up with hemostat and after tenting it up and making sure there is no underlying structure it was incised sharply. Peritoneal cavity was then entered and the incision was then extended cephalad and caudad towards the xiphoid and the previous femorofemoral bypass respectively. Self-retaining retractors were then applied transverse colon was reflected cephalad all the small bowel was all retracted to was the patient's right and the sigmoid was retracted retracted/reflected caudally. Inferior mesenteric vein was then identified and traced it up we identified the area of the sweep of the duodenum and also the aorta. Duodenum was then peeled off the aorta and the proximal aorta wasthen identified which was then dissected proximally until the bilateral renal arteries were identified and controlled with Vesseloops. We then dissected suprarenal the until a collapsible segment wasdissected with significant atherosclerosis in the middle with the size appeared to be disease-free.The SMA was also identified at its origin at this time. We then carried our dissection distally andopened of the aorta following it down until JOELLEN was identified that was controlled with Vesseloops.We further carried our dissection distally into bilateral iliacs. On the right side the common iliac artery was dissected all the way down to its bifurcation to external and internal iliac artery. Both the external and internal iliac artery on the left side distally was controlled with Vesseloops. Proximally the right common iliac was also controlled with a vessel loop. We then carried our dissect ion on the left side to expose the left common iliac artery. We then completed the tunnels bilaterally hugging the anterior border of the common iliac artery/external iliac artery bilaterally so as to keep the ureters bilaterally anterior to the tunnel. This was also achieved by identifying the ureters bilaterally. Once the tunneling was completed we systemically heparinized the patient and placed our clamps in the suprarenal position and made a arteriotomy infrarenally on the softer portions of the aorta. At this point we then conducted endarterectomy we proximal aorta trying to break the plaque all the way close to the suprarenal clamp this was done very carefully so as to not to damage the back wall of the aorta that would have led to torrential bleeding given the complex atherosclerotic disease. Once the infrarenal portion of the aorta was found to be cleaned of the plaque and soft a clamp was then placed infrarenally on the aorta leaving a cuff of aorta behind for the anastomosisand the suprarenal clamp was then removed. At this point bilateral renal arteries were checked and flushed for signals and good signals were present. The suprarenal clamp time was less than 20 minutes. We then proceeded to perform proximal anastomosis of a 16 x 8 bifurcated Dacron graft. Proximal anastomosis was finished using a 3-0 Prolene suture prior to completion and tying the anastomosis we allowed backward and forward bleeding checking for hemostasis and then the clamp infrarenally was removed and was placed on the limbs of the aortobifemoral graft. Hemostatic agents were then placed around the anastomosis. We then diverted attention towards the right iliac artery. We performed anastom osis of the right aortofemoral limb to the distal common iliac artery after clamping the external, internal and proximal common iliac artery. The anastomosis was completed using 4-0 Prolene suture and before tying the anastomosis we allowed backbleeding and from bleeding and then hemostatic agents were placed around the anastomosis. At this point we passed remanent graft from the right groin intothe abdominal field and conducted a jump graft from the common iliac limb on the right side to the common femoral artery the graft graft anastomosis in the abdomen was also performed using a 4-0 Vicryl suture with an arteriotomy placed on the graft proximal to the iliac anastomosis. In a similar fashion as before, prior to tying the suture the vessels were allowed to backbleed and bleed antegradeso as to de-air the graft. Hemostatic agents were placed here as well. Common iliac artery proximalto both the anastomosis was then ligated. On the right side arteriotomy was made on the common femoral artery distal to the previous femorofemoral graft and endarterectomy of the distal common femoral artery along with superficial femoral artery and profundofemoral artery was then performed. After ensuring good soft mejia of the femoral artery anastomosis of the distal aortofemoral limb and the common femoral artery was created using 5-0 Prolene suture. Prior to tying of the suture the arterieswere allowed to backbleed and bleed antegrade to clear the graft. After completing the anastomosis good Doppler signals were confirmed on the proximal SFA and the profundofemoral artery. Hemostatic agents were placed On the graft. On the left side, the aortofemoral limb was passed all the way down to the groin and then arteriotomy was performed of the common femoral artery distal to the previous femorofemoral bypass graft. Endarterectomy of the common femoral, proximal superficial femoral and profundofemoral artery was performed and the aortic limb was then anastomosed to the common femoral artery using 5-0 Prolene in a running fashion. Prior to completing the anastomosis the de-aired by retrograde and antegrade bleedingafter ensuring adequate flow the anastomosis was completed. Good Doppler flow in the distal profunda and SFA was obtained. We then ligated the previous femorofemoral bypass graft in the respective groins. At this point both groin wounds were irrigated and packed with hemostatic agents as the memberdid not attention back to the aortofemoral bypass in the abdomen. The abdomen was then thoroughly irrigated as well. Proximal left common iliac artery remnant was also ligated using silk suture. Remaining, bleeding lumbar arteries were also ligated with a silk suture in a [id number] fashion. We then proceeded to perform reimplantation of the JOELLEN to the left iliac limb. This was performed by making elliptical incision of the left iliac limb and then following an anastomosis between the graftotomy and a Corel patch created at the JOELLEN orifice. The anastomosis was done in a running fashion using 6-0 Prolene suture and prior to completion of the anastomosis we antegrade and retrograde bloodto the area to be air and ensure flow. Good Doppler signal was then appreciated on the JOELLEN after completion of the anastomosis. At this point we thoroughly irrigated the abdomen and placed hemostaticagents in the proximal and distal anastomoses in the belly. Once adequate hemostasis of the groin was assured we checked Doppler signals in bilateral SFA, profundofemoral arteries again and they were found to be multiphasic. We then proceeded to get to the groin and closed them in layers. Deep femoral sheath bilaterally was closed on top of the [place] artery and partially over the graft so as to not compress it. Then Cornel's and camper's fascia was closed over the graft so as to not compress the graft. Bilaterally. Subcuticular sutures using Vicryl sutures were then performed. Skin was closed using 4-0 Monocryl bilaterally, Dermabond and Steri-Stripswere applied. After ensuring adequate hemostasis of the abdomen retroperitoneum over the graft was first closed using a running 3-0 Vicryl suture. We then irrigated the abdomen and ran the bowel no significant injury was detected. The fascia was then closed from either side using a #1 PDS looped. After every fewrounds of the VDS retention fascial sutures using a 0 Vicryl in a [id number] fashion were thentaken in an interrupted fashion. The 2 PDS sutures were then tied in the middle. Subcutaneous tissue was closed using Vicryl stitch. Skin was closed using hawa. Sterile dressings were applied of the abdominal wound and also bilateral groin wounds. Patient tolerated the procedure well. At the end of the case patient had multiphasic Doppler signals bilaterally. Patient was kept intubated and transferred to the ICU. Patient tolerated the procedure well. I was present and scrubbed for the entirety of the case. At the end of the case and instrument and sponge count was performed and found to be accurate. FINDINGS: 1. Preintervention pulse exam-monophasic AT on the right foot. No signals on the left foot. No tissue loss. Bilateral feet cold. 2. Severe atherosclerotic disease and plaque burden in the entire visceral aortic segment. Small segment of soft aortic tissue in the infrarenal segment. Bilateral calcified and stenosed renal arteryright more stenosed than left. Suprarenal clamp time less than 20 minutes. 3. Severely diseased entire SMA segment that was exposed at the proximal origin and also in the midintraduodenal segment and was found to have significant atherosclerotic disease and poor outflow for a possible bypass. 4. Postoperative finding-bilateral multiphasic DP and PT signals with warm extremities. Electronic Signature on File Electronically Reviewed/Signed by: Sebastian East M.D. Author Signature Dt/Tm:09/09/2023 09:35 AM Division of Vascular Surgery * MD Ximena, Ronni: PERFORM Event Display: .Operative Report Authored Date: [id number] OPERATIVE REPORT Name: PORTER JEFFERSON Patient Number: [id number] : 1960 Date of Service: August 29, 2023 SURGEON: Sebastian East MD CO-SURGEON: Ronni Bueno MD [employer] COMPOSITES(s): Dwaine Tapia MD & Aldo Bravo MD PREOPERATIVE DIAGNOSIS: 1. Aortoiliac occlusive disease status post prior femoral to femoral bypass 2. Critical limb threatening ischemia of left lower extremity 3. Chronic, severe mesenteric ischemia POSTOPERATIVE DIAGNOSIS: 1. Aortoiliac occlusive disease status post prior femoral to femoral bypass 2. Critical limb threatening ischemia of left lower extremity 3. Chronic, severe mesenteric ischemia OPERATION PERFORMED: 1. Exploratory laparotomy 2. Redo exposure of bilateral groins for exposure of common femoral, superficial femoral and profunda femoris arteries 3. Aortic endarterectomy of juxtarenal aorta 4. Bilateral common femoral, profunda femoral and superficial femoral artery endarterectomies 5. Ligation of femoral to femoral bypass 6. Aortobifemoral bypass with 16 x 8 mm Dacron graft (Suprarenal clamp time = 17 minutes, proximal anastomosis: End-to-end, aorto to right hypogastric artery bypass, with jump graft to right common femoral. On the left side, aortic limb was anastomosedto the left common femoral artery distal to prior femoral to femoral bypass. 7. Reimplantation of inferior mesenteric artery onto the limb of the aorto bifemoral bypass 8. Exploration of spleen mesenteric artery ANESTHESIA: General endotracheal anesthesia COMPLICATIONS: None immediate SPECIMENS: Calcified plaques from aorta and bilateral femoral arteries ESTIMATED BLOOD LOSS: Per anesthesia records INDICATIONS: Please refer to Dr. East's operative report and office report for details for the indications. Briefly, Ms. jefferson is a 63 years old woman with a medical history significant for aortoiliac occlusive disease and chronic mesenteric ischemia. She has previously undergone femorofemoral bypass and has thrombosed that. She was offered aortobifemoral bypass. Please refer to Dr. East's op report for details. FINDINGS: Severely calcified aorta and iliac arteries, and femoral arteries. Severely diseased entire SMA segment, not suitable for clamping and surgical bypass. OPERATION: Please refer to Dr. East's operative report for exposure of the common femoral arteries and bilateral groins. This is a complicated operation, due to severely calcified aortoiliac occlusive disease, with prior failed femoral to femoral bypass and requiring suprarenal aortic clamping. It required 2 attending vascular surgeons to complete the operation in an expeditious fashion. Surgical residents were present for teaching purposes only. By the time I scrubbed in, bilateral femoral arteries had already been exposed. Now, we made a midline laparotomy incision starting from xiphoid all the way down to the pubic symphysis. Skin was incised with scalpel and subcutaneous tissue was divided with Bovie cautery. Fascia was identified in the midline, it was carefully lifted up and incised with Metzenbaum scissors. We then divided the peritoneum with Metzenbaum scissors and entered the peritoneal cavity. Next, self-retaining retractors were then placed and transverse colon and omentum was reflected cephalad. The small bowel was retracted towards patient's right side. It required sharp dissection with Metzenbaum scissors to mobilize the lateral portion of the third portion of duodenum towards the patient's right side. Sigmoid colon was reflected caudally. Next, and for mesenteric vein was identified, and tied, clipped and divided in between. We then identified the left renal vein. We then defy the junction of the left renal veinwith the inferior vena cava. A vessel loop was placed across it and then we divided the left renal vein at the junction with inferior vena cava with Endo ANDRZEJ stapler with vascular load. We then continued dissection in the cephalad direction and clearly identified the aorta between the origin of SMAand renal arteries. We then defy the soft portion of the aorta, just inferior to severe mesenteric a rtery origin for clamping. We then identified the origins of bilateral renal arteries, and placed Vesseloops across each of them carefully. Now we continued dissection distally and identified inferior mesenteric artery origin. The aorta Vesseloops were placed across it. Now we identified the originof bilateral common iliac arteries and placed Vesseloops across them. We also continue dissection right on top of right common iliac artery and placed Vesseloops across the origins of right external iliac artery and internal iliac arteries. Next, we created tunnels bilaterally hugging the anterior border of the common iliac and external iliac arteries bilaterally. By keeping the ureters anterior t o the tunnel. This was achieved by identifying the ureters bilaterally and carefully retracting them out of harm's way. We placed umbilical tapes in bilateral tunnels. Next, patient was given 5000 units of intravenous heparin and therapeutic ACT was achieved. Next, we clamped bilateral common iliacarteries. We then placed clamps on both the renal arteries. We then placed suprarenal clamp, just inferior to the origin of the mesenteric artery. We then made an aortotomy in the infrarenal aorta onthe softer portion. We then extended the arteriotomy cephalad and transected the aorta approximately 2 cm below the origin of renal arteries. Next, we identified multiple backbleeding lumbar arteriesand suture-ligated them with a combination of 2-0 Ethibond and 2-0 silk sutures. Next, using a Porter clamp, we removed the atherosclerotic plaque from the suprarenal aorta. It required multiple passes and we were able to remove a large amount of calcified plaque. We performed external manual palpation of the suprarenal aorta to confirm that all calcified plaque had been removed. We then moved thesuprarenal clamp to infrarenal location. We removed the renal artery clamps as well. The total suprarenal clamp time was 70 minutes. We confirmed the arterial flow in the renal arteries by placing Doppler on the renal arteries. We then performed a proximal anastomosis using a 16 x 8 bifurcated Dacron graft. The anastomosis was done in an end-to-end manner. Proximal anastomosis was completed using3-0 Prolene in a continuous fashion. After the completion anastomosis, both limbs of the graft wereclamped, and the integrity of the anastomosis was checked under pressure. It appeared intact without any bleeding. We then diverted our attention to the right iliac artery. We transected the distal right common iliac artery, just before its bifurcation into external and internal iliac arteries. We performed the anastomosis in an end-to-end manner, using 4-0 Prolene suture. Before the completion of anastomosis, forward and backward bleeding were performed and all the bubbles were removed. Anastomosis was then completed. Next, 8 mm Dacron graft was then tunneled in the plane, previously createdbetween the groin and the pelvis., Making sure that the ureter stays anterior to the graft. Next, we made graftotomy on the right limb of the graft, and performed end-to-side anastomosis using 5-0 Prolene sutures. Before the completion anastomosis, forward and backward bleeding were performed and all the bubbles were removed. Anastomosis was then completed. Next, we clamped the right common femoral, superficial femoral and profunda femoris arteries. We made a longitudinal arteriotomy in the common femoral artery, distal to the anastomosis of the prior femorofemoral bypass. We endarterectomized the common femoral, superficial femoral, and profunda femoris arteries. And performed the distal anastomosis in an end-to-side manner using 5-0 Prolene in a continuous manner. Before the completion of anastomosis, forward and backward bleeding were performed and all the bubbles were removed and anastomosis was then completed. Next, similarly on the left side, we made a longitudinal arteriotomy on the common femoral artery, distal to the previous anastomosis, performed endarterectomy and performed the distal anastomosis in an end-to-side manner, using 5-0 Prolene. Before the completion anastomosis, forward and backward bleeding were performed and all air bubbles were removed. Anastomosis was then completed. Next, the origin of examined the right artery was beveled, and transected. We thenperformed a longitudinal graftotomy on the left limb of the aortobifemoral bypass and performed theIMA reimplantation using 5-0 Prolene in a continuous manner. Before the completion anastomosis, forward and backward bleeding were performed and all air bubbles were removed. Anastomosis was then completed. We then explored distal mesenteric artery, all the way from its origin from the aorta to approximately 10 cm distal to the origin, it was extremely calcified, and was unsafe to clamp. Therefore, we decided not to perform superior mesenteric artery bypass. At this point time, I scrubbed out. P cindy refer to Dr. East's op report for details. Electronic Signature on File CC: Sebastian East M.D. [address] [place] [address] Electronically Reviewed/Signed by: Ronni Bueno MD Author Signature Dt/Tm:09/07/2023 09:06 PM Division of Vascular Surgery FA Geriatrics Consult * MD Sanabria Amy M: MODIFY MD Sanabria Amy M: MODIFY Event Display: Geriatrics Consult Authored Date: [id number] INPATIENT GERIATRIC MEDICINE CONSULTATION REPORT Reason for Consultation Reason For Consultation: Anxiety Date of Service: 09/15/2023 PrimaryService:Vascular Surgery Attending Provider: Sebastian East Brief Recommendations: - Start Melatonin 3 mg qhsto address sleeping difficulty in the setting of increased anxiety - Recommend nicotine replacement therapy gum 2 mg per square prn if approved by Vascular Surgery service to address nicotine withdrawal symptoms in the setting of increased anxiety. - Continue home Escitalopram 10 mg daily given appropriate elderly dosing given adequate control ofanxiety at baseline. - If intervention not adequate at controlling anxiety symptoms, may consider starting on Mirtazapine 7.5 mg qPM (at 18:00) to help with sleep onset and anxiety symptoms. Full assessment & recommendations outlined at bottom of note. The above recommendations were discussed and developed after rounding with the attending,Dr. Keerthi Sanabria, who is in agreement unless as noted below in her addendum. Thank you for the opportunityto participate in the care of this patient. Please do not hesitate to contact us if you have any questions or concerns regarding the patient. History of Present Illness Ms. Porter Jefferson is a 63-year old female with past medical history significant for PAD s/p right toleft femoral artery to femoral artery bypass (~2013) and anxiety/depression well-controlled on Escitalopram 10 mg daily who was admitted to [facility] on 08/29/2023 for critical limb ischemia of the left lower extremity and chronic mesenteric ischemias/p Aortic endarterectomy with Aorto bypass to R CAMMIE,L [employer]ING DEPARTMENT SUPERVISOR bypass and jump to R [employer]ING DE[employer]MENT SUPERVISOR, reimplant of the JOELLEN, R groin washout and sartorius flap. 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 Shereports independence in daily activities, including brushing teeth, sh owering, and dressing. Porter has a significant medical history, including Crohn's diseasediagnosed 25 years ago and stable bowel issues for the last three years. The patient reports experiencing frequent falls at home, with an estimated six falls in the past six months and double that number in the previous year. These falls are linked to shakiness in her hands and legs, particularly when standing up or after driving due to motion sickness. Despite these challenges, Porter has good sensation and strength in their lower extremities but suffers from pain in her right leg, likened to known PAD.Porter also has a history of orthostasis, leading to dizziness and motion sickness upon rising from a seated position. Shedenies any sudden weakness in herlimbs or episodes of passing out. Additionally, the patient notes that herheart races at night, although she does not believe this is connected to herfalls. Porter has been a smoker for 50 years, consumes alcohol socially, and does not use alliance party drugs. They have been successfully treated with Citalopram for depression for the past ten years, though they report a recent decline in mood. Social History: Educational Background: GED Former Occupation: [employer] Tobacco Use: 50 year history at 1 ppd Alcohol Use: social Illicit/Recreational Drug Use: isidro Living Situation: 2-story home with family, bedroom on 2nd floor with 12-stairs, ~6-stairs to houseentry, no stairs at rear entry Social Support System: family Review of Systems A 14 point system review including general, eyes, ENT, cardiovascular, vascular, respiratory, gastrointestinal, genitourinary, musculoskeletal, integumentary, neurologic, psychiatric, endocrine, hematologic, neck, allergic/immunologic and reproductive were reviewed and pertinent positives have beenstated above. Physical Exam Vitals & Measurements T:36.5C TMIN:36.3C TMAX:36.6C HR:61(Monitored) RR:19 BP:163/64 SpO2:97% Oxygen Therapy:Room Air WT:72.7kg Input and Output - Last 24 hours (Last 8 hours) Total In: 1551 (392) Total Out: 990 (0) Total Balance: 561 (392) heparin for infusion 25,000 unit + dextrose 5% (heparin drips) 250 mL:185 (90) Right, Groin Surgical incision:50 (0) MED INTAKE:166 (62) Cornelius Hall Right, Groin:40 (0) Oral Fluids:1200 (240) 09/11/2023 Female External Urinary Device:600 (0) Urine Voided:300 (0) Stool Count 3(2) Urine Count 1(1) General:No apparent distress, well-appearing, non-cachectic Eyes:no scleral icterus ENMT:moist mucous membranes, no temporal wasting Cardiovascular:normal rate andregular rhythm. 1+ distal RUE pulse. 2+ distal LUE pulse. Respiratory:lungs clear to auscultation. prolonged expiratory phase. central coarse rhonchi. bibasilar rales. GI:normal bowel sounds, non-tender/non-distended, soft Musculoskeletal:No sarcopenia Neuro:alert, attentive, oriented x3 person, place, time/situation; grossly non-focal; moves all extremities Ext:2+ pitting edema bilaterally to knees (LLE > RLE) Skin:no obvious rash Psych:appropriate affect History obtained from patient GERIATRIC ASSESSMENT: Prior documentation of Cognitive Impairment or Dementia: No Mini-Cog Score:2/5 (Abnormal) Delirium Screening:Negative Functional Status Prior to Hospitalization Activities of Daily Living: Feeding:Independent Transferring:Independent Toileting:Independent Dressing:Independent Bathing:Independent Instrumental Activities of Daily Living: Using the telephone:Independent Shopping:Independent Preparing food:Independent Housekeeping:Independent Doing laundry:Independent Using transportation/driving:Independent Handling medications:Independent Handling finances:Independent Continence:Continent of Bowel and Bladder Impaired mobility: (Prior to Admission): NoIf yes, type of assistive device:N/A History of falls in past year?(If yes, # of falls if known):Yes:as stated in HPI Any Signs of Poor Nutritional State?:N/A Difficulty swallowing:No Is patient experiencing any emotional or spiritual distress related to their current health condition?No Caregiver Assessment: How stressful is caring for your loved one on a scale of 1 (not stressful) to10 (extremely stressful)?N/A Suspectedneglect or abuse?No Assessment/Plan 5 M's PLAN/RECOMMENDATIONS: 1.) Mentation: #Cognitive impairment Baseline cognitive status is unclear at this time given abnormal mini-cog screening score with concern for underlying mild cognitive impairment versus dementia-type memory impairment. No reportedrecent changes in cognition, confusion, or memory loss. No reportednoticeable increased in anxiety/de pression, or changes in hearing or vision changes. - Will follow-upwithWiCA/UMs cognitive screening - Delirium prevention protocols, as stated below Delirium Prevention Measures: -Early and frequent mobilization (as permitted, once cleared by primary service) -Avoid sleep deprivation & promote sleep hygiene (blinds open during the day, patient awake during day hours, quiet time at night, cluster care at night to prevent interruptions of sleep, ifpossible) -Provide sensory devices (eyeglasses, hearing aides) -Minimize tethers (IVs, monitor lines, catheters) as much as possible -Monitor and treat volume depletion to prevent dehydration -Avoid/minimize common medications that cause delirium: diphenhydramine, narcotics, benzodiazepines, anticholinergics, antihistamines, if possible. -First-line, non-pharmacologic multidisciplinarydeliriummanagement measures: -Offer frequent redirection andreorientation as needed while awake Encourage family presence at the bedside, which will help withorientation, as well as provide comfort to the patient Can encourage family to bring a familiar object(blanket, pictures, music, etc.)from home that may provide comfort of distraction to the patient -Minimize tethers (IVs, monitor lines, catheters, restraints) as much as possible. -Provide sensory devices (eyeglasses, hearing aides) -Avoid sleep deprivation & promote sleep hygiene (blinds open during the day, patient awake during day hours, quiet time at night, cluster care at night to prevent interruptions of sleep, ifpossible) -Encourage mobilization and activity with supervision and assistance -Monitor and treat for volume depletion to prevent dehydration (can precipitate/exacerbate delirium) -Assess & treat for any urinary retention or constipation (can precipitate/exacerbate delirium) -Avoid/minimize common medications that cause delirium: diphenhydramine, narcotics, benzodiazepines, anticholinergics, antihistamines, if possible -Monitor and treat for reversible causes of delirium: Drugs, Electrolyte Disturbances, Infection, Intracranial Disorders, Bowel/Bladder Dysfunction, Myocardial/Pulmonary Disorders -Non-pharmacologic measures should always be taken first. Antipsychotics can increase risk of stroke, extrapyramidal symptoms (EPS), worsen metabolic profile, prolong QTc, lengthen or worsen delirium, as well as increase overall all-cause mortality (especially in older adults). 2.) Mobility: #Impaired Mobility #Recurrent Falls Patient has reported high risk fall history in the setting of reported possible orthostasis diagnosed at [facility] versus POTs versus peripheral neuropathy 2/2 known bilateral LE PAD. Otherwise reportedly independent with all ADLs/iADLs at baseline with no use of ambulatory assistive devices. - Would continue regular sessions with PT and OT while inpatient - Recommend OOB at least TID to encourage independence with ADLs as patient is able to participate and tolerate - Consider Orthostatic vitals - OSH medical documentation from [facility] 3.) Multi-Complexity: #Anxiety, acute on chronic. #Sleeping difficulty #Chronic tobacco use Acute anxiety appears multifactorial at this time due to environmental, sleep disturbance, and nicotine withdrawal given abrupt change from reported baseline activities and socialization. Less suspicious for symptoms secondary to cardiogenic etiology. - Start Melatonin 3 mg qhsto address sleeping difficulty in the setting of increased anxiety - Recommend nicotine replacement therapy gum 2 mg per square prn if approved by Vascular Surgery service to address nicotine withdrawal symptoms in the setting of increased anxiety. - Continue home Escitalopram 10 mg daily given appropriate elderly dosing given adequate control ofanxiety at baseline. - If intervention not adequate at controlling anxiety symptoms, may consider starting on Mirtazapine 7.5 mg qPM (at 18:00) to help with sleep onset and anxiety symptoms. #Orthostasis - As stated above leading to recurrent falls #PAD s/p bypass #chronic mesentericischemia s/p reimplant of JOELLEN - Management per primary team #Peripheral edema of LE, bilateral - - Management per primary team 4.) Medications: #Polypharmacy Current medications reviewed and appear appropriate given pt's current medical problems. Wouldconsider: - Discontinuation Glimepiride 1mg qAM due to risk of hypoglycemia - Discontinuation Omeprazole 20 mg qAM due to risk osteoporosis, hypocalcemia, and hypomagnesemia 5.) What Matters: Who helps you with medical decisions? Son What is important to you today (and in the future)? To get back to normal home routine and socialization. Healthcare POA: Son (Cristiano) Durable POA: None POLST/Advanced Care Directive: Living Will Code Status: Full code -If there are challenges or barriers identified for transition of care/disposition after inpatient hospital stay, recommend an interprofessional 'huddle' with PT/OT, care coordination, and patient/family to outline options. We are happy to participate in any discussions as well. I personally reviewed this patient's medical record, lab results, and imaging. History, physical exam, assessment and plan were discussed with Dr.Amy Carbone saw, and evaluated patient. Umer Lux MD, PGY-4 Geriatrics Fellow Geriatric Department, Internal Medicine (Dragon disclosure) This encounter was completed utilizing the [employer] voice recognition software. Grammatical errors, random word inserts, pronoun errors,and incomplete sentences are occasional consequences of the system due to software limitation, ambient noise, and hardware issues. These may be missed by proof reading prior to affixing electronic signature. Any questions or concerns about the content, text, or information contained within the body of this dictation should be directly addressed to this provider for clarification. Attestation I have seen and examined Porter Jefferson. I agree with the physical exam, assessment and consult recommendations in the plan noted above by Dr. Umer Lux. Pertinent data was reviewed and discussed. I also was actively involved in formulating the consult recommendations in the plan of care. The geriatric medicine consult recommendations include regularly addressing the 5Ms: Mind (deliriumprevention techniques), Mobility (OOB to chair daily), Medications (Reconciliation, avoid Beers List), Multicomplexity (Transitions of Care and Geriatric Syndromes), Matters Most (Goals of Care/Advance Care Planning). If there are challenges or barriers identified for transition of care/disposition after inpatient hospital stay, recommend an interprofessional 'huddle' with PT/OT, care coordination, and patient/family to outline options. Thank you for consulting the Geriatric Medicine Consult team. Please call with any questions or upon patient/family request via [employer] [facility] [place] [place] On[place]. A MD Elly Geriatric Medicine Problem List/Past Medical History Ongoing Aortoiliac occlusive disease Diabetes mellitus Peripheral arterial disease Subclavian artery stenosis Tobacco user Procedure/Surgical History Artery- bypass| Service Date: 2013TonsillectomyColonoscopyCesarean section Medications Inpatient acetaminophen, 650 mg= 2 tab, PO, q6h albuterol(albuterol CFC free 90 mcg/inh MDI), 2 puff, inhaled, q4h, PRN amiodarone, 200 mg= 1 tab, PO, Daily aspirin, 81 mg= 1 tab, PO, Daily atorvastatin, 40 mg= 1 tab, PO, Daily budesonide-formoterol(Symbicort 160 mcg-4.5 mcg/inh inhalation aerosol), 2 puff, inhaled, bid calcium carbonate(Tums 500 mg oral tablet, chewable), 500 mg= 1 tab, PO, tid, PRN DOBUTamine 500 mg + Dextrose 5% in Water 250 mL(DOBUTamine 500 mg + dextrose 5% (normalized drips) 250 mL), 250 mL, titrate, Order Calculation Weight: 64.4 kg, IV Drip, Routine, 08/27/23 14:49:00 EDT, 60 day, Hard Stop, 10/26/23 14:48:00 EDT, 08/27/23 14:49:00 EDT docusate-senna(Senna S), 1 tab, PO, bid, PRN doxycycline, 100 mg= 1 cap, PO, bid escitalopram, 10 mg= 1 tab, PO, Daily fentaNYL, 50 mcg= 1 mL, IV Push, ONCE, PRN heparin 25,000 unit + Dextrose 5% in Water 250 mL(heparin for infusion 25,000 unit + dextrose 5% (heparin drips) 250 mL), 250 mL, Per Protocol, STARTING DOSE (units/hr): 500, Order Calculation Weight: 63 kg, IV Drip, STAT, 09/14/23 9:46:00 EDT, 60 day, Hard Stop, 11/13/23 9:45:00 EDT hydrALAZINE, 10 mg= 0.5 mL, IV Push, q2h, PRN HYDROmorphone(Dilaudid), 0.25 mg= 0.25 mL, IV Push, q15min, PRN insulin lispro(HumaLOG Sliding Scale Ultra Low), SSI, subQ, ac and hs ipratropium(Atrovent MDI 17 mcg/inh HFA), 2 puff, inhaled, q6h, PRN labetalol, 100 mg= 1 tab, PO, bid lisinopril, 40 mg= 1 tab, PO, Daily melatonin(Melatonin), 3 mg= 1 tab, PO, qhs, PRN miconazole topical(Micro-Guard 2% topical powder), 1 appl, topical, qid mirtazapine, 7.5 mg= 0.5 tab, PO, qPM ondansetron(Zofran), 4 mg= 2 mL, IV Push, q6h, PRN oxyCODONE, 5 mg= 1 tab, PO, q4h, PRN pantoprazole, 40 mg= 1 tab, PO, Daily piperacillin-tazobactam, 3.375 g= 50 mL, IV, q8h polyethylene glycol 3350(MiraLax), 17 g, PO, Daily, PRN povidone iodine topical(povidone iodine 10% topical ointment), 1 appl, topical, Daily, PRN Home albuterol(albuterol CFC free 90 mcg/inh MDI), 2 puff, inhaled, qid, PRN aspirin(aspirin 81 mg oral delayed release tablet), 81 mg= 1 tab, PO, qAM atorvastatin(atorvastatin 40 mg oral tablet), 40 mg= 1 tab, PO, qhs azithromycin(azithromycin 250 mg oral tablet), 250 mg= 1 tab, PO, qMonWedFri diphenhydrAMINE(Benadryl 25 mg oral tablet), See Instructions escitalopram(escitalopram 10 mg oral tablet), 10 mg= 1 tab, PO, qAM fluticasone/umeclidinium/vilanterol(Trelegy Ellipta 100 mcg-62.5 mcg-25 mcg/inh inhalation powder),1 puff, inhaled, qAM glimepiride(glimepiride 1 mg oral tablet) lisinopril(lisinopril 10 mg oral tablet), 10 mg= 1 tab, PO, Daily, 3 refills metFORMIN(MetFORMIN (Eqv-Glucophage XR) 500 mg oral tablet, extended release), 500 mg= 1 tab, PO, bid metoprolol(metoprolol succinate 25 mg oral tablet, extended release), 25 mg= 1 tab, PO, qhs multivitamin, 1 tab, PO, qAM multivitamin(B-Complex 50 oral tablet), 1 tab, PO, qAM omeprazole(omeprazole 20 mg oral delayed release capsule), 20 mg= 1 cap, PO, qAM predniSONE(predniSONE 50 mg oral tablet), See Instructions rivaroxaban(Xarelto 2.5 mg oral tablet), 2.5 mg= 1 tab, PO, bid, 2 refills sodium chloride nasal(NeilMed Sinus Rinse Kit) Allergies IVP dyeHives mercaptopurinePancreatitis Social History Smoking Status Current every day light smoker Lab Results Test Name Test Result Date/Time Na 131 mmol/L 09/15/2023 07:01 EDT K 4.1 mmol/L 09/15/2023 07:01 EDT Cl- 97 mmol/L 09/15/2023 07:01 EDT HCO3 21 mmol/L 09/15/2023 07:01 EDT Anion Gap 13 mmol/L 09/15/2023 07:01 EDT BUN 13 mg/dL 09/15/2023 07:01 EDT Cret 0.82 mg/dL 09/15/2023 07:01 EDT Estimated CrCl 68.03 mL/min 09/15/2023 08:11 EDT eGFR CKD-EPI 79 mL/min/1.73 m2 09/15/2023 07:01 EDT Glu 148 mg/dL 09/15/2023 07:01 EDT Ca 8.8 mg/dL 09/15/2023 07:01 EDT PO4 3.2 mg/dL 09/15/2023 07:01 EDT WBC 9.63 K/uL 09/15/2023 07:01 EDT Hgb 11.7 g/dL 09/15/2023 07:01 EDT Hct 34.7 % 09/15/2023 07:01 EDT RBC 3.78 M/uL 09/15/2023 07:01 EDT MCV 91.8 fL 09/15/2023 07:01 EDT MCHC 33.7 g/dL 09/15/2023 07:01 EDT MCH 31.0 pg 09/15/2023 07:01 EDT RDW 16.7 % 09/15/2023 07:01 EDT Plts 230 K/uL 09/15/2023 07:01 EDT MPV 9.7 fL 09/15/2023 07:01 EDT PTT 33 seconds 09/15/2023 07:01 EDT Alb 3.5 g/dL 09/15/2023 07:01 EDT Gluc Meter 159 mg/dL 09/15/2023 11:49 EDT Blood Glucose 159 mg/dL 09/15/2023 11:56 EDT Electronic Signature on File Electronically Reviewed/Signed by: Umer Lux MD Author Signature Dt/Tm:09/15/2023 05:22 PM Resident Division of Internal Medicine Electronically Reviewed/Signed by: Keerthi Sanabria MD Cosigner Signature Dt/Tm: 09/15/2023 05:56 PM Division of Internal Medicine CML * MD Pravin, Keerthi: PERFORM, MODIFY MD Pravin, Keerthi: MODIFY, MODIFY MD Pravin, Keerthi: MODIFY, MODIFY MD Pravin, Keerthi: MODIFY MD Juani, Jennifer Arredondo: MODIFY, MODIFY MD Juani, Jennifer Arredondo: MODIFY Event Display: ID General Inpt Consult Authored Date: Reason for Consultation Prophylactic antibiotics in the setting of synthetic bypass graft History of Present Illness Porter Jefferson is a 63-year-old female with PAD s.p right-left femoral artery to femoral artery bypass 10 years ago, CAD, HTN, HLD, T2DM, Crohn's, GERD, chronic mesenteric ischemic whowas admitted tot Vascular Surgery service for critical limb ischemia of the LLE and chronic mesenteric ischemia on 08/29/23. She is s/p aortic endarterectomy with aorto synthetic bypass on 08/28. Due to rise in WBCand drop in hgb prompted return to the OR on 09/09/23 for washout, found old hematoma that was evacuated, no signs of infection seen at this time. Started on empiric Zosyn and vancomycin at that time. Patient is now feeling well and has not specific complaints. She reports that for the last 2 weeks she has not felt any different, however per nursing staff she was pulling at lines, agitated and encephalopathic the last couple of days, but not improving mental status. She endorses cramping abdominal pain and slight nausea when standing up, otherwise no nausea or vomiting. No SOB or chest pain. Denies every having any leg pain or discoloration of her legs. Is having multiple bowel movements daily, 2 yesterday and one today. No dysuria. Review of Systems 14pt ROS negative unless stated as above. Physical Exam Vitals & Measurements T:36.6C TMIN:36.3C TMAX:36.8C HR:61(Monitored) RR:15 BP:146/62 SpO2:90% Oxygen Flow:1(L/Min) Oxygen Therapy:Room Air WT:78.1kg Input and Output - Last 24 hours (Last 8 hours) Total In: 1785 (503) Total Out: 1975 (485) Total Balance: -190 (18) Electrolyte IV Solution 1,000 mL:1181 (0) Right, Groin Surgical incision:250 (0) MED INTAKE:364 (263) Cornelius Hall Right, Groin:245 (35) Oral Fluids:240 (240) Indwellin (0) 09/11/2023 Female External Urinary Device:750 (450) Stool Count 5(2) General:Well-appearing, well nourished. No acute distress. HEENT:Normocephalic, atraumatic. Anicteric sclerae. Neck:Trachea midline. Cardiac:Skin appears well perfused. RRR Lungs:No respiratory distress. Appears to be breathing comfortably on room air. No audible wheezing. CTAB Abdomen: soft, midline incision with bandage over with no active drainage, diffuse tenderness to palpation. Bilateral groin incision with wound vac at the right groin and WAYLON drainwith serosanguineous drainage and incision with bandage on the left groin. Extremities:Moves all extremities spontaneously. Lower extremities with 3+ pitting edema bilateral throughout and in sacral dependent area, warm and well perfused. Neuro: Alert. Nogross neurological deficits. Skin:Warm and well perfused. Cap refill <2s. Psych:Pleasant. Euthymic mood. Normal affect. Diagnostic Results RELAVENT IMAGING (06/16/2023 10:[address] Angio Abdomen and Pelvis) IMPRESSION: 1. No pulmonary artery embolism. 2. No acute process in the chest, abdomen or pelvis. 3. Severe bulky calcified atherosclerotic disease at the origin of the innominate artery with occlusion of the proximal innominate artery. There is also moderate stenosis of the origin of the left common carotid artery and the left subclavian artery. There is also severe stenosis of the origin of the right subclavian artery. 4. Large intraluminal calcification in the aorta at the level of the right renal artery resulting in severe stenosis approximately 75-80%. 5. Complete occlusion of the left common iliac artery. Severe long segment stenosis of the left external iliac artery. 6. There is 50% stenosis of the right common iliac artery. 7. Severe long segment stenosis of the right external iliac artery. 8. The femoral to femoral bypass graft is occluded as are the bilateral common femoral arteries. There is collateral opacification of the proximally imaged bilateral superficial and deep femoral arteries. 9. Calcified occlusion of the origin of the superior mesenteric artery. 10. Near complete calcified occlusion of the origin of the right renal artery. 11. Hepatic steatosis. (09/08/2023 09:11 EDT US Groin Right) IMPRESSION: Complex collection in the area of interest, the appearance of which favors hematoma, less likely abscess. Adjacent soft tissue edema. (09/09/2023 00:20 EDT US Abdomen Limited) IMPRESSION: 1. No cholelithiasis or evidence of acute cholecystitis. Distended gallbladder with intraluminal debris, nonspecific. 2. Moderate right renal hydronephrosis. 3. Ascites. Right pleural effusion. (09/09/2023 10:11 EDT VL Lower Ext Arterial Duplex Limited) REASON FOR TEST R/O pseudoaneurysm INTERPRETATION/FINDINGS Arterial and venous duplex exam of the right groin reveals: 1. No evidence of pseudoaneurysm noted in the right groin. 2. Hematoma noted in the groin extending into the proximal thigh measuring 5.10cm x 4.71cm. 3.Patent distal external iliac, common femoral, profunda femoris, and proximal superficial femoral arteries without evidence of a significant stenosis. 4. Due to hematoma and patient in pain, limited visualization of the distal external iliac, common femoral, deep femoral, and proximal femoral veins. Phasic flow noted throughout. Cannot rule out thrombosis in these vessels. RELAVENT CULTURES 09/07/23: blood cultures x2 NGTD in 4 days 09/10/23: C. Diff negative FINAL ANTIBIOTIC HISTORY Zosyn 3.375 g 09/08/23 --- current Vancomycin 09/08/23 ---- current Assessment/Plan Porter Jefferson is a 63-year-old female with PAD s.p right-left femoral artery to femoral artery bypass 10 years ago, CAD, HTN, HLD, T2DM, Crohn's, GERD, chronic mesenteric ischemic who is admitted to the Vascular Surgery service for critical limb ischemia of the LLE and chronic mesenteric ischemia on08/29/23. She is s/p aortic endarterectomy with aorto synthetic bypass on 08/28. Due to rise in WBC an d drop in hgb prompted return to the OR on 09/09/23 for washout, found old hematoma that was evacuated, no signs of infection seen at that time. ID Problems: Synthetic bypass graft (08/29/23, washed out on 09/09/23) RECOMMENDATIONS: 1. Please obtain MRSA swab. If negative and low concern for MRSA, will likely be able to discontinue vancomycin. 2. Continue Zosyn at this time. Will obtain more information about the ascites seen on US in the setting of leukocytosis forconcern intraabdominal source for possible infectious etiology vs need for empiric antibiotics if concern for graft infection. Patient was discussed and evaluated with who agrees with assessment and plan as above unless stated otherwise in attending addendum. Recommendations were communicated to primary team. We will continue to follow. Keerthi Costello MD Internal Medicine Resident, PGY3 Attestation Attending- patient seen and examined with Dr Costello (ID Resident). Pertinent history repeated andpatient examined. She is clinically stable, no fever and white cell count decreasing. Blood cultures negative but we do not have OR cultures. I note mention of ascites on US abdomen . I would like to discuss with primary team their concern for infection ? inguinal graft or SBP? After discussion and review of imaging we can develop a potential antibiotic plan after weighing benefits and potential adverse effects. Attending- discussed with Dr East and i understand better concern for 1) inguinal graft infectionbecause of prolonged WAYLON and VAC dressing and in addition concern for GI translocation due to mesenteric ischemia and concern for aortic graft contamination from translocation. Discussed risk of iv antibiotics including bacteremia from line with risk to graft from bacteremia. Weighing these concerns against risks we discussed using oral doxycycline on discharge- 100mg bid with avoidance of direct sun exposure. Doxycycline will provide skin staph coverage that could be of concern in a graft (including coag negative staph) as well as some simple gram negative and anerobe coverage). We will sign off- please call with questions Jennifer Gloria MD Billing justification / Time spent on day of encounter 15minutes -----Reviewing notes, cultures, lab results, imaging, medication doses, etc. 20minutes -----Discussing patient with ID fellow, resident, student, or MINESH on our team 15minutes -----Interviewing (if possible), examining, and counseling the patient xxminutes -----Conversation with family or other permitted surrogate xxminutes -----Reviewing imaging with Radiologist or tests with Microbiology/Pathology, etc. xxminutes -----Discussing thoughts and plans with primary team or other consultants 10minutes -----Composing (or reviewing and editing) and finalizing this EMR note, which by necessity involves reviewing updated notes, cultures, imaging, meds, etc. Problem List/Past Medical History Ongoing Aortoiliac occlusive disease Diabetes mellitus Peripheral arterial disease Subclavian artery stenosis Tobacco user Procedure/Surgical History Artery- bypass| Service Date: 2013TonsillectomyColonoscopyCesarean section Medications Inpatient acetaminophen, 650 mg= 2 tab, PO, q6h albuterol(albuterol CFC free 90 mcg/inh MDI), 2 puff, inhaled, q4h, PRN amiodarone, 200 mg= 1 tab, PO, Daily aspirin, 81 mg= 1 tab, PO, Daily atorvastatin, 40 mg= 1 tab, PO, Daily budesonide-formoterol(Symbicort 160 mcg-4.5 mcg/inh inhalation aerosol), 2 puff, inhaled, bid calcium carbonate(Tums 500 mg oral tablet, chewable), 500 mg= 1 tab, PO, tid, PRN DOBUTamine 500 mg + Dextrose 5% in Water 250 mL(DOBUTamine 500 mg + dextrose 5% (normalized drips) 250 mL), 250 mL, titrate, Order Calculation Weight: 64.4 kg, IV Drip, Routine, 08/27/23 14:49:00 EDT, 60 day, Hard Stop, 10/26/23 14:48:00 EDT, 08/27/23 14:49:00 EDT docusate-senna(Senna S), 1 tab, PO, bid Electrolyte IV Solution 1,000 mL, 1000 mL, IV Fluid escitalopram, 10 mg= 1 tab, PO, Daily fentaNYL, 50 mcg= 1 mL, IV Push, ONCE, PRN heparin, 5000 unit= 1 mL, subQ, q12h hydrALAZINE, 10 mg= 0.5 mL, IV Push, q4h, PRN HYDROmorphone(Dilaudid), 0.25 mg= 0.25 mL, IV Push, q15min, PRN insulin lispro(HumaLOG Sliding Scale Low), SSI, subQ, ac and hs ipratropium(Atrovent MDI 17 mcg/inh HFA), 2 puff, inhaled, q6h, PRN metoprolol(metoprolol tartrate), 25 mg= 1 tab, PO, bid ondansetron(Zofran), 4 mg= 2 mL, IV Push, q6h, PRN oxyCODONE, 5 mg= 1 tab, PO, q4h, PRN pantoprazole, 40 mg= 1 tab, PO, Daily piperacillin-tazobactam, 3.375 g= 50 mL, IV, q8h polyethylene glycol 3350(MiraLax), 17 g, PO, Daily, PRN povidone iodine topical(povidone iodine 10% topical ointment), 1 appl, topical, Daily, PRN vancomycin, 1000 mg= 200 mL, IV, q24h Home albuterol(albuterol CFC free 90 mcg/inh MDI), 2 puff, inhaled, qid, PRN aspirin(aspirin 81 mg oral delayed release tablet), 81 mg= 1 tab, PO, qAM atorvastatin(atorvastatin 40 mg oral tablet), 40 mg= 1 tab, PO, qhs azithromycin(azithromycin 250 mg oral tablet), 250 mg= 1 tab, PO, qMonWedFri diphenhydrAMINE(Benadryl 25 mg oral tablet), See Instructions escitalopram(escitalopram 10 mg oral tablet), 10 mg= 1 tab, PO, qAM fluticasone/umeclidinium/vilanterol(Trelegy Ellipta 100 mcg-62.5 mcg-25 mcg/inh inhalation powder),1 puff, inhaled, qAM glimepiride(glimepiride 1 mg oral tablet) lisinopril(lisinopril 10 mg oral tablet), 10 mg= 1 tab, PO, Daily, 3 refills metFORMIN(MetFORMIN (Eqv-Glucophage XR) 500 mg oral tablet, extended release), 500 mg= 1 tab, PO, bid metoprolol(metoprolol succinate 25 mg oral tablet, extended release), 25 mg= 1 tab, PO, qhs multivitamin, 1 tab, PO, qAM multivitamin(B-Complex 50 oral tablet), 1 tab, PO, qAM omeprazole(omeprazole 20 mg oral delayed release capsule), 20 mg= 1 cap, PO, qAM predniSONE(predniSONE 50 mg oral tablet), See Instructions rivaroxaban(Xarelto 2.5 mg oral tablet), 2.5 mg= 1 tab, PO, bid, 2 refills sodium chloride nasal(NeilMed Sinus Rinse Kit) Allergies IVP dyeHives mercaptopurinePancreatitis Social History Smoking Status Current every day light smoker Lab Results Lab Results - Last 24hrs Na:132 mmol/LLow (09/11/23 06:40:00) K: 3.9 mmol/L (09/11/23 06:40:00) Cl-:92 mmol/LLow (09/11/23 06:40:00) HCO3: 29 mmol/L (09/11/23 06:40:00) Anion Gap: 11 mmol/L (09/11/23 06:40:00) BUN:27 mg/dLHigh (09/11/23 06:40:00) Cret:1.01 mg/dLHigh (09/11/23 06:40:00) Estimated CrCl: 55.23 mL/min (09/11/23 07:29:21) eGFR CKD-EPI: 62 mL/min/1.73 m2 (09/11/23 06:40:00) Glu:137 mg/dLHigh (09/11/23 06:40:00) Ca:8.2 mg/dLLow (09/11/23 06:40:00) M mg/dL (09/11/23 06:40:00) PO4: 2.7 mg/dL (09/11/23 06:40:00) WBC:15.13 K/uLHigh (09/11/23 06:40:00) Hgb:9.9 g/dLLow (09/11/23 06:40:00) Hct:30.7 %Low (09/11/23 06:40:00) RBC:3.28 M/uLLow (09/11/23 06:40:00) MCV: 93.6 fL (09/11/23 06:40:00) MCHC: 32.2 g/dL (09/11/23 06:40:00) MCH: 30.2 pg (09/11/23 06:40:00) RDW:16.6 %High (09/11/23 06:40:00) Plts: 204 K/uL (09/11/23 06:40:00) MPV: 9.8 fL (09/11/23 06:40:00) Alb:2.9 g/dLLow (09/11/23 06:40:00) Gluc Meter:133 mg/dLHigh (09/11/23 16:05:00) Blood Glucose:146 mg/dLHigh (09/11/23 06:05:00) C.Diff Toxin: Final: (09/10/23 17:55:00) Electronic Signature on File Electronically Reviewed/Signed by: Keerthi Costello MD Author Signature Dt/Tm:09/11/2023 05:29 PM Resident Division of Internal Medicine Electronically Reviewed/Signed by: Jennifer Gloria MD Cosigner Signature Dt/Tm: 09/13/2023 12:15 PM Division of Infectious Disease and Epidemiology [place] Cardiology Consult note * MD Dilan, Randal B: MODIFY MD Dilan, Randal B: MODIFY, MODIFY, MODIFY MD Stuart, Phil N: MODIFY, MODIFY MD Stuart, Phil N: MODIFY, PERFORM MD Stuart, Phil N: PERFORM, MODIFY MD Stuart, Phil N: MODIFY, MODIFY MD Stuart, Phil N: MODIFY, MODIFY MD Stuart, Phil N: MODIFY, MODIFY MD Stuart, Phil Ashley: MODIFY Event Display: Cardiology Consult Authored Date: [id number] CARDIOLOGY INPATIENT CONSULT Name: PORTER JEFFERSON Patient Number: [id number] : [id number] Date of Admission: 08/29/2023 Date of Service: 09/14/2023 REQUESTING PHYSICIAN'S NAME: MD Kita, Sebastian REASON FOR CONSULTATION: Hypertension management ASSESSMENT: Porter Jefferson is a 63 year old female with PAD s/p right-left femoral artery bypass 10 years ago, CAD, HTN, HLD, T2DM, TUD, Crohn's, GERD who was admitted to Vascular Surgery for critical limb ischemia. She is status post aortic endarterectomy, aortobifemoral bypass (POD#15) and right groin hematoma evacuation, right sartorius flap (POD #5). Vascular Surgery consulted Cardiology for hypertension management. Her SBP has been ~155. Per Vascular Surgery, the goal is SBP <170s. Her inpatient hypertension regimen includes labetalol, hydralazine, and lisinopril. Overall, she has hypertentino, butnot hypertension urgency or emergency. Her BP is high due to anxiety and volume overload. RECOMMENDATIONS: -will favor hydralazine over labetalol due to bradycardia to 60s. -continue lisinopril -will favor diuresing with IV furosemide with a goal of net 1L negative. -will hold off amlodipine due to significant edema at this moment -manage anxiety per primary team HPI: Porter Jefferson is a 63 year old female with PAD s/p right-left femoral artery bypass 10 years ago, CAD, HTN, HLD, T2DM, TUD, Crohn's, GERD who was admitted to Vascular Surgery for critical limb ischemia. She is status post aortic endarterectomy, aortobifemoral bypass (POD#15) and right groin hematoma evacuation, right sartorius flap (POD #5). During this admission, cardiology was consulted for chest patient and Afib with RVR. Her Afib was thought to be due to postoperative stress. She was brieflyon amiodarone but now stopped. The primary team consulted cardiology for hypertension management. Per primary team, her SBP hit 200s and responded to labetalol and hydralazine prns. Upon presentation to bedside, patient denies any symptoms including lightheadedness, headache, chest pain, shortness of breath, nausea or vomiting. However, she reports that she is anxious and that makes her blood pressure go up. Telemetry shows normal sinus rhythm and last EKG also showed sinus rhythm. Relevant workup Her last dobutamine stress test: 08/27/2023 negative for pharmacologic stress at 81% MPHR. Her last cardiac catheterization: never Her last TTE: 06/20/2023 EF 60-65%, normal LV size/systolic function, no RWMA, normal RV size/function. No significant valve abnormalities. Her home medication includes ASA 81mg, Xarelto 2.5mg BID, lisinopril 10mg, atorvastatin 40mg. PAST MEDICAL HISTORY: Problems: Diabetes mellitus Tobacco user until this hospitalization Subclavian artery stenosis Peripheral arterial disease Aortoiliac occlusive disease Hospital Day: 16 Surgical Hospital Day/Procedure: POD#: 16 - Aortic endarterectomy, aortobifemoral bypass POD#: 5 - R groin hematoma evacuation, R sartorius flap MEDICATIONS: Active Inpt Meds: acetaminophen 650 mg PO q6h amiodarone 200 mg PO Daily aspirin 81 mg PO Daily atorvastatin 40 mg PO Daily budesonide-formoterol (Symbicort 160 mcg-4.5 mcg/inh inhalation aerosol) 2 puff inhaled bid doxycycline 100 mg PO bid escitalopram 10 mg PO Daily insulin lispro (HumaLOG Sliding Scale Ultra Low) subQ ac and hs lisinopril 10 mg PO Daily metoprolol (metoprolol tartrate) 25 mg PO bid miconazole topical (Micro-Guard 2% topical powder) 1 appl topical qid pantoprazole 40 mg PO Daily piperacillin-tazobactam 3.375 g IV q8h Active PRN Meds: HYDROmorphone (Dilaudid) 0.25 mg IV Push q15min albuterol (albuterol CFC free 90 mcg/inh MDI) 2 puff inhaled q4h calcium carbonate (Tums 500 mg oral tablet, chewable) 500 mg PO tid docusate-senna (Senna S) 1 tab PO bid hydrALAZINE 10 mg IV Push q2h ipratropium (Atrovent MDI 17 mcg/inh HFA) 2 puff inhaled q6h labetalol 10 mg IV Push q2h ondansetron (Zofran) 4 mg IV Push q6h oxyCODONE 5 mg PO q4h polyethylene glycol 3350 (MiraLax) 17 g PO Daily povidone iodine topical (povidone iodine 10% topical ointment) 1 appl topical Daily Active IV Meds: heparin 25,000 unit + Dextrose 5% in Water 250 mL (heparin for infusion 25,000 unit + dextrose 5% (heparin drips) 250 mL) 250 mL Per Protocol Allergies and Sensitivities: mercaptopurine(Pancreatitis) IVP dye(Hives) SOCIAL HISTORY: _ Smokes 1PPD of cigarettes, occasional alcohol use. Lives at home with brother FAMILY HISTORY: _ Mother: CAD and Pancreatic cancer ROS: ([place] with an X to the left of the System if asked and negative; otherwise detail under Symptoms) System Symptoms (details) _ Constitutional _ _ Eyes _ _ Ears, Nose, Mouth, Throat _ _ Cardiovascular _ _ Respiratory _ _ Genitourinary _ _ Gastrointestinal _ _ Musculoskeletal _ _ Skin _ _ Neurologic _ _ Psychiatric _ _ Endocrine _ _ Hematologic/Lymphatic _ _ Allergic/Immunologic _ VITAL SIGNS AND EXAM: Vitals Temp Pulse BP RR SpO2 FIO2 Date Wt(kg) Wt(lb) 09/13 08:14 ---- 60 148/62 -- --- --- 09/12 74.5 164 09/13 08:03 36.4 63 148/62 18 98 RA 09/11 75.8 167 09/13 06:48 ---- 64 181/75 16 95 RA 09/09 75.8 167 24 Hr Tmax: 36.7 at 09/12 11:13 Initial Wt: 08/28 kg 139 lb Recorded Input Output Balance 09/13 7a-3p 23 64 -40 3p-11p 0 0 0 11p-7a 0 0 0 24 Total 23 64 -40 09/12 7a-3p 623 150 473 3p-11p 37 93 -55 11p-7a 50 402 -351 24 Total 712 645 67 Refer to the I-VIEW - I and O tab for details Physical Exam: General: Lying in bed in no acute distress HEENT: AT/NC, MMM Neck: Supple, no JVD Cardiac: RRR, no murmurs, rubs or gallops Lungs: CTAB, no increase work of breathing, no crackles (but attending examined after a cough) Abdomen: Normoactive bowel sound, soft, non distended and non tender Back: No tenderness on palpation Extremities: 2+ pitting edema to bilaterally in the lower extremities Neuro: Alert and oriented to self, place, and time. No focal neurological deficits Skin: Warm and well perfused LABS: Most Recent Lab Results over the last 24 Hours: CBC: on 09/14/2023 06:31 Nephrology Panel: on 09/14/2023 06:31 11.1 133 99 12 9.2 207 161 34.5 4.3 21 0.88 Ca = 8.6 eGFR CKD-EPI: 73 Most Recent 24hr Labs as of 09/13 0747 Estimated CrCl 63.39 09/13 0649 Gluc Meter 160 H 09/13 0631 MCH 30.1 MCHC 32.2 MCV 93.5 RBC 3.69 L MPV 10.1 RDW 16.6 H Anion Gap 13 BUN 12 Ca 8.6 Cl- 99 HCO3 21 L Cret 0.88 Glu 161 H K 4.3 Mg 1.7 Na 133 L PO4 2.6 eGFR CKD-EPI 73 Alb 3.1 L 09/12 1820 Thr/Nasal.Cx Prelim: 09/12 1640 Blood Glucose 153 H 09/12 1150 Vanco tr 20.8 OTHER LABS: RELEVANT IMAGING: ECHO 09/14/22 1. Normal left ventricular size and systolic function. 2. Estimated ejection fraction 60-65%. 3. No regional wall motion abnormalities. 4. Normal right ventricular size and function. 5. No significant valvular abnormalities. 6. No prior studies for comparison. I interviewed and examined the patient, and agree with the above assessment and plan. The note was edited to reflect my assessment and plan. See also the progress note from 09/14 for an update. Randal Kong M.D., Ph.D. Electronic Signature on File CC: Randal Kong MD, PhD [address] [facility] [address] [facility] [address] Electronically Reviewed/Signed by: Phil Davidson MD Author Signature Dt/Tm:09/14/2023 10:00 PM Resident [facility] [place] Electronically Reviewed/Signed by: Randal Kong MD, PhD Cosigner Signature Dt/Tm: 09/15/2023 04:57 PM [facility] [place] [facility] - [facility] [address] [facility], [address], [place] [address] HN .D/C Summary * DIMA Leos, Surinder Greenberg: PERFORM Event Display: .D/C Summary Authored Date: [id number] [facility] For medical concerns, call: . Address: [address] [place] [address] [place] [id number] (MOBILE) :1960 . Date of Admission:08/29/2023 Date of Discharge:09/17/2023 Physician:MD East Aditya Service:Vascular Surgery Discharge Disposition: Primary Care Provider/Phone: MD ABDI CYNTHIA D (BUSINESS) [phone] (FAX BUSINESS) Principal Diagnosis: Critical limb ischemia of both lower extremities Other Diagnoses: Mesenteric ischemia due to arterial insufficiency Peripheral arterial disease Acute hypoxic respiratory failure Hypertension Atrial fibrillation with RVR Critical illness myopathy Acute blood loss anemia Acute pain Hypotension Lactic acidosis Thrombocytopenia Anxiety Encounter for geriatric assessment Insomnia Leukocytosis Nicotine dependence with withdrawal Major Tests and Procedures: 08/29/2023 OPERATION PERFORMED: 1. Redo exploration of bilateral common femoral, profundofemoral and superficial femoral arterieswith sharp lysis of adhesions required. 2. Endarterectomy of bilateral common femoral, profundofemoral and superficial femoral arteries. Endarterectomy of the aorta 3. Ligation of previously placed femoral to femoral bypass graft 4. Exploratory laparotomy and exposure and exploration of aorta and superior mesenteric artery 5. Aortobifemoral bypass-16 x 8 graft. Aorto to right hypogastric with jump graft aorto hypogastric limb to right common femoral. On the left side aortic limb anastomosed on the left common femoral artery distal to the femorofemoral bypass. 6. Reimplantation of the inferior mesenteric artery on the left limb of the aortofemoral bypass. ANESTHESIA: General COMPLICATIONS: None [2] 09/09/2023 OPERATION PERFORMED: 1. Exploration of right groin and right femoral vessels 2. Pulse lavage of right groin and evacuation of hematoma 3. Right sartorius flap placement in the groin 4. Wound VAC application to the groin 7 x 2 x 2 cm ANESTHESIA: General COMPLICATIONS: None [3] [1] Brief History of Present Illness: 63-year-old woman with past medical history significant for cigarette smoking hypertension hyperlipidemia. She has been following up for many many years for bilateral lower extremity claudication was found to have severe atherosclerotic disease. Investigation had shown that she had a previous history of right to left femorofemoral bypass performed at an outside hospital around 10 years back for claudication symptoms. On her recent visit to my clinic she was transferred with symptoms of rest pain on the left lower extremity. Imaging was suggestive of severe stenosis and atheroscleroticdisease of the visceral aorta with stenosis in the infrarenal aortic segment. She also had significant stenosis of the SMA which was also atherosclerotic the diseased all throughout its course. She also had symptoms of abdominal pain postprandial along with weight loss. Furthermore, left JOELLEN seem to be stenosed and had low flow given aortic stenosis. She also had poor flow to the hypogastric vessels. Based on this a plan was made to discuss the patient the possibility of an aortobifemo ral bypass along with the and aortomesenteric bypass if feasible. Patient has presented to the for the same. [2] Hospital Course: Patient admitted for elective repair of aortoiliac occlusive disease status post prior femoral tofemoral bypass for critical limb ischemia the left lower extremity and chronic severe mesenteric ischemia. Patient underwent exploratory laparotomy, redo exposure bilateral groins aortic endarterectomy of the juxtarenal aorta, bilateral common femoral profunda and SFA endarterectomies ligation offemoral to femoral bypass and an aortobifemoral bypass with Dacron graft. This required a suprarenal clamp and reimplantation of the JOELLEN. . She was taken to the HVICU post-op. She was [id number] albumin, 1 dose of plts, and MIVF at 50mL/hr and 2 units PRBCsgiven. She required pressor support with norepinephrine. She remained intubated and sedated. She was extubated.NPO with NGT to LIS. POD 3 Weanedoff Precedex.POD 4 She hadchest pain and afib with RVR, cardiology consulted and recommended to continueamiodarone 0.5mg/hr drip, switch to PO amiodarone 200mg daily when patient able to tolerate PO (for at least one month, will need to f/u with cardiology outpt),therapeutic ant icoagulation when able from surgical perspective, continue aspirin 81mg, statin for CAD, resume home lisinopril per primary team, and diurese per primary team. The elevated troponin likely secondary to post-operative anemia andthe chestpressure resolved after repositioning of the Keofeed. POD 5NG tube out yesterday, pt tolerating ice chips and sips with no nausea. No tachyarrhythmias overnight, stable sinus rhythm on Amiodarone gtt. POD 10 (HD 11) Shehad increased confusion yesterdaywith WBC increasing from 13 to 20 and now this morning has increased to 26.67. Sepsis workup yesterday: UA negative for infection, CXR showed no evidence of pneumonia with mildly improved pleural effu sions, and US groin showed hematoma but no evidence of abscess. RUQ ultrasound showed mild right hydronephrosis with no signs of cholecystitis. Pt started empirically on vanc/ zosyn given rising WBC.Overnight, she complaining of abdominal pain, unchanged from previous days. CBC this am shows Hgb decreased from 8.6 to 6.8- pt given 2u PRBCs. UOP 290 last 24 hrs, requiring straight cath x 2. On repeat her WBC was 30. She was taken to the OR for hematoma evacuation and wound vac placement. No purulence noted in the OR. She tolerated theprocedure and did wellpost-op. HD 12 Episodes of irritation and pulling at lines overnight, not redirectable and requiring soft restraints. ID consulted for prophylactic abxrecommendations for prosthetic graft. recommended oral doxycycline. HD 14 tolerating regular diet, received intermittent IV hypertensive meds. Cardiology consulted for assistance BPmanagement with improvement. PT/OT recommended continued inpatient therapy. continued right g roin VAC and WAYLON in place with 100 cc/24 hours at discharge. Will leave in place until outpatient f/u on 09/23/23. Exam on Discharge: Vitals & Measurements: T:36.2C TMIN:36.2C TMAX:37.8C HR:66(Monitored) RR:18 BP:163/63 SpO2:96% Oxygen Therapy:Room Air WT:71.5kg General:_ well appearing Neck:_ trachea midline Heart:_ RRR Chest:_ bilateral chest rise Abdomen:_abdomen soft, nontender and nondistended. midline incision clean dry and intact with no strikethrough. soft and no evidence of hematoma. no surrounding erythema or drainage. Extremity:_L groin incision soft, clean dry and intact with no drainage or strikethrough. no signs of hematoma or surrounding erythema. R groin wound vac intact with good suction. R WAYLON with minimal serosanguinous output. (R) (L) Radial pulses palpable Femoral pulses palpable x x DP pulses palpable DP pulses Doppler PT pulses palpable PT pulses Doppler Other: Neuro:_ AAOx 3, motor and sensory intact throughout [1] [3] Discharge Medications: 1.Escitalopram (escitalopram 10 mg oral tablet) 10 mg (1 tab) by mouth once a day (in the morning).take 1 tablet by mouth once daily. 2.Multivitamin 1 tab by mouth once a day (in the morning). 3.Omeprazole (omeprazole 20 mg oral delayed release capsule) 20 mg (1 cap) by mouth once a day (in the morning). take 1 capsule by mouth daily. 4.Glimepiride (glimepiride 1 mg oral tablet) . take 1 tablet by mouth every morning with BREAKFAST. 5.Albuterol (albuterol CFC free 90 mcg/inh MDI) 2 puff Inhalation 4 times daily, as needed for wheezing. 6.Fluticasone/umeclidinium/vilanterol (Trelegy Ellipta 100 mcg-62.5 mcg-25 mcg/inh inhalation powder) 1 puff Inhalation once a day (in the morning). inhale 1 puff by mouth and INTO THE LUNGS once daily. 7.MetFORMIN (MetFORMIN (Eqv-Glucophage XR) 500 mg oral tablet, extended release) 500 mg (1 tab) by mouth 2 times daily. morning and evening. 8.Atorvastatin (atorvastatin 40 mg oral tablet) 40 mg (1 tab) by mouth at bedtime. . 9.Aspirin (aspirin 81 mg oral delayed release tablet) 81 mg (1 tab) by mouth once a day (in the morning). 10.Doxycycline 100 mg (1 cap) by mouth 2 times daily. 11.Lisinopril (lisinopril 40 mg oral tablet) 40 mg (1 tab) by mouth once daily. 12.Rivaroxaban (rivaroxaban 20 mg oral tablet) 20 mg (1 tab) by mouth once daily. 13.Polyethylene glycol 3350 (MiraLax) 17 g by mouth once daily, as needed for constipation. 14.Amiodarone (amiodarone 200 mg oral tablet) 200 mg (1 tab) by mouth once daily. 15.Labetalol (labetalol 100 mg oral tablet) 200 mg (2 tab) by mouth 2 times daily. 16.Mirtazapine 7.5 mg (0.5 tab) by mouth every evening. 17.Melatonin (Melatonin) 3 mg (1 tab) by mouth at bedtime, as needed for insomnia. 18.OxyCODONE (oxyCODONE 5 mg oral tablet) 5 mg by mouth every 4 hours, as needed for pain - moderate (4-6). 19.Povidone iodine topical (povidone iodine 10% topical ointment) 1 appl topically once daily, as needed for dressing changes. apply thin film to abdominal incision and left groin incision daily. 20.Acetaminophen 650 mg (2 tab) by mouth every 6 hours. Allergies and Sensitivities: IVP dyeHives mercaptopurinePancreatitis Tests Pending: Extra Green ([place] Heparin) Vitamin D, 25-Hydroxy Level, Total To obtain results pending at hospital discharge, call and ask for the following Physician:MD Kita, Sebastian Scheduled Appointments: Date/Time:Provider/Resource: Aug 04:15 pmYU Mo Bridget M Location/Instructions:[facility] [place] - [facility] [place], [address], [address], [address], [place] [address] . Please arrive 15 minutes earlier than your appointment time for the check in process. Date/Time:Provider/Resource: Oct 11:30 MD Armendariz Aditya Location/Instructions:[facility] [place] [facility], [address] [place] [address], [address], [place] [address]. This appointment time has been reserved for your appointment. If you need to cancel or reschedule your visit call . Please arrive 15 min earlier than your appointment time for Check In Process. Date/Time:Provider/Resource: Nov 02:10 DO Medley Jason D Location/Instructions:[facility], [address], [address], [place] [address] . Please arrive 15 min earlier than your appointment time for Check In Process. Discharge Services: Service: Organization: Business Address: Phone Number: [facility] [address] [place] [address], [id number] Care Instructions: MEDICATIONS: - Youhad atrial fibrillation while admitted and were started on a new medication called Amiodarone. - Avoid using non-steroidal anti-inflammatory medications for pain Continue the Doxycycline until discontinued by Vascular Surgery. DRESSINGS/WOUND CARE: Apply thin film of povidone over abdominal and left groin incision daily. cover with dry dressing. Wound VAC right groin: 125mmHg, continuous, granufoam,change 3 times per week. Leave WAYLON drain inright leg, this will be removed at your follow upappointment with vascular surgery on09/22. please [id number] hourdrain output. DIET: - Continue yourdiabetic diet ACTIVITY: * For 4 weeks beginning the day after the procedure: - Do not lift anything heavier than 10 pounds. -Elevate legs to reduce swelling -Wear an abdominal binder during the day and remove at bedtime . . Advance Directive:Living will I personally spent _ minutes in discharge planning. [1]Facility Discharge Instructions; DIMA Leos Karl M 09/17/2023 10:25 EDT [2].Operative Report; MD East Aditya 08/29/2023 19:00 EDT [3]Facility Discharge Instructions; DIMA Leos Karl M 09/17/2023 10:25 EDT Electronic Signature on File Electronically Reviewed/Signed by: Surinder Leos PA-C Author Signature Dt/Tm:09/17/2023 10:31 AM [facility] [place] [facility], [place] [address] FAX: [phone] [facility] Facility Discharge Instructions * DIMA Leos Karl M: RC Weller RN, Keely: MODIFY Event Display: Facility Discharge Instructions Authored Date: [id number] PORTER JEFFERSON :1960 Visit Date:08/29/2023 Facility Discharge Instructions [facility] For medical concerns, call: . Date of Admission:08/29/2023 Date of Discharge:09/17/2023 Physician:MD East Aditya Service:Vascular Surgery Discharge Disposition: Primary Care Provider/Phone: MD JIN, CHAPO Emerson (BUSINESS) [phone] (FAX BUSINESS) . Advance Directive:Living will Reason for Hospitalization Critical limb ischemia of both lower extremities Your Diagnoses Critical limb ischemia of both lower extremities Mesenteric ischemia due to arterial insufficiency Peripheral arterial disease Acute hypoxic respiratory failure Hypertension Atrial fibrillation with RVR Critical illness myopathy Acute blood loss anemia Acute pain Hypotension Lactic acidosis Thrombocytopenia Anxiety Encounter for geriatric assessment Insomnia Leukocytosis Nicotine dependence with withdrawal My Health Patient Portal: [facility] [employer] makes it easy for you to manage your health information online. My [facility] is a free service that provides you instant, secure access to your medical information anytime, anywhere. Sign in or set up your account today at [email or web address] Thank you for allowing us to assist you with your healthcare needs. If you need additional community resources, [place] can help at https://www.yu211.org. 211 can assist you in connecting with social programs based on your unique needs and locations. 211 is an anonymous search that can help you locate resources for: Food, Housing, Transportation, Goods, Education and Healthcare. Hospital Course Patient admitted for elective repair of aortoiliac occlusive disease status post prior femoral tofemoral bypass for critical limb ischemia the left lower extremity and chronic severe mesenteric ischemia. Patient underwent exploratory laparotomy, redo exposure bilateral groins aortic endarterectomy of the juxtarenal aorta, bilateral common femoral profunda and SFA endarterectomies ligation offemoral to femoral bypass and an aortobifemoral bypass with Dacron graft. This required a suprarenal clamp and reimplantation of the JOELLEN. . She was taken to the HVICU post-op. She was [id number] albumin, 1 dose of plts, and MIVF at 50mL/hr and 2 units PRBCsgiven. She required pressor support with norepinephrine. She remained intubated and sedated. She was extubated.NPO with NGT to LIS. POD 3 Weanedoff Precedex.POD 4 She hadchest pain and afib with RVR, cardiology consulted and recommended to continueamiodarone 0.5mg/hr drip, switch to PO amiodarone 200mg daily when patient able to tolerate PO (for at least one month, will need to f/u with cardiology outpt),therapeutic ant icoagulation when able from surgical perspective, continue aspirin 81mg, statin for CAD, resume home lisinopril per primary team, and diurese per primary team. The elevated troponin likely secondary to post-operative anemia andthe chestpressure resolved after repositioning of the Keofeed. POD 5NG tube out yesterday, pt tolerating ice chips and sips with no nausea. No tachyarrhythmias overnight, stable sinus rhythm on Amiodarone gtt. POD 10 (HD 11) Shehad increased confusion yesterdaywith WBC increasing from 13 to 20 and now this morning has increased to 26.67. Sepsis workup yesterday: UA negative for infection, CXR showed no evidence of pneumonia with mildly improved pleural effu sions, and US groin showed hematoma but no evidence of abscess. RUQ ultrasound showed mild right hydronephrosis with no signs of cholecystitis. Pt started empirically on vanc/ zosyn given rising WBC.Overnight, she complaining of abdominal pain, unchanged from previous days. CBC this am shows Hgb decreased from 8.6 to 6.8- pt given 2u PRBCs. UOP 290 last 24 hrs, requiring straight cath x 2. On repeat her WBC was 30. She was taken to the OR for hematoma evacuation and wound vac placement. No purulence noted in the OR. She tolerated theprocedure and did wellpost-op. HD 12 Episodes of irritation and pulling at lines overnight, not redirectable and requiring soft restraints. ID consulted for prophylactic abxrecommendations for prosthetic graft. recommended oral doxycycline. HD 14 tolerating regular diet, received intermittent IV hypertensive meds. Cardiology consulted for assistance BPmanagement with improvement. PT/OT recommended continued inpatient therapy. continued right g roin VAC and WAYLON in place with 100 cc/24 hours at discharge. Will leave in place until outpatient f/u on 09/23/23. Exam on Discharge Vitals & Measurements: T:36.2C TMIN:36.2C TMAX:37.8C HR:66(Monitored) RR:18 BP:163/63 SpO2:96% Oxygen Therapy:Room Air WT:71.5kg General:_ well appearing Neck:_ trachea midline Heart:_ RRR Chest:_ bilateral chest rise Abdomen:_abdomen soft, nontender and nondistended. midline incision clean dry and intact with no strikethrough. soft and no evidence of hematoma. no surrounding erythema or drainage. Extremity:_L groin incision soft, clean dry and intact with no drainage or strikethrough. no signs of hematoma or surrounding erythema. R groin wound vac intact with good suction. R WAYLON with minimal serosanguinous output. (R) (L) Radial pulses palpable Femoral pulses palpable x x DP pulses palpable DP pulses Doppler PT pulses palpable PT pulses Doppler Other: Neuro:_ AAOx 3, motor and sensory intact throughout [1] Medications Patient is enrolled in Rx-to-Go Program New medications will be delivered from [facility] to patient's room at discharge: Fri-Fri from 9AM-5 PM. Medications MUST be PICKED UP at [facility] if patient is discharged Mon-Sun after 5 PM or anytime on holidays. Please note, the [facility] closes at 8 PM on weekdays and 5:30 PM on Saturdays, Sundays, and holidays. What How Much When Instructions Next Dose New acetaminophen 650 Milligram by mouth Every 6 hours 09/16 @ 1600 New amiodarone (amiodarone 200 mg oral tablet) 1 tab(s) by mouth Once daily 09/17 in AM New doxycycline 100 Milligram by mouth 2 times daily 09/16 in PM New labetalol (labetalol 100 mg oral tablet) 2 tab(s) by mouth 2 times daily 09/16 in PM New melatonin (Melatonin) 3 Milligram by mouth At bedtime as needed for insomnia New mirtazapine 7.5 Milligram by mouth Every evening 09/16 in PM New oxyCODONE (oxyCODONE 5 mg oral tablet) 5 Milligram by mouth Every 4 hours as needed for pain - moderate (4-6) Printed Prescription 09/16 in PM New polyethylene glycol 3350 (MiraLax) 17 gram by mouth Once daily as needed for constipation New povidone iodine topical (povidone iodine 10% topical ointment) 1 minesh topically Once daily as needed for dressing changes apply thin film to abdominal incision and left groin incision daily Changed lisinopril (lisinopril 40 mg oral tablet) 1 tab(s) by mouth Once daily 09/17 in AM Changed multivitamin 1 tab(s) by mouth Once a day (in the morning) 09/17 in AM Changed rivaroxaban (rivaroxaban 20 mg oral tablet) 1 tab(s) by mouth Once daily 09/17 in AM Unchanged albuterol (albuterol CFC free 90 mcg/ inh MDI) 2 puff(s) Inhalation 4 times daily as needed for as needed for wheezing Unchanged aspirin (aspirin 81 mg oral delayed release tablet) 1 tab(s) by mouth Once a day (in the morning) 09/17 in AM Unchanged atorvastatin (atorvastatin 40 mg oral tablet) 1 tab(s) by mouth At bedtime 09/16 in PM Unchanged escitalopram (escitalopram 10 mg oral tablet) 1 tab(s) by mouth Once a day (in the morning) take 1 tablet by mouth once daily 09/17 in AM Unchanged fluticasone/ umeclidinium/ vilanterol (Trelegy Ellipta 100 mcg-62.5 mcg-25 mcg/ inh inhalation powder) 1 puff(s) Inhalation Once a day (in the morning) inhale 1 puff by mouth and INTO THE LUNGS once daily 09/17 in AM Unchanged glimepiride (glimepiride 1 mg oral tablet) take 1 tablet by mouth every morning with BREAKFAST 09/17 in AM Unchanged metFORMIN (MetFORMIN (Eqv-Glucophage XR) 500 mg oral tablet, extended release) 1 tab(s) by mouth 2 times daily morning and evening 09/16 in PM Unchanged omeprazole (omeprazole 20 mg oral delayed release capsule) 1 cap by mouth Once a day (in the morning) take 1 capsule by mouth daily 09/17 in AM What How Much When Comments Stop Taking azithromycin (azithromycin 250 mg oral tablet) 1 tab(s) by mouth Friday, Friday and Friday Stop Taking diphenhydrAMINE (Benadryl 25 mg oral tablet) See instructions 2 tab PO [address] scan Stop Taking metoprolol (metoprolol succinate 25 mg oral tablet, extended release) 1 tab(s) by mouth At bedtime Stop Taking predniSONE (predniSONE 50 mg oral tablet) See instructions 1 tab PO 13 hours, 7 hours and [address] scan Stop Taking sodium chloride nasal (NeilMed Sinus Rinse Kit) Allergies IVP dyeHives mercaptopurinePancreatitis What to do next Instructions From Your Doctor MEDICATIONS: - Youhad atrial fibrillation while admitted and were started on a new medication called Amiodarone. - Avoid using non-steroidal anti-inflammatory medications for pain Continue the Doxycycline until discontinued by Vascular Surgery. DRESSINGS/WOUND CARE: Apply thin film of povidone over abdominal and left groin incision daily. cover with dry dressing. Wound VAC right groin: 125mmHg, continuous, granufoam,change 3 times per week. Leave WAYLON drain inright leg, this will be removed at your follow upappointment with vascular surgery on09/22. please [email or web address] hourdrain output. DIET: - Continue yourdiabetic diet ACTIVITY: * For 4 weeks beginning the day after the procedure: - Do not lift anything heavier than 10 pounds. -Elevate legs to reduce swelling -Wear an abdominal binder during the day and remove at bedtime . You were offered a Hepatitis C screening test and you declined. Please follow up with your PCP. If you notice the following symptoms Please call the vascular surgery [phone] with any questions or concerns. Contact the [facility] Careline at . If unable to contact your physician and you feel it is an emergency, go to the nearest Emergency Room or call 911 Diet Instructions Activity Instructions Follow-Up Appointments Scheduled Follow-Up Appointments Date/Time:Provider/Resource: Aug 04:15 pmYU [place] Bridget M Location/Instructions:[facility] [place] [facility] [place], [address], [address], [address], [place] [address] . Please arrive 15 minutes earlier than your appointment time for the check in process. Date/Time:Provider/Resource: Oct 11:30 MD Marcello, Sebastian Location/Instructions:[facility] [place] - [facility], [address] [place] [address], [address], [place] [address]. This appointment time has been reserved for your appointment. If you need to cancel or reschedule your visit call . Please arrive 15 min earlier than your appointment time for Check In Process. Date/Time:Provider/Resource: Nov 02:10 DO Medley Jason D Location/Instructions:[facility] [address], [facility] [address], [address], [place] [address] . Please arrive 15 min earlier than your appointment time for Check In Process. The Following Services Have Been Arranged for You Service: Organization: Business Address: Phone Number: Acute Rehab [facility] [address] [place] [address], [place], [address] Tests Pending Extra Green ([place] Heparin) Vitamin D, 25-Hydroxy Level, Total To obtain results pending at hospital discharge, call and ask for the following Physician:MD Kita, Sebastian Procedures Performed 08/29/2023 OPERATION PERFORMED: 1. Redo exploration of bilateral common femoral, profundofemoral and superficial femoral arterieswith sharp lysis of adhesions required. 2. Endarterectomy of bilateral common femoral, profundofemoral and superficial femoral arteries. Endarterectomy of the aorta 3. Ligation of previously placed femoral to femoral bypass graft 4. Exploratory laparotomy and exposure and exploration of aorta and superior mesenteric artery 5. Aortobifemoral bypass-16 x 8 graft. Aorto to right hypogastric with jump graft aorto hypogastric limb to right common femoral. On the left side aortic limb anastomosed on the left common femoral artery distal to the femorofemoral bypass. 6. Reimplantation of the inferior mesenteric artery on the left limb of the aortofemoral bypass. ANESTHESIA: General COMPLICATIONS: None [2] 09/09/2023 OPERATION PERFORMED: 1. Exploration of right groin and right femoral vessels 2. Pulse lavage of right groin and evacuation of hematoma 3. Right sartorius flap placement in the groin 4. Wound VAC application to the groin 7 x 2 x 2 cm ANESTHESIA: General COMPLICATIONS: None [3] Nursing Assessment Chan: 08/29/2023 Indwelling Urethra 16 Fr Insert Date:08/29/23 18:30 (No insertion activity documented) Removal Date:09/05/23 11:54 Chan: Female External Urinary Device Insert Date:09/06/23 08:45 (No insertion activity documented) Removal Date:No Removal Currently Documented. Chan: Straight Cath Insert Date:09/07/23 23:18 Removal Date:No Removal Currently Documented. Chan: Indwelling Insert Date:09/09/23 16:36 (No insertion activity documented) Removal Date:09/11/23 00:26 Chan: 09/11/2023 Female External Urinary Device Insert Date:09/11/23 00:26 Removal Date:09/16/23 09:09 Line: Non-tunneled catheter (e.g. CVP, James, Cook, Arrow) Triple Lumen Jugular, right Insert Date:08/30/23 02:49 (No insertion activity documented) Removal Date:No Removal Currently Documented. SPECIAL NEEDS: Sensory Deficits: None Level of Consciousness Neuro: Alert Neurological Symptoms: Weakness ADLS: Moderate assistance Last BM: 09/16/2023 Basic Skin Assessment: [place], Warm, Dry, Intact Special Instructions Common Emergency Awareness Tips Call 911 immediately if: experiencing any of the warning signs and symptoms of stroke: Jaquan.Shelli. [email or web address] Balance: is there trouble with walking or coordination Eyes: is there double vision or visual loss Face: Smile, do both sides of face move equally Arm: Raise arms, do both arms move equally Speech: Is speech slurred or inappropriate Time: Time is critical, call 911 immediately Heart Attack Signs Chest discomfort: Most heart attacks involve discomfort in the center of the chest and lasts more than a few minutes, or goes away and comes back. It can feel like uncomfortable pressure, squeezing, fullness or pain. Discomfort in upper body: Symptoms can include pain or discomfort in one or both arms, back, neck, jaw or stomach. Shortness of breath: With or without discomfort. Other signs: Breaking out in a cold sweat, nausea, or lightheaded. Remember, MINUTES DO MATTER. If you experience any of these heart attack warning signs, call to get immediate medical attention! Education Materials Atrial Fibrillation Atrial fibrillation is a type of irregular or rapid heartbeat (arrhythmia). In atrial fibrillation,the top part of the heart (atria) beats in an irregular pattern. This makes the heart unable to pump blood normally and effectively. The goal of treatment is to prevent blood clots from forming, control your heart rate, or restore your heartbeat to a normal rhythm. If this condition is not treated, it can cause serious problems, such as a weakened heart muscle (cardiomyopathy) or a stroke. What are the causes? This condition is often caused by medical conditions that damage the heart's electrical system. These include: High blood pressure (hypertension). This is the most common cause. Certain heart problems or conditions, such as heart failure, coronary artery disease, heart valve problems, or heart surgery. Diabetes. Overactive thyroid (hyperthyroidism). Obesity. Chronic kidney disease. In some cases, the cause of this condition is not known. What increases the risk? This condition is more likely to develop in: Older people. People who smoke. Athletes who do endurance exercise. People who have a family history of atrial fibrillation. Men. People who use drugs. People who drink a lot of alcohol. People who have lung conditions, such as emphysema, pneumonia, or COPD. People who have obstructive sleep apnea. What are the signs or symptoms? Symptoms of this condition include: A feeling that your heart is racing or beating irregularly. Discomfort or pain in your chest. Shortness of breath. Sudden light-headedness or weakness. Tiring easily during exercise or activity. Fatigue. Syncope (fainting). Sweating. In some cases, there are no symptoms. How is this diagnosed? Your health care provider may detect atrial fibrillation when taking your pulse. If detected, this condition may be diagnosed with: An electrocardiogram (ECG) to check electrical signals of the heart. An ambulatory gambling monitor to record your heart's activity for a few days. A transthoracic echocardiogram (TTE) to create pictures of your heart. A transesophageal echocardiogram (ESTEE) to create even closer pictures of your heart. A stress test to check your blood supply while you exercise. Imaging tests, such as a CT scan or chest X-ray. Blood tests. How is this treated? Treatment depends on underlying conditions and how you feel when you experience atrial fibrillation. This condition may be treated with: Medicines to prevent blood clots or to treat heart rate or heart rhythm problems. Electrical cardioversion to reset the heart's rhythm. A pacemaker to correct abnormal heart rhythm. Ablation to remove the heart tissue that sends abnormal signals. Left atrial appendage closure to seal the area where blood clots can form. In some cases, underlying conditions will be treated. Follow these instructions at home: Medicines Take over-the counter and prescription medicines only as told by your health care provider. Do not take any new medicines without talking to your health care provider. If you are taking blood thinners: Talk with your health care provider before you take any medicines that contain aspirin or NSAIDs, such as ibuprofen. These medicines increase your risk for dangerous bleeding. Take your medicine exactly as told, at the same time every day. Avoid activities that could cause injury or bruising, and follow instructions about how to prevent falls. Wear a medical alert bracelet or carry a card that lists what medicines you take. Lifestyle Do not use any products that contain nicotine or tobacco, such as cigarettes, e- cigarettes, and chewing tobacco. If you need help quitting, ask your health care provider. Eat heart-healthy foods. Talk with a dietitian to make an eating plan that is right for you. Exercise regularly as told by your health care provider. Do not drink alcohol. Lose weight if you are overweight. Do not use drugs, including cannabis. General instructions If you have obstructive sleep apnea, manage your condition as told by your health care provider. Do not use diet pills unless your health care provider approves. Diet pills can make heart problemsworse. Keep all follow-up visits as told by your health care provider. This is important. Contact a health care provider if you: Notice a change in the rate, rhythm, or strength of your heartbeat. Are taking a blood thinner and you notice more bruising. Tire more easily when you exercise or do heavy work. Have a sudden change in weight. Get help right away if you have: Chest pain, abdominal pain, sweating, or weakness. Trouble breathing. Side effects of blood thinners, such as blood in your vomit, stool, or urine, or bleeding that cannot stop. Any symptoms of a stroke. "BE FAST" is an easy way to remember the main warning signs of a stroke: B - Balance. Signs are dizziness, sudden trouble walking, or loss of balance. E - Eyes. Signs are trouble seeing or a sudden change in vision. F - Face. Signs are sudden weakness or numbness of the face, or the face or eyelid drooping on one side. A - Arms. Signs are weakness or numbness in an arm. This happens suddenly and usually on one side of the body. S - Speech. Signs are sudden trouble speaking, slurred speech, or trouble understanding what peoplesay. T - Time. Time to call emergency services. Write down what time symptoms started. Other signs of a stroke, such as: A sudden, severe headache with no known cause. Nausea or vomiting. Seizure. These symptoms may represent a serious problem that is an emergency. Do not wait to see if the symptoms will go away. Get medical help right away. Call your local emergency services (911 in the [place] Do not drive yourself to the hospital. Summary Atrial fibrillation is a type of irregular or rapid heartbeat (arrhythmia). Symptoms include a feeling that your heart is beating fast or irregularly. You may be given medicines to prevent blood clots or to treat heart rate or heart rhythm problems. Get help right away if you have signs or symptoms of a stroke. Get help right away if you cannot catch your breath or have chest pain or pressure. This information is not intended to replace advice given to you by your health care provider. Make sure you discuss any questions you have with your health care provider. Document Revised: 08/11/2019 Document Reviewed: 08/11/2019 [employer] Patient Education 2022 [employer]. [1]Vascular Surgery Inpt Progress Note; DO Amos Kristine 09/17/2023 05:51 EDT [2].Operative Report; MD East Aditya 08/29/2023 19:00 EDT [3].Operative Report; MD East Aditya 09/09/2023 17:00 EDT Note * MD Nathan, Ali: PERFORM Event Display: Brief Operative Note Authored Date: [id number] BRIEF OPERATIVE NOTE Name: PORTER JEFFERSON Patient Number: [id number] : 1960 Date of Service: 09/09/2023 Pre-op Diagnosis: S/p aorto-bifem bypass w/ c/f R groin hematoma Post-op Diagnosis: s/p aorto-bifem bypass Procedure: R groin hematoma/seroma evacuation, irrigation, R sartorius vac, wound vac placement Surgeon: Kita Assistants: Nathan Anesthesia: general Estimated Blood Loss: _ x Less than 50ml Drains: Vasyl drain to WAYLON bulb placed in space from proximal sartorius origin Fluids: 700cc + 1u prbc during induction Urinary Output: per anesthesia Condition: stable to pacu Complications: none apparent Specimen: _ x None Findings: R groin evacuated with evidence of hematoma/seroma, no florinda pus or malodor appreciated. No graft compromise. Wound bed irrigated with gentamycin and rifampin, R sartorius flap with transposition of proximal flap to cover prior graft. Vasyl drain placed in sartorius space and closed with lateral edge of prior sartorius fascia. Deep layer covering sartorius flap then placement of wound vac. Check one _ Pharmacologic VTE prophylaxis not indicated x Standard VTE prophylactic regimen ordered _ Pharmacologic VTE prophylaxis contraindicated due to increased risk of intraoperative and / or postoperative bleeding Check one _ No antibiotics indicated _ Standard prophylactic antibiotic regimen ordered _x Antibiotic regimen changed due to concern for infection (vanc/zosyn) Plan: - NPO 6 hrs then CLD until AM. - Bedrest, ok for HOB elevation - Hold hep gtt 24-48 hours, ok for SQH - Continue abx - Q2H drain stripping, wound irrigated with rifampin which will stain drain orange - Chan stays, pt received cyanokit several days ago which will tint her urine pink - Follow up PACU CBC, neph, lactic, c.diff. - R groin wound vac -125mmhg. Electronic Signature on File Electronically Reviewed/Signed by: Lazarus Evans MD Author Signature Dt/Tm:09/09/2023 05:00 PM Resident Division of Vascular Surgery * MD Nathan, Lazarus: PERFORM Event Display: Brief Operative Note Authored Date: [id number] NPO overnight. Electronic Signature on File Electronically Reviewed/Signed by: Lazarus Evans MD Author Signature Dt/Tm:09/09/2023 05:51 PM Resident Division of Vascular Surgery * MD Tapia Peter: PERFORM, MODIFY Event Display: Brief Operative Note Authored Date: [id number] BRIEF OPERATIVE NOTE Name: PORTER JEFFERSON Patient Number: [id number] : 1960 Date of Service: 08/29/2023 Pre-op Diagnosis: CLI BLE, CMI Post-op Diagnosis: Above Procedure: Exploratory laparotomy Aortic endarterectomy Aorto R CAMMIE, L CEA bypass w/ 16mm x8mm rifampin soaked Dacron, Jump to R CHECKING DEPARTMENT SUPERVISOR w/ 8mm rifampin soakedDacron JOELLEN reimplantation R CEA L CEA Surgeon: Ximena East Assistants: Lawrence Tapia Anesthesia: General Estimated Blood Loss: 2L _ Less than 50ml Drains: _ Fluids: _ Urinary Output: _ Condition: Stable to ICU Complications: None apparent Specimen: _ _ None Findings: PT DP signals Check one _ Pharmacologic VTE prophylaxis not indicated _ Standard VTE prophylactic regimen ordered _ Pharmacologic VTE prophylaxis contraindicated due to increased risk of intraoperative and / or postoperative bleeding Check one _ No antibiotics indicated _ Standard prophylactic antibiotic regimen ordered _ Antibiotic regimen changed due to concern for infection Okay for SQH tonight Continue IV antibiotics SBP 110-140 Hg > 10, Plt > 100 HOB 20 degrees today Extubate when able NG LIMS No meds NG Electronic Signature on File Electronically Reviewed/Signed by: Dwaine Tapia MD Author Signature Dt/Tm:09/05/2023 12:40 PM Resident Division of General Surgery PC Anesthesiology procedure note * DO Harris Shane M: MODIFY, SIGN, VERIFY DO Patton Nehala: PERFORM, SIGN DO Patton Nehala: SIGN Event Display: Anes Acute Pain Procedure Note Authored Date: Patient: PORTER JEFFERSON Age: 63 years Sex: Female : 1960 Associated Diagnoses: None Author: DO Patton Nehala 63 yo with past medical history significant for PAD s/p right to left femoral artery to femoral artery bypass around 10 years ago; now with critical limb ischemia of the left lower extremity (rest pain) and also chronic mesenteric ischemia, scheduled for above procedure. She received post-inductionTAP blocks under ultrasound guidance for post-op pain control. Procedure was completed without complications. Health Status Allergies: Allergic Reactions (Selected) Severity Not Documented IVP dye- Hives. Mercaptopurine- Pancreatitis.. Current Medication: (Selected) Prescriptions Prescribed Benadryl 25 mg oral tablet: See Instructions, 2 tab PO [address] scan, 2 tab, 0 Refill(s) Xarelto 2.5 mg oral tablet: 1 tab, PO, bid, 60 tab, 2 Refill(s) lisinopril 10 mg oral tablet: 1 tab, PO, Daily, 90 tab, 3 Refill(s) predniSONE 50 mg oral tablet: See Instructions, 1 tab PO 13 hours, 7 hours and [address] scan, 3 tab, 0 Refill(s) Documented Medications Documented B-Complex 50 oral tablet: 1 tab, PO, qAM MetFORMIN (Eqv-Glucophage XR) 500 mg oral tablet, extended release: 1 tab, PO, bid, morning and evening NeilMed Sinus Rinse Kit: Trelegy Ellipta 100 mcg-62.5 mcg-25 mcg/inh inhalation powder: 1 puff, inhaled, qAM, inhale 1 puff by mouth and INTO THE LUNGS once daily albuterol CFC free 90 mcg/inh MDI: 2 puff, inhaled, qid, PRN: as needed for wheezing aspirin 81 mg oral delayed release tablet: 1 tab, PO, qAM atorvastatin 40 mg oral tablet: 1 tab, PO, qhs azithromycin 250 mg oral tablet: 1 tab, PO, qMonWedFri escitalopram 10 mg oral tablet: 1 tab, PO, qAM, take 1 tablet by mouth once daily glimepiride 1 mg oral tablet: take 1 tablet by mouth every morning with BREAKFAST metoprolol succinate 25 mg oral tablet, extended release: 1 tab, PO, qhs multivitamin: 1 tab, PO, qAM omeprazole 20 mg oral delayed release capsule: 1 cap, PO, qAM, take 1 capsule by mouth daily. Problem List: All Problems Aortoiliac occlusive disease / SNOMED CT 9435890841 / Confirmed Diabetes mellitus / SNOMED CT 052987107 / Confirmed Peripheral arterial disease / SNOMED CT 4060646052 / Confirmed Subclavian artery stenosis / SNOMED CT 342581893 / Confirmed Tobacco user / SNOMED CT 902018104 / Confirmed. Procedure Assessment VS/Measurements: Vital Signs 08/29/2023 06:27 EDT Temperature 36.5 DegC Temperature Route Temporal Heart Rate 76 bpm Respiratory Rate 18 br/min Systolic Blood Pressure 164 mmHg Diastolic Blood Pressure 78 mmHg BP Location # 1 Left Arm BP Cuff Size Regular Cuff Pulse Pressure 86 mmHg SpO2 95 % . Assessment: Procedure Date: 08/29/2023. Consent for regional Procedure: Yes. Pain Assessment: Pain Location: Abdomen. Acute Pain Procedure Procedure Location: OR. Timing of Procedure: After induction. Patient Agrees to Acute Pain Procedure: Yes. Correct Site/Side Identified/Marked: Yes. Patient Monitored: Yes. Oxygen Available: Yes. Time Out Complete: Yes. Sterile field established: Yes. Ultrasound probe covered with sterile sleeve as indicated: Yes. Nerve identified and examined with ultrasound: Yes. Needle advanced to desired location under ultrasound guidance: Yes. Ultrasound image stored in PACS: Yes. Procedure Start Time: 08/29/2023 08:05:00. Procedure End Time: 08/29/2023 08:25:00. Attending Present: Yes. Anesthesiologist: DO Harris Shane M. Resident/Fellow/COB SAWYER: DO Patton Nehala. Referring Physician: MD East Aditya. Patient Awake and Alert: No. Truncal Block + Patient Position: Supine. Laterality: Bilateral. Block Location: Transverse Abdominis Plane. Sedation: General Anesthesia. Skin Preparation: Chlorhexidine. Needle Type: Short Bevel/Stimulating. MRI Compatible: No. Needle Used: 3.5 in needle. Local Infiltration Technique: Single Injection. Nerve Localization Technique: Ultrasound. # of attempts: 1 . Aspiration: None. Fractionated Dose: Endura kit injectate in each 4 quadrants 12.5 mL. Resistance On Injection: No. Total Volume Injected: 50 mL. Pain on Injection: No. Parasthesia: No. Block Complications: No. Professional Services Resident/Fellow/COB SAWYER: DO Patton Nehala. Acute Pain Procedure For Post Op Pain Management: Yes. If yes, Referring Physician: MD Kita, Sebastian. Physician Attestation: I was personally present for and supervised the entire procedure. I agree with the procedure note as written, unless otherwise specified. . Anesthesia Hospital Charge AdHoc Form: Regional Anesthesia Section Completed: Yes. Electronic Signature on File Electronically Reviewed/Signed by: Luis Daniel Patton DO Author Signature Dt/Tm:08/29/2023 08:46 AM Resident Department of Anesthesia Electronically Reviewed/Signed by: Madi Harris DO Cosigner Signature Dt/Tm: 08/29/2023 03:31 PM Department of Anesthesia NI Surgical pathology study * MD Patel Erik R: VERIFY MD Patel Erik R: VERIFY, PERFORM Event Display: SP Disclaimer Authored Date: [facility] performs the technical component for work verified at [facility]([address] [place] [address] Rd[address] [place] [address]),[facility] ([address] [place] [address] [place] [address]), and [facility] ([address] [place] [address] [place] [id number]). [facility] performs the technical component for work verified [facility] ([address] [address], [address], [place] [address])and [facility] ([address] [place] [address] [place] [address]). All laboratories are under the Clinical Laboratory Improvement Amendments of 1988 (CLIA-88) as qualified to perform high complexity clinical laboratory testing. The following statement applies to flow cytometry, immunohistochemical, histochemical, molecular genetics, immunofluorescence, and in situ hybridization assays. These tests were developed and their performance characteristics determined by a [facility] Department of Pathology Laboratory. All controls show appropriate reactivity. Not all tests have been cleared or approved by the U.S. Food and Drug Administration. The FDA has determined that such clearance or approval is not necessary. For decalcified specimen types, focused validation may have been done that may or may not apply to all decalcified specimen types. Results should be interpreted with caution. * MD Patel Erik R: TRANSCRIBE, PERFORM, VERIFY Event Display: SP Micro Authored Date: [id number] 1-2. Not performed; gross examination only. * MD Patel Erik R: VERIFY MD Patel Erik R: VERIFY, TRANSCRIBE Event Display: SP Dx Authored Date: 1. Artery, right common femoral, plaque endarterectomy, gross examination only: - Atherosclerotic plaque. 2. Artery, aorta flap, plaque, endarterectomy, gross examination only: - Atherosclerotic plaque. The specimen has been reviewed and interpreted by the pathologist identified in this report. Lasha Patel MD (Electronically signed by) Verified: 09/02/2023 10:13 EDT Performing Location: [facility] * MD Patel Erik R: VERIFY MD Patel Erik R: VERIFY, PERFORM Event Display: SP Gross Authored Date: 1. Received fresh, labeled with the patient's name and medical record number, and `` right common femoral endarterectomy are four fragments of firm bob to yellow tissue measuring 3.1 x 2.7 x 0.9 cm in aggregate. Two of the fragments are in the shape of one half of a cylinder, with one fragment demonstrating a bob-johnson intimal surface. The specimen is for gross examination only. (TB) 2. Received fresh, labeled with the patient's name and medical record number, and `` aorta flapis a 4.0 x 3.6 x 2.0 cm aggregate of bob-pink to yellow rubbery to firm irregularly-shaped tissue fragments with the largest fragment measuring 3.0 x 1.9 x 1.5 cm and demonstrating a bob gutierres intimalsurface. The specimen is for gross examination only. (TB) * MD Jorge, Lasha R: VERIFY MD Patel Erik R: VERIFY, PERFORM Event Display: SP Clinical History Authored Date: Pre-operative diagnosis: Critical limb ischemia, chronic mesenteric ischemia, abdominal aortic stenosis Patient Care team information Care Team Personnel Name: MD Jin, Chapo Emerson Position: Referring Member Role: Primary Care Provider Address: Address: [address] [place] [address] [place] Name: FLAVIO Ramos Terra L Position: Nurse Pract - Vascular Surg Member Role: Lifetime Relationship Address: Address: [address] [place] [address] [place] Name: Vasu Jeong Amy E Position: Pharmacist Member Role: Pharmacy - Lifetime Address: Address: [address] [address] [place] Name: Vasu Box Ann Position: Pharmacist Member Role: Pharmacy - Lifetime Name: DIMA Quevedo Lynn Position: Physician Pin Drafting Machine Tender Exempt - Vasc Surg Member Role: Lifetime Relationship Address: Address: [address] [place] [address] [place] Care Team Related Persons Name: CRISTIANO BAEZ
--- OUTSIDE RECORDS SUMMARY | 2023-11-03 14:46 | External Medical Summary | Continuity of Care Document ---
Author Name Unknown Organization [facility] [address] [place] [address] [place] [id number] Care Team Providers Care Technical Publications Writer Name Role Phone Fariba Abdi Primary Care Physician [phone] [id number] Date(s): 09/23/23 - 09/23/23 [facility] [place] [facility] [place] [address], [address], [address] [place] [address] [phone] Encounter Diagnosis Aortoiliac occlusive disease(Discharge Diagnosis) - 09/23/23 Discharge Disposition: Home or Self Care Attending Physician: DIMA Mo, Alicia Greenberg Referring Physician: MD Kita, Sebastian Allergies, Adverse [...] Start Date: 04/14/23 Status: Ordered Mental Status 09/23/23 Barriers to Learning one year None evide nt Mandatory Health Literacy Documentation Yes Health Literacy Communication Barriers N ever Primary Language Sri Lankan Problem List Condition Confirmation Course Effective Dates Status Health St atus Informant Diabetes mellitus Confirmed Active Aortoiliac occlusive disease Confirmed Active Peripheral arterial disease Confirmed Active Subclavian artery stenosis Confirmed Active Tobacco user Confirmed Active Diagnosis Diagnosis Type Effective Dates Health Status Clinical Service Informant Aortoiliac occlusive disease Discharge Diagnosis 09/23/23 Procedures Procedure Date Related Diagnosis Body Site Status Artery- bypass 2013 Completed section Complete d Colonoscopy Completed Tonsillectomy Completed Vital Signs Most recent to oldest [Reference Range]: 1 Temperature [36.5-37.9 DegC] 36.7 DegC (09/23/23 4:10 PM) Heart Rate 70 bpm (09/23/23 4:10 PM) Respiratory Rate 16 br/min (09/23/23 4:10 PM) Blood Pressure 140/62mmHg (09/23/23 4:10 PM) Cuff Pulse Pressure 78 mmHg (09/23/23 4:10 PM) BP Location # 1 Left Arm (09/23/23 4:10 PM) Social History Social History Type Response Smoking Status Former Smoker, quit > 1 yr Sex Female Sex Representation Female (finding) Implantable Device List Procedure Provider Procedure Date Device Type Site Unknown Unknown 08/29/23 Unknown Unknown Device Identifier Serial Number Lot or Batch Number Manufacturing Date Expiration Date Distinct Identification Code MRI Safety Implantable Status Assigning Authority Unknown Unknown K20 Unknown 11/30/26 Unknown Unknown Active Unkn own Patient Care team information Care Team Personnel Name: MD Abdi Cynthia D Position: Referring Member Role: Primary Care Provider Address: [address] [place] [address] Name: FLAVIO Ramos Terra L Position: Nurse Pract - Vascular Surg Member Role: Lifetime Relationship Address: [facility] [address] [place] [address] [place] Name: Vasu Jeong Amy E Position: Pharmacist Member Role: Pharmacy - Lifetime Address: [facility] [address] [place] [address] [place] Name: Vasu Box Ann Position: Pharmacist Member Role: Pharmacy - Lifetime Name: DIMA Quevedo Lynn Position: Physician Hot Blast Worker Exempt - Vasc Surg Member Role: Lifetime Relationship Address: [address] [facility] [address] [place] [address] Care Team Related Persons Name: INDIGO BAEZ
--- OUTSIDE RECORDS SUMMARY | 2023-11-03 14:47 | External Medical Summary | Continuity of Care Document ---
Author Name Unknown Organization [address] Address [address] [place], [place] [id number] Care Team Providers Care Pulling Unit Operator Name Role Phone Fariba Abdi Primary Care Physician [phone] [id number] Date(s): 08/27/23 - 08/27/23 [place] [address] [place] [address] [phone] Discharge Disposition: Home or Self Care Attending Physician: FLAVIO Alonso Sarah A Referring Physician: FLAVIO Alonso Sarah A Allergies, Adverse Reactions, Alerts Substance Criticality Severity Reaction Reaction Severity Status mercaptopurine Pancreatitis Ac tive IVP dye Hives Active Medications albuterol CFC free 90 mcg/inh MDI Start: 04/14/23 3:21:00 PM EST, 2 puff, inhaled, qid, PRN: as needed for wheezing Start Date: 04/14/23 Status: Ordered aspirin 81 mg oral delayed release tablet Start: 04/14/23 3:21:00 PM EST, 1 tab, PO, qAM Start Date: 04/14/23 Status: Ordered atorvastatin 40 mg oral tablet 1 tab, PO, qhs Start Date: 04/14/23 Status: Ordered azithromycin 250 mg oral tablet Start: 08/18/23 1:06:00 PM EDT, 1 tab, PO, qMonWedFri Start Date: 08/18/23 Status: Ordered B-Complex 50 oral tablet Start: 04/14/23 3:24:00 PM EST, 1 tab, PO, qAM Start Date: 04/14/23 Status: Ordered Benadryl 25 mg oral tablet Start: 08/19/23 8:07:00 AM EDT, See Instructions, Disp# 2 tab, Refills: 0, 2 tab PO [address] scan, Pharmacy: [id number] Start Date: 08/19/23 Status: Ordered escitalopram 10 mg oral tablet 1 tab, PO, qAM, take 1 tablet by mouth once daily Start Date: 04/14/23 Status: Ordered glimepiride 1 mg oral tablet take 1 tablet by mouth every morning with BREAKFAST Start Date: 04/14/23 Status: Ordered lisinopril 10 mg oral tablet Start: 07/25/23 11:15:00 AM EDT, 1 tab, PO, Daily, Disp# 90 tab, Refills: 3, Pharmacy: [id number] Start Date: 07/25/23 Status: Ordered MetFORMIN (Eqv-Glucophage XR) 500 mg oral tablet, extended release 1 tab, PO, bid, morning and evening Start Date: 04/14/23 Status: Ordered metoprolol succinate 25 mg oral tablet, extended release Start: 04/14/23 3:22:00 PM EST, 1 tab, PO, qhs Start Date: 04/14/23 Status: Ordered multivitamin Start: 04/14/23 3:22:00 PM EST, 1 tab, PO, qAM Start Date: 04/14/23 Status: Ordered NeilMed Sinus Rinse Kit Start: 04/14/23 3:24:00 PM EST Start Date: 04/14/23 Status: Ordered omeprazole 20 mg oral delayed release capsule 1 cap, PO, qAM, take 1 capsule by mouth daily Start Date: 04/14/23 Status: Ordered predniSONE 50 mg oral tablet Start: 08/19/23 8:07:00 AM EDT, See Instructions, Disp# 3 tab, Refills: 0, 1 tab PO 13 hours, 7 hours and [address] scan, Pharmacy: [id number] Start Date: 08/19/23 Status: Ordered Trelegy Ellipta 100 mcg-62.5 mcg-25 mcg/inh inhalation powder 1 puff, inhaled, qAM, inhale 1 puff by mouth and INTO THE LUNGS once daily Start Date: 04/14/23 Status: Ordered Xarelto 2.5 mg oral tablet Start: 07/07/23 8:42:00 AM EDT, 1 tab, PO, bid, Disp# 60 tab, Refills: 2, Pharmacy: [id number] Start Date: 07/07/23 Status: Ordered Problem List Condition Confirmation Course Effective Dates Status Health St atus Informant Diabetes mellitus Confirmed Active Aortoiliac occlusive disease Confirmed Active Peripheral arterial disease Confirmed Active Subclavian artery stenosis Confirmed Active Tobacco user Confirmed Active Procedures Procedure Date Related Diagnosis Body Site Status Artery- bypass 2013 Completed section Complete d Colonoscopy Completed Tonsillectomy Completed Results Radiology Reports * Exam Date Time Procedure Performing Provider Status 08/27/23 11:56 AM Echo Stress, Pharmacologic Andre Snowden; Final Notes: (Echo Stress, Pharmacologic) Reason For Exam: dyspnea on exertion Echo Stress, Pharmacologic Report Signatures Stress ECG Finalized by Dr. Dav Ponce MD on 08/27/2023 05:32 PM Echo Finalized by Dr. Dav Ponce MD on 08/27/2023 05:32 PM [place] Act 112: No-No further action needed Summary 1. Negative pharmacologic stress ECG and dobutamine stress echocardiogram for ischemia at 81% MPHR. 2. Blood pressures were obtained from the left arm, given a known right subclavian stenosis. 3. Max dose of 20 mcg/kg/min of Dobutamine. Total of 4.79 ml dobutamine infused during testing. Supervising: Erika Childress RN BMI: 21.12 Patient Info Name: PORTER MENDIOLA Age: 63 years : 1960 Gender: Female Ht: 173 cm Wt: 63 kg BSA: 1.74 m2 Heart Rhythm: Sinus Rhythm Technical Quality: Good Exam Date: 08/27/2023 11:28 AM Exam Location: [facility] Patient Status: Outpatient Staff Ordering Physician: Evon Alonso Ophthalmic Surgeon: Aydee Snowden RDCS, RVT Attending Physician: Evon Alonso Study Info CPT 32089 - Indications Z01.810 - Preoperative Exam R0600 - Dyspnea, unspecified Procedure(s) * A Dobutamine stress echocardiogram is performed. Exam Type: Pharm Stress 4 ECG Summary Negative pharmacologic ECG for ischemia at 81% MPHR, cannot exclude ischemia at higher heart rates. Protocol: Dobutamine Rest HR: 74 bpm Peak HR: 126 bpm Rest Sys BP: 182 mmHg Peak Sys BP: 230 mmHg Max Pred HR: 155 bpm % Max Pred HR: 81 % Target HR: 132 bpm Max RPP: 28,980 bpm*mmHg Target HR Summary: Patient's target heart rate was not achieved due to effect of medications (e.g. B blockers/Ca channel blockers) BP Response: Normal blood pressure response Termination Reason: Hypertension Cardiac Symptoms: None Rest Núñez BP: 78 mmHg Peak Núñez BP: 84 mmHg Stress ECG Details Peak Dobutamine Dose: 20 g/kg Resting ECG Normal sinus rhythm. Stress ECG No abnormal ST/T wave changes with exercise. Arrhythmias No arrhythmias were observed during the examination. Stress Echo Findings Left Ventricle Normal LV wall motion response to Dobutamine. Left ventricle becomes smaller and more vigorous with Dobutamine infusion. Improved global left ventricular function with Dobutamine infusion. Left Ventricle Normal left ventricular size and systolic function with no regional wall motion abnormalities. Ejection fraction as calculated by Biplane Simpsons method is 55%. Mild concentric left ventricular hypertrophy. Ventricles Name Value Normal LV Dimensions 2D/MM IVS Diastolic Thickness (2D) 1.0 cm 0.6-0.9 LVID Diastole (2D) 4.1 cm 3.3-5.1 LVIW Diastolic Thickness (2D) 1.1 cm 0.6-0.9 LVID Systole (2D) 2.6 cm 2.2-3.5 LV Mass (2D Cubed) 145.87 g 67.00-162.00 LV Mass Index (2D Cubed) 0.01 g/cm2 0.00-0.01 Relative Wall Thickness (2D) 0.53 LV Fractional Shortening/Ejection Fraction 2D/MM LV Fractional Shortening (2D) 37 % 27-45 LV Diastolic Volume (4C MOD) 61 ml LV Diastolic Volume (2C MOD) 57 ml LV Diastolic Volume (BP MOD) 59 ml 46-106 LV Diastolic Volume Index (BP MOD) 33.89 ml/m2 29.00-61.00 LV Systolic Volume (BP MOD) 27 ml 14-42 LV Systolic Volume Index (BP MOD) 15.45 ml/m2 8.00-24.00 LV EF (BP MOD) 55 % 58-69 LV SV (BP MOD) 32.02 ml Final Signed by:DO Ponce Jason D Signed (Electronic Signature):08/27/2023 11:28 Vital Signs Most recent to oldest [Reference Range]: 1 2 Patient Weight 63.1 kg (08/27/23 11:49 AM) Heart Rate 79 bpm (08/27/23 12:12 PM) 74 bpm (08/27/23 11:49 AM) Blood Pressure 186/74mmHg (08/27/23 12:12 PM) 182/78mmHg (08/27/23 11:49 AM) Cuff Pulse Pressure 104 mmHg (08/27/23 11:49 AM) BP Location # 1 Left Arm (08/27/23 11:49 AM) Social History Social History Type Response Smoking Status Current every day [facility] smoker Sex Female Implantable Device List Procedure Provider Procedure Date Device Type Site Unknown Unknown 08/29/23 Unknown Unknown Device Identifier Serial Number Lot or Batch Number Manufacturing Date Expiration Date Distinct Identification Code MRI Safety Implantable Status Assigning Authority Unknown Unknown [id number] Unknown 11/30/26 Unknown Unknown Active Unkn own Cardiology * Contributor_system, MUSE01: VERIFY, PERFORM Event Display: Exercise Testing Authored Date: [id number] Please click on link to see image. Patient Care team information Care Team Personnel Name: MD Jin, Fariba Emerson Position: Referring Member Role: Primary Care Provider Address: Address: [address] [place] [address] [place] Name: FLAVIO Ramos Terra L Position: Nurse Pract - Vascular Surg Member Role: Lifetime Relationship Address: Address: [address] [facility] [place] [address] [place] Name: DIMA Quevedo Lynn Position: Physician Outsole Tacker Exempt - Vasc Surg Member Role: Lifetime Relationship Address: Address: [address] [place] [address] [place] [address] [place] Care Team Related Persons Name: INDIGO BAEZ
--- OUTSIDE RECORDS SUMMARY | 2023-11-03 14:47 | External Medical Summary | Continuity of Care Document ---
Author Name Unknown Organization [facility] Address [address] [place] [address] Care Team Providers Care Intensive Care Unit Nurse Name Role Phone Fariba Abdi Idania Primary Care Physician [phone] [id number] Date(s): 08/25/23 - 08/25/[address] [address] [place] Discharge Disposition: Home or Self Care Attending Physician: MD Chew Selina N Referring Physician: MD Chew Selina N Allergies, Adverse Reactions, Alerts Substance Criticality Severity [...] [address] scan, Pharmacy: [id number] Start Date: 08/19/23 Status: Ordered [...] Daily, Disp# 90 tab, Refills: 3, Pharmacy: [id number] Start Date: 07/25/23 Status: Ordered MetFORMIN [...] [address] scan, Pharmacy: [id number] Start Date: 08/19/23 Status: Ordered Trelegy Ellipta 100 mcg-62.5 mcg-25 mcg/inh inhalation powder 1 puff, inhaled, qAM, inhale 1 puff by mouth and INTO THE LUNGS once daily Start Date: 04/14/23 Status: Ordered Xarelto 2.5 mg oral tablet Start: 07/07/23 8:42:00 AM EDT, 1 tab, PO, bid, Disp# 60 tab, Refills: 2, Pharmacy: [id number] Start Date: 07/07/23 Status: Ordered [...] Type Response Smoking Status Current every day he heather smoker Sex Female Patient Care team information Care Team Personnel Name: MD Abdi Cynthia D Position: Referring Member Role: Primary Care Provider Address: Address: [address] [place] [address] [place] Name: FLAVIO Ramos Terra L Position: Nurse Pract - Vascular Surg Member Role: Lifetime Relationship Address: Address: [address] [facility] [place] [address] [place] Name: DIMA Quevedo Lynn Position: Physician Lute Packer Or Applier Exempt - Vasc Surg Member Role: Lifetime Relationship Address: Address: [address] [place] [address] [place] Care Team Related Persons Name: INDIGO BAEZ
--- OUTSIDE RECORDS SUMMARY | 2023-11-03 14:47 | External Medical Summary | Continuity of Care Document ---
Author Name Unknown Organization [facility] Address [address] [place] [address] Care Team Providers Care Barrel Loader And Cleaner Name Role Phone Fariba Abdi Primary Care Physician [phone] [id number] Date(s): 08/25/23 - 08/25/[address] [address] [place] Discharge Disposition: Home or Self Care [...] [address] scan, Pharmacy: [id number] Start Date: 08/19/23 Status: Ordered [...] Daily, Disp# 90 tab, Refills: 3, Pharmacy: [id number] Start Date: 07/25/23 Status: Ordered MetFORMIN [...] [address] scan, Pharmacy: [id number] Start Date: 08/19/23 Status: Ordered Trelegy Ellipta 100 mcg-62.5 mcg-25 mcg/inh inhalation powder 1 puff, inhaled, qAM, inhale 1 puff by mouth and INTO THE LUNGS once daily Start Date: 04/14/23 Status: Ordered Xarelto 2.5 mg oral tablet Start: 07/07/23 8:42:00 AM EDT, 1 tab, PO, bid, Disp# 60 tab, Refills: 2, Pharmacy: [id number] Start Date: 07/07/23 Status: Ordered [...] Exam Date Time Procedure Performing Provider Status 08/25/23 1:[address] Angio Brain/Head Lawanda Monreal ie; Final Notes: (CT Angio Brain/Head) Reason For Exam: innominate occlusion with Left ICA stenosis, pre-op eval CT Angio Brain/Head EXAMINATION: CT Angio Neck, CT Angio Brain/Head CLINICAL HISTORY: I65.22: Occlusion and stenosis of left carotid artery; innominate occlusion with Left ICA stenosis, pre-op eval COMPARISON: Carotid duplex from 06/20/2023 TECHNIQUE: CT Angio Neck, CT Angio Brain/Head DOSE: Total Reported Dose Length Product (DLP) = 833.96 mGy.cm FINDINGS: HEAD CT: Cerebral parenchyma: No evidence of acute hemorrhage or mass lesion. Extra-axial spaces: Prominence of the subarachnoid spaces bifrontally. Ventricles: Within normal limits. Mass effect: None. Basal cisterns: Patent. Posterior fossa: Within normal limits. Sella: Unremarkable. Calvarium: Unremarkable. Visualized paranasal sinuses/mastoid: Clear. Visualized orbits: Unremarkable. CTA BRAIN: Posterior circulation: Vertebrobasilar arteries: Codominant vertebral flow. PICAs appear normal. [facility]: P1 segments arise normally from the basilar artery. PCOM: Both posterior communicating arteries are intact. Anterior circulation: Internal carotid artery: No significant stenosis or aneurysmal dilation. VERONICA: A1 segments arise normally bilaterally. ACOM: No significant stenosis or aneurysmal dilation. MCA: No significant stenosis or aneurysmal dilation. M1 segments and trifurcation vasculature are normal. CTA NECK: Aortic arch: Normal origin of left subclavian artery, left common carotid artery and brachiocephalic trunk. There is extensive atherosclerotic plaque formation and occlusion at the origin of the innominate artery. On patient's recent ultrasound, retrograde flow is identified in the right vertebral artery likely secondary to this phenomenon. The degree of opacification of the right subclavian artery is less than the left. RIGHT: Common carotid artery: Unremarkable. Carotid bifurcations and cervical internal carotid artery: Extensive atherosclerotic plaque formation at the carotid bifurcation. Maximal luminal narrowing is 1.2 mm with enlargement distally to 4.6 mm. This may stenosis 75%. Mm Vertebral artery: No flow-limiting stenosis. LEFT: Common carotid artery: Unremarkable. Carotid bifurcations and cervical internal carotid artery: Extensive atherosclerotic plaque formation. Maximal luminal narrowing of 2.1 mm with distal enlargement to 4.4 mm for estimated stenosis of 53%. Vertebral artery: No flow-limiting stenosis. Visualized neck soft tissues: Unremarkable Lung apices: No mass identified in the apices. IMPRESSION: 1. No acute intracranial hemorrhage. No acute large territorial infarct identified. 2. Unremarkable CTA of the [place]. 3. 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 4. Extensive atherosclerotic plaque formation affecting the internal carotid arteries bilaterally. Approximately 75% stenosis of the right internal carotid artery and 53% stenosis of the left internal carotid artery. Workstation ID: [id number] Final Dictated by:MD Tyler Shervin C Dictated DT/TM:08/25/2023 3:30 Signed by:MD Tyler Shervin C Signed (Electronic Signature):08/25/2023 3:29 p * Exam Date Time Procedure Performing Provider Status 08/25/23 1:[address] Angio Neck Dalila Monreal Notes: (CT Angio Neck) Reason For Exam: innominate occlusion with Left ICA stenosis, pre-op eval CT Angio Neck EXAMINATION: CT Angio Neck, CT Angio Brain/Head CLINICAL HISTORY: I65.22: Occlusion and stenosis of left carotid artery; innominate occlusion with Left ICA stenosis, pre-op eval COMPARISON: Carotid duplex from 06/20/2023 TECHNIQUE: CT Angio Neck, CT Angio Brain/Head DOSE: Total Reported Dose Length Product (DLP) = 833.96 mGy.cm FINDINGS: HEAD CT: Cerebral parenchyma: No evidence of acute hemorrhage or mass lesion. Extra-axial spaces: Prominence of the subarachnoid spaces bifrontally. Ventricles: Within normal limits. Mass effect: None. Basal cisterns: Patent. Posterior fossa: Within normal limits. Sella: Unremarkable. Calvarium: Unremarkable. Visualized paranasal sinuses/mastoid: Clear. Visualized orbits: Unremarkable. CTA BRAIN: Posterior circulation: Vertebrobasilar arteries: Codominant vertebral flow. PICAs appear normal. [facility]: P1 segments arise normally from the basilar artery. PCOM: Both posterior communicating arteries are intact. Anterior circulation: Internal carotid artery: No significant stenosis or aneurysmal dilation. VERONICA: A1 segments arise normally bilaterally. ACOM: No significant stenosis or aneurysmal dilation. MCA: No significant stenosis or aneurysmal dilation. M1 segments and trifurcation vasculature are normal. CTA NECK: Aortic arch: Normal origin of left subclavian artery, left common carotid artery and brachiocephalic trunk. There is extensive atherosclerotic plaque formation and occlusion at the origin of the innominate artery. On patient's recent ultrasound, retrograde flow is identified in the right vertebral artery likely secondary to this phenomenon. The degree of opacification of the right subclavian artery is less than the left. RIGHT: Common carotid artery: Unremarkable. Carotid bifurcations and cervical internal carotid artery: Extensive atherosclerotic plaque formation at the carotid bifurcation. Maximal luminal narrowing is 1.2 mm with enlargement distally to 4.6 mm. This may stenosis 75%. Mm Vertebral artery: No flow-limiting stenosis. LEFT: Common carotid artery: Unremarkable. Carotid bifurcations and cervical internal carotid artery: Extensive atherosclerotic plaque formation. Maximal luminal narrowing of 2.1 mm with distal enlargement to 4.4 mm for estimated stenosis of 53%. Vertebral artery: No flow-limiting stenosis. Visualized neck soft tissues: Unremarkable Lung apices: No mass identified in the apices. IMPRESSION: 1. No acute intracranial hemorrhage. No acute large territorial infarct identified. 2. Unremarkable CTA of the [place]. 3. 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 4. Extensive atherosclerotic plaque formation affecting the internal carotid arteries bilaterally. Approximately 75% stenosis of the right internal carotid artery and 53% stenosis of the left internal carotid artery. Workstation ID: [id number] Final Dictated by:MD Tyler Shervin C Dictated DT/TM:08/25/2023 3:30 Signed by:MD Tyler Shervin C Signed (Electronic Signature):08/25/2023 3:29 p Social History Social History Type Response Smoking Status Current every day he heather smoker Sex Female Patient Care team information Care Team Personnel Name: MD Abdi Cynthia D Position: Referring Member Role: Primary Care Provider Address: Address: [address] [place], [place] [address] [address] [place] Name: FLAVIO Ramos Terra L Position: Nurse Pract - Vascular Surg Member Role: Lifetime Relationship Address: Address: [address] [facility] [place] [address] [place] Name: DIMA Quevedo Lynn Position: Physician Kalsominer Exempt - Vasc Surg Member Role: Lifetime Relationship Address: Address: [address] [place] [address] [place] Care Team Related Persons Name: INDIGO BAEZ
--- OUTSIDE RECORDS SUMMARY | 2023-11-03 14:48 | External Medical Summary | Continuity of Care Document ---
Author Name Unknown Organization [facility] [address] [id number] Care Team Providers Care Oncologist Name Role Phone Fariba Abdi Primary Care Physician [phone] [id number] Date(s): 08/18/23 - 08/18/23 [facility] [address] [id number] Discharge Disposition: Home or Self Care Attending Physician: MD East Aditya Referring Physician: MD East Aditya Allergies, Adverse Reactions, [...] [address] scan, Pharmacy: [id number] Start Date: 08/19/23 Status: [...] Daily, Disp# 90 tab, Refills: 3, Pharmacy: [id number] Start Date: 07/25/23 Status: Ordered [...] [address] scan, Pharmacy: [id number] Start Date: 08/19/23 Status: Ordered Trelegy Ellipta 100 mcg-62.5 mcg-25 mcg/inh inhalation powder 1 puff, inhaled, qAM, inhale 1 puff by mouth and INTO THE LUNGS once daily Start Date: 04/14/23 Status: Ordered Xarelto 2.5 mg oral tablet Start: 07/07/23 8:42:00 AM EDT, 1 tab, PO, bid, Disp# 60 tab, Refills: 2, Pharmacy: [id number] Start Date: 07/07/23 Status: Ordered Problem List Condition Confirmation Course Effective Dates Status [facility] Diabetes mellitus Confirmed Active Aortoiliac occlusive disease Confirmed Active Peripheral arterial disease Confirmed Active Subclavian artery stenosis Confirmed Active Tobacco user Confirmed Active Procedures Procedure Date Related Diagnosis Body Site Status Artery- bypass 2013 Completed section Complete d Colonoscopy Completed Tonsillectomy Completed Results Laboratory List Name Date Basic Metabolic Panel (BASIC METAB PANEL ) 08/18/23 Complete Blood Count w Differential (CBC ,DIFFH) 08/18/23 Hemoglobin A1C (HEMOGLOBIN, A1C) 08/18/23 Most recent to oldest [Reference Range]: 1 eGFR CKD-EPI [>60 mL/min/1.73 m2] 65 mL/ min/1.73 m2 (08/18/23 2:01 PM) Estimated Average Glucose 126 mg/dL (08/18/23 2:01 PM) Estimated CrCl 58.56 mL/min (08/18/23 2:58 PM) MPV [9.0-12.2 fL] 10.0 fL (08/18/23 2:01 PM) Immature Gran% 0.7 % (08/18/23 2:01 PM) Neut% 85.8 % (08/18/23 2:01 PM) Lymph% 12.1 % (08/18/23 2:01 PM) Millard% 1.1 % (08/18/23 2:01 PM) Baso% 0.3 % (08/18/23 2:01 PM) Eos% 0.0 % (08/18/23 2:01 PM) Immat Gran, Abs [0-0.4 K/uL] 0.07 K/uL (08/18/23 2:01 PM) Neut, Abs [2.0-7.7 K/uL] 9.21 K/uL *HI* (08/18/23 2:01 PM) Lymph, Abs [1.0-3.4 K/uL] 1.30 K/uL (08/18/23 2:01 PM) Millard, Abs [0-1.0 K/uL] 0.12 K/uL (08/18/23 2:01 PM) Baso, Abs [0-0.1 K/uL] 0.03 K/uL (08/18/23 2:01 PM) Eos, Abs [0-0.5 K/uL] 0.00 K/uL (08/18/23 2:01 PM) Type of Diff: AUTO *Unknown* (08/18/23 2: PM) RDW [11.5-14.2 %] 12.2 % (08/18/23 2: PM) Anion Gap [5-14 mmol/L] 18 mmol/L *HI* (08/18/23 2:01 PM) BUN [6-23 mg/dL] 15 mg/dL (08/18/23: PM) Ca [8.4-10.2 mg/dL] 8.3 mg/dL *LOW* (08/18/23: PM) Cl- [98-107 mmol/L] 99 mmol/L (08/18/23: PM) HCO3 [22-29 mmol/L] 22 mmol/L (08/18/23: PM) Cret [0.60-1.00 mg/dL] 0.97 mg/dL (08/18/23: PM) HbA1c [<5.7 %] 6.0 % 1 *HI* (08/18/23 2: PM) Glu [74-109 mg/dL] 239 mg/dL 2 *HI* (08/18/23 2: PM) Hct [35-44 %] 39.9 % (08/18/23 2: PM) Hgb [11.7-15.0 g/dL] 13.9 g/dL (08/18/23 2:01 PM) K [3.5-5.1 mmol/L] 4.6 mmol/L (08/18/23: PM) MCH [28-33 pg] 33.3 pg *HI* (08/18/23 2: PM) MCHC [32-36 g/dL] 34.8 g/dL (08/18/23 2:01 PM) MCV [81-96 fL] 95.7 fL (08/18/23: PM) Na [136-145 mmol/L] 139 mmol/L (08/18/23 2:01 PM) Plts [150-350 K/uL] 242 K/uL (08/18/23 2:01 PM) RBC [3.90-5.00 M/uL] 4.17 M/uL (08/18/23 2:01 PM) WBC [4.0-10.4 K/uL] 10.73 K/uL *HI* (08/18/23 2:01 PM) 1Result Comment: ADA Recommended [place] Reference Range: Normal: <5.7% Prediabetes: 5.7-6.4% Diabetes: >6.4% 2Result Comment: ADA recommendation for FASTING Serum/Plasma Glucose: Normal: 70-100 mg/dL Prediabetes: 100-125 mg/dL Diabetes: 126 mg/dL or higher Social History Social History Type Response Smoking Status Current every day he heather smoker Sex Female Patient Care team information Care Team Personnel Name: MD Jin, Fariba Emerson Position: Referring Member Role: Primary Care Provider Address: Address: [address] [place] [address] [place] Name: FLAVIO Ramos Terra L Position: Nurse Pract - Vascular Surg Member Role: Lifetime Relationship Address: Address: [address] [facility] [place] [address] [place] Name: DIMA Quevedo Lynn Position: Physician Head Boys Tennis Coach Exempt - Vasc Surg Member Role: Lifetime Relationship Address: Address: [address] [place] [address], [place] [address] [place] Care Team Related Persons Name: INDIGO BAEZ
--- OUTSIDE RECORDS SUMMARY | 2023-11-03 14:48 | External Medical Summary | Continuity of Care Document ---
Author Name Unknown Organization [facility] Address [address] [place] [id number] Care Team Providers Care Colored Leather Setter Name Role Phone Jin Fariba Emerson Primary Care Physician [phone] [id number] Date(s): 08/18/23 - 08/18/[address] [phone] Discharge Disposition: Home or Self Care Attending Physician: FLAVIO Ramos Terra L Referring Physician: FLAVIO Ramos Terra L Allergies, Adverse Reactions, Alerts Substance Criticality Severity [...] [address] scan, Pharmacy: [id number] Start Date: 08/19/23 Status: [...] Daily, Disp# 90 tab, Refills: 3, Pharmacy: [facility] Start Date: 07/25/23 Status: Ordered [...] [address] scan, Pharmacy: [facility] Start Date: 08/19/23 Status: Ordered Trelegy Ellipta 100 mcg-62.5 mcg-25 mcg/inh inhalation powder 1 puff, inhaled, qAM, inhale 1 puff by mouth and INTO THE LUNGS once daily Start Date: 04/14/23 Status: Ordered Xarelto 2.5 mg oral tablet Start: 07/07/23 8:42:00 AM EDT, 1 tab, PO, bid, Disp# 60 tab, Refills: 2, Pharmacy: [facility] Start Date: 07/07/23 Status: [...] Member Role: Primary Care Provider Address: Address: [address] [place] [address] [place] Name: FLAVIO Ramos Terra L Position: Nurse Pract - Vascular Surg Member Role: Lifetime Relationship Address: Address: [address] [facility] [place] [address] [place] Name: DIMA Quevedo Lynn Position: Physician Carpenter Assistant Exempt - Vasc Surg Member Role: Lifetime Relationship Address: Address: [address] [place] [address] [place] Care Team Related Persons Name: INDIGO BAEZ
--- OUTSIDE RECORDS SUMMARY | 2023-11-03 14:48 | External Medical Summary | Continuity of Care Document ---
Author Name Unknown Organization [address] Address [address] [place], [place] [id number] Care Team Providers Care Packaging Design Engineer Name Role Phone Jin Fariba Emerson Primary Care Physician [phone] [id number] Date(s): 08/04/23 - 08/04/23 [place] [address], [address] [place] [address] [phone] Discharge Disposition: Home or Self Care Attending Physician: FLAVIO Alonso Sarah A Allergies, Adverse [...] 04/14/23 3:21:00 PM EST, 1 tab, PO, Daily Start Date: 04/14/23 Status: Ordered atorvastatin 40 mg oral tablet take 1 tablet by mouth once daily Start Date: 04/14/23 Status: Ordered B-Complex 50 oral tablet Start: 04/14/23 3:24:00 PM EST, 1 tab, PO, Daily Start Date: 04/14/23 Status: Ordered Benadryl 25 mg oral tablet Start: 06/13/23 3:28:00 PM EDT, See Instructions, Disp# 2 tab, Refills: 0, 2 tab PO [address] scan, Pharmacy: [id number] Start Date: 06/13/23 Status: Ordered chlorpheniramine 4 mg oral tablet Start: 04/14/23 3:22:00 PM EST, 1 tab, PO, tid, PRN: as needed for allergy symptoms Start Date: 04/14/23 Status: Ordered escitalopram 10 mg oral tablet take 1 tablet by mouth once daily Start Date: 04/14/23 Status: Ordered famotidine 20 mg oral tablet Start: 04/14/23 3:22:00 PM EST, 1 tab, PO, bid Start Date: 04/14/23 Status: Ordered glimepiride 1 mg oral tablet take 1 tablet by mouth every morning with BREAKFAST Start Date: 04/14/23 Status: Ordered lisinopril 10 mg oral tablet Start: 07/25/23 11:15:00 AM EDT, 1 tab, PO, Daily, Disp# 90 tab, Refills: 3, Pharmacy: [facility] Start Date: 07/25/23 Status: Ordered MetFORMIN (Eqv-Glucophage XR) 500 mg oral tablet, extended release take 1 tablet by mouth twice a day Start Date: 04/14/23 Status: Ordered metoprolol succinate 25 mg oral tablet, extended release Start: 04/14/23 3:22:00 PM EST, 1 tab, PO, Daily Start Date: 04/14/23 Status: Ordered multivitamin Start: 04/14/23 3:22:00 PM EST, 1 tab, PO, Daily Start Date: 04/14/23 Status: Ordered NeilMed Sinus Rinse Kit Start: 04/14/23 3:24:00 PM EST Start Date: 04/14/23 Status: Ordered omeprazole 20 mg oral delayed release capsule take 1 capsule by mouth daily Start Date: 04/14/23 Status: Ordered predniSONE 50 mg oral tablet Start: 06/13/23 3:27:00 PM EDT, See Instructions, Disp# 3 tab, Refills: 0, 1 tab PO 13 hours, 7 hours and [address] scan, Pharmacy: [facility] Start Date: 06/13/23 Status: Ordered pseudoephedrine 120 mg oral tablet, extended release Start: 04/14/23 3:23:00 PM EST, 1 tab, PO, bid, PRN: as needed for cold symptoms Start Date: 04/14/23 Status: Ordered Trelegy Ellipta 100 mcg-62.5 mcg-25 mcg/inh inhalation powder inhale 1 puff by mouth and INTO THE LUNGS once daily Start Date: 04/14/23 Status: Ordered Xarelto 2.5 mg oral tablet Start: 07/07/23 8:42:00 AM EDT, 1 tab, PO, bid, Disp# 60 tab, Refills: 2, Pharmacy: [facility] Start Date: 07/07/23 Status: Ordered Problem List Condition Confirmation Course Effective Dates Status [facility] Aortoiliac occlusive disease Confirmed Active Peripheral arterial disease Confirmed Active Subclavian artery stenosis Confirmed Active Tobacco user Confirmed Active Procedures Procedure Date Related Diagnosis Body Site Status section Complete d Social History Social History Type Response Smoking Status Current every day he heather smoker Sex Female Patient Care team information Care Team Personnel Name: MD Jin, Fariba Emerson Position: Referring Member Role: Primary Care Provider Address: Address: [address] [place] [address] [place] Name: FLAVIO Ramos Terra L Position: Nurse Pract - Vascular Surg Member Role: Lifetime Relationship Address: Address: [address] [facility] [place] [address] [place] Name: DIMA Quevedo Lynn Position: Physician Practice Physician Exempt - Vasc Surg Member Role: Lifetime Relationship Address: Address: [address] [place] [address], [place] [address] [place] Care Team Related Persons Name: INDIGO BAEZ
--- OUTSIDE RECORDS SUMMARY | 2023-11-03 14:48 | External Medical Summary | Continuity of Care Document ---
Author Name Unknown Organization [address] Address [address] [place], [place] [id number] Care Team Providers Care Lieutenant/Deputy Name Role Phone Fariba Abdi Primary Care Physician [phone] [id number] Date(s): 08/07/23 - 08/07/23 [place] [address], [address] [place] [address] [phone] Discharge Disposition: Home or Self Care Attending Physician: DO Ponce Jason D Referring Physician: DO Ponce Jason D Allergies, Adverse Reactions, Alerts Substance Criticality Severity [...] [address] scan, Pharmacy: [facility] Start Date: 06/13/23 [...] Daily, Disp# 90 tab, Refills: 3, Pharmacy: [facility] Start Date: 07/25/23 Status: [...] [address] scan, Pharmacy: [facility] Start Date: 06/13/23 [...] bid, Disp# 60 tab, Refills: 2, Pharmacy: [facility] Start Date: 07/07/23 [...] Member Role: Primary Care Provider Address: Address: [address] [place] [address] [place] Name: FLAVIO Ramos Terra L Position: Nurse Pract - Vascular Surg Member Role: Lifetime Relationship Address: Address: [address] [facility] [place] [address] [place] Name: DIMA Quevedo Lynn Position: Physician Activity Manager Exempt - Vasc Surg Member Role: Lifetime Relationship Address: Address: [address] [place] [address] [place] Care Team Related Persons Name: INDIGO BAEZ
--- OUTSIDE RECORDS SUMMARY | 2023-11-03 14:48 | External Medical Summary | Continuity of Care Document ---
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 Role Phone Fariba Abdi Primary Care Physician [phone] [id number] Date(s): 08/18/23 - 08/18/23 [facility] 1300 [facility] [address], Entr[address], [address] [place] [address] Encounter Diagnosis Preoperative testing(Discharge Diagnosis) - 08/18/23 Body mass index [BMI] 21.0-21.9, adult(Discharge Diagnosis) - 08/18/23 Diabetes mellitus(Discharge Diagnosis) - 08/18/23 Discharge Disposition: Home or Self Care Attending Physician: MD Chew Selina N Referring Physician: MD Kita, Sebastian Allergies, Adverse [...] [address] scan, Pharmacy: [id number] Start Date: 08/19/23 Status: [...] Daily, Disp# 90 tab, Refills: 3, Pharmacy: [id number] Start Date: 07/25/23 Status: Ordered [...] [address] scan, Pharmacy: [id number] Start Date: 08/19/23 Status: [...] PHARMACY #[id number] Start Date: 07/07/23 Status: Ordered Mental Status 08/18/23 Barriers to Learning one year None evide nt Mandatory Health Literacy Documentation Yes Communication Barrier Present No Health Literacy Communication Barriers N ever Primary Language Maldivian Problem List Condition Confirmation Course Effective Dates Status Health St atus Informant Diabetes mellitus Confirmed Active Aortoiliac occlusive disease Confirmed Active Peripheral arterial disease Confirmed Active Subclavian artery stenosis Confirmed Active Tobacco user Confirmed Active Diagnosis Diagnosis Type Effective Dates Health Status Clinical Service Informant Preoperative testing Discharge Diagnosis 08/18/23 Non-Specified Body mass index [BMI] 21.0-21.9, adult Discharge Diagnosis 08/18/23 Non-Specified Diabetes mellitus Discharge Diagnosis 08/18/23 Non-Specified Procedures Procedure Date Related Diagnosis Body Site Status Artery- bypass 2013 Completed section Complete d Colonoscopy Completed Tonsillectomy Completed Vital Signs Most recent to oldest [Reference Range]: 1 Height 173 cm (08/18/23 12:46 PM) Patient Weight 64.4 kg (08/18/23 12:46 PM) Body Mass Index 21.52 kg/m2 (08/18/23 12:46 PM) Temperature [36.5-37.9 DegC] 37.2 DegC (08/18/23 12:46 PM) Heart Rate 83 bpm (08/18/23 12:46 PM) Respiratory Rate 23 br/min (08/18/23 12:46 PM) Blood Pressure 166/63mmHg (08/18/23 12:46 PM) Mean Blood Pressure 90 mmHg (08/18/23 12:46 PM) Cuff Pulse Pressure 103 mmHg (08/18/23 12:46 PM) BP Location # 1 Left Arm (08/18/23 12:46 PM) Social History Social History Type Response Smoking Status Current every day he heather smoker Sex Female Anes H&P * MD Chew Selina N: SIGN MD Chew Selina N: SIGN, SIGN MD Chew Selina N: SIGN, VERIFY MD Chew Selina N: VERIFY, MODIFY, PERFORM FLAVIO Peterson Nancy W: PERFORM, MODIFY FLAVIO Peterson Nancy W: MODIFY, MODIFY FLAVIO Peterson Nancy W: MODIFY, SIGN FLAVIO Petersno Nancy W: SIGN DO Beckman Rajan: MODIFY, SIGN DO Beckman Rajan: SIGN Event Display: Anes H&P Authored Date: [id number] Patient: PORTER MENDIOLA Age: 63 years Sex: Female : 1960 Associated Diagnoses: None Author: FLAVIO Peterson Nancy W Preoperative Information Anesthesia Preop Info: Procedure: AORTO-BIFEMORAL AND AORTO MESENTERIC BYPASS Date: 08/29/23 07:30 Surgeons: MD Kita, Sebastian Diagnosis: CRITICAL LIMB ISCHEMIA OF LEFT LOWER EXTREMITY I70.222AORTOILIAC OCCLUSIVE DISEASE I74.09CHRONIC MESENTERIC ISCHEMIA. History of Present Illness 63 yo Fith past medical history significant for PAD s/p right to left femoral artery to femoral artery bypass around 10 years back; now with critical limb ischemia of the left lower extremity (rest pain) and also chronic mesenteric ischemia. For above [facility] Cards has ordered DSE 08/27/23 @ [address] Angio of neck later today Anesthesia History PONV: Denies. History of Motion Sickness: Yes. Patient Complications: Negative. Family History of Anesthesia Problems: Negative. Functional Capacity 1-3 METS = Poor: Walks slowly, Stairs slowly, Activity limited by, LE claudication. Symptoms: Moderate SOB, Longstanding. Medical History Cardiovascular: F/b [facility] Cardiology, See studies or note below, 08/27/23 Dobutamine stress echo pending. Hypertension: Beta Krissy, VERITO- I, L. arm BP 166/63 today with recheck of 170/90; R. arm manual BP110/76 . Carotid Artery Disease: 06/20/23 Carotid duplex: No significant stenosis within the right ICA, however the degree of stenosis may be under-estimated due to more proximal significant obstruction. Elevated velocities suggesting a 60-69% stenosis in the left internal carotid artery.. Peripheral Vascular Disease: S/P Lower extremity grafting or stents, F/b [facility] Vascular surgery. Endocrine/Metabolic: Diabetes: History of Type II, Oral meds, FBS range 140-180, + Neuropathy. Pulmonary: Continues to smoke (currently 3/4 ppd; 40+ pk yr), COVID vaccine completed + boosters X2. 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 Note requested. She has completed a short course of Prednisone and was placed back on Azithromycin qMonWedFri. Continues with Trelegy). Gastrointestinal Health Status Allergies: Allergic Reactions (Selected) Severity Not Documented IVP dye- Hives. Mercaptopurine- Pancreatitis.. Histories Procedure History: Artery- bypass (SNOMED CT 14059298) in 2014 at 52 Years. Tonsillectomy (SNOMED CT 088749776). Colonoscopy (SNOMED CT 251513564). section (SNOMED CT 03123333).. 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 Current every day heavy smoker Other Tobacco Use: Never used other tobacco products Alcohol: Rare social Recreational Drugs: Denies . Physical Examination VS/Measurements: 08/18/2023 12:46 Temp: 37.2 Pulse: 83 BP: 166/63 MAP: 90 RR: 23 SPO2: 99 FIO2: Wt(kg): 64.4 BMI: 22 Height(cm): 173 . General: Alert, Oriented, voice is slightly raspy. Airway: Mallampati classification: II (soft palate, fauces, uvula visible). Hyomental Distance: 30-40mm. Mouth: Within normal limits. Teeth: Partial upper denture, Caps (#8,9). Head: Normocephalic, Glasses. Neck: Supple, Good extension, No masses. Trachea: Midline. Respiratory: CTA bilaterally, No wheezes, No ronchi. Cardiovascular: Heart: RRR, No murmurs. Edema: None. Gastrointestinal: Soft. Musculoskeletal: Normal strength. Neurologic: No focal deficits. Assessment and Plan Medications: Pre-Surgery Medication Instructions Please bring this medication list with you to the hospital on the day of surgery. Make a note of the date and time of the last dose taken prior to surgery for each medication. It is very important we have an accurate list of your medications prior to your procedure. Please review this medication list with your home medications and call [phone] prior to your procedure with any changes to your prescription medications. albuterol (albuterol CFC free 90 mcg/inh MDI) 2 puff Inhalation 4 times daily, as needed for wheezing . Use if needed; bring with you day of surgery aspirin (aspirin 81 mg oral delayed release tablet) 1 tab by mouth once a day (in the morning) . Take AM of procedure atorvastatin (atorvastatin 40 mg oral tablet) 1 tab by mouth at bedtime . take the night before as usual azithromycin (azithromycin 250 mg oral tablet) 1 tab by mouth Friday, Friday and Friday . continue as usual escitalopram (escitalopram 10 mg oral tablet) 1 tab by mouth once a day (in the morning) .take 1 tablet by mouth once daily Take AM of procedure fluticasone/umeclidinium/vilanterol (Trelegy Ellipta 100 mcg-62.5 mcg-25 mcg/inh inhalation powder) 1 puff Inhalation once a day (in the morning) .inhale 1 puff by mouth and INTO THE LUNGS once daily Take AM of procedure glimepiride (glimepiride 1 mg oral tablet) .take 1 tablet by mouth every morning with BREAKFAST Do not take the morning of surgery. lisinopril (lisinopril 10 mg oral tablet) 1 tab by mouth once daily . Do not take the morning of surgery. metFORMIN (MetFORMIN (Eqv-Glucophage XR) 500 mg oral tablet, extended release) 1 tab by mouth 2 times daily .morning and evening Do not take the morning of surgery. metoprolol (metoprolol succinate 25 mg oral tablet, extended release) 1 tab by mouth at bedtime . take the night before as usual multivitamin 1 tab by mouth once a day (in the morning) . hold for 7 days prior to procedure multivitamin (B-Complex 50 oral tablet) 1 tab by mouth once a day (in the morning) . Do not take the morning of surgery. omeprazole (omeprazole 20 mg oral delayed release capsule) 1 cap by mouth once a day (in the morning) .take 1 capsule by mouth daily Take AM of procedure rivaroxaban (Xarelto 2.5 mg oral tablet) 1 tab by mouth 2 times daily . Follow pre-procedure instructions from your surgeon: hold for 5 days prior to surgery. Take your last dose on 08/24/23 (PM dose) sodium chloride nasal (NeilMed Sinus Rinse Kit) . continue as usual . Does patient use aspirin?: Yes. Does patient use beta blockers?: Yes. Does patient use VERITO- I/ARB drugs?: Yes. Does patient use narcotic analgesics for chronic pain? (>1 month AND >30mg morphine or equivalent daily): No. Anesthesiologist Assessment and Plan Problems: No active cardiac conditions, No previous anesthetic complications, No a/w concerns, current smoker, stress echo pending please review prior to anesthesia. Cardiac risk factors: High risk surgery, stress echo pending. Risk of major adverse cardiac event (Revised Cardiac Risk Index): 1 = 0.9%. Cardiovascular risk associated with the procedure: Elevated (>=1%). Anesthetic Plan: Premedication. Anesthetic technique discussed: General anesthesia. Induction discussed: Intravenously. Airway plan discussed: Oral endotracheal tube. Special monitoring discussed: Arterial line. Risks discussed: Nausea-vomiting, Headache, Sore throat, Dental injury, Eye injury, Allergic reaction, Serious complications, Nerve damage. Informed consent: discussed. Special techniques and precautions discussed: Aspiration precautions, Nausea- vomiting, Transfusion of blood or blood products, Postoperative ICU, Mechanical ventilation. Notes: Patient is aware of risks of stroke, heart attack, lung complications, . Understands that stress echo needs to be done prior to safely proceeding with surgery. Patient verbalizes understanding of the risks and is optimized for surgery in the sense that she reports being at her baseline functional status for at least the past 6 months with no recent hospitalizations.. Review / Management Laboratory Results: Lab results 06/20/2023 11:59 EDT Na 144 mmol/L K 3.5 mmol/L Cl- 101 mmol/L HCO3 26 mmol/L Anion Gap 17 mmol/L HI BUN 17 mg/dL Cret 0.90 mg/dL eGFR CKD-EPI 71 mL/min/1.73 m2 Glu 103 mg/dL Ca 7.5 mg/dL LOW WBC 8.85 K/uL Hgb 13.5 g/dL Hct 39.7 % RBC 4.09 M/uL MCV 97.1 fL HI MCHC 34.0 g/dL MCH 33.0 pg RDW 12.5 % Plts 227 K/uL MPV 11.3 fL . Ordered Today: CBC, BMP, HbA1c, CXR, Per surgeon. EK07/25/23 Normal sinus rhythm Normal study No previous ECGs available. Diagnostics: 07/25/23 [facility] Cardiology note History of Present Illness Ms. Mendiola presents for preop evaluation in preparation for a complex vascular operation reconstructing her entire abdominal aorta with a bypass towards her lower extremities and also a bypass to her mesenteric arteries. She is generally short of breath which she attributes to her COPD. She has had a cough for months. Her pcp did give her steroids and antibiotics which did not help. She can ascend a flight of stairs but she is in so much leg pain and short of breath when she gets to the top she usually has to lay down for a bit. No chest discomfort. She has heart racing at night. No edema. She has ongoing orthostatic hypotension for years. She is having lightheadedness when going from sitting to standing and often feels that she might faint. She does not actually lose consciousness. She falls once a week due to lightheadedness. Sometimes during these episodes her left side goes numb even with her tongue and she starts shaking. Assessment/Plan Impression: 1. Extensive vascular disease 2. HTN 3. Orthostasis 4. Tobacco use 5. Echo 2021 at [facility] with normal LVF, no valvulopathy Ms. Mendiola's numbness on the left and shaking in the setting of hypotension is concerning for hypoperfusing her brain due to her right carotid disease. We may have to accept hypertension in order to prevent this for the time being. I will have her discontinue the hydrochlorothiazide for now. Our question for vascular surgery would be whether she needs a CT of her head and neck prior to surgery to ensure adequate perfusion to her brain can be maintained intraoperatively? She has racing heart rate at night which is most likely sinus tachycardia as she runs a higher heart rate at baseline. I will have her wear a 48 hour monitor. Her EKG is without ischemic changes. Her echo in 2021 was unremarkable. Given her extensive vascular disease she almost certainly has significant coronary disease. Her functional capacity is already very low due to her COPD and pain from her claudication and she is easily winded. We will have her proceed with a dobutamine stress echo as well as a resting echo. Her pulmonary status should also be improved prior to surgery. She has not seen pulmonology since December. She has expiratory wheezes bilaterally today and a persistent cough which need addressed. I will have her scheduled to return to the clinic in 4 months and we will be in touch over the phone as her results come back. Electronically Reviewed/Signed by: FLAVIO Kennedy Author Signature Dt/Tm:07/25/2023 05:22 PM [facility] Report 07/25/23 Interpretation: The basic rhythm was normal sinus rhythm with sinus tachycardia. The average HR is elevated at 97 BPM. Ventricular Arrhythmia: Rare premature ventricular complexes and ventricular trigeminy Supraventricular Arrhythmia: Occasional premature atrial complexes Very rare atrial pairs and atrial a single 7 beat run of PAT There were no pauses greater than 3 seconds or evidence of an AV Block. Symptoms included: Heart racing. These symptoms correlated with the timing of Sinus Tachycardia. The patient's diary indicated symptoms as noted above.. The above report was created by Dav Ponce DO . Updated by Dav Ponce DO on 08/07/2023 Echo [facility] TTE Complete 06/20/23 Summary 1. Normal left ventricular size and systolic function. 2. Estimated ejection fraction 60-65%. 3. No regional wall motion abnormalities. 4. Normal right ventricular size and function. 5. No significant valvular abnormalities. 6. No prior studies for comparison. VL Carotid Duplex Bilateral 06/20/23 INTERPRETATION/FINDINGS Arterial duplex examination of the extracranial cerebrovascular system revealed: 1. Atherosclerotic changes of the right common, internal, and external carotid arteries with diffusely low velocity flow and tardus parvus spectral Doppler waveforms, suggesting more proximal significant stenosis/obstruction, consistent with known prior patient history of innominate artery occlusion as noted on prior CTA of 06/16/2023. No evidence of focal, significant stenosis within the right ICA, however the degree of stenosis may be under-estimated due to more proximal significant obstruction. 2. Elevated velocities suggesting a 60-69% stenosis in the left internal carotid artery. 3. Elevated velocities (186.6cm/s) and (226.1cm/s) of uncertain hemodynamic significance insonated in the left mid-distal and distal internal carotid artery. Atherosclerotic changes appreciated at this region, however unable to quantify the degree of stenosis due to more proximal stenosis. 4. >50% stenosis in the left external carotid artery. 5. Retrograde flow in the right vertebral artery. Antegrade flow in the left vertebral artery. 6. Flow disturbance noted at the origin of the right subclavian artery, consistent with known more proximal occlusion. Atherosclerotic changes appreciated at this level, however unable to quantify degree of stenosis of this region due to more proximal obstruction/anatomic location. 7. Flow distubance appreciated within the left proximal subclavian artery, however unable to quantify the degree of stenosis due to anatomic location/unable to obtain more proximal "pre" velocity. 8. Brachial pressure gradient of 52mmHg noted with the left greater than the right. Plaque Morphology:. Orders placed for day of surgery: Glu. Records requested from outside facility: Pulmonary. Pending issues: DSE and CT angio of the neck results. Patient Education Patient Education: A.[facility] ([facility]). Electronic Signature on File Electronically Reviewed/Signed by: NISREEN Middleton, FLAVIO Author Signature Dt/Tm:08/18/2023 01:29 PM Preadmissions Clinic Electronically Reviewed/Signed by: Clarke Beckman DO Cos[place]er Signature Dt/Tm: 08/18/2023 01:54 PM Resident Department of Anesthesia Electronically Reviewed/Signed by: MD Melvin Hugginsigner Signature Dt/Tm: 08/18/2023 02:01 PM Department of Anesthesia NWE * FLAVIO Peterson Nancy W: PERFORM Event Display: Anes H&P Authored Date: [id number] . Electronic Signature on File Electronically Reviewed/Signed by: NISREEN Middleton CRNP Author Signature Dt/Tm:08/19/2023 02:27 PM Preadmissions Clinic Electronically Reviewed/Signed by: MD Eric Hugginser Signature Dt/Tm: 08/20/2023 09:11 AM Department of Anesthesia NWE Patient Care team information Care Team Personnel Name: MD Abdi Cynthia D Position: Referring Member Role: Primary Care Provider Address: Address: [address] [place] [id number] [place] Name: FLAVIO Ramos Terra L Position: Nurse Pract - Vascular Surg Member Role: Lifetime Relationship Address: Address: [address] [facility] [place] [address] [place] Name: DIMA Quevedo Lynn Position: Physician Blow Pit Operator Exempt - Vasc Surg Member Role: Lifetime Relationship Address: Address: [address] [place] [id number] [place] Care Team Related Persons Name: INDIGO BAEZ
[2023-11-03] MEDS: SODIUM CHLORIDE 0.9% 1,000 ML IV SCH (15:01)
--- NOTE | 2023-11-03 15:03 | Emergency Department Note ---
Impression & Plan Hypotension, GENESIS (acute kidney injury), Acute dehydration, Hypomagnesemia, Hypokalemia, Hypocalcemia, Elevated lactic acid level, Leukocytosis ED Provider Note NAME: PORTER MENDIOLA AGE: 63 SEX: F : 1960 ARRIVES VIA: Walk-In INFORMANT: [Patient] ED PROVIDER(S): [Shukri Pantoja MD] CHIEF COMPLAINT: Dehydration HISTORY OF PRESENT ILLNESS: The patient is a 63-year-old female who has had issues for a month. Things worsened just about every day. She has no appetite, she cannot eat or drink. She feels weak, she has lost weight. She is dizzy. She has had some bloody mucousy stool. She has some diffuse abdominal cramping/pain. The patient states that she is on Xarelto, she states that she recently had surgery on her aorta. They put in a graft. PMHx/PSHx/Social Hx: See Below PHYSICAL EXAM: GENERAL: Patient is in no acute distress. HEENT: No acute trauma, normocephalic atraumatic, mucous membranes dry, no nasal congestion. NECK: No stridor, no adenopathy, no meningismus, trachea is midline. LUNGS: Clear to auscultation bilaterally, no wheeze, no rhonchi, breath sounds equal. HEART: Without murmurs gallops or rubs, regular rate and rhythm. ABDOMEN: Soft, mildly tender in the lower abdomen, mostly on the left. No distention or peritonitis. EXTREMITIES: No cyanosis, full range of motion of all the joints without pain or difficulty. NEUROLOGIC: Oriented x 3, no acute motor or sensory deficits, no focal weakness. SKIN: No jaundice, no diaphoresis. DIFFERENTIAL DIAGNOSIS: Dehydration, renal or liver failure, electrolyte imbalance, UTI, colitis or diverticulitis, anemia, among others. EMERGENCY DEPARTMENT PROCEDURES: MEDICAL DECISION MAKING: There is a moderate leukocytosis, this could be consistent with infection. A very subtle anemia was seen. There was a normal platelet count. INR was elevated at 1.4, likely from her Xarelto use. Calcium, magnesium and potassium were all low. There was evidence for acute kidney injury with a creatinine of 2.87. Lactic acid level was elevated at over 2, this was consistent with infection or possibly just dehydration. No worrisome liver enzyme elevation. Patient appeared to be in a euthyroid state. Chest x-ray did not show mediastinal widening, pneumonia or pneumothorax. Abdominal and pelvis CT showed a fluid collection around the aortic graft. This was concerning for hematoma, seroma or even abscess. There was no bowel abscess or diverticulitis on CT imaging. Colitis was thought possible based on the CT findings. On my exam, the patient looked dehydrated. She was initially hypotensive. She was not toxic or febrile. The patient was given IV saline, 2 L. This amount of IV fluid should suffice for the 30 cc/kg of saline as sepsis protocol based on actual body weight. The patient received IV cefepime as empiric antibiotic coverage. She was given IV magnesium, IV calcium and IV potassium. With the above treatment, the patient's blood pressure improved markedly. She was found to be resting comfortably. I did speak with vascular surgery at [facility]. The patient does not need transfer to their facility. The findings on CT imaging are expected given the type of surgery she had performed. The patient is in need of a hospital stay. She is quite dehydrated. She has significant electrolyte abnormalities and she has acute kidney injury. I did speak with the patient, I spoke with case management, the on-call hospitalist was consulted. Prior/Outside records/notes reviewed: None ECG per my interpretation: Indication was possible sepsis. The ECG shows a sinus tachycardia with a rate of 101. There is an old anterior infarct. There are some inverted T waves in the high lateral leads. There is no acute ST elevation, no PVCs. LVH is present. QTc was 500. Continuous Cardiac Monitoring per my interpretation: An order was placed for continuous cardiac monitoring. The monitor shows a rate of 99 with normal sinus rhythm. Imaging/x-ray results per my interpretation: Chest x-ray does not show mediastinal widening, pneumonia or pneumothorax, some chronic change was seen. Chronic Medical/Social conditions affecting care: Recent aortic surgery, Xarelto use. Care/Management discussed with: Case management, the on-call hospitalist. Vascular surgery at [facility]-Dr. [facility] Level of care consideration(s): After review of the information above and other included data: --I believe the patient requires escalation of care to admission Critical Care Note: I have personally spent 51 minutes of critical care time in the direct management of this patient. This includes bedside care, interpretation of diagnostic studies, and testing, discussion with consultants, patient, and family members, and other required patient management activities. This 51 minutes is in excess of all separately billable procedures. DISPOSITION: Admission Past Med/Surg History Problem List (Updated 11/03/23 @ 17:25 by Shukri Pantoja MD) Leukocytosis (Acute) Elevated lactic acid level (Acute) Hypocalcemia (Acute) Hypokalemia (Acute) Hypomagnesemia (Acute) Acute dehydration (Acute) GENESIS (acute kidney injury) (Acute) Hypotension (Acute) Right groin wound Peripheral artery disease (Chronic) Chronic low back pain Spondylolysis of thoracolumbar region Thoracic radiculopathy Thoracic back pain Tobacco abuse (Chronic) Chronic sinusitis (Chronic) Coronary artery disease (Chronic) Seen on lung CT scan Tubular adenoma (Chronic 10/2020) Osteoarthritis (Chronic) COPD (chronic obstructive pulmonary disease) (Chronic) Type 2 diabetes mellitus (Chronic) GERD (gastroesophageal reflux disease) (Chronic) Anxiety and depression (Chronic) Hyperlipidemia (Chronic) Hypertension (Chronic) Crohn's disease (Chronic) in remission Medical History Left lower quadrant abdominal pain Fall Surgical History History of section History of bilateral tubal ligation History of esophagogastroduodenoscopy (EGD) History of colonoscopy History of tooth extraction History of tonsillectomy Family History Aunt Breast cancer Mother Diabetes Hypertension Other Cancer Heart disease Lung disease No family history of adverse response to anesthesia Denies family history of Ovarian cancer Prostate cancer Myocardial infarction Colorectal cancer Asthma Social History Smoking Status: Never smoker Age Quit Using Tobacco: 11; packs per day: 1; Cigarettes Per Day: 20; Second Hand Exposure: No; Do You Dip or Chew Tobacco: No; Hx Alcohol Use: No Hx Substance Use: No Preferred Language: Cameroonian Communication Ability: Effective Visual Impairment: No Limitations Hearing Ability: Normal Blocker And Cutter Contact Lens Required: No Beliefs That Will Affect Care: None marital status: / Current Living Situation: Family Current Living Situation Comment: Lives with brother and sister in law Feels Safe at Home: Yes Diet: regular caffeine: Yes (Rare ) Dental Care, Regularly: Yes Physical Activity Frequency: Does not Exercise Seatbelt Use: always Assistive Devices: Glasses Allergies Allergies Allergy/AdvReac Type Severity Reaction Status Date / Time Iodinated Contrast Media Allergy Intermediate Hives Verified 05/13/23 09:38 Home Meds Home Medications Medication Instructions Recorded Confirmed aspirin 81 mg tablet,delayed 81 mg PO QAM 08/21/20 05/13/23 release multivitamin 1 tab PO QAM 08/21/20 05/13/23 vitamin B complex 1 tab PO QAM 08/21/20 05/13/23 Previous Rx's Medication Instructions Recorded albuterol sulfate 90 mcg/actuation 2 inh inhalation Q6H PRN shortness 08/23/20 aerosol inhaler of breath or wheezing #6.7 grams pseudoephedrine HCl 120 mg 120 mg PO BID 30 days #60 tabs 02/02/21 tablet,extended release (Sudafed 12 Hour) sodium chloride, sodium See Rx Instructions .Route 02/02/21 bicarb-nasal rinse squeeze bottle .COMPLEX #50 ea with packet (Neilmed Sinus Rinse Complete with packet) fluticasone propionate 50 1 spray intranasal BID #18.2 mL 03/22/21 mcg/actuation nasal spray,suspension (Flonase Allergy Relief) famotidine 20 mg tablet 20 mg PO BID #60 tabs 03/30/21 chlorpheniramine maleate 4 mg 4 mg PO Q12H #90 tabs 12/27/21 tablet (Allergy Relief (chlorpheniramine)) nortriptyline 25 mg capsule 25 mg PO .qhs #30 caps 08/07/22 doxycycline hyclate 100 mg capsule 100 mg PO BID 7 days #14 caps 05/13/23 lisinopril 10 1 tab PO DAILY #100 tabs 07/03/23 mg-hydrochlorothiazide 12.5 mg tablet metformin 500 mg tablet,extended 500 mg PO BID #200 tabs 07/03/23 release 24 hr omeprazole 20 mg capsule,delayed 20 mg PO DAILY #100 caps 07/03/23 release glimepiride 1 mg tablet 1 mg PO QAM #100 tabs 07/07/23 escitalopram oxalate 10 mg tablet 10 mg PO DAILY #100 tabs 07/18/23 atorvastatin 40 mg tablet 40 mg PO DAILY #100 tabs 07/29/23 metoprolol succinate 25 mg 25 mg PO DAILY #100 tabs 07/29/23 tablet,extended release 24 hr azithromycin 250 mg tablet 250 mg PO MOWEFR 30 days #18 tabs 08/04/23 fluticasone fur. 100 mcg-umeclid 1 inh inhalation DAILY #180 ea 08/04/23 62.5 mcg-vilant 25 mcg inhalat.powder (Trelegy Ellipta) prednisone 20 mg tablet 20 mg PO DAILY #7 tabs 08/04/23 varenicline 1 mg tablet (Chantix) 1 mg PO BID #60 tabs 08/04/23 fluconazole 150 mg tablet 150 mg PO Q3D 2 doses #2 tabs 10/07/23 Results & Data (ED) Vital Signs Vital Signs - 24 hr 11/03/23 14:49 11/03/23 15:13 11/03/23 17:00 Temperature 36.5 C Temperature Source Temporal Artery Scan Pulse Rate 105 H 99 H Pulse Rate [Finger] 88 Respiratory Rate 20 24 Respiratory Effort / Characteristics Non-Labored Spontaneous Respiratory Depth Normal Blood Pressure 84/46 L Blood Pressure [Right Arm] 124/66 Blood Pressure Mean 58 Blood Pressure Mean [Right Arm] 85 Pulse Oximetry 94 96 Oxygen Delivery Method Room Air Room Air Sepsis Recent Fever Within 48 Hours No Sepsis New/Unexplained Change in Mental Status No Sepsis Action Taken by Nursing No Action Required Home Medications Current Medication List: was personally reviewed by me Laboratory Data Attestation: I reviewed the patient's lab results. 11/03/23 15:10 11/03/23 15:10 Lab Results 11/03/23 11/03/23 Range/Units 15:10 16:53 WBC 17.65 H (4.8-10.8) K/ul RBC 3.81 L (4.20-5.40) M/uL Hgb 11.7 L (12.0-16.0) g/dl Hct 35.2 L (37.0-47.0) % MCV 92.4 (80.0-100.0) fL MCH 30.7 (25.0-34.0) pg MCHC 33.2 (32.0-36.0) g/dL RDW Std Deviation 50.8 H (36.4-46.3) fL RDW Coeff of Bijan 15.0 H (11.5-14.5) % Plt Count 313 (130-400) K/uL MPV 9.9 (9.4-12.4) fL Immature Gran % (Auto) 1.5 % Neut % (Auto) 70.1 % Lymph % (Auto) 13.8 % [place] % (Auto) 11.8 % Eos % (Auto) 2.2 % Baso % (Auto) 0.6 % Neut # (Auto) 12.36 H (1.40-6.50) K/uL Lymph # (Auto) 2.43 (1.20-3.40) K/uL [place] # (Auto) 2.09 H (0.11-0.59) K/uL Eos # (Auto) 0.39 (0.00-0.50) K/uL Baso # (Auto) 0.11 (0.00-0.20) K/uL Immature Gran # (Auto) 0.27 H (0.01-0.20) K/uL PT 14.7 H (9.0-12.0) Seconds INR 1.4 H (0.9-1.1) APTT 28 (21-31) Seconds PTT Ratio 1.0 Sodium 137 (136-145) mmol/L Potassium 2.8 L (3.5-5.1) mmol/L Chloride 98 (98-107) mmol/L Carbon Dioxide 24 (21-32) mmol/L Anion Gap 15 H (3-11) BUN 32 H (6-23) mg/dl Creatinine 2.85 H (0.6-1.2) mg/dl Est Cr Clr Drug Dosing Not Reportable Est GFR ( Amer) 19.3 ml/min Est GFR (Non-Af Amer) 16.7 ml/min BUN/Creatinine Ratio 11.2 (10-20) Glucose 116 H (70-99(Fasting)) mg/dl Lactate 2.8 H* 1.6 (0.4-2.0) mmol/L Calcium 6.7 L (8.6-10.3) mg/dl Magnesium < 0.5 L* (1.7-2.4) mg/dl Total Bilirubin 0.5 (0.2-1.0) mg/dl AST 19 (13-39) U/L ALT 14 (7-52) U/L Alkaline Phosphatase 67 (34-104) U/L Total Protein 6.4 (6.0-8.3) gm/dl Albumin 3.3 L (3.4-5.0) gm/dl Globulin 3.1 (2.5-4.0) gm/dl Albumin/Globulin Ratio 1.1 (0.9-2) TSH 1.403 (0.300-4.500) uIu/ml Administered Medications Magnesium Sulfate/Dextrose (Magnesium Sulfate / D5w) 1 gm in 100 mls @ 100 mls/hr IV Q1H RHIANNON Stop: 11/03/23 17:55 Last Admin: 11/03/23 16:33 Dose: 100 mls/hr Documented By: BENTLEY Sodium Chloride (Nss) 1,000 mls @ 999 mls/hr IV .Q1H1M ONE Stop: 11/03/23 18:09 Last Admin: 11/03/23 17:11 Dose: 999 mls/hr Documented By: BENTLEY Discontinued Medications Sodium Chloride (Nss) 1,000 mls @ 999 mls/hr IV .Q1H1M RHIANNON Stop: 11/03/23 16:00 Last Infusion: 11/03/23 15:56 Dose: Infused Documented By: Admin: 11/03/23 15:01 Dose: 999 mls/hr Documented By: ZION Cefepime HCl (Maxipime) 2,000 mg in 20 mls @ 5 mls/min IV NOW STA; Protocol Stop: 11/03/23 15:32 Last Admin: 11/03/23 15:40 Dose: 5 mls/min Documented By: BENTLEY Potassium Chloride (K Thai / Wtr) 10 meq in 100 mls @ 100 mls/hr IV ONE ONE Stop: 11/03/23 16:43 Last Infusion: 11/03/23 17:10 Dose: Infused Documented By: Admin: 11/03/23 15:55 Dose: 100 mls/hr Documented By: BENTLEY Calcium Gluconate () 1,000 mg in 60 mls @ 240 mls/hr IV NOW STA Stop: 11/03/23 15:58 Last Infusion: 11/03/23 16:11 Dose: Infused Documented By: Admin: 11/03/23 15:54 Dose: 240 mls/hr Documented By: BENTLEY Imaging Data Radiologist's Impression: Abdomen/Pelvis CT 11/03/23 14:[address] WITHOUT CONTRAST CT DOSE: 439.13 mGy.cm HISTORY: pain, bloody stool, contrast allergy TECHNIQUE: Multiaxial CT images of the abdomen and pelvis were performed without contrast. A dose lowering technique was utilized adhering to the principles of ALARA. COMPARISON STUDY: Abdomen and pelvis CTA with runoff 04/30/2023 FINDINGS: The lung bases are clear. No pneumoperitoneum. No pneumatosis. No acute fractures. There is an old mild superior endplate compression deformity at L1. There is an old compression deformity at T10. Evidence for interval midline incision. A femoral-femoral bypass graft is again noted. Small thick-walled fluid collections surrounding the common femoral vessels with the largest on the right on image 309 measuring 2.8 cm. Cholelithiasis versus sludge within the gallbladder. No gallbladder wall thickening. The unenhanced liver, spleen, and adrenal glands are unremarkable. Normal pancreas. Mild bilateral perinephric edema. Renal sinus calcifications likely vascular. No hydronephrosis. Prominent fluid-filled loops of small bowel seen within the abdomen. This favors a mild ileus. No evidence for transition point to suggest a bowel obstruction at this time. There are suboptimal evaluation for bowel pathology due to the lack of intravenous and oral contrast. Questionable thickening of the colon is likely due to underdistention. A low-grade colitis also remains in the differential diagnosis. Normal appendix. Status post aortobiiliac stent graft repair of the abdominal aorta. Evaluation for graft patency is nondiagnostic due to the lack of intravenous contrast. In addition, there is a graft extending from the right common iliac artery to the right common femoral artery. There is a large thick- walled retroperitoneal fluid collection surrounding the abdominal aortic stent graft, bilateral common iliac arteries, and a portion of the right iliac graft. This large fluid collection extends into the deep pelvis. The presacral space and measures approximately 25 x 11 x 9 cm. No gas within this fluid collection. However, there is mild surrounding fat stranding. Therefore, this could represent an abscess, postoperative seroma, or old hematoma. Mild bladder wall thickening. IMPRESSION: 1. There is a large thick-walled retroperitoneal fluid collection surrounding the abdominal aortic stent graft, bilateral common iliac arteries, and a portion of the right iliac graft. This large fluid collection extends into the deep pelvis. The presacral space and measures approximately 25 x 11 x 9 cm. No gas within this fluid collection. However, there is mild surrounding fat stranding. Therefore, this this is concerning for an abscess. A postoperative seroma or old hematoma also remain in the differential diagnosis. 2. There are similar-appearing small thick-walled fluid collection surrounding the bilateral common femoral vessels with the largest in the right measuring 2.8 cm. These could also represent small abscesses or postoperative seromas. 3. Prominent fluid-filled loops of small bowel seen within the abdomen. This favors a mild ileus. No evidence for transition point to suggest a bowel obstruction at this time. 4. Questionable thickening of the colon is likely due to underdistention. A low- grade colitis also remains in the differential diagnosis. 5. Mild bladder wall thickening. 6. Cholelithiasis versus sludge within the gallbladder. No gallbladder wall thickening. 7. Additional findings as described above. ACT 112: Negative or not required by law. Electronically signed by: Shlomo Cottrell M.D. 11/03/2023 4:36 PM Chest X-Ray 11/03/23 14:54 XR chest 1V portable HISTORY: weakness COMPARISON: Chest 03/28/2021. FINDINGS: The lungs are clear. Cardiac silhouette is normal in size. No pleural effusions. No pneumothorax. Old, healed left-sided rib fractures. IMPRESSION: No acute process. ACT 112: Negative or not required by law. Electronically signed by: Shlomo Cottrell M.D. 11/03/2023 3:41 PM Discharge Plan Visit Data Chief Complaint: Dehydration Stated Complaint: DEHYDRATION ED Provider: Shukri Pantoja Discharge Problem: Hypotension, GENESIS (acute kidney injury), Acute dehydration, Hypomagnesemia, Hypokalemia, Hypocalcemia, Elevated lactic acid level, Leukocytosis Patient Disposition: Admitted As Inpatient Condition: Serious Forms Stand Alone Forms: Just Soles Prescriptions Prescriptions: No Action nortriptyline 25 mg capsule 25 mg PO .qhs Qty: 30 2RF fluticasone propionate [Flonase Allergy Relief] 50 mcg/actuation spray,suspension 1 spray intranasal BID Qty: 18.2 2RF Rx Instructions: administer into each nostril chlorpheniramine maleate [Allergy Relief(chlorpheniramn)] 4 mg tablet 4 mg PO Q12H Qty: 90 1RF lisinopril-hydrochlorothiazide 10-12.5 mg tablet 1 tab PO DAILY Qty: 100 3RF metformin 500 mg tablet extended release 24 hr 500 mg PO BID Qty: 200 3RF omeprazole 20 mg capsule,delayed release(DR/EC) 20 mg PO DAILY Qty: 100 3RF glimepiride 1 mg tablet 1 mg PO QAM Qty: 100 3RF Rx Instructions: administer with breakfast escitalopram oxalate 10 mg tablet 10 mg PO DAILY Qty: 100 3RF atorvastatin 40 mg tablet 40 mg PO DAILY Qty: 100 3RF metoprolol succinate 25 mg tablet extended release 24 hr 25 mg PO DAILY Qty: 100 3RF fluconazole 150 mg tablet 150 mg PO Q3D Qty: 2 0RF Rx Instructions: may repeat second dose 72 hrs after first dose if symptoms persist pseudoephedrine HCl [Sudafed 12 Hour] 120 mg tablet extended release 120 mg PO BID 30 Days Qty: 60 3RF Neilmed Sinus Rinse Complete Packet With Rinse Device See Rx Instructions .Route .COMPLEX Qty: 50 3RF Rx Instructions: use daily; doxycycline hyclate 100 mg capsule 100 mg PO BID 7 Days Qty: 14 0RF Trelegy Ellipta 100-62.5-25 mcg blister with device 1 inh inhalation DAILY Qty: 180 3RF prednisone 20 mg tablet 20 mg PO DAILY Qty: 7 0RF azithromycin 250 mg tablet 250 mg PO WEFR 30 Days Qty: 18 6RF Rx Instructions: 1 tablet orally every Friday, Friday, and Friday varenicline [Chantix] 1 mg tablet 1 mg PO BID Qty: 60 0RF multivitamin Tablet 1 tab PO QAM aspirin 81 mg Tablet,Delayed Release (Dr/Ec) 81 mg PO QAM vitamin B complex Tablet 1 tab PO QAM albuterol sulfate 90 mcg/actuation HFA aerosol inhaler 2 inh inhalation Q6H PRN (Reason: shortness of breath or wheezing) Qty: 6.7 0RF famotidine 20 mg Tablet 20 mg PO BID Qty: 60 0RF Referrals Referrals: Fariba Abdi MD [Primary Care Provider] - Discharge Problem: Hypotension Qualifiers: Hypotension type: unspecified hypotension type Qualified Code(s): I95.9 - Hypotension, unspecified Leukocytosis Qualifiers: Leukocytosis type: unspecified Qualified Code(s): D72.829 - Elevated white blood cell count, unspecified
[2023-11-03 15:27] LABS: Basophils # (auto) 0.11 K/uL (0.00-0.20); Basophils % (auto) 0.6 %; Eosinophils # (auto) 0.39 K/uL (0.00-0.50); Eosinophils % (auto) 2.2 %; Hematocrit (blood only) 35.2 % (37.0-47.0); Hemoglobin 11.7 g/dl (12.0-16.0); Immature Granulocytes # (auto) 0.27 K/uL (0.01-0.20); Immature Granulocytes % (auto) 1.5 %; Lymphocytes # (auto) 2.43 K/uL (1.20-3.40); Lymphocytes % (auto) 13.8 %; Mean Corpuscular Hemoglobin 30.7 pg (25.0-34.0); Mean Corpuscular Hgb Conc 33.2 g/dL (32.0-36.0); Mean Corpuscular Volume 92.4 fL (80.0-100.0); Mean Platelet Volume 9.9 fL (9.4-12.4); Monocytes # (auto) 2.09 K/uL (0.11-0.59); Monocytes % (auto) 11.8 %; Neutrophils # (auto) 12.36 K/uL (1.40-6.50); Neutrophils % (auto) 70.1 %; Platelet Count 313 K/uL (130-400); RDW Standard Deviation 50.8 fL (36.4-46.3); Red Blood Count 3.81 M/uL (4.20-5.40); White Blood Count 17.65 K/ul (4.8-10.8)
[2023-11-03 15:40] LABS: Anion Gap 15 (3-11); BUN Creatinine Ratio 11.2 (10-20); Blood Urea Nitrogen 32 mg/dl (6-23); Calcium 6.7 mg/dl (8.6-10.3); Carbon Dioxide 24 mmol/L (21-32); Chloride 98 mmol/L (98-107); Est GFR (African American) 19.3 ml/min; Est GFR (Non-African American) 16.7 ml/min; Glucose 116 mg/dl (70-99(Fasting)); Potassium 2.8 mmol/L (3.5-5.1); Sodium 137 mmol/L (136-145)
[2023-11-03] MEDS: CEFEPIME 2,000 MG/20 ML VIAL IV STA (15:40)
--- NOTE | 2023-11-03 15:42 | XRay Report ---
XR chest 1V portable HISTORY: weakness COMPARISON: Chest 03/28/2021. FINDINGS: The lungs are clear. Cardiac silhouette is normal in size. No pleural effusions. No pneumot horax. Old, healed left-sided rib fractures. IMPRESSION: No acute process. ACT 112: Negative or not required by law. Electronically signed by: Shlomo Cottrell M.D. 11/03/2023 3:41 PM
[2023-11-03 15:53] LABS: Alanine Aminotransferase 14 U/L (7-52); Albumin Globulin Ratio 1.1 (0.9-2); Albumin Level 3.3 gm/dl (3.4-5.0); Alkaline Phosphatase 67 U/L (34-104); Aspartate Aminotransferase 19 U/L (13-39); Bilirubin,Total 0.5 mg/dl (0.2-1.0); Globulin 3.1 gm/dl (2.5-4.0); Magnesium < 0.5 mg/dl (1.7-2.4); Total Protein 6.4 gm/dl (6.0-8.3)
[2023-11-03] MEDS: CALCIUM GLUCONATE 1,000 MG/60 ML BAG IV STA ×2 (15:54→18:34)
[2023-11-03 15:55] LABS: Thyroid Stimulating Hormone 1.403 uIu/ml (0.300-4.500)
[2023-11-03] MEDS: POTASSIUM CHLORIDE / WTR 10 MEQ/100 ML PLCT IV ONE (15:55)
[2023-11-03 15:58] LABS: INR 1.4 (0.9-1.1); Partial Thromboplastin Time 28 Seconds (21-31); Prothrombin Time 14.7 Seconds (9.0-12.0)
[2023-11-03] MEDS: MAGNESIUM SULFATE / D5W 1 GM/100 ML BAG IV SCH ×3 (16:33→23:54)
--- NOTE | 2023-11-03 16:38 | CT Scan Report ---
ABDOMEN AND PELVIS CT WITHOUT CONTRAST CT DOSE: 439.13 mGy.cm HISTORY: pain, bloody stool, contrast allergy TECHNIQUE: Multiaxial CT images of the abdomen and pelvis were performed without contrast. A dose lo wering technique was utilized adhering to the principles of ALARA. COMPARISON STUDY: Abdomen and pelvis CTA with runoff 04/30/2023 FINDINGS: The lung bases are clear. No pneumoperitoneum. No pneumatosis. No acute fractures. There is an old mild superior endplate compression deformity at L1. There is an old compression deformity at T10. Evidence for interval midline incision. A femoral-femoral bypass graft is again noted. Small thi ck-walled fluid collections surrounding the common femoral vessels with the largest on the right on i mage 309 measuring 2.8 cm. Cholelithiasis versus sludge within the gallbladder. No gallbladder wall t hickening. The unenhanced liver, spleen, and adrenal glands are unremarkable. Normal pancreas. Mild b ilateral perinephric edema. Renal sinus calcifications likely vascular. No hydronephrosis. Prominent fluid-filled loops of small bowel seen within the abdomen. This favors a mild ileus. No evidence for transition point to suggest a bowel obstruction at this time. There are suboptimal evaluation for bow el pathology due to the lack of intravenous and oral contrast. Questionable thickening of the colon i s likely due to underdistention. A low-grade colitis also remains in the differential diagnosis. Norm al appendix. Status post aortobiiliac stent graft repair of the abdominal aorta. Evaluation for graft patency is nondiagnostic due to the lack of intravenous contrast. In addition, there is a graft exte nding from the right common iliac artery to the right common femoral artery. There is a large thick-w alled retroperitoneal fluid collection surrounding the abdominal aortic stent graft, bilateral common iliac arteries, and a portion of the right iliac graft. This large fluid collection extends into the deep pelvis. The presacral space and measures approximately 25 x 11 x 9 cm. No gas within this fluid collection. However, there is mild surrounding fat stranding. Therefore, this could represent an abs cess, postoperative seroma, or old hematoma. Mild bladder wall thickening. IMPRESSION: 1. There is a large thick-walled retroperitoneal fluid collection surrounding the abdominal aortic st ent graft, bilateral common iliac arteries, and a portion of the right iliac graft. This large fluid collection extends into the deep pelvis. The presacral space and measures approximately 25 x 11 x 9 c m. No gas within this fluid collection. However, there is mild surrounding fat stranding. Therefore, this this is concerning for an abscess. A postoperative seroma or old hematoma also remain in the dif ferential diagnosis. 2. There are similar-appearing small thick-walled fluid collection surrounding the bilateral common f emoral vessels with the largest in the right measuring 2.8 cm. These could also represent small absce sses or postoperative seromas. 3. Prominent fluid-filled loops of small bowel seen within the abdomen. This favors a mild ileus. No evidence for transition point to suggest a bowel obstruction at this time. 4. Questionable thickening of the colon is likely due to underdistention. A low-grade colitis also re dayday in the differential diagnosis. 5. Mild bladder wall thickening. 6. Cholelithiasis versus sludge within the gallbladder. No gallbladder wall thickening. 7. Additional findings as described above. ACT 112: Negative or not required by law. Electronically signed by: Shlomo Cottrell M.D. 11/03/2023 4:36 PM
[2023-11-03] MEDS: SODIUM CHLORIDE 0.9% 1,000 ML IV ONE (17:11)
[2023-11-03] MEDS: POTASSIUM CHLORIDE CRTAB 20 MEQ TABCR PO STA (18:33)
--- NOTE | 2023-11-03 18:36 | History & Physical Report ---
Date of Service November 03, 2023 Assessment & Plan (1) GENESIS (acute kidney injury): Plan: Admit to the PCU on telemetry Currently stable nontoxic-appearing Presented to the ED with multiple complaints including ongoing poor oral intake with dehydration, recurrent diarrhea, generalized weakness Creatinine today noted to be 2.58 (previous baseline was 1.1), unsure of baseline since last admission to [facility] in August Cytology is likely multifactorial at this time including prerenal, ongoing use of lisinoprilhydrochlorothiazide, and hypertension No signs of obstruction on CT of the abdomen pelvis today Patient has been unable to produce a urine sample since arrival to the ED, bladder scan obtained at the time of admission was just greater than 100 cc after [address] a Chan catheter now for ongoing I's and O's monitoring, monitor every shift Will begin every 4 hour BMP and mag this evening, will adjust ongoing IV fluids and ongoing electrolyte replacement based on repeat labs and urine output Hold nephrotoxic agents If renal function does not improve or continues to decline tomorrow would consult nephrology Home Xarelto for DVT prophylaxis DM type II/renal dialysis diet for now AM CBC PT/INR with every 4 hours BMP and mag (2) Anemia: Plan: Hemoglobin is 11.7 today, down from 15 as of March 2022 Review of patient's discharge paperwork from [facility] shows her hemoglobin fell as far as the 6's during her admission due to acute blood loss anemia No signs of active bleeding on CT abdomen pelvis, no signs of bruising or bleeding on exam Suspect her hemoglobin is still recovering from her extensive hospitalization in August Continue to monitor daily CBC while on Xarelto (3) Hypokalemia: Plan: Potassium of 2.8 on arrival Mag noted to be essentially undetectable No significant changes in T waves on ECG today Electrolyte abnormalities are likely due to ongoing malnutrition and poor oral intake since her hospitalization in August and ongoing hydrochlorothiazide use Status post 10 mEq IV KCl and 2 bag, 1 g IV mag sulfate in the ED Will give 40 mEq p.o. KCl and an additional 2 bags 1 g IV mag sulfate now Continue to monitor on telemetry Will start to monitor BMP and mag every 4 hours per report as patient will need continued electrolyte repletion during this admission (4) Hypocalcemia: Plan: Calcium noted to be 6.7 on arrival Likely due to same causes her hypokalemia and low mag level Status post 1 g IV calcium gluconate in the ED Will give an additional 1 g IV mag sulfate now Continue to monitor every 4 BMP and mag moving forward (5) Leukocytosis: Plan: Noted have leukocytosis of 17 with neutrophil predominance of 12 No recent fevers, chest x-ray negative for pneumonia Patient has been having ongoing episodes of nonbloody diarrhea Stool studies were ordered but patient has not had another bowel movement since arrival to the ED, continue to follow Will place Chan catheter on admission and obtain UA as well Does not appear that her postoperative fluid collection is associated with infection/abscess at this time per her vascular surgeon [facility] Blood cultures were obtained in the ED No signs of wound/skin infections on exam For now we will continue with empiric cefepime while infectious workup is in process, (empiric 48 hours of antibiotics was ordered) If any ongoing concerns could consider infectious disease consult if no obvious unifying (6) Status post aortobifemoral bypass surgery: Plan: Extensive abdominal aortic and bilateral femoral bypass procedures at [facility] in August of this year No apparent complications noted on CT abdomen pelvis today If any concerns moving forward would speak to patient's vascular surgeon, Dr. East who reported will continue to follow peripherally while patient is adm itted (7) Atrial fibrillation: Plan: Currently in rate controlled normal sinus rhythm Continue metoprolol and amiodarone for now Continue Xarelto (8) Hypotension: Plan: Resolved Was hypotensive with systolic blood pressure in the 80s on arrival Is likely due to ongoing poor oral intake/dehydration and ongoing use of antihypertensives and diuretics Will continue to hold antihypertensives and diuretics at this time, can resume slowly as needed (9) COPD (chronic obstructive pulmonary disease): Plan: Currently stable on room air wheezing on exam Patient quit smoking in the past 6 months Continue home breathing treatments, incentive spirometry (10) Type 2 diabetes mellitus: Plan: Hold metformin and glimepiride Monitor BSG ACHS, goal is [id number] Will start conservative regimen for now of CF of 50 and CR 15 ACHS as patient has very poor oral intake Adjust regimen as needed (11) Crohn's disease: Plan: No significant abdominal discomfort or signs of obvious Crohn's flare at this time on exam and CT of the abdomen pelvis If clinical concern concern for Crohn's flare increases could consider GI consult Plan The patient was discussed with Dr. Kong History of Present Illness Chief Complaint: Poor PO intake, diarrhea, generalized weakness, hypotension Primary Care Provider: Fariba Abdi MD Alysia is a 63-year-old female with a past medical history segment for severe peripheral arterial disease, previous tobacco use and COPD, hypertension, hyperlipidemia, Atrial fibrillation (on Xarelto), DM type II, Crohn's disease (in remission for past 2 years), anxiety who presented to the [facility] ED 11/03/2023 via EMS with multiple complaints including ongoing poor oral intake/malnutrition, hypotension, recurrent diarrhea for the past 2 weeks, and dehydration. Patient had a an extended admission to [facility] from 08/29/2023 - 09/17/2023. She was initially admitted on 08/29/2023 due to critical limb ischemia of both lower extremities and underwent an extensive operation inclu ding exploration of the bilateral common femoral, profundofemoral and superficial femoral arteries with sharp lysis of adhesions, endarterectomy of bilateral common femoral prophy, no femoral, and superficial femoral arteries endarterectomy of the aorta, ligation of previously placed femoral to femoral bypass exposure exploration of the aorta and superior mesenteric artery, aortobifemoral bypass graft, and reimplantation of the inferior mesenteric artery on the left limb of the aortofemoral bypass. Her admission was complicated due to new onset atrial fibrillation with RVR, acute blood loss a nemia, large right groin hematoma status post evacuation, right sartorius flap placement in the right groin, and wound VAC application on 09/09/2023. Patient was discharged on Xarelto, metoprolol, and amiodarone for her new atrial fibrillation, a prolonged course of p.o. Doxy as recommended by infectious disease due to ongoing leukocytosis and right groin hematoma, along with labetalol and hydralazine due to persistent hypertension during her admission. See scanned documentation for further details. Patient [facility] and was discharged to her brother's home on 09/29/2023. Patient added that she has chronic right sided foot drop due to complication during her right thigh hematoma surgery. On arrival to the ED she was noted to be hypotensive at 84/46, tachycardic at 106, and otherwise stable. Labs were significant for a leukocytosis of 17 with neutrophil predominance of 12, hemoglobin of 11.7 (down from 15 as of 03/29/2022), INR of 1.4, creatinine of 2.85 (baseline creatinine is near 1.1), potassium of 2.8, anion gap of 15 with bicarb within normal limits, initial lactate of 2.8 --> 1.6, calcium was 6.7, mag less than 0.5, TSH within normal limits. Chest x-ray was read as negative for acute findings. CT abdomen pelvis without contrast was read as a large thick-walled retroperitoneal fluid collection surrounding the abdominal aortic stent graft, bilateral common iliac arteries, and a portion of the right iliac graft. This large fluid collection extends into the deep pelvis. The presacral space and measures approximately 25 x 11 x 9 cm. No gas within this fluid collection. However, there is mild surrounding fat stranding. Therefore this is concerning for an abscess. A postoperative seroma or old hematoma also remain in the differential diagnosis. Similar-appearing small thick-walled fluid collection surrounding bilateral common femoral vessels with the largest in the right measuring 2.8 cm. These could also represent small abscesses or postoperative seromas. Prominent fluid- filled loops of small bowel seen within the abdomen. This favors a mild ileus. No evidence for transition point to suggest a bowel obstruction at this time. Questionable thickening of the colon is likely due to underdistention. A low- grade colitis also remains the differential diagnosis. Mild bladder wall thickening. Cholelithiasis versus sludge within the gallbladder. No gallbladder wall thickening. The ED did speak with the patient's vascular surgeon at [facility], Dr. East. CT imaging results were discussed, Dr. East believes this finding to be consistent with postoperative seroma and did not recommend transfer at this time. Did confirm with the ED staff that images were pushed to her vascular surgery for their review. Prior to admission the patient was given 2 L NSS, a dose of cefepime, 1 g IV mag sulfate, 1 g IV calcium gluconate, 10 mEq IV KCl. Patient was seen in bed in no acute distress at time of exam, she appears stable and nontoxic-appearing. She confirms the above history. Over the past 2 weeks she states that she has had approximately 10 episodes of diarrhea daily. Mild lower abdominal pain without radiation. States that over the past 2 to 3 days she has noticed mucus in bed is "blood tinged" but denies florinda bloody bowel movements or melena. States that her oral intake has been very poor since admission to [facility] as now certain foods cause her to have a metallic taste and loss of appetite. States that prior to her hospitalization in August she weighed approximately 150 pounds. Denies recent fever, chills, chest pain, shortness of breath, cough, nausea/vomiting, urinary symptoms, and recent trauma. We discussed CODE STATUS, she states that she is a DNR/DNI and her son or make medical decisions for her if she cannot make them herself. Please refer to Dr. Kong's attestation for any changes to treatment plan Allergies Allergy/AdvReac Type Severity Reaction Status Date / Time Iodinated Contrast Media Allergy Intermediate Hives Verified 05/13/23 09:38 Home Medications Medication Instructions Recorded Confirmed Type aspirin 81 mg tablet,delayed 81 mg PO QAM 08/21/20 11/03/23 History release multivitamin 1 tab PO QAM 08/21/20 11/03/23 History albuterol sulfate 90 mcg/actuation 2 inh inhalation Q6H PRN shortness 08/23/20 11/03/23 Rx aerosol inhaler of breath or wheezing #6.7 grams fluticasone propionate 50 1 spray intranasal BID #18.2 mL 03/22/21 11/03/23 Rx mcg/actuation nasal spray,suspension (Flonase Allergy Relief) famotidine 20 mg tablet 20 mg PO BID #60 tabs 03/30/21 11/03/23 Rx chlorpheniramine maleate 4 mg 4 mg PO Q12H #90 tabs 12/27/21 11/03/23 Rx tablet (Allergy Relief (chlorpheniramine)) nortriptyline 25 mg capsule 25 mg PO .qhs #30 caps 08/07/22 11/03/23 Rx lisinopril 10 1 tab PO DAILY #100 tabs 07/03/23 11/03/23 Rx mg-hydrochlorothiazide 12.5 mg tablet metformin 500 mg tablet,extended 500 mg PO BID #200 tabs 07/03/23 11/03/23 Rx release 24 hr omeprazole 20 mg capsule,delayed 20 mg PO DAILY #100 caps 07/03/23 11/03/23 Rx release glimepiride 1 mg tablet 1 mg PO QAM #100 tabs 07/07/23 11/03/23 Rx escitalopram oxalate 10 mg tablet 10 mg PO DAILY #100 tabs 07/18/23 11/03/23 Rx atorvastatin 40 mg tablet 40 mg PO DAILY #100 tabs 07/29/23 11/03/23 Rx metoprolol succinate 25 mg 25 mg PO DAILY #100 tabs 07/29/23 11/03/23 Rx tablet,extended release 24 hr azithromycin 250 mg tablet 250 mg PO MOWEFR 30 days #18 tabs 08/04/23 11/03/23 Rx fluticasone fur. 100 mcg-umeclid 1 inh inhalation DAILY #180 ea 08/04/23 11/03/23 Rx 62.5 mcg-vilant 25 mcg inhalat.powder (Trelegy Ellipta) amiodarone 200 mg tablet 200 mg PO DAILY 11/03/23 11/03/23 History gabapentin 100 mg capsule 100 mg PO TID 11/03/23 11/03/23 History rivaroxaban 20 mg tablet (Xarelto) 40 mg PO DAILY 11/03/23 11/03/23 History Past Med/Surg History Problem List (Updated 11/03/23 @ 19:46 by Carlos Jacobs PA-C) Atrial fibrillation Status post aortobifemoral bypass surgery Diarrhea Anemia Leukocytosis (Acute) Elevated lactic acid level (Acute) Hypocalcemia (Acute) Hypokalemia (Acute) Hypomagnesemia (Acute) Acute dehydration (Acute) GENESIS (acute kidney injury) (Acute) Hypotension (Acute) Right groin wound Peripheral artery disease (Chronic) Chronic low back pain Spondylolysis of thoracolumbar region Thoracic radiculopathy Thoracic back pain Tobacco abuse (Chronic) Chronic sinusitis (Chronic) Coronary artery disease (Chronic) Seen on lung CT scan Tubular adenoma (Chronic 10/2020) Osteoarthritis (Chronic) COPD (chronic obstructive pulmonary disease) (Chronic) Type 2 diabetes mellitus (Chronic) GERD (gastroesophageal reflux disease) (Chronic) Anxiety and depression (Chronic) Hyperlipidemia (Chronic) Hypertension (Chronic) Crohn's disease (Chronic) in remission Medical History Left lower quadrant abdominal pain Fall Surgical History (Updated 11/03/23 @ 19:28 by Carlos Jacobs PA-C) History of section History of bilateral tubal ligation History of esophagogastroduodenoscopy (EGD) History of colonoscopy History of tooth extraction History of tonsillectomy Family History Aunt Breast cancer Mother Diabetes Hypertension Other Cancer Heart disease Lung disease No family history of adverse response to anesthesia Denies family history of Ovarian cancer Prostate cancer Myocardial infarction Colorectal cancer Asthma Social History Smoking Status: Never smoker Age Quit Using Tobacco: 11; packs per day: 1; Cigarettes Per Day: 20; Second Hand Exposure: No; Do You Dip or Chew Tobacco: No; Hx Alcohol Use: No Hx Substance Use: No Preferred Language: Belarusian Communication Ability: Effective Visual Impairment: No Limitations Hearing Ability: Normal Puppet Master Required: No Beliefs That Will Affect Care: None marital status: / Current Living Situation: Family Current Living Situation Comment: Lives with brother and sister in law Feels Safe at Home: Yes Diet: regular caffeine: Yes (Rare ) Dental Care, Regularly: Yes Physical Activity Frequency: Does not Exercise Seatbelt Use: always Assistive Devices: Glasses Physical Exam Physical Exam: Physical Exam: General: In no acute distress, stated age, chronically ill- appearing/malnourished but nontoxic-appearing HEENT: Normocephalic, atraumatic, no scleral icterus, pupils around round, symmetrical, and reactive to light, dry mucus membranes, trachea midline, no thyromegaly Chest/Pulm: No respiratory distress, symmetrical chest expansion, clear breath sounds throughout Cardiac: RRR, no murmurs noted Abdomen: Negative for ascites and bruising, large central abdominal scar from recent surgery appears intact and without signs of infection, no signs of bruising or bleeding in the bilateral flank, normoactive bowel sounds, soft, mildly tender in the bilateral lower abdominal collier without rebound tenderness, otherwise nontender throughout Musculoskeletal: No acute trauma on exam, Extremities: Radial, dorsalis pedis, and posterior tibial pulses are intact and symmetrical, no edema noted in the BL LE's Skin: Warm, dry, no rashes , lesions, or scars noted Neuro: Alert and oriented to person, place, month, year, and president, no focal defects, right lower extremity weakness with foot drop, no tremors noted Psych: No acute distress, calm and cooperative during the exam Results & Data Results & Data Vital Signs (Past 12 Hours) Vital Signs Temp Pulse Pulse Resp BP BP Pulse Ox 11/03/23 17:00 88 24 124/66 96 11/03/23 15:13 99 H 11/03/23 14:49 36.5 C 105 H 20 84/46 L 94 O2 Del Method 11/03/23 17:00 Room Air 11/03/23 15:13 11/03/23 14:49 Room Air Laboratory Results Abnormal lab results 11/03/23 Range/Units 15:10 WBC 17.65 H (4.8-10.8) K/ul RBC 3.81 L (4.20-5.40) M/uL Hgb 11.7 L (12.0-16.0) g/dl Hct 35.2 L (37.0-47.0) % RDW Std Deviation 50.8 H (36.4-46.3) fL RDW Coeff of Bijan 15.0 H (11.5-14.5) % Neut # (Auto) 12.36 H (1.40-6.50) K/uL Schley # (Auto) 2.09 H (0.11-0.59) K/uL Immature Gran # (Auto) 0.27 H (0.01-0.20) K/uL PT 14.7 H (9.0-12.0) Seconds INR 1.4 H (0.9-1.1) Potassium 2.8 L (3.5-5.1) mmol/L Anion Gap 15 H (3-11) BUN 32 H (6-23) mg/dl Creatinine 2.85 H (0.6-1.2) mg/dl Glucose 116 H (70-99(Fasting)) mg/dl Lactate 2.8 H* (0.4-2.0) mmol/L Calcium 6.7 L (8.6-10.3) mg/dl Magnesium < 0.5 L* (1.7-2.4) mg/dl Albumin 3.3 L (3.4-5.0) gm/dl Diagnostic Findings Abdomen/Pelvis CT 11/03/23 14:[address] WITHOUT CONTRAST CT DOSE: 439.13 mGy.cm HISTORY: pain, bloody stool, contrast allergy TECHNIQUE: Multiaxial CT images of the abdomen and pelvis were performed without contrast. A dose lowering technique was utilized adhering to the principles of ALARA. COMPARISON STUDY: Abdomen and pelvis CTA with runoff 04/30/2023 FINDINGS: The lung bases are clear. No pneumoperitoneum. No pneumatosis. No ac gambell fractures. There is an old mild superior endplate compression deformity at L1. There is an old compression deformity at T10. Evidence for interval midline incision. A femoral-femoral bypass graft is again noted. Small thick-walled fluid collections surrounding the common femoral vessels with the largest on the right on image 309 measuring 2.8 cm. Cholelithiasis versus sludge within the gallbladder. No gallbladder wall thickening. The unenhanced liver, spleen, and adrenal glands are unremarkable. Normal pancreas. Mild bilateral perinephric edema. Renal sinus calcifications likely vascular. No hydronephrosis. Prominent fluid-filled loops of small bowel seen within the abdomen. This favors a mild ileus. No evidence for transition point to suggest a bowel obstruction at this time. There are suboptimal evaluation for bowel pathology due to the lack of intravenous and oral contrast. Questionable thickening of the colon is likely due to underdistention. A low-grade colitis also remains in the differential diagnosis. Normal appendix. Status post aortobiiliac stent graft repair of the abdominal aorta. Evaluation for graft patency is nondiagnostic due to the lack of intravenous contrast. In addition, there is a graft extending from the right common iliac artery to the right common femoral artery. There is a large thick- walled retroperitoneal fluid collection surrounding the abdominal aortic stent graft, bilateral common iliac arteries, and a portion of the right iliac graft. This large fluid collection extends into the deep pelvis. The presacral space and measures approximately 25 x 11 x 9 cm. No gas within this fluid collection. However, there is mild surrounding fat stranding. Therefore, this could represent an abscess, postoperative seroma, or old hematoma. Mild bladder wall thickening. IMPRESSION: 1. There is a large thick-walled retroperitoneal fluid collection surrounding the abdominal aortic stent graft, bilateral common iliac arteries, and a portion of the right iliac graft. This large fluid collection extends into the deep pelvis. The presacral space and measures approximately 25 x 11 x 9 cm. No gas within this fluid collection. However, there is mild surrounding fat stranding. Therefore, this this is concerning for an abscess. A postoperative seroma or old hematoma also remain in the differential diagnosis. 2. There are similar-appearing small thick-walled fluid collection surrounding the bilateral common femoral vessels with the largest in the right measuring 2.8 cm. These could also represent small abscesses or postoperative seromas. 3. Prominent fluid-filled loops of small bowel seen within the abdomen. This favors a mild ileus. No evidence for transition point to suggest a bowel obstruction at this time. 4. Questionable thickening of the colon is likely due to underdistention. A low- grade colitis also remains in the differential diagnosis. 5. Mild bladder wall thickening. 6. Cholelithiasis versus sludge within the gallbladder. No gallbladder wall thickening. 7. Additional findings as described above. ACT 112: Negative or not required by law. Electronically signed by: Shlomo Cottrell M.D. 11/03/2023 4:36 PM Chest X-Ray 11/03/23 14:54 XR chest 1V portable HISTORY: weakness COMPARISON: Chest 03/28/2021. FINDINGS: The lungs are clear. Cardiac silhouette is normal in size. No pleural effusions. No pneumothorax. Old, healed left-sided rib fractures. IMPRESSION: No acute process. ACT 112: Negative or not required by law. Electronically signed by: Shlomo Cottrell M.D. 11/03/2023 3:41 PM Code Status & VTE Plan Code Status DNR/DNI VTE Prophylaxis Plan VTE Prophylaxis will be ordered: Yes Supervising Physician Co-Signing Physician Notes Patient seen and examined, chart reviewed, case discussed with Carlos Jacobs PA-C and I agree with the assessment and plan as above except as otherwise noted Labs and images reviewed Alysia is a 63-year-old female with a past medical history of mesenteric ischemia due to arterial insufficiency/peripheral artery disease/critical limb ischemia of the lower extremities with prior bilateral common femoral/profundofemoral/sup erficial femoral vascular intervention/bipass who underwent pulse lavage flap placement and intervention at [facility] and was discharged 09/17/2023. This was complicated by right thigh hematoma s/p evacuation. Was discharged on Xarelto 20 mg for new A-fib, in addition to amiodarone and metoprolol. Hemoglobin at time of discharge was 8.6, hemoglobin today 11.7. Did have a residual leukocytosis at the 30s. At time of ER assessment leukocytosis is present, this is downtrending from prior but with a left shift. She is afebrile, she is not tachycardic or hypotensive. No CT shows a retroperitoneal fluid collection suspicious for abscess versus seroma versus hematoma. This was reviewed directly by ER and [facility] Vascular sx Dr. East. Images were pushed and reviewed by vascular surgery at [facility]. This fluid collection was felt to represent a seroma, and was not likely to represent either abscess or hematoma and hemoglobin is uptrending from prior. As such patient was not excepted or recommended for transfer at this time. They will continue to follow the patient along while she is admitted at [facility]. At time of admission she is volume contracted, creatinine is elevated at 2.85, and she concurrently hypomagnesemic, hypochloremic, and hypokalemic. Magnesium and calcium being repleted IV, potassium repleted p.o. No abdominal pain on admission. Lactate is initially elevated, normal post fluids. Specked electrolyte depletion due to combination of poor p.o., thiazide use, and diarrhea. Patient has had multiple episodes of diarrhea, stool studies/C. difficile is pending. Urine output is poor, she is extremely volume contracted and will continue to replete fluids with balanced crystalloid and Chan is placed for monitoring of BRANDON's. Pro-Kwame given leukocytosis and manage for granulocyte with multiple risk factors, blood cultures were ordered. Patient is placed empirically on cefepime pending further reassessment and progression. Hematoma does not appear infected at this time. Agree with above PG Care Time/CCT Total # of Minutes Spent Total Time Spent with Patient: Total time spent is greater than 50% in coordination of care (as documented) at patient's floor/unit and/or counseling patient: [place] [address] INT INP/OBS CARE 375MIN Patient Type Established History Comprehensive Exam Comprehensive Medical Decision Making High Complexity Diagnoses GENESIS (acute kidney injury) N17.9 Anemia D64.9 Hypokalemia E87.6 Hypocalcemia E83.51 Leukocytosis D72.829 Leukocytosis type: unspecified Status post aortobifemoral bypass surgery Z95.828 Atrial fibrillation I48.91 Hypotension I95.9 Hypotension type: unspecified hypotension type COPD (chronic obstructive pulmonary disease) J44.9 Type 2 diabetes mellitus E11.9 Crohn's disease K50.90 (5) Leukocytosis Leukocytosis type: unspecified Qualified Code(s): D72.829 - Elevated white blood cell count, unspecified (8) Hypotension Hypotension type: unspecified hypotension type Qualified Code(s): I95.9 - Hypotension, unspecified
[2023-11-03] MEDS ORDERED: GLUCOSE 40% GEL 15 GM TUBE PO PRN (19:25)
[2023-11-03] MEDS ORDERED: GLUCAGON FOR INJ 1 MG VIAL SQ PRN (19:25)
[2023-11-03] MEDS ORDERED: DEXTROSE 50% 50 ML SYRINGE IV PRN (19:25)
[2023-11-03] MEDS ORDERED: CARBOHYDRATES FOR HYPOGLYCEMIA PO PRN (19:25)
[2023-11-03] MEDS ORDERED: GLUCOSE 10 TAB/TUBE PO PRN (19:25)
--- NOTE | 2023-11-03 21:56 | Electrocardiogram Report ---
Test Reason : Blood Pressure : */* mmHG Vent. Rate : 101 BPM Atrial Rate : 101 BPM P-R Int : 138 ms QRS Dur : 90 ms QT Int : 386 ms P-R-T Axes : 60 -41 82 degrees QTcB Int : 500 ms Sinus tachycardia Left axis deviation Minimal voltage criteria for LVH, may be normal variant ( [place] product ) Possible Anterior infarct (cited on or before 28-Mar-2021) Prolonged QT Abnormal ECG When compared with ECG of 28-Mar-2021 17:26, QRS axis Shifted left QT has lengthened Confirmed by Jin Knox ([id number]) on 11/03/2023 9:55:37 PM Referred By: Confirmed By: Jin Knox
[2023-11-03] MEDS: INSULIN ASPART PER UNIT CHARGE SC SCH (22:00)
[2023-11-03 22:01] LABS: Appearance Urine Turbid (Clear); Bacteria Urine Automated 2+ (None Seen); Bilirubin Urine Negative (Negative); Blood Urine Negative (Negative); Cast Urine Automated >20 /lpf (0-2); Color Urine Dark Yellow; Glucose Urine UA Negative (Negative); Ketones Urine Trace (Negative); Leukocyte Esterase Urine Negative (Negative); Nitrite Urine Negative (Negative); Protein Urine 3+ (Negative); Specific Gravity Urine 1.023 (1.000-1.030); Urobilinogen Urine Negative (Negative); WBC Urine Automated 0-5 /hpf (0-5)
[2023-11-03] MEDS: GABAPENTIN 100 MG CAP PO SCH (22:01)
[2023-11-03 22:12] LABS: BUN Creatinine Ratio 12.1 (10-20); Calcium 6.9 mg/dl (8.6-10.3); Creatinine Clr Calc Pharmacy 18.4 ml/min; Est GFR (African American) 21.1 ml/min; Est GFR (Non-African American) 18.2 ml/min; Magnesium 1.6 mg/dl (1.7-2.4); Phosphorus 3.2 mg/dl (2.5-4.9); Potassium 2.8 mmol/L (3.5-5.1)
[2023-11-03] MEDS: POTASSIUM CHLORIDE / WTR 10 MEQ/100 ML PLCT IV SCH (23:54)
[2023-11-04 00:17] LABS: Adenovirus F 40/41 PCR Not Detected (NotDetected); Astrovirus PCR Not Detected (NotDetected); Campylobacter PCR Not Detected (NotDetected); Cryptosporidium PCR Not Detected (NotDetected); Cyclospora cayetanensis PCR Not Detected (NotDetected); Entamoeba histolytica PCR Not Detected (NotDetected); Enteroaggregative E.coli(EAEC) Not Detected (NotDetected); Enteropathogenic E.coli (EPEC) Not Detected (NotDetected); Enterotoxigenic E.coli (ETEC) Not Detected (NotDetected); Giardia lamblia PCR Not Detected (NotDetected); Norovirus GI/GII PCR Not Detected (NotDetected); Plesiomonas shigelloides PCR Not Detected (NotDetected); Rotavirus A PCR Not Detected (NotDetected); Salmonella PCR Not Detected (NotDetected); Sapovirus PCR Not Detected (NotDetected); Shiga-like Toxin E.coli (STEC) Not Detected (NotDetected); Shigella/Enteroinvasive E.coli Not Detected (NotDetected); Vibrio cholerae PCR Not Detected (NotDetected); Vibrio species PCR Not Detected (NotDetected); Yersinia enterocolitica PCR Not Detected (NotDetected)
[2023-11-04 00:35] LABS: Cdiff Toxin B Gene (2yr or >) Positive Cdiff Gene (Neg)
[2023-11-04 00:37] LABS: Cdiff Antigen Positive
[2023-11-04 00:39] LABS: Cdiff Toxin A+B Positive Cdiff Toxin (Negative)
[2023-11-04 01:38] LABS: Phosphorus 2.7 mg/dl (2.5-4.9)
[2023-11-04] MEDS: CHERRY SYRUP 5 ML UDP PO ONE (01:41)
[2023-11-04] MEDS: VANCOMYCIN HCL 125 MG/2.5ML SOLN PO ONE (01:41)
[2023-11-04] MEDS: CEFEPIME 1,000 MG in SYRINGE 0 ML IV SCH (01:41)
[2023-11-04 02:20] LABS: BUN Creatinine Ratio 12.6 (10-20); Calcium 6.4 mg/dl (8.6-10.3); Creatinine Clr Calc Pharmacy 19.2 ml/min; Est GFR (African American) 22.3 ml/min; Est GFR (Non-African American) 19.2 ml/min; Magnesium 1.7 mg/dl (1.7-2.4)
--- NOTE | 2023-11-04 03:03 | Communication Note ---
Date of Service: November 04, 2023 Patient with positive C. difficile gene and C. difficile toxin. Will start on oral vancomycin. Isolation precautions ordered.
[2023-11-04 04:33] LABS: Basophils # (auto) 0.06 K/uL (0.00-0.20); Basophils % (auto) 0.5 %; Eosinophils # (auto) 0.41 K/uL (0.00-0.50); Eosinophils % (auto) 3.3 %; Hematocrit (blood only) 30.3 % (37.0-47.0); Immature Granulocytes # (auto) 0.18 K/uL (0.01-0.20); Immature Granulocytes % (auto) 1.5 %; Lymphocytes # (auto) 1.58 K/uL (1.20-3.40); Lymphocytes % (auto) 12.8 %; Mean Corpuscular Hemoglobin 30.5 pg (25.0-34.0); Mean Corpuscular Volume 92.4 fL (80.0-100.0); Mean Platelet Volume 9.7 fL (9.4-12.4); Monocytes # (auto) 1.05 K/uL (0.11-0.59); Monocytes % (auto) 8.5 %; Neutrophils # (auto) 9.08 K/uL (1.40-6.50); Neutrophils % (auto) 73.4 %; Platelet Count 240 K/uL (130-400); RDW Coefficient of Variation 15.1 % (11.5-14.5); RDW Standard Deviation 50.8 fL (36.4-46.3); Red Blood Count 3.28 M/uL (4.20-5.40); White Blood Count 12.36 K/ul (4.8-10.8)
[2023-11-04 05:08] LABS: INR 1.1 (0.9-1.1); Prothrombin Time 11.5 Seconds (9.0-12.0)
[2023-11-04 05:52] LABS: BUN Creatinine Ratio 14.2 (10-20); Calcium 6.6 mg/dl (8.6-10.3); Est GFR (African American) 24.8 ml/min; Est GFR (Non-African American) 21.4 ml/min; Magnesium 2.3 mg/dl (1.7-2.4); Phosphorus 2.7 mg/dl (2.5-4.9); Potassium 3.3 mmol/L (3.5-5.1)
[2023-11-04] MEDS: CHERRY SYRUP 5 ML UDP PO SCH (05:59)
[2023-11-04] MEDS: VANCOMYCIN HCL 125 MG/2.5ML SOLN PO SCH (05:59)
[2023-11-04] MEDS ORDERED: NON-FORMULARY MEDICATION (Fluticasone-Umeclidin-Vilanter [Trelegy Ellipta] 100-62.5-25 mcg INH SCH (09:00)
[2023-11-04] MEDS: ASPIRIN 81 MG ECTAB PO SCH (09:46)
[2023-11-04] MEDS: AMIODARONE 200 MG TAB PO SCH (09:46)
[2023-11-04] MEDS: ATORVASTATIN 40 MG TAB PO SCH (09:46)
[2023-11-04] MEDS: ESCITALOPRAM OXALATE 10 MG TAB PO SCH (09:46)
[2023-11-04] MEDS: FLUTICASONE FUROATE 100MCG 14 PUFFS/INHALER INH SCH (09:47)
[2023-11-04] MEDS: PANTOprazole 40 MG TAB PO SCH (09:47)
[2023-11-04] MEDS: UMECLIDINIUM/VILANTEROL 62.5/25MCG 7 PUFFS/INHALER INH SCH (09:47)
[2023-11-04] MEDS: METOPROLOL SUCC 25MG EXT REL TAB PO SCH (09:47)
[2023-11-04] MEDS: CALCIUM GLUCONATE 1,000 MG/60 ML BAG IV SCH (09:50)
[2023-11-04] MEDS: POTASSIUM CHLORIDE CRTAB 20 MEQ TABCR PO SCH (09:50)
[2023-11-04] MEDS: SODIUM CHLORIDE 0.9% 1,000 ML IV SCH (10:13)
--- NOTE | 2023-11-04 15:51 | Hospitalist Progress Note ---
Date of Service November 04, 2023 Assessment & Plan (1) C. difficile enteritis: Plan: Improving on oral vancomycin. Will continue to complete a 10-day course. (2) GENESIS (acute kidney injury): Plan: Continue IV fluids for now. Monitor intake and output. Serial labs (3) Hypokalemia: Plan: Continue oral replacement. Serial labs. Hypomagnesemia has been corrected to 2.3 (4) Hypocalcemia: Plan: Parenteral calcium replacement ordered. Serial labs. (5) Leukocytosis: Plan: Present on admission. Now improving. Serial labs (6) Status post aortobifemoral bypass surgery: Plan: Extensive abdominal aortic and bilateral femoral bypass procedures at [facility] earlier this year. CT scan reveals fluid collection in the area of the surgical site. This probably represents a seroma since she is asymptomatic in this respect. She will follow-up with her vascular surgeon in early December. (7) Atrial fibrillation: Plan: Currently in rate controlled normal sinus rhythm. Continue metoprolol, Xarelto and amiodarone for now. Telemetry (8) Hypotension: Plan: Present on admission. Now resolved. Likely due to volume depletion causing acute kidney injury. Continue IV fluids. (9) Type 2 diabetes mellitus: Plan: ADA diet. Sliding scale coverage. Metformin and glimepiride are temporarily on hold. (10) Crohn's disease: Plan: Stable. Quiescent. Continue current medical management Plan Hopeful discharge to home tomorrow, November 04 Admission and Anticipated Discharge Date Admission Date: November 03, 2023 Subjective Alert and oriented. No distress. She states she is feeling better since treatment of C. difficile enteritis and possible UTI. Creatinine has improved to 2.3. Continue IV fluids for now with serial labs. Potassium replacement underway. Oral vancomycin day 1. Abdomen CT on admission reveals evidence of retroperitoneal fluid collection that does not appear to be an abscess and probably represents seroma related to recent abdominal aortic aneurysm stenting accomplished in August of this year. She will follow-up with her vascular surgeon in early December. She is currently asymptomatic in this respect. Review of Systems 2 Review of Systems: Constitutionalno fever or chills ENTno blurred vision, no double vision, no epistaxis, no sore throat Respiratoryno cough, no wheezing, no shortness of breath Cardiacno palpitations, no chest pain, no syncope Raúl nausea, vomiting, melena, hematochezia. Frequency and volume of diarrhea has markedly improved since admission GUno urinary retention, no urinary incontinence, no dysuria, no hematuria Musculoskeletalno joint pain, no muscle tenderness Skinno bruising, no rashes, no pruritus Neurono isolated weakness, no paresthesia, no weakness Psychno depression, no anxiety Physical Exam 2 Physical Exam: General-alert and oriented x3, no fever, no chills HEENT-head atraumatic and normocephalic, pupils equal and reactive to light, extraocular muscles intact Neck-no lymphadenopathy or thyromegaly, trachea midline Chest-clear to auscultation. No rales, wheezing or rhonchi Cardiac-regular rate and rhythm, normal S1 and S2 Abdomen-normal bowel sounds, no hepatosplenomegaly Extremities-no cyanosis, clubbing, or edema Neuro-cranial nerves II through XII intact, motor and sensory function within normal limits, strength symmetrical, no focal deficits Psych-normal affect, normal mood Results & Data Results & Data Vital Signs (Past 12 Hours) Vital Signs Temp Pulse Pulse Resp BP Pulse Ox O2 Del Method 11/04/23 11:08 36.6 C 81 22 173/71 H 97 Room Air 11/04/23 08:00 91 H 11/04/23 08:00 37.2 C 11/04/23 07:36 93 H 23 132/62 98 Room Air Laboratory Results 11/04/23 04:09 11/04/23 04:09 PG Care Time/CCT Total # of Minutes Spent Total Time Spent with Patient: Total time spent is greater than 50% in coordination of care (as documented) at patient's floor/unit and/or counseling patient: Coding Level of Care Code 76693 SUB INP/OBS CARE 3/50MIN Diagnoses C. difficile enteritis A04.72 GENESIS (acute kidney injury) N17.9 Hypokalemia E87.6 Hypocalcemia E83.51 Leukocytosis D72.829 Leukocytosis type: unspecified Status post aortobifemoral bypass surgery Z95.828 Atrial fibrillation I48.91 Hypotension I95.9 Hypotension type: unspecified hypotension type Type 2 diabetes mellitus E11.9 Crohn's disease K50.90 (5) Leukocytosis Leukocytosis type: unspecified Qualified Code(s): D72.829 - Elevated white blood cell count, unspecified (8) Hypotension Hypotension type: unspecified hypotension type Qualified Code(s): I95.9 - Hypotension, unspecified
[2023-11-04] MEDS: RIVAROXABAN 15 MG TAB PO SCH (17:16)
[2023-11-04] MEDS: NORTRIPTYLINE HCL 25 MG CAP PO SCH (20:41)
[2023-11-05 04:48] LABS: Basophils # (auto) 0.04 K/uL (0.00-0.20); Basophils % (auto) 0.4 %; Eosinophils # (auto) 0.36 K/uL (0.00-0.50); Eosinophils % (auto) 3.3 %; Hematocrit (blood only) 29.5 % (37.0-47.0); Hemoglobin 9.7 g/dl (12.0-16.0); Immature Granulocytes # (auto) 0.16 K/uL (0.01-0.20); Immature Granulocytes % (auto) 1.5 %; Lymphocytes % (auto) 16.4 %; Mean Corpuscular Hemoglobin 30.1 pg (25.0-34.0); Mean Corpuscular Hgb Conc 32.9 g/dL (32.0-36.0); Mean Corpuscular Volume 91.6 fL (80.0-100.0); Mean Platelet Volume 9.6 fL (9.4-12.4); Monocytes # (auto) 0.98 K/uL (0.11-0.59); Monocytes % (auto) 8.9 %; Neutrophils # (auto) 7.66 K/uL (1.40-6.50); Neutrophils % (auto) 69.5 %; Platelet Count 236 K/uL (130-400); RDW Coefficient of Variation 14.9 % (11.5-14.5); RDW Standard Deviation 50.4 fL (36.4-46.3); Red Blood Count 3.22 M/uL (4.20-5.40)
[2023-11-05 05:05] LABS: BUN Creatinine Ratio 18.2 (10-20); Calcium 6.9 mg/dl (8.6-10.3); Creatinine Clr Calc Pharmacy 37.6 ml/min; Est GFR (African American) 46.8 ml/min; Est GFR (Non-African American) 40.4 ml/min; Potassium 3.4 mmol/L (3.5-5.1)
[2023-11-05 07:30] VITALS: TEMP 97.6
[2023-11-05] MEDS: CALCIUM GLUCONATE 1,000 MG/60 ML BAG IV STA (09:24)
--- NOTE | 2023-11-05 11:26 | Discharge Summary ---
Discharge Summary Date of Service November 05, 2023 Principal Dx & Hospital Course #1 = Principal Diagnosis (1) C. difficile enteritis: Improving on oral vancomycin. Will continue to complete a 10-day course. (2) GENESIS (acute kidney injury): Corrected with IV fluids. Monitor intake and output. Serial labs (3) Hypokalemia: Corrected with oral replacement. Serial labs. Hypomagnesemia has been corrected to 2.3 (4) Hypocalcemia: Improving. Another dose of IV calcium given today, November 04, before discharge. (5) Leukocytosis: Present on admission. Now resolved. Serial labs (6) Status post aortobifemoral bypass surgery: Extensive abdominal aortic and bilateral femoral bypass procedures at [facility] earlier this year. CT scan reveals fluid collection in the area of the surgical site. This probably represents a seroma since she is asymptomatic in this respect. She will follow-up with her vascular surgeon in early December. (7) Atrial fibrillation: Currently in rate controlled normal sinus rhythm. Continue metoprolol, Xarelto and amiodarone for now. Telemetry (8) Hypotension: Present on admission. Now resolved. Likely due to volume depletion causing acute kidney injury. Treated while hospitalized with IV fluids. (9) Type 2 diabetes mellitus: ADA diet. Sliding scale coverage. Metformin and glimepiride are temporarily on hold. (10) Crohn's disease: Stable. Quiescent. Continue current medical management (11) Sepsis: Present on admission. Now resolved (12) Malnutrition: Severe protein calorie malnutrition per [place] criteria with significant recent weight loss. Dietary supplements recommended Plan Home todayNovember 04 Admission HPI Per Admitting Provider Alysia is a 63-year-old female with a past medical history segment for severe peripheral arterial disease, previous tobacco use and COPD, hypertension, hyperlipidemia, Atrial fibrillation (on Xarelto), DM type II, Crohn's disease (in remission for past 2 years), anxiety who presented to the [facility] ED 11/03/2023 via EMS with multiple complaints including ongoing poor oral intake/malnutrition, hypotension, recurrent diarrhea for the past 2 weeks, and dehydration. Patient had a an extended admission to [facility] from 08/29/2023 - 09/17/2023. She was initially admitted on 08/29/2023 due to critical limb ischemia of both lower extremities and underwent an extensive operation including exploration of the bilateral common femoral, profundofemoral and superficial femoral arteries with sharp lysis of adhesions, endarterectomy of bilateral common femoral prophy, no femoral, and superficial femoral arteries endarterectomy of the aorta, ligation of previously placed femoral to femoral bypass exposure exploration of the aorta and superior mesenteric artery, aortobifemoral bypass graft, and reimplantation of the inferior mesenteric artery on the left limb of the aortofemoral bypass. Her admission was complicated due to new onset atrial fibrillation with RVR, acute blood loss anemia, large right groin hematoma status post evacuation, right sartorius flap placement in the right groin, and wound VAC application on 09/09/2023. Patient was discharged on Xarelto, metoprolol, and amiodarone for her new atrial fibrillation, a prolonged course of p.o. Doxy as recommended by infectious disease due to ongoing leukocytosis and right groin hematoma, along with labetalol and hydralazine due to persistent hypertension during her admission. See scanned documentation for further details. [facility] and was discharged to her brother's home on 09/29/2023. Patient added that she has chronic right sided foot drop due to complication during her right thigh hematoma surgery. On arrival to the ED she was noted to be hypotensive at 84/46, tachycardic at 106, and otherwise stable. Labs were significant for a leukocytosis of 17 with neutrophil predominance of 12, hemoglobin of 11.7 (down from 15 as of 03/29/2022), INR of 1.4, creatinine of 2.85 (baseline creatinine is near 1.1), potassium of 2.8, anion gap of 15 with bicarb within normal limits, initial lactate of 2.8 --> 1.6, calcium was 6.7, mag less than 0.5, TSH within normal limits. Chest x-ray was read as negative for acute findings. CT abdomen pelvis without contrast was read as a large thick-walled retroperitoneal fluid collection surrounding the abdominal aortic stent graft, bilateral common iliac arteries, and a portion of the right iliac graft. This large fluid collection extends into the deep pelvis. The presacral space and measures approximately 25 x 11 x 9 cm. No gas within this fluid collection. However, there is mild surrounding fat stranding. Therefore this is concerning for an abscess. A postoperative seroma or old hematoma also remain in the differential diagnosis. Similar-appearing small thick-walled fluid collection surrounding bilateral common femoral vessels with the largest in the right measuring 2.8 cm. These could also represent small abscesses or postoperative seromas. Prominent fluid- filled loops of small bowel seen within the abdomen. This favors a mild ileus. No evidence for transition point to suggest a bowel obstruction at this time. Questionable thickening of the colon is likely due to underdistention. A low- grade colitis also remains the differential diagnosis. Mild bladder wall thickening. Cholelithiasis versus sludge within the gallbladder. No gallbladder wall thickening. The ED did speak with the patient's vascular surgeon at [facility], Dr. East. CT imaging results were discussed, Dr. East believes this finding to be consistent with postoperative seroma and did not recommend transfer at this time. Did confirm with the ED staff that images were pushed to her vascular surgery for their review. Prior to admission the patient was given 2 L NSS, a dose of cefepime, 1 g IV mag sulfate, 1 g IV calcium gluconate, 10 mEq IV KCl. Patient was seen in bed in no acute distress at time of exam, she appears stable and nontoxic-appearing. She confirms the above history. Over the past 2 weeks she states that she has had approximately 10 episodes of diarrhea daily. Mild lower abdominal pain without radiation. States that over the past 2 to 3 days she has noticed mucus in bed is "blood tinged" but denies florinda bloody bowel movements or melena. States that her oral intake has been very poor since admission to [facility] as now certain foods cause her to have a metallic taste and loss of appetite. States that prior to her hospitalization in August she weighed approximately 150 pounds. Denies recent fever, chills, chest pain, shortness of breath, cough, nausea/vomiting, urinary symptoms, and recent trauma. We discussed CODE STATUS, she states that she is a DNR/DNI and her son or make medical decisions for her if she cannot make them herself. Please refer to Dr. Kong's attestation for any changes to treatment plan Discharge Exam General-alert and oriented x3, no fever, no chills HEENT-head atraumatic and normocephalic, pupils equal and reactive to light, extraocular muscles intact Neck-no lymphadenopathy or thyromegaly, trachea midline Chest-clear to auscultation. No rales, wheezing or rhonchi Cardiac-regular rate and rhythm, normal S1 and S2 Abdomen-normal bowel sounds, no hepatosplenomegaly Extremities-no cyanosis, clubbing, or edema Neuro-cranial nerves II through XII intact, motor and sensory function within normal limits, strength symmetrical, no focal deficits Psych-normal affect, normal mood Discharge Plan Discharge Items Patient Disposition: Home - Self-Care Reason For Visit: DEHYDRATION,HYPOKALEMIA,LOW MAG,GENESIS ON CKD,ANEMIA Discharge Diagnosis: C. difficile enteritis, volume depletion, acute kidney injury, hypokalemia, hypocalcemia, hypomagnesemia Condition on Discharge: Good Activity: Resume your previous activity Non-emergency contact: Primary Care Provider Call non-emergency contact if: your symptoms worsen Follow-up/Referrals: Fariba Abdi MD [Primary Care Provider] - Diet: Regular and Heart Healthy Addtl Attending Provider Instructions: Take vancomycin 4 times daily for 8 more days. Continue oral potassium replacement daily. Pending Studies at Discharge: No Stand-Alone Forms: My [facility] Writer.ly, Smoking Cessation Medications and DC Order Prescriptions: New potassium chloride 20 mEq Tablet,Er Particles/Crystals 20 meq PO DAILY Qty: 30 0RF vancomycin 125 mg capsule 125 mg PO QID Qty: 32 0RF Continued nortriptyline 25 mg capsule 25 mg PO .qhs Qty: 30 2RF fluticasone propionate [Flonase Allergy Relief] 50 mcg/actuation spray,suspension 1 spray intranasal BID Qty: 18.2 2RF Rx Instructions: administer into each nostril chlorpheniramine maleate [Allergy Relief(chlorpheniramn)] 4 mg tablet 4 mg PO Q12H Qty: 90 1RF lisinopril-hydrochlorothiazide 10-12.5 mg tablet 1 tab PO DAILY Qty: 100 3RF metformin 500 mg tablet extended release 24 hr 500 mg PO BID Qty: 200 3RF omeprazole 20 mg capsule,delayed release(DR/EC) 20 mg PO DAILY Qty: 100 3RF glimepiride 1 mg tablet 1 mg PO QAM Qty: 100 3RF Rx Instructions: administer with breakfast escitalopram oxalate 10 mg tablet 10 mg PO DAILY Qty: 100 3RF atorvastatin 40 mg tablet 40 mg PO DAILY Qty: 100 3RF metoprolol succinate 25 mg tablet extended release 24 hr 25 mg PO DAILY Qty: 100 3RF Trelegy Ellipta 100-62.5-25 mcg blister with device 1 inh inhalation DAILY Qty: 180 3RF azithromycin 250 mg tablet 250 mg PO MOWEFR 30 Days Qty: 18 6RF Rx Instructions: 1 tablet orally every Friday, Friday, and Friday multivitamin Tablet 1 tab PO QAM aspirin 81 mg Tablet,Delayed Release (Dr/Ec) 81 mg PO QAM albuterol sulfate 90 mcg/actuation HFA aerosol inhaler 2 inh inhalation Q6H PRN (Reason: shortness of breath or wheezing) Qty: 6.7 0RF famotidine 20 mg Tablet 20 mg PO BID Qty: 60 0RF amiodarone 200 mg tablet 200 mg PO DAILY gabapentin 100 mg capsule 100 mg PO TID Xarelto 20 mg tablet 40 mg PO DAILY Discharge Orders: Discharge Order (Routine); Ordered 11/05/23 Ordered By: Luisito Mishra Admission Data Admit Date/Time: 11/03/23 18:26 Attending Provider: Luisito Mishra Admit Provider: Carlos Jacobs Primary Care Provider: Fariba Abdi Other Providers: Alexis Kong; Cruzito Banegas [facility] Stay Data Consultations 11/03/23 17:07 ED Decision to Admit Stat Diagnostic Imagining Performed 11/03/23 14:53 CT abd pelvis wo con Stat Pending Results Patient Have Any Pending Studies at Discharge: No Discharge Instructions Given to Patient (Per Discharging Provider) Take vancomycin 4 times daily for 8 more days. Continue oral potassium replacement daily. Total Time Total Time Spent Total Time Spent (In Minutes): 45 minutes Coding Level of Care Code 30026 INP/OBS DISCH >30 MIN Diagnoses C. difficile enteritis A04.72 GENESIS (acute kidney injury) N17.9 Hypokalemia E87.6 Hypocalcemia E83.51 Leukocytosis D72.829 Leukocytosis type: unspecified Status post aortobifemoral bypass surgery Z95.828 Atrial fibrillation I48.91 Hypotension I95.9 Hypotension type: unspecified hypotension type Type 2 diabetes mellitus E11.9 Crohn's disease K50.90 Sepsis A41.9 Malnutrition E46
[2023-11-05 12:13] VITALS: BP 168/83; PULSE 75; RESP 18; O2SAT 95
== END 2023-11-05 13:15 | disposition home or self-care (01) | DRG 871 ==
LOC: ED 14:41 → SUATTDRO 18:26 → 1E 18:26

== ENCOUNTER 2023-11-11 21:27 | Inpatient (IN) ==
[2023-11-11 22:21] LABS: Basophils # (auto) 0.12 K/uL (0.00-0.20); Basophils % (auto) 0.5 %; Eosinophils # (auto) 0.15 K/uL (0.00-0.50); Eosinophils % (auto) 0.7 %; Hematocrit (blood only) 38.9 % (37.0-47.0); Immature Granulocytes # (auto) 0.52 K/uL (0.01-0.20); Immature Granulocytes % (auto) 2.3 %; Lymphocytes # (auto) 3.15 K/uL (1.20-3.40); Lymphocytes % (auto) 14.1 %; Mean Corpuscular Hemoglobin 30.8 pg (25.0-34.0); Mean Corpuscular Hgb Conc 33.4 g/dL (32.0-36.0); Mean Corpuscular Volume 92.2 fL (80.0-100.0); Mean Platelet Volume 9.1 fL (9.4-12.4); Monocytes # (auto) 1.47 K/uL (0.11-0.59); Monocytes % (auto) 6.6 %; Neutrophils # (auto) 16.95 K/uL (1.40-6.50); Neutrophils % (auto) 75.8 %; Platelet Count 529 K/uL (130-400); RDW Standard Deviation 50.7 fL (36.4-46.3); Red Blood Count 4.22 M/uL (4.20-5.40); White Blood Count 22.36 K/ul (4.8-10.8)
[2023-11-11 22:39] LABS: Alanine Aminotransferase 12 U/L (7-52); Albumin Globulin Ratio 1.2 (0.9-2); Albumin Level 3.8 gm/dl (3.4-5.0); Alkaline Phosphatase 86 U/L (34-104); Anion Gap 11 (3-11); Aspartate Aminotransferase 16 U/L (13-39); BUN Creatinine Ratio 17.6 (10-20); Bilirubin,Total 0.6 mg/dl (0.2-1.0); Blood Urea Nitrogen 15 mg/dl (6-23); Calcium 8.8 mg/dl (8.6-10.3); Carbon Dioxide 28 mmol/L (21-32); Chloride 98 mmol/L (98-107); Est GFR (African American) 83.3 ml/min; Est GFR (Non-African American) 71.9 ml/min; Globulin 3.2 gm/dl (2.5-4.0); Glucose 208 mg/dl (70-99(Fasting)); Lipase 12 U/L (11-82); Potassium 5.5 mmol/L (3.5-5.1); Sodium 137 mmol/L (136-145)
[2023-11-11 22:53] LABS: Troponin I High Sensitivity 521.7 pg/ml (0-14)
[2023-11-11] MEDS: ASPIRIN CHEW 324 MG PO STA (23:02)
--- NOTE | 2023-11-11 23:02 | Emergency Department Note ---
Impression & Plan Chest pain, Leukocytosis, Non-ST elevation CA (NSTEMI) ED Provider Note HISTORY OF PRESENT ILLNESS: Patient is a 63-year-old female presenting with chest pain. Patient reports she started having left-sided chest pain this morning at around 930. Reports that she was not doing anything in particular when the chest pain started. Pain was a pressure-like sensation on the left side of her chest. She denies any shortness of breath, but does report some nausea with the chest pain. Denies any vomiting. She recently was diagnosed with C. difficile and has been on oral vancomycin. She states that she has been feeling generally unwell all day today and has had intermittent episodes of the chest pain. On arrival to the ER, she is chest pain-free. She is on Plavix. Denies any history of cardiac stents. Denies any DVT or PE history. She reports feeling just generally unwell today and has had a headache since earlier today. Denies any recent fevers. Denies any dysuria or hematuria. ROS: as above PHYSICAL EXAM: Constitutional: Patient appears in no acute distress. HENT: Head: Normocephalic and atraumatic. Eyes: EOMI, PERRL Mouth/Throat: Mucous membranes moist. Neck: Trachea midline. Neck supple. Cardiovascular: Tachycardic with regular rhythm. No murmurs, rubs or gallops. Intact distal pulses. Pulmonary/Chest: No respiratory distress. Breath sounds clear and equal bilaterally. No wheezes or rales. Abdominal: Abdomen soft, no tenderness, rebound or guarding. Musculoskeletal: No edema, tenderness or deformity noted. Skin: Warm and dry. No rash, erythema, pallor or cyanosis Psychiatric: Appropriate mood and affect for situation. Neurological: Alert and keenly responsive. CN II-XII grossly intact, moving all extremities equally and fully. MDM: - Vitals signs showed tachycardia. - History obtained via patient. History as above. - Chronic conditions affecting care: HTN; HLD; GERD; DM-2; COPD; CAD - Differential diagnoses include, but are not limited to: Acute coronary syndrome; pulmonary embolism; dissection; tension pneumothorax; esophageal rupture; pneumonia - Order placed for continuous cardiac monitoring. At this time, monitor showed rate of 108 bpm with normal sinus rhythm, per my interpretation. - External medical records reviewed. Discharge summary dated 11/2023 was reviewed. Patient was admitted that time for C. difficile enteritis and started on oral vancomycin and was to complete a 10-day course. She was noted to have an acute kidney injury and hypokalemia. - EKG interpreted by myself showed normal sinus rhythm. Rate tachycardic 115 bpm. QT 324. No acute ischemic changes. However, noted to have some slight ST elevations in V3 through V5. - Laboratory workup interpreted by myself showed leukocytosis (WBC 22.36); hyperkalemia (K 5.5); normal lactate; elevated troponin (521.7); normal lipase; normal procalcitonin - CXR negative for pneumonia, per my interpretation - CT abdomen/pelvis wo contrast shows a stable thick-walled retroperitoneal fluid collection around her infrarenal abdominal aortic bypass. No significant small bowel obstruction or evidence of toxic megacolon. - Patient given 324 mg PO aspirin on arrival. - Given 4 mg IV morphine and 1L NS in ER. Given 40 mg IV protonix for what she says is heart burn (adament that it is not chest pain). - Repeat troponin is uptrending at 636.8. Repeat EKG obtained at 2347 on 11/11/2023 interpreted by myself showed normal sinus rhythm. Rate 103 bpm. QT 366. Patient does have some T wave inversions in aVR and aVL. - Discussed case with bar back on-call, Dr. Mancia, at 02:15 am. He agrees with admission to medicine service and starting the patient on heparin drip. - Heparin drip ordered. - Viral respiratory panel obtained. - Discussion was had with case filler about patient's case and need for admission - Hospitalist, Dr. Horowitz, consulted for admission - Patient admitted to [facility] Hospitalist service for further evaluation and management. I have personally spent 48 minutes of critical care time in the direct management of this patient. This includes bedside care, interpretation of diagnostic studies, and testing, discussion with consultants, patient, and family members, and other required patient management activities. This 48 minutes is in excess of all separately billable procedures. ASSESSMENT AND PLAN: Diagnosis: Chest pain; NSTEMI; leukocytosis Plan: admit Past Med/Surg History Problem List (Updated 11/12/23 @ 02:29 by Elizabeth Perze MD) Non-ST elevation CA (NSTEMI) (Acute) Leukocytosis (Acute) Chest pain (Acute) Malnutrition Sepsis C. difficile enteritis Atrial fibrillation Status post aortobifemoral bypass surgery Diarrhea Anemia Leukocytosis (Acute) Elevated lactic acid level (Acute) Hypocalcemia (Acute) Hypokalemia (Acute) Hypomagnesemia (Acute) Acute dehydration (Acute) GENESIS (acute kidney injury) (Acute) Hypotension (Acute) Right groin wound Peripheral artery disease (Chronic) Chronic low back pain Spondylolysis of thoracolumbar region Thoracic radiculopathy Thoracic back pain Tobacco abuse (Chronic) Chronic sinusitis (Chronic) Coronary artery disease (Chronic) Seen on lung CT scan Tubular adenoma (Chronic 10/2020) Osteoarthritis (Chronic) COPD (chronic obstructive pulmonary disease) (Chronic) Type 2 diabetes mellitus (Chronic) GERD (gastroesophageal reflux disease) (Chronic) Anxiety and depression (Chronic) Hyperlipidemia (Chronic) Hypertension (Chronic) Crohn's disease (Chronic) in remission Medical History Left lower quadrant abdominal pain Fall Surgical History (Updated 11/03/23 @ 19:28 by Carlos Jacobs PA-C) History of section History of bilateral tubal ligation History of esophagogastroduodenoscopy (EGD) History of colonoscopy History of tooth extraction History of tonsillectomy Family History Aunt Breast cancer Mother Diabetes Hypertension Other Cancer Heart disease Lung disease No family history of adverse response to anesthesia Denies family history of Ovarian cancer Prostate cancer Myocardial infarction Colorectal cancer Asthma Social History Smoking Status: Former smoker Tobacco Type: Cigarettes Age Quit Using Tobacco: 11; packs per day: 1; Cigarettes Per Day: 1 PPD; Second Hand Exposure: No; Do You Dip or Chew Tobacco: No; Hx Alcohol Use: No Hx Substance Use: No Preferred Language: Pashto Communication Ability: Effective Visual Impairment: No Limitations Hearing Ability: Normal Chin Strap Maker Required: No Beliefs That Will Affect Care: None marital status: / Current Living Situation: Family Current Living Situation Comment: Lives w/ brother & his Feels Safe at Home: Yes Diet: regular caffeine: Yes (Rare ) Dental Care, Regularly: Yes Physical Activity Frequency: Does not Exercise Seatbelt Use: always Assistive Devices: Walker and Wheelchair Allergies Allergies Allergy/AdvReac Type Severity Reaction Status Date / Time Iodinated Contrast Media Allergy Intermediate Hives Verified 05/13/23 09:38 Home Meds Home Medications Medication Instructions Recorded Confirmed aspirin 81 mg tablet,delayed 81 mg PO QAM 08/21/20 11/03/23 release multivitamin 1 tab PO QAM 08/21/20 11/03/23 amiodarone 200 mg tablet 200 mg PO DAILY 11/03/23 11/03/23 gabapentin 100 mg capsule 100 mg PO TID 11/03/23 11/03/23 rivaroxaban 20 mg tablet (Xarelto) 40 mg PO DAILY 11/03/23 11/03/23 Previous Rx's Medication Instructions Recorded albuterol sulfate 90 mcg/actuation 2 inh inhalation Q6H PRN shortness 08/23/20 aerosol inhaler of breath or wheezing #6.7 grams fluticasone propionate 50 1 spray intranasal BID #18.2 mL 03/22/21 mcg/actuation nasal spray,suspension (Flonase Allergy Relief) famotidine 20 mg tablet 20 mg PO BID #60 tabs 03/30/21 chlorpheniramine maleate 4 mg 4 mg PO Q12H #90 tabs 12/27/21 tablet (Allergy Relief (chlorpheniramine)) nortriptyline 25 mg capsule 25 mg PO .qhs #30 caps 08/07/22 lisinopril 10 1 tab PO DAILY #100 tabs 07/03/23 mg-hydrochlorothiazide 12.5 mg tablet metformin 500 mg tablet,extended 500 mg PO BID #200 tabs 07/03/23 release 24 hr omeprazole 20 mg capsule,delayed 20 mg PO DAILY #100 caps 07/03/23 release glimepiride 1 mg tablet 1 mg PO QAM #100 tabs 07/07/23 escitalopram oxalate 10 mg tablet 10 mg PO DAILY #100 tabs 07/18/23 atorvastatin 40 mg tablet 40 mg PO DAILY #100 tabs 07/29/23 metoprolol succinate 25 mg 25 mg PO DAILY #100 tabs 07/29/23 tablet,extended release 24 hr azithromycin 250 mg tablet 250 mg PO MOWEFR 30 days #18 tabs 08/04/23 fluticasone fur. 100 mcg-umeclid 1 inh inhalation DAILY #180 ea 08/04/23 62.5 mcg-vilant 25 mcg inhalat.powder (Trelegy Ellipta) potassium chloride 20 mEq 20 meq PO DAILY #30 tabs 11/05/23 tablet,extended release(part/cryst) vancomycin 125 mg capsule 125 mg PO QID #32 caps 11/05/23 Results & Data (ED) Vital Signs Vital Signs - 24 hr 11/11/23 21:32 11/11/23 22:13 11/11/23 22:31 Temperature 36.7 C Temperature Source Oral Pulse Rate 117 H 109 H Pulse Rate [Right Finger] 112 H Pulse Rate from SpO2 Sensor Pulse Rhythm [Right Finger] Regular Pulse Strength [Right Finger] Normal Respiratory Rate 24 21 Respiratory Effort / Characteristics Non-Labored Spontaneous Respiratory Depth Normal Respiratory Pattern Regular Blood Pressure 136/99 Blood Pressure [Left Arm] 124/84 Blood Pressure Mean 111 Blood Pressure Mean [Left Arm] 97 Blood Pressure Position [Left Arm] Sitting Pulse Oximetry 95 94 Oxygen Delivery Method Room Air Sepsis Recent Fever Within 48 Hours No Sepsis New/Unexplained Change in Mental Status No Sepsis Action Taken by Nursing No Action Required 11/11/23 22:33 11/11/23 23:09 11/12/23 00:12 Temperature Temperature Source Pulse Rate 109 H 106 H 102 H Pulse Rate [Right Finger] Pulse Rate from SpO2 Sensor 109 H 106 H 101 H Pulse Rhythm [Right Finger] Pulse Strength [Right Finger] Respiratory Rate 19 21 25 H Respiratory Effort / Characteristics Respiratory Depth Respiratory Pattern Blood Pressure 198/100 H Blood Pressure [Left Arm] Blood Pressure Mean 145 Blood Pressure Mean [Left Arm] Blood Pressure Position [Left Arm] Pulse Oximetry 94 94 97 Oxygen Delivery Method Sepsis Recent Fever Within 48 Hours Sepsis New/Unexplained Change in Mental Status Sepsis Action Taken by Nursing 11/12/23 01:30 11/12/23 01:30 11/12/23 02:26 Temperature Temperature Source Pulse Rate 103 H 102 H Pulse Rate [Right Finger] Pulse Rate from SpO2 Sensor 104 H Pulse Rhythm [Right Finger] Pulse Strength [Right Finger] Respiratory Rate 16 Respiratory Effort / Characteristics Respiratory Depth Respiratory Pattern Blood Pressure 204/104 H 204/104 H Blood Pressure [Left Arm] Blood Pressure Mean 159 159 Blood Pressure Mean [Left Arm] Blood Pressure Position [Left Arm] Pulse Oximetry 93 Oxygen Delivery Method Sepsis Recent Fever Within 48 Hours Sepsis New/Unexplained Change in Mental Status Sepsis Action Taken by Nursing Laboratory Data 11/11/23 21:44 11/11/23 21:44 Lab Results 11/11/23 11/11/23 Range/Units 21:44 23:41 WBC 22.36 H (4.8-10.8) K/ul RBC 4.22 (4.20-5.40) M/uL Hgb 13.0 (12.0-16.0) g/dl Hct 38.9 (37.0-47.0) % MCV 92.2 (80.0-100.0) fL MCH 30.8 (25.0-34.0) pg MCHC 33.4 (32.0-36.0) g/dL RDW Std Deviation 50.7 H (36.4-46.3) fL RDW Coeff of Bijan 15.0 H (11.5-14.5) % Plt Count 529 H (130-400) K/uL MPV 9.1 L (9.4-12.4) fL Immature Gran % (Auto) 2.3 % Neut % (Auto) 75.8 % Lymph % (Auto) 14.1 % Grant % (Auto) 6.6 % Eos % (Auto) 0.7 % Baso % (Auto) 0.5 % Neut # (Auto) 16.95 H (1.40-6.50) K/uL Lymph # (Auto) 3.15 (1.20-3.40) K/uL Grant # (Auto) 1.47 H (0.11-0.59) K/uL Eos # (Auto) 0.15 (0.00-0.50) K/uL Baso # (Auto) 0.12 (0.00-0.20) K/uL Immature Gran # (Auto) 0.52 H (0.01-0.20) K/uL PT 12.2 H (9.0-12.0) Seconds INR 1.1 (0.9-1.1) APTT 25 (21-31) Seconds PTT Ratio 0.9 Heparin Anti-Xa, LM Wt Cancelled Sodium 137 (136-145) mmol/L Potassium 5.5 H (3.5-5.1) mmol/L Chloride 98 (98-107) mmol/L Carbon Dioxide 28 (21-32) mmol/L Anion Gap 11 (3-11) BUN 15 (6-23) mg/dl Creatinine 0.85 (0.6-1.2) mg/dl Est Cr Clr Drug Dosing Not Reportable Est GFR ( Amer) 83.3 ml/min Est GFR (Non-Af Amer) 71.9 ml/min BUN/Creatinine Ratio 17.6 (10-20) Glucose 208 H (70-99(Fasting)) mg/dl Lactate 1.7 (0.4-2.0) mmol/L Calcium 8.8 (8.6-10.3) mg/dl Total Bilirubin 0.6 (0.2-1.0) mg/dl AST 16 (13-39) U/L ALT 12 (7-52) U/L Alkaline Phosphatase 86 (34-104) U/L Troponin I High Sens 521.7 H* 636.8 H* D (0-14) pg/ml Total Protein 7.0 (6.0-8.3) gm/dl Albumin 3.8 (3.4-5.0) gm/dl Globulin 3.2 (2.5-4.0) gm/dl Albumin/Globulin Ratio 1.2 (0.9-2) Lipase 12 (11-82) U/L Procalcitonin 0.13 (0-0.5) ng/ml Administered Medications Discontinued Medications Aspirin (Aspirin Chew 324 Mg) 324 mg PO NOW STA Stop: 11/11/23 22:54 Last Admin: 11/11/23 23:02 Dose: 324 mg Documented By: BENTLEY Sodium Chloride (Nss) 1,000 mls @ 999 mls/hr IV .Q1H1M ONE Stop: 11/11/23 23:58 Last Infusion: 11/12/23 00:42 Dose: Infused Documented By: Admin: 11/11/23 23:04 Dose: 999 mls/hr Documented By: BENTLEY Pantoprazole Sodium 40 mg/ (Syringe) 10 mls @ 5 mls/min IV NOW ONE Stop: 11/12/23 00:31 Last Admin: 11/12/23 01:34 Dose: 5 mls/min Documented By: PERLA Morphine Sulfate (Morphine Sulfate 4 Mg/Ml 1 Ml Carp\Vial) 4 mg IV NOW STA Stop: 11/12/23 00:30 Last Admin: 11/12/23 00:41 Dose: 4 mg Documented By: PERLA Imaging Data Radiologist's Impression: Abdomen/Pelvis CT 11/11/23 22:58 Exam(s): CT ABDOMEN + PELVIS Without Contrast EXAM: CT Abdomen and Pelvis Without Intravenous Contrast CLINICAL HISTORY: lower abd pain; recent Cdiff+. TECHNIQUE: Axial computed tomography images of the abdomen and pelvis without intravenous contrast. CTDI is 9.5 mGy and DLP is 451.92 mGy-cm. Automated exposure control was utilized for the study. A dose lowering technique was utilized adhering to the principles of ALARA. COMPARISON: CT abdomen and pelvis without contrast dated 11/03/2023 FINDINGS: Lung bases: Unremarkable. No mass. No consolidation. ABDOMEN: Liver: Unremarkable. Gallbladder and bile ducts: Minimal layering hyperdense material in the gallbladder is stable from the previous examination. No calcified gallstones. No gallbladder wall thickening or biliary dilatation. Pancreas: Unremarkable. No ductal dilation. Spleen: Unremarkable. No splenomegaly. Adrenals: Unremarkable. No mass. Kidneys and ureters: Subcentimeter calcifications in the kidneys are predominantly presumed vascular. A punctate nonobstructive nephrolithiasis is noted in the mid to inferior pole the left kidney. Similar left perinephric fat stranding. No hydronephrosis. Stomach and bowel: The stomach is moderately distended with retained oral contents. No significant gastric mucosal thickening noted. No evidence for focal high-grade small bowel obstruction. Evaluation of bowel mucosa is limited without contrast. The previously noted mucosal prominence of the small bowel loops appears to have improved. Moderate stool burden. No appreciable diverticulitis. PELVIS: Appendix: The appendix is non-clearly delineated. Previously the appendix is suggested along the medial aspect of the cecum, and there is a suggestion of segments of the appendix on coronal reformatted imaging. No significant findings to suggest acute appendicitis. Bladder: Unremarkable. No stones. Reproductive: Unremarkable as visualized. ABDOMEN and PELVIS: Intraperitoneal space: Unremarkable. No free air. No significant fluid collection. Retroperitoneal space: The previously reported thick-walled retroperitoneal fluid collection surrounding the infrarenal abdominal aortic bypass in the right iliac limb is again noted with a similar morphologic appearance. The smaller more cephalad component measures 4.7 x 8.1 cm from 4 x 8.6 cm previously. The larger, more caudal component, which extends posteriorly in the midline pelvis, now measures 11.3 x 9.3 cm from 10.8 x 8.6 cm previously. There remains a cystic capsule with surrounding fat stranding. Bones/joints: Multilevel degenerative changes throughout the thoracolumbar spine. Stable ossified fat L1 level and involving the T10 vertebral body level. Soft tissues: There is similar fluid surrounding the anastomoses at the bilateral inguinal regions without appreciable alteration. There is also a femoral-femoral bypass graft, stable in appearance. Vasculature: There is a aortobiiliac bypass graft noted in a piggyback in fashion into the pala arterial structures. Detailed evaluation for patency is limited without contrast. Lymph nodes: Unremarkable. No enlarged lymph nodes. IMPRESSION: 1. The previously reported thick-walled retroperitoneal fluid collection surrounding the infrarenal abdominal aortic bypass in the right iliac limb is again noted with a similar morphologic appearance. The smaller more cephalad component measures 4.7 x 8.1 cm from 4 x 8.6 cm previously. The larger, more caudal component, which extends posteriorly in the midline pelvis, now measures 11.3 x 9.3 cm from 10.8 x 8.6 cm previously. There remains a cystic capsule with surrounding fat stranding. 2. There is a aortobiiliac bypass graft noted in a piggyback in fashion into the pala arterial structures. Detailed evaluation for patency is limited without contrast. 3. No evidence for focal high-grade small bowel obstruction. Evaluation of bowel mucosa is limited without contrast. The previously noted mucosal prominence of the small bowel loops appears to have improved. Moderate stool burden. No appreciable diverticulitis. No pneumoperitoneum. 4. The appendix is non-clearly delineated. Previously the appendix is suggested along the medial aspect of the cecum, and there is a suggestion of segments of the appendix on coronal reformatted imaging. No significant findings to suggest acute appendicitis. Electronically signed by: Raji Hernandez MD 11/11/23 23:54 PM Discharge Plan Visit Data Chief Complaint: Cardiac Assessment Stated Complaint: CHEST PAIN, SOB, HYPERTENTION ED Provider: Elizabeth Perez Discharge Problem: Chest pain, Leukocytosis, Non-ST elevation CA (NSTEMI) Forms Stand Alone Forms: [facility] Prescriptions Prescriptions: No Action nortriptyline 25 mg capsule 25 mg PO .qhs Qty: 30 2RF fluticasone propionate [Flonase Allergy Relief] 50 mcg/actuation spray,suspension 1 spray intranasal BID Qty: 18.2 2RF Rx Instructions: administer into each nostril chlorpheniramine maleate [Allergy Relief(chlorpheniramn)] 4 mg tablet 4 mg PO Q12H Qty: 90 1RF lisinopril-hydrochlorothiazide 10-12.5 mg tablet 1 tab PO DAILY Qty: 100 3RF metformin 500 mg tablet extended release 24 hr 500 mg PO BID Qty: 200 3RF omeprazole 20 mg capsule,delayed release(DR/EC) 20 mg PO DAILY Qty: 100 3RF glimepiride 1 mg tablet 1 mg PO QAM Qty: 100 3RF Rx Instructions: administer with breakfast escitalopram oxalate 10 mg tablet 10 mg PO DAILY Qty: 100 3RF atorvastatin 40 mg tablet 40 mg PO DAILY Qty: 100 3RF metoprolol succinate 25 mg tablet extended release 24 hr 25 mg PO DAILY Qty: 100 3RF Trelegy Ellipta 100-62.5-25 mcg blister with device 1 inh inhalation DAILY Qty: 180 3RF azithromycin 250 mg tablet 250 mg PO MOWEFR 30 Days Qty: 18 6RF Rx Instructions: 1 tablet orally every Friday, Friday, and Friday multivitamin Tablet 1 tab PO QAM aspirin 81 mg Tablet,Delayed Release (Dr/Ec) 81 mg PO QAM albuterol sulfate 90 mcg/actuation HFA aerosol inhaler 2 inh inhalation Q6H PRN (Reason: shortness of breath or wheezing) Qty: 6.7 0RF famotidine 20 mg Tablet 20 mg PO BID Qty: 60 0RF amiodarone 200 mg tablet 200 mg PO DAILY gabapentin 100 mg capsule 100 mg PO TID Xarelto 20 mg tablet 40 mg PO DAILY potassium chloride 20 mEq Tablet,Er Particles/Crystals 20 meq PO DAILY Qty: 30 0RF vancomycin 125 mg capsule 125 mg PO QID Qty: 32 0RF Referrals Referrals: Fariba Abdi MD [Primary Care Provider] -
[2023-11-11] MEDS: SODIUM CHLORIDE 0.9% 1,000 ML IV ONE (23:04)
--- NOTE | 2023-11-11 23:55 | CT Scan Report ---
Exam(s): CT ABDOMEN + PELVIS Without Contrast EXAM: CT Abdomen and Pelvis Without Intravenous Contrast CLINICAL HISTORY: lower abd pain; recent Cdiff+. TECHNIQUE: Axial computed tomography images of the abdomen and pelvis without intravenous contrast. CTDI is 9.5 mGy and DLP is 451.92 mGy-cm. Automated exposure control was utilized for the study. A dose lowering technique was utilized adhering to the principles of ALARA. COMPARISON: CT abdomen and pelvis without contrast dated 11/03/2023 FINDINGS: Lung bases: Unremarkable. No mass. No consolidation. ABDOMEN: Liver: Unremarkable. Gallbladder and bile ducts: Minimal layering hyperdense material in the gallbladder is stable from the previous examination. No calcified gallstones. No gallbladder wall thickening or biliary dilatation. Pancreas: Unremarkable. No ductal dilation. Spleen: Unremarkable. No splenomegaly. Adrenals: Unremarkable. No mass. Kidneys and ureters: Subcentimeter calcifications in the kidneys are predominantly presumed vascular. A punctate nonobstructive nephrolithiasis is noted in the mid to inferior pole the left kidney. Similar left perinephric fat stranding. No hydronephrosis. Stomach and bowel: The stomach is moderately distended with retained oral contents. No significant gastric mucosal thickening noted. No evidence for focal high-grade small bowel obstruction. Evaluation of bowel mucosa is limited without contrast. The previously noted mucosal prominence of the small bowel loops appears to have improved. Moderate stool burden. No appreciable diverticulitis. PELVIS: Appendix: The appendix is non-clearly delineated. Previously the appendix is suggested along the medial aspect of the cecum, and there is a suggestion of segments of the appendix on coronal reformatted imaging. No significant findings to suggest acute appendicitis. Bladder: Unremarkable. No stones. Reproductive: Unremarkable as visualized. ABDOMEN and PELVIS: Intraperitoneal space: Unremarkable. No free air. No significant fluid collection. Retroperitoneal space: The previously reported thick-walled retroperitoneal fluid collection surrounding the infrarenal abdominal aortic bypass in the right iliac limb is again noted with a similar morphologic appearance. The smaller more cephalad component measures 4.7 x 8.1 cm from 4 x 8.6 cm previously. The larger, more caudal component, which extends posteriorly in the midline pelvis, now measures 11.3 x 9.3 cm from 10.8 x 8.6 cm previously. There remains a cystic capsule with surrounding fat stranding. Bones/joints: Multilevel degenerative changes throughout the thoracolumbar spine. Stable ossified fat L1 level and involving the T10 vertebral body level. Soft tissues: There is similar fluid surrounding the anastomoses at the bilateral inguinal regions without appreciable alteration. There is also a femoral-femoral bypass graft, stable in appearance. Vasculature: There is a aortobiiliac bypass graft noted in a piggyback in fashion into the [place] arterial structures. Detailed evaluation for patency is limited without contrast. Lymph nodes: Unremarkable. No enlarged lymph nodes. IMPRESSION: 1. The previously reported thick-walled retroperitoneal fluid collection surrounding the infrarenal abdominal aortic bypass in the right iliac limb is again noted with a similar morphologic appearance. The smaller more cephalad component measures 4.7 x 8.1 cm from 4 x 8.6 cm previously. The larger, more caudal component, which extends posteriorly in the midline pelvis, now measures 11.3 x 9.3 cm from 10.8 x 8.6 cm previously. There remains a cystic capsule with surrounding fat stranding. 2. There is a aortobiiliac bypass graft noted in a piggyback in fashion into the [place] arterial structures. Detailed evaluation for patency is limited without contrast. 3. No evidence for focal high-grade small bowel obstruction. Evaluation of bowel mucosa is limited without contrast. The previously noted mucosal prominence of the small bowel loops appears to have improved. Moderate stool burden. No appreciable diverticulitis. No pneumoperitoneum. 4. The appendix is non-clearly delineated. Previously the appendix is suggested along the medial aspect of the cecum, and there is a suggestion of segments of the appendix on coronal reformatted imaging. No significant findings to suggest acute appendicitis. Electronically signed by: Raji Hernandez MD 11/11/23 23:54 PM
[2023-11-12] MEDS: MoRPHine SULFATE 4 MG/ML 1 ML CARP\\VIAL IV STA (00:41)
[2023-11-12] MEDS: PANTOprazole 40 MG in SYRINGE 0 ML IV ONE (01:34)
[2023-11-12 02:27] LABS: INR 1.1 (0.9-1.1); Partial Thromboplastin Ratio 0.9; Partial Thromboplastin Time 25 Seconds (21-31); Prothrombin Time 12.2 Seconds (9.0-12.0)
[2023-11-12 02:44] LABS: ANTI-Xa, UFH(UnfractionatedHep < 0.10 IU/ml (0.3-0.7)
--- NOTE | 2023-11-12 02:53 | History & Physical Report ---
Date of Service November 12, 2023 Assessment & Plan (1) Non-ST elevation RI (NSTEMI): (2) Sinus tachycardia: (3) Atrial fibrillation: (4) C. difficile enteritis: (5) Status post aortobifemoral bypass surgery: (6) Retroperitoneal fluid collection: (7) Hyperkalemia: (8) Malnutrition: (9) COPD (chronic obstructive pulmonary disease): (10) Type 2 diabetes mellitus: (11) GERD (gastroesophageal reflux disease): (12) Anxiety and depression: (13) Hypertension: Plan Palpitations/sinus tachycardia/chest pain/history of atrial fibrillation/CAD/elevated troponin- The patient will be admitted to telemetry for serial cardiac enzymes, serial EKG's, cardiac rhythm monitoring and a 2-D echocardiogram with Dopplers. Initial troponin 521.7, with follow-up 636.8. Patient has been on Xarelto, with last dosing at 11 AM on 11/10 Check an anti-Xa, and then begin heparin low-dose without bolus per protocol Patient reports that she had run out of her 2 heart medications, both metoprolol succinate and amiodarone, about 2 weeks ago, after completing what she thought was a one-time 30-day course Patient had been in the hospital from 11/02-11/05/2023, during which time she received both these medications. She did not notice palpitations and increased heart rate until today. Question as to whether the increased troponin is associated with increased heart rate versus coronary artery disease, or combination Will place her on metoprolol succinate 50 mg p.o. now, and then 50 mg p.o. every morning Hold amiodarone 200 mg by mouth daily, until cardiology assesses Will have Lopressor 5 mg IV every 4 hours as needed for heart rate greater than [address] Mancia by the ED has been contacted and will see patient in the a.m. Hyperkalemia/dehydration- Potassium 5.5 on admission Status post 1 L normal saline from the ED Place on NSS at 100 mL/h x 500 mL Give Lokelma 10 mg p.o. x 1 now Follow laboratories daily, and recheck again at 10 AM this morning Retroperitoneal fluid collection- [place] by vascular surgery from [place] to be a postoperative seroma that developed during and/or after aortobifemoral bypass surgery on 08/29/2023 CT scan today, compared to 11/02 does not show any significant change Diabetes mellitus- Hold metformin Place on Accu-Cheks with NovoLog SSI C. difficile enteritis- Was on vancomycin 125 mg p.o. 4 times daily x 10 days, after being diagnosed during admission from 11/02-11/05/[address] on same dosing, until gets through the stressful interval History of Present Illness Chief Complaint: The patient reports that at about 930 the morning of 11/10, she developed subster nal chest pain, that persisted until about 1:30 in the afternoon, when she went to sleep. She woke up at about 5:00 PM, with palpitations, her heart rate increased, and felt lightheaded and dizzy but did not pass out. She continued to feel fuzzy and lightheaded throughout the evening, and when family found out that she was not feeling well, they brought her to the emergency department for assessment. Primary Care Provider: Fariba Abdi MD The patient is a 63-year-old female with a past medical history including C. 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 She presented to the emergency department due to symptoms of palpitations and noticing an increased heart rate. Heart rate in the emergency department was noted to be in the range of 101-117, and sinus tachycardia. Troponin was initially 521.7, with follow-up 636.8, with EKG showing a new T wave inversion in aVL. Allergies Allergy/AdvReac Type Severity Reaction Status Date / Time Iodinated Contrast Media Allergy Intermediate Hives Verified 05/13/23 09:38 Home Medications Medication Instructions Recorded Confirmed Type aspirin 81 mg tablet,delayed 81 mg PO QAM 08/21/20 11/03/23 History release multivitamin 1 tab PO QAM 08/21/20 11/03/23 History albuterol sulfate 90 mcg/actuation 2 inh inhalation Q6H PRN shortness 08/23/20 11/03/23 Rx aerosol inhaler of breath or wheezing #6.7 grams fluticasone propionate 50 1 spray intranasal BID #18.2 mL 03/22/21 11/03/23 Rx mcg/actuation nasal spray,suspension (Flonase Allergy Relief) famotidine 20 mg tablet 20 mg PO BID #60 tabs 03/30/21 11/03/23 Rx chlorpheniramine maleate 4 mg 4 mg PO Q12H #90 tabs 12/27/21 11/03/23 Rx tablet (Allergy Relief (chlorpheniramine)) nortriptyline 25 mg capsule 25 mg PO .qhs #30 caps 08/07/22 11/03/23 Rx lisinopril 10 1 tab PO DAILY #100 tabs 07/03/23 11/03/23 Rx mg-hydrochlorothiazide 12.5 mg tablet metformin 500 mg tablet,extended 500 mg PO BID #200 tabs 07/03/23 11/03/23 Rx release 24 hr omeprazole 20 mg capsule,delayed 20 mg PO DAILY #100 caps 07/03/23 11/03/23 Rx release glimepiride 1 mg tablet 1 mg PO QAM #100 tabs 07/07/23 11/03/23 Rx escitalopram oxalate 10 mg tablet 10 mg PO DAILY #100 tabs 07/18/23 11/03/23 Rx atorvastatin 40 mg tablet 40 mg PO DAILY #100 tabs 07/29/23 11/03/23 Rx metoprolol succinate 25 mg 25 mg PO DAILY #100 tabs 07/29/23 11/03/23 Rx tablet,extended release 24 hr azithromycin 250 mg tablet 250 mg PO MOWEFR 30 days #18 tabs 08/04/23 11/03/23 R x fluticasone fur. 100 mcg-umeclid 1 inh inhalation DAILY #180 ea 08/04/23 11/03/23 Rx 62.5 mcg-vilant 25 mcg inhalat.powder (Trelegy Ellipta) amiodarone 200 mg tablet 200 mg PO DAILY 11/03/23 11/03/23 History gabapentin 100 mg capsule 100 mg PO TID 11/03/23 11/03/23 History rivaroxaban 20 mg tablet (Xarelto) 40 mg PO DAILY 11/03/23 11/03/23 History potassium chloride 20 mEq 20 meq PO DAILY #30 tabs 11/05/23 Rx tablet,extended release(part/cryst) vancomycin 125 mg capsule 125 mg PO QID #32 caps 11/05/23 Rx Past Med/Surg History Problem List (Updated 11/12/23 @ 04:10 by Devendra Horowitz MD) Hyperkalemia Retroperitoneal fluid collection Sinus tachycardia Non-ST elevation RI (NSTEMI) (Acute) Leukocytosis (Acute) Chest pain (Acute) Malnutrition Sepsis C. difficile enteritis Atrial fibrillation Status post aortobifemoral bypass surgery Diarrhea Anemia Leukocytosis (Acute) Elevated lactic acid level (Acute) Hypocalcemia (Acute) Hypokalemia (Acute) Hypomagnesemia (Acute) Acute dehydration (Acute) GENESIS (acute kidney injury) (Acute) Hypotension (Acute) Right groin wound Peripheral artery disease (Chronic) Chronic low back pain Spondylolysis of thoracolumbar region Thoracic radiculopathy Thoracic back pain Tobacco abuse (Chronic) Chronic sinusitis (Chronic) Coronary artery disease (Chronic) Seen on lung CT scan Tubular adenoma (Chronic 10/2020) Osteoarthritis (Chronic) COPD (chronic obstructive pulmonary disease) (Chronic) Type 2 diabetes mellitus (Chronic) GERD (gastroesophageal reflux disease) (Chronic) Anxiety and depression (Chronic) Hyperlipidemia (Chronic) Hypertension (Chronic) Crohn's disease (Chronic) in remission Medical History Left lower quadrant abdominal pain Fall Surgical History (Updated 11/03/23 @ 19:28 by Carlos Jacobs PA-C) History of section History of bilateral tubal ligation History of esophagogastroduodenoscopy (EGD) History of colonoscopy History of tooth extraction History of tonsillectomy Family History Aunt Breast cancer Mother Diabetes Hypertension Other Cancer Heart disease Lung disease No family history of adverse response to anesthesia Denies family history of Ovarian cancer Prostate cancer Myocardial infarction Colorectal cancer Asthma Social History Smoking Status: Former smoker Tobacco Type: Cigarettes Age Quit Using Tobacco: 11; packs per day: 1; Cigarettes Per Day: 1 PPD; Second Hand Exposure: No; Do You Dip or Chew Tobacco: No; Hx Alcohol Use: No Hx Substance Use: No Preferred Language: Slovak Communication Ability: Effective Visual Impairment: No Limitations Hearing Ability: Normal Regional Property Manager Required: No Beliefs That Will Affect Care: None marital status: / Current Living Situation: Family Current Living Situation Comment: Lives w/ brother & his Feels Safe at Home: Yes Diet: regular caffeine: Yes (Rare ) Dental Care, Regularly: Yes Physical Activity Frequency: Does not Exercise Seatbelt Use: always Assistive Devices: Walker and Wheelchair Review of Systems Review of Systems: The patient denies cough, lower extremity swelling, sore throat, fevers, chills, sweats, nausea, vomiting, diarrhea , constipation, abdominal pain, pelvic pain, blood in urine or stool, dysuria, urinary frequency or urgency, lightheadedness, dizziness, headache, memory loss, loss of consciousness, rash, abnormal bruising or bleeding, imbalance, focal weakness, numbness or tingling in arms or legs, generalized arthralgias or myalgias, back or neck pain, or night sweats. The review of systems is otherwise negative other than for that already noted above, and at least 10 systems have been reviewed. Physical Exam Physical Exam: The patient is awake, alert and oriented 3, appears thin, normocephalic and atraumatic, lying in bed and in no acute distress. HEENT--PERRL, EOMI, mucous membranes and oropharynx mildly dry. Neck--supple. No JVD. No bruits. Thyroid normal, trachea midline, no adenopathy. Heart--tachycardic and regular. No murmurs, rubs or gallops. Lungs-- decreased breath sounds throughout. No respiratory distress, no accessory muscle use. Abdomen--normal bowel sounds and soft. Nontender. Nondistended, no hernias or masses, no organomegaly. Extremities-- No edema. Dermatologic--skin is mildly dry Neurologic--cranial nerves II through XII grossly intact. Rheumatologic--normal range of motion. Psychiatric--normal affect. Results & Data Results & Data Vital Signs (Past 12 Hours) Vital Signs Temp Pulse Pulse Resp BP BP Pulse Ox 11/12/23 02:26 102 H 11/12/23 01:30 103 H 16 204/104 H 93 11/12/23 01:30 204/104 H 11/12/23 00:12 102 H 25 H 198/100 H 97 11/11/23 23:09 106 H 21 94 11/11/23 22:33 109 H 19 94 09/10/24 22:31 109 H 11/11/23 22:13 112 H 21 124/84 94 11/11/23 21:32 36.7 C 117 H 24 136/99 95 O2 Del Method 11/12/23 02:26 11/12/23 01:30 11/12/23 01:30 11/12/23 00:12 11/11/23 23:09 11/11/23 22:33 11/11/23 22:31 11/11/23 22:13 11/11/23 21:32 Room Air Laboratory Results Laboratory Results WBC 22.36 K/ul (4.8-10.8) H 11/11/23 21:44 RBC 4.22 M/uL (4.20-5.40) 11/11/23 21:44 Hgb 13.0 g/dl (12.0-16.0) 11/11/23 21:44 Hct 38.9 % (37.0-47.0) 11/11/23 21:44 MCV 92.2 fL (80.0-100.0) 11/11/23 21:44 MCH 30.8 pg (25.0-34.0) 11/11/23 21:44 MCHC 33.4 g/dL (32.0-36.0) 11/11/23 21:44 RDW Std Deviation 50.7 fL (36.4-46.3) H 11/11/23 21:44 RDW Coeff of Bijan 15.0 % (11.5-14.5) H 11/11/23 21:44 Plt Count 529 K/uL (130-400) H 11/11/23 21:44 MPV 9.1 fL (9.4-12.4) L 11/11/23 21:44 Immature Gran % (Auto) 2.3 % 11/11/23 21:44 Neut % (Auto) 75.8 % 11/11/23 21:44 Lymph % (Auto) 14.1 % 11/11/23 21:44 Divide % (Auto) 6.6 % 11/11/23 21:44 Eos % (Auto) 0.7 % 11/11/23 21:44 Baso % (Auto) 0.5 % 11/11/23 21:44 Neut # (Auto) 16.95 K/uL (1.40-6.50) H 11/11/23 21:44 Lymph # (Auto) 3.15 K/uL (1.20-3.40) 11/11/23 21:44 Divide # (Auto) 1.47 K/uL (0.11-0.59) H 11/11/23 21:44 Eos # (Auto) 0.15 K/uL (0.00-0.50) 11/11/23 21:44 Baso # (Auto) 0.12 K/uL (0.00-0.20) 11/11/23 21:44 Immature Gran # (Auto) 0.52 K/uL (0.01-0.20) H 11/11/23 21:44 PT 12.2 Seconds (9.0-12.0) H 11/11/23 21:44 INR 1.1 (0.9-1.1) 11/11/23:44 APTT 25 Seconds (21-31) 11/11/23:44 PTT Ratio 0.9 11/11/23 21:44 Heparin Anti-Xa, LM Wt Cancelled 11/11/23 21:44 Heparin Anti-Xa, Unfract < 0.10 IU/ml (0.3-0.7) L 11/11/23 21:44 Sodium 137 mmol/L (136-145) 11/11/23 21:44 Potassium 5.5 mmol/L (3.5-5.1) H 11/11/23 21:44 Chloride 98 mmol/L (98-107) 11/11/23 21:44 Carbon Dioxide 28 mmol/L (21-32) 11/11/23 21:44 Anion Gap 11 (3-11) 11/11/23 21:44 BUN 15 mg/dl (6-23) 11/11/23:44 Creatinine 0.85 mg/dl (0.6-1.2) 11/11/23:44 Est Cr Clr Drug Dosing Not Reportable 11/11/23 21:44 Est GFR ( Amer) 83.3 ml/min 11/11/23 21:44 Est GFR (Non-Af Amer) 71.9 ml/min 11/11/23 21:44 BUN/Creatinine Ratio 17.6 (10-20) 11/11/23 21:44 Glucose 208 mg/dl (70-99(Fasting)) H 11/11/23 21:44 Lactate 1.7 mmol/L (0.4-2.0) 11/11/23 23:41 Calcium 8.8 mg/dl (8.6-10.3) 11/11/23 21:44 Total Bilirubin 0.6 mg/dl (0.2-1.0) 11/11/23 21:44 AST 16 U/L (13-39) 11/11/23 21:44 ALT 12 U/L (7-52) 11/11/23 21:44 Alkaline Phosphatase 86 U/L (34-104) 11/11/23 21:44 Troponin I High Sens 636.8 pg/ml (0-14) H* D 11/11/23 23:41 Total Protein 7.0 gm/dl (6.0-8.3) 11/11/23 21:44 Albumin 3.8 gm/dl (3.4-5.0) 11/11/23 21:44 Globulin 3.2 gm/dl (2.5-4.0) 11/11/23 21:44 Albumin/Globulin Ratio 1.2 (0.9-2) 11/11/23 21:44 Lipase 12 U/L (11-82) 11/11/23 21:44 Procalcitonin 0.13 ng/ml (0-0.5) 11/11/23 21:44 Adenovirus (PCR) Not Detected (NotDetected) 11/12/23 01:45 B. pertussis DNA (PCR) Not Detected (NotDetected) 11/12/23 01:45 B.parapertussis DNA PCR Not Detected (NotDetected) 11/12/23 01:45 C. pneumoniae DNA (PCR) Not Detected (NotDetected) 11/12/23 01:45 Coronavirus OC43 (PCR) Not Detected (NotDetected) 11/12/23 01:45 Coronavirus HKU1 (PCR) Not Detected (NotDetected) 11/12/23 01:45 Coronavirus 229E (PCR) Not Detected (NotDetected) 11/12/23 01:45 SARS-CoV-2 (PCR) Not Detected (NotDetected) 11/12/23 01:45 Coronavirus NL63 (PCR) Not Detected (NotDetected) 11/12/23 01:45 Human Metapneumovir PCR Not Detected (NotDetected) 11/12/23 01:45 Influenza Type A (PCR) Not Detected (NotDetected) 11/12/23 01:45 Influenza Type B (PCR) Not Detected (NotDetected) 11/12/23 01:45 M. pneumoniae (PCR) Not Detected (NotDetected) 11/12/23 01:45 Parainfluenza 1 (PCR) Not Detected (NotDetected) 11/12/23 01:45 Parainfluenza 2 (PCR) Not Detected (NotDetected) 11/12/23 01:45 Parainfluenza 3 (PCR) Not Detected (NotDetected) 11/12/23 01:45 Parainfluenza 4 (PCR) Not Detected (NotDetected) 11/12/23 01:45 RSV (PCR) Not Detected (NotDetected) 11/12/23 01:45 Entero/Rhino (PCR) Not Detected (NotDetected) 11/12/23 01:45 Impressions Abdomen/Pelvis CT 11/11/23 22:58 Exam(s): CT ABDOMEN + PELVIS Without Contrast EXAM: CT Abdomen and Pelvis Without Intravenous Contrast CLINICAL HISTORY: lower abd pain; recent Cdiff+. TECHNIQUE: Axial computed tomography images of the abdomen and pelvis without intravenous contrast. CTDI is 9.5 mGy and DLP is 451.92 mGy-cm. Automated exposure control was utilized for the study. A dose lowering technique was utilized adhering to the principles of ALARA. COMPARISON: CT abdomen and pelvis without contrast dated 11/03/2023 FINDINGS: Lung bases: Unremarkable. No mass. No consolidation. ABDOMEN: Liver: Unremarkable. Gallbladder and bile ducts: Minimal layering hyperdense material in the gallbladder is stable from the previous examination. No calcified gallstones. No gallbladder wall thickening or biliary dilatation. Pancreas: Unremarkable. No ductal dilation. Spleen: Unremarkable. No splenomegaly. Adrenals: Unremarkable. No mass. Kidneys and ureters: Subcentimeter calcifications in the kidneys are predominantly presumed vascular. A punctate nonobstructive nephrolithiasis is noted in the mid to inferior pole the left kidney. Similar left perinephric fat stranding. No hydronephrosis. Stomach and bowel: The stomach is moderately distended with retained oral contents. No significant gastric mucosal thickening noted. No evidence for focal high-grade small bowel obstruction. Evaluation of bowel mucosa is limited without contrast. The previously noted mucosal prominence of the small bowel loops appears to have improved. Moderate stool burden. No appreciable diverticulitis. PELVIS: Appendix: The appendix is non-clearly delineated. Previously the appendix is suggested along the medial aspect of the cecum, and there is a suggestion of segments of the appendix on coronal reformatted imaging. No significant findings to suggest acute appendicitis. Bladder: Unremarkable. No stones. Reproductive: Unremarkable as visualized. ABDOMEN and PELVIS: Intraperitoneal space: Unremarkable. No free air. No significant fluid collection. Retroperitoneal space: The previously reported thick-walled retroperitoneal fluid collection surrounding the infrarenal abdominal aortic bypass in the right iliac limb is again noted with a similar morphologic appearance. The smaller more cephalad component measures 4.7 x 8.1 cm from 4 x 8.6 cm previously. The larger, more caudal component, which extends posteriorly in the midline pelvis, now measures 11.3 x 9.3 cm from 10.8 x 8.6 cm previously. There remains a cystic capsule with surrounding fat stranding. Bones/joints: Multilevel degenerative changes throughout the thoracolumbar spine. Stable ossified fat L1 level and involving the T10 vertebral body level. Soft tissues: There is similar fluid surrounding the anastomoses at the bilateral inguinal regions without appreciable alteration. There is also a femoral-femoral bypass graft, stable in appearance. Vasculature: There is a aortobiiliac bypass graft noted in a piggyback in fashion into the [place] arterial structures. Detailed evaluation for patency is limited without contrast. Lymph nodes: Unremarkable. No enlarged lymph nodes. IMPRESSION: 1. The previously reported thick-walled retroperitoneal fluid collection surrounding the infrarenal abdominal aortic bypass in the right iliac limb is again noted with a similar morphologic appearance. The smaller more cephalad component measures 4.7 x 8.1 cm from 4 x 8.6 cm previously. The larger, more caudal component, which extends posteriorly in the midline pelvis, now measures 11.3 x 9.3 cm from 10.8 x 8.6 cm previously. There remains a cystic capsule with surrounding fat stranding. 2. There is a aortobiiliac bypass graft noted in a piggyback in fashion into the [place] arterial structures. Detailed evaluation for patency is limited without contrast. 3. No evidence for focal high-grade small bowel obstruction. Evaluation of bowel mucosa is limited without contrast. The previously noted mucosal prominence of the small bowel loops appears to have improved. Moderate stool burden. No appreciable diverticulitis. No pneumoperitoneum. 4. The appendix is non-clearly delineated. Previously the appendix is suggested along the medial aspect of the cecum, and there is a suggestion of segments of the appendix on coronal reformatted imaging. No significant findings to suggest acute appendicitis. Electronically signed by: Raji Hernandez MD 11/11/23 23:54 PM Code Status & VTE Plan Code Status Full code VTE Prophylaxis Plan VTE Prophylaxis will be ordered: Yes PG Care Time/CCT Total # of Minutes Spent Total Time Spent with Patient: Total time spent is greater than 50% in coordination of care (as documented) at patient's floor/unit and/or counseling patient: Coding Level of Care Code 78017 INT INP/OBS CARE 3/75MIN Diagnoses Non-ST elevation RI (NSTEMI) I21.4 Sinus tachycardia R00.0 Atrial fibrillation I48.91 C. difficile enteritis A04.72 Status post aortobifemoral bypass surgery Z95.828 Retroperitoneal fluid collection R18.8 Hyperkalemia E87.5 Malnutrition E46 COPD (chronic obstructive pulmonary disease) J44.9 Type 2 diabetes mellitus E11.9 GERD (gastroesophageal reflux disease) K21.9 Anxiety and depression F41.9; F32.9 Hypertension I10
[2023-11-12] MEDS: METOPROLOL SUCC 50MG EXT REL TAB PO STA (03:16)
[2023-11-12] MEDS: SODIUM ZIRCONIUM CYCLOSILICATE 10 GM PACKET PO STA (03:16)
[2023-11-12] MEDS: VANCOMYCIN HCL 500 MG/10 ML SOLN PO STA (03:17)
[2023-11-12] MEDS: CHERRY SYRUP 5 ML UDP PO STA (03:17)
[2023-11-12] MEDS: HEPARIN SODIUM/DEXTROSE 25,000 UNITS/500 ML BAG IV SCH (03:18)
[2023-11-12] MEDS: Heparin IV Adult Wt-Based Low-Dose *NO* INITIAL Bolus Protocol IV STA (03:20)
[2023-11-12] MEDS: SODIUM CHLORIDE 0.9% 1,000 ML IV SCH ×2 (03:41→15:59)
[2023-11-12 03:59] LABS: Adenovirus PCR Not Detected (NotDetected); Bordetella parapertussis PCR Not Detected (NotDetected); Bordetella pertussis PCR Not Detected (NotDetected); Chlamydia pneumoniae PCR Not Detected (NotDetected); Coronavirus 229E PCR Not Detected (NotDetected); Coronavirus CoV-2 (COVID19)PCR Not Detected (NotDetected); Coronavirus HKU1 PCR Not Detected (NotDetected); Coronavirus NL63 PCR Not Detected (NotDetected); Coronavirus OC43PCR Not Detected (NotDetected); Human Metapneumovirus PCR Not Detected (NotDetected); Influenza A PCR Not Detected (NotDetected); Influenza B PCR Not Detected (NotDetected); Mycoplasma pneumoniae PCR Not Detected (NotDetected); Parainfluenza Virus 1 PCR Not Detected (NotDetected); Parainfluenza Virus 2 PCR Not Detected (NotDetected); Parainfluenza Virus 3 PCR Not Detected (NotDetected); Parainfluenza Virus 4 PCR Not Detected (NotDetected); Respiratory Syncytial VirusPCR Not Detected (NotDetected); Rhinovirus/Enterovirus PCR Not Detected (NotDetected)
[2023-11-12] MEDS: METOPROLOL TARTRATE 1 MG/ML VIAL IV STA (04:35)
[2023-11-12] MEDS ORDERED: ALBUTEROL HFA 8 GM INHALER INH PRN (05:24)
[2023-11-12] MEDS ORDERED: ACETAMINOPHEN 325 MG TAB PO PRN (05:24)
[2023-11-12] MEDS ORDERED: GLUCOSE 10 TAB/TUBE PO PRN (05:24)
[2023-11-12] MEDS ORDERED: GLUCOSE 40% GEL 15 GM TUBE PO PRN (05:24)
[2023-11-12] MEDS ORDERED: DEXTROSE 50% 50 ML SYRINGE IV PRN (05:24)
[2023-11-12] MEDS ORDERED: GLUCAGON FOR INJ 1 MG VIAL SQ PRN (05:24)
[2023-11-12] MEDS ORDERED: CARBOHYDRATES FOR HYPOGLYCEMIA PO PRN (05:24)
--- NOTE | 2023-11-12 07:44 | Hospitalist Progress Note ---
Date of Service November 12, 2023 Assessment & Plan (1) Non-ST elevation [place] (NSTEMI): Plan: Palpitations/sinus tachycardia/chest pain/history of atrial fibrillation/CAD elevated [id number], patient in sinus rhythm did have minor ST elevation in the V lead which correlated with echocardiographic changes, was taken to the cardiac catheterization lab which showed nonocclusive coronary disease but concerns for Takotsubo's cardiomyopathy. Patient reports that she had run out of her 2 heart medications, both metoprolol succinate and amiodarone, about 2 weeks ago, after completing what she thought was a one-time 30-day course, metoprolol restarted, cardiology recommends increasing metoprolol succinate dose and feels postoperative atrial fibrillation was the culprit and completed course of amiodarone and would not recommend restarting it. Patient has been on Xarelto, begin Xarelto on 11/13/[address] Mancia did perform heart catheterization and feels nonocclusive coronary disease is present (2) C. difficile enteritis: Plan: C. difficile enteritis- Was on vancomycin 125 mg p.o. 4 times daily x 10 days, after being diagnosed during admission from 11/02-11/05/[address] on same dosing, until gets through the stressful interval (3) Retroperitoneal fluid collection: Plan: Retroperitoneal fluid collection- [place] by vascular surgery from [place] to be a postoperative seroma that developed during and/or after aortobifemoral bypass surgery on 08/29/2023 CT scan today, compared to 11/02 does not show any significant change (4) COPD (chronic obstructive pulmonary disease): Plan: fluticsone, umeclidium and vilanterol (5) Type 2 diabetes mellitus: Plan: Diabetes mellitus- Hold metformin Place on Accu-Cheks with NovoLog SSI (6) Anxiety and depression: Plan: escitalopram and nortriptyline Plan Hyperkalemia/dehydration- Potassium 5.5 on admission Status post 1 L normal saline from the ED Place on NSS at 100 mL/h x 500 mL Give Lokelma 10 mg p.o. x 1 potassium improved on follow-up labs Admission and Anticipated Discharge Date Admission Date: November 12, 2023 Subjective Patient resolution of her symptoms she hours did have some minor EKG changes noticed on this morning's EKG cardiac catheterization lab and found to have nonocclusive coronary disease with concern for Takotsubo's cardiomyopathy Physical Exam Physical Exam: Upon my evaluation the patient's heart rate was regular and sounded to be rate controlled Her lungs were clear except for diminished at the bases Her abdomen was NABS soft and no bruits Results & Data Results & Data Vital Signs (Past 12 Hours) Vital Signs Temp Pulse Pulse Resp BP BP Pulse Ox 11/12/23 05:33 87 170/79 H 11/12/23 05:33 11/12/23 05:33 97.3 F L 87 16 170/79 H 95 11/12/23 05:24 11/12/23 05:24 11/12/23 04:35 97 H 189/99 H 11/12/23 03:30 104 H 21 183/97 H 94 11/12/23 02:30 102 H 18 192/100 H 93 11/12/23 02:26 102 H 11/12/23 02:00 101 H 17 169/96 H 93 11/12/23 01:45 172/94 H 11/12/23 01:30 103 H 16 204/104 H 93 11/12/23 01:30 204/104 H 11/12/23 00:12 102 H 25 H 198/100 H 97 11/11/23 23:09 106 H 21 94 11/11/23 22:33 109 H 19 94 11/11/23 22:31 109 H 11/11/23 22:13 112 H 21 124/84 94 11/11/23 21:32 98.1 F 117 H 24 136/99 95 O2 Del Method O2 Del Method 11/12/23 05:33 11/12/23 05:33 Room Air 11/12/23 05:33 Room Air 11/12/23 05:24 Room Air 11/12/23 05:24 Room Air 11/12/23 04:35 11/12/23 03:30 11/12/23 02:30 11/12/23 02:26 11/12/23 02:00 11/12/23 01:45 11/12/23 01:30 11/12/23 01:30 11/12/23 00:12 11/11/23 23:09 11/11/23 22:33 11/11/23 22:31 11/11/23 22:13 11/11/23 21:32 Room Air Laboratory Results Reviewed CBC reviewed chemistry reviewed troponin personally discussed case with Dr. Mancia PG Care Time/CCT Total # of Minutes Spent Total Time Spent with Patient: Total time spent is greater than 50% in coordination of care (as documented) at patient's floor/unit and/or counseling patient: Coding Level of Care Code None Diagnoses Non-ST elevation [place] (NSTEMI) I21.4 C. difficile enteritis A04.72 Retroperitoneal fluid collection R18.8 COPD (chronic obstructive pulmonary disease) J44.9 Type 2 diabetes mellitus E11.9 Anxiety and depression F41.9; F32.9
--- NOTE | 2023-11-12 08:33 | XRay Report ---
XR chest 1V portable HISTORY: Chest pain, nonspecific COMPARISON: Chest 11/03/2023. FINDINGS: The lungs are clear. Cardiac silhouette is normal in size. No pleural effusions. No pneumot horax. IMPRESSION: No acute process. ACT 112: Negative or not required by law. Electronically signed by: Shlomo Cottrell M.D. 11/12/2023 8:32 AM
[2023-11-12] MEDS: GABAPENTIN 100 MG CAP PO SCH (09:25)
[2023-11-12] MEDS: ASPIRIN 81 MG ECTAB PO SCH (09:25)
[2023-11-12] MEDS: METOPROLOL SUCC 25MG EXT REL TAB PO SCH ×2 (09:25→18:24)
[2023-11-12] MEDS: ATORVASTATIN 40 MG TAB PO SCH (09:25)
[2023-11-12] MEDS: ESCITALOPRAM OXALATE 10 MG TAB PO SCH (09:25)
[2023-11-12] MEDS: FAMOTIDINE 20 MG TAB PO SCH (09:25)
[2023-11-12] MEDS: INSULIN ASPART PER UNIT CHARGE SC SCH (09:32)
[2023-11-12] MEDS: VANCOMYCIN HCL 125 MG/2.5ML SOLN PO SCH (09:43)
[2023-11-12] MEDS: CHERRY SYRUP 5 ML UDP PO SCH (09:44)
[2023-11-12] MEDS: UMECLIDINIUM/VILANTEROL 62.5/25MCG 7 PUFFS/INHALER INH SCH (09:45)
[2023-11-12] MEDS: FLUTICASONE PROPIONATE NA SPR 16 GM BTL NAE SCH (09:45)
[2023-11-12] MEDS: FLUTICASONE FUROATE 100MCG 14 PUFFS/INHALER INH SCH (09:46)
[2023-11-12 09:55] LABS: BUN Creatinine Ratio 21.9 (10-20); Creatinine Clr Calc Pharmacy 84.3 ml/min; Est GFR (African American) 108.5 ml/min; Est GFR (Non-African American) 93.6 ml/min; Potassium 4.4 mmol/L (3.5-5.1)
[2023-11-12 10:01] LABS: ANTI-Xa, UFH(UnfractionatedHep 0.21 IU/ml (0.3-0.7)
[2023-11-12] MEDS: METOPROLOL TARTRATE 1 MG/ML VIAL IV PRN (10:56)
--- NOTE | 2023-11-12 12:13 | XCELERA ---
[id number] \\[email or web address]\[id number]
[2023-11-12] MEDS: hydrALAZINE HCL 20 MG/ML VIAL IV PRN (12:37)
--- NOTE | 2023-11-12 13:12 | Electrocardiogram Report ---
Test Reason : Blood Pressure : */* mmHG Vent. Rate : 82 BPM Atrial Rate : 82 BPM P-R Int : 144 ms QRS Dur : 86 ms QT Int : 412 ms P-R-T Axes : 67 -26 73 degrees QTcB Int : 481 ms Normal sinus rhythm Minimal voltage criteria for LVH, may be normal variant Anterior injury pattern * ACUTE [place] Abnormal ECG When compared with ECG of 11-Nov-2023 23:47, (unconfirmed) Questionable change in initial forces of Anterior leads Confirmed by Barber Mccoy ([id number]) on 11/12/2023 1:12:17 PM Referred By: REFERRED SELF Confirmed By: Barber Mccoy
--- NOTE | 2023-11-12 13:13 | Electrocardiogram Report ---
Test Reason : Blood Pressure : */* mmHG Vent. Rate : 115 BPM Atrial Rate : 115 BPM P-R Int : 140 ms QRS Dur : 74 ms QT Int : 324 ms P-R-T Axes : -15 -11 -10 degrees QTcB Int : 448 ms Sinus tachycardia Possible Inferior infarct , age undetermined Anteroseptal infarct (cited on or before 28-Mar-2021) Prominent anterior T wave amplitude Abnormal ECG When compared with ECG of 03-Nov-2023 15:06, QRS axis Shifted right Borderline criteria for Inferior infarct are now Present Questionable change in initial forces of Septal leads Nonspecific T wave abnormality now evident in Inferior leads Confirmed by Barber Mccoy ([id number]) on 11/12/2023 1:13:34 PM Referred By: REFERRED SELF Confirmed By: Barber Mccoy
--- NOTE | 2023-11-12 13:15 | Electrocardiogram Report ---
Test Reason : Blood Pressure : */* mmHG Vent. Rate : 103 BPM Atrial Rate : 103 BPM P-R Int : 148 ms QRS Dur : 74 ms QT Int : 366 ms P-R-T Axes : 76 -12 79 degrees QTcB Int : 479 ms Sinus tachycardia Possible Left atrial enlargement Anteroseptal infarct (cited on or before 28-Mar-2021) Anterior ST abnormality Abnormal ECG When compared with ECG of 11-Nov-2023 21:40, (unconfirmed) Borderline criteria for Inferior infarct are no longer Present Questionable change in initial forces of Septal leads Nonspecific T wave abnormality no longer evident in Inferior leads T wave inversion now evident in Lateral leads Confirmed by Barber Mccoy ([id number]) on 11/12/2023 1:15:05 PM Referred By: REFERRED SELF Confirmed By: Barber Mccoy
--- NOTE | 2023-11-12 13:27 | Cardiology Consultation ---
Date of Consultation November 12, 2023 Assessment & Plan (1) Non-ST elevation DC (NSTEMI): 2. Peripheral arterial disease post recent aortobifemoral bypass 3. Type II DM 4. Right subclavian artery stenosis 5. Hypertension 6. Postop A-fib with RVR 7. COPD 8. Recent C. difficile infection 9. Hyperkalemiaresolved 10. Contrast dye allergy Patient with extensive vascular history here with worsening chest pain along with elevated troponin, ECG from 0524 today showing new anterior ST elevation and echo with new LAD distribution wall motion abnormality. She is currently chest pain-free but recommend proceeding with cardiac catheterization. Discussed procedure with patient and her son and willing to proceed. Will plan on cath via left radial artery and will pretreat with Solu- Medrol/Benadryl/famotidine for contrast dye allergy. Further recommendations pending findings. History of Present Illness Attending Physician: Sid Glynn MD History of Present Illness Ms. Calloway is a very pleasant 63-year-old woman with extensive peripheral arterial disease seen today in the setting of NSTEMI. In 09/2023 patient underwent extensive aortoiliac reconstruction with aortobifem bypass and JOELLEN reimplantation. Was hospitalized for total of 17 days. Course complicated by A-fib with RVR and discharged on amiodarone, Xarelto. Also with difficult to control blood pressures, GENESIS, altered mental status and large groin hematoma requiring evacuation and resulting postop anemia. She has a persistent presacral fluid collection thought to represent a seroma. More recently she was hospitalized at [facility] 11/03/2023 to 11/05/2023 with C. difficile colitis Treated with 10-day course of vancomycin. Other medical issues include type 2 diabetes, Crohn's disease, COPD, thoracic radiculopathy. Long-term smoker, >29-groj-bjse history. She also carries a history of carotid artery disease, right subclavian artery disease and has an IV contrast dye allergy. Patient states that yesterday morning developed stuttering left-sided chest pain with associated nausea. Patient took a nap in the afternoon when he woke had ongoing chest pain, nausea and generally felt "awful." States she has had intermittent chest pain for months to years. Did have an episode of chest pain during hospitalization at [place] thought secondary to feeding tube placement. No history of prior cath. Had dobutamine stress echo 08/2023 negative for ischemia at 81% MPHR. Echo 06/2023 EF 60%, no wall motion abnormalities. Social history: . She still works at [employer] Allergies Allergy/AdvReac Type Severity Reaction Status Date / Time Iodinated Contrast Media Allergy Intermediate Hives Verified 05/13/23 09:38 Home Medications Medication Instructions Recorded Confirmed Type aspirin 81 mg tablet,delayed 81 mg PO QAM 08/21/20 11/03/23 History release multivitamin 1 tab PO QAM 08/21/20 11/03/23 History albuterol sulfate 90 mcg/actuation 2 inh inhalation Q6H PRN shortness 08/23/20 11/03/23 Rx aerosol inhaler of breath or wheezing #6.7 grams fluticasone propionate 50 1 spray intranasal BID #18.2 mL 03/22/21 11/03/23 Rx mcg/actuation nasal spray,suspension (Flonase Allergy Relief) famotidine 20 mg tablet 20 mg PO BID #60 tabs 03/30/21 11/03/23 Rx chlorpheniramine maleate 4 mg 4 mg PO Q12H #90 tabs 12/27/21 11/03/23 Rx tablet (Allergy Relief (chlorpheniramine)) nortriptyline 25 mg capsule 25 mg PO .qhs #30 caps 08/07/22 11/03/23 Rx lisinopril 10 1 tab PO DAILY #100 tabs 07/03/23 11/03/23 Rx mg-hydrochlorothiazide 12.5 mg tablet metformin 500 mg tablet,extended 500 mg PO BID #200 tabs 07/03/23 11/03/23 Rx release 24 hr omeprazole 20 mg capsule,delayed 20 mg PO DAILY #100 caps 07/03/23 11/03/23 Rx release glimepiride 1 mg tablet 1 mg PO QAM #100 tabs 07/07/23 11/03/23 Rx escitalopram oxalate 10 mg tablet 10 mg PO DAILY #100 tabs 07/18/23 11/03/23 Rx atorvastatin 40 mg tablet 40 mg PO DAILY #100 tabs 07/29/23 11/03/23 Rx metoprolol succinate 25 mg 25 mg PO DAILY #100 tabs 07/29/23 11/03/23 Rx tablet,extended release 24 hr azithromycin 250 mg tablet 250 mg PO MOWEFR 30 days #18 tabs 08/04/23 11/03/23 Rx fluticasone fur. 100 mcg-umeclid 1 inh inhalation DAILY #180 ea 08/04/23 11/03/23 Rx 62.5 mcg-vilant 25 mcg inhalat.powder (Trelegy Ellipta) amiodarone 200 mg tablet 200 mg PO DAILY 11/03/23 11/03/23 History gabapentin 100 mg capsule 100 mg PO TID 11/03/23 11/03/23 History rivaroxaban 20 mg tablet (Xarelto) 40 mg PO DAILY 11/03/23 11/03/23 History potassium chloride 20 mEq 20 meq PO DAILY #30 tabs 11/05/23 Rx tablet,extended release(part/cryst) vancomycin 125 mg capsule 125 mg PO QID #32 caps 11/05/23 Rx Patient History Medical History Left lower quadrant abdominal pain Fall Surgical History (Updated 11/03/23 @ 19:28 by Carlos Jacobs PA-C) History of section History of bilateral tubal ligation History of esophagogastroduodenoscopy (EGD) History of colonoscopy History of tooth extraction History of tonsillectomy Family History Aunt Breast cancer Mother Diabetes Hypertension Other Cancer Heart disease Lung disease No family history of adverse response to anesthesia Denies family history of Ovarian cancer Prostate cancer Myocardial infarction Colorectal cancer Asthma Social History Smoking Status: Former smoker Tobacco Type: Cigarettes Age Quit Using Tobacco: 11; packs per day: 1; Cigarettes Per Day: 1 PPD; Smoking End Date: October 2023; Second Hand Exposure: No; Do You Dip or Chew Tobacco: No; Tobacco Cessation Education Requested by Patient: No Hx Alcohol Use: No Hx Substance Use: No Preferred Language: Belarusian Communication Ability: Effective Visual Impairment: No Limitations Hearing Ability: Normal Bow Maker Production Required: No Beliefs That Will Affect Care: None marital status: / Current Living Situation: Family Current Living Situation Comment: son and daughter in law Feels Safe at Home: Yes Diet: regular caffeine: Yes (Rare ) Dental Care, Regularly: Yes Physical Activity Frequency: Does not Exercise Seatbelt Use: always Assistive Devices: Brace/Splint/Immobilizer, Glasses, Walker and Wheelchair Assistive Devices Comment: brace to right leg/foot Review of Systems Review of Systems: All systems reviewed & are unremarkable except as noted in HPI & below Physical Exam Physical Exam: General: Comfortable, thin, frail HEENT: Sclerae anicteric Lungs: Clear to auscultation bilaterally, prolonged expiratory phase Cardiac: Regular rate and rhythm, no murmurs. No JVD Vascular: 2+ radial, 2+ WARDROBE ATTENDANT, 2+ DP pulses bilaterally. Well-healed surgical incisions at both groins. Carotid bruit on the right Abdomen: Soft, nontender Extremities: Well perfused, no peripheral edema Neuro: Nonfocal Psych: Alert orient x3, normal affect and mood Results & Data Vital Signs (Past 12 Hours) Vital Signs Temp Pulse Pulse Resp BP BP Pulse Ox 11/12/23 12:36 196/94 H 11/12/23 11:52 11/12/23 11:42 97.5 F L 75 17 179/89 H 95 11/12/23 11:29 189/91 H 11/12/23 11:29 189/91 H 11/12/23 10:56 187/85 H 11/12/23 10:53 187/85 H 11/12/23 08:19 97.9 F 75 17 190/89 H 94 11/12/23 07:40 83 11/12/23 05:33 87 170/79 H 11/12/23 05:33 11/12/23 05:33 97.3 F L 87 16 170/79 H 95 11/12/23 05:24 11/12/23 05:24 11/12/23 04:35 97 H 189/99 H 11/12/23 03:30 104 H 21 183/97 H 94 11/12/23 02:30 102 H 18 192/100 H 93 11/12/23 02:26 102 H 11/12/23 02:00 101 H 17 169/96 H 93 11/12/23 01:45 172/94 H 11/12/23 01:30 103 H 16 204/104 H 93 11/12/23 01:30 204/104 H O2 Del Method O2 Del Method 11/12/23 12:36 11/12/23 11:52 Room Air 11/12/23 11:42 Room Air 11/12/23 11:29 11/12/23 11:29 11/12/23 10:56 11/12/23 10:53 11/12/23 08:19 Room Air 11/12/23 07:40 11/12/23 05:33 11/12/23 05:33 Room Air 11/12/23 05:33 Room Air 11/12/23 05:24 Room Air 11/12/23 05:24 Room Air 11/12/23 04:35 11/12/23 03:30 11/12/23 02:30 11/12/23 02:26 11/12/23 02:00 11/12/23 01:45 11/12/23 01:30 11/12/23 01:30 PG Care Time/CCT Total # of Minutes Spent Total Time Spent with Patient: Total time spent is greater than 50% in coordination of care (as documented) at patient's floor/unit and/or counseling patient: Coding Level of Care Code 98262 INT INP/OBS CARE 3/75MIN Diagnoses Non-ST elevation DC (NSTEMI) I21.4
--- NOTE | 2023-11-12 13:27 | Pre Anesthesia Assessment ---
Date of Service November 12, 2023 Pre Sedation Assessment Vital Signs Temp Pulse Pulse Pulse Resp BP BP 11/12/23 13:15 81 18 11/12/23 12:36 196/94 H 11/12/23 11:52 11/12/23 11:42 97.5 F L 75 17 179/89 H 11/12/23 11:29 189/91 H 11/12/23 11:29 189/91 H 11/12/23 10:56 187/85 H 11/12/23 10:53 187/85 H 11/12/23 08:19 97.9 F 75 17 190/89 H 11/12/23 07:40 83 11/12/23 05:33 87 170/79 H 11/12/23 05:33 11/12/23 05:33 97.3 F L 87 16 170/79 H 11/12/23 05:24 11/12/23 05:24 11/12/23 04:35 97 H 189/99 H 11/12/23 03:30 104 H 21 183/97 H 11/12/23 02:30 102 H 18 192/100 H 11/12/23 02:26 102 H 11/12/23 02:00 101 H 17 169/96 H 11/12/23 01:45 172/94 H 11/12/23 01:30 103 H 16 204/104 H 11/12/23 01:30 204/104 H 11/12/23 00:12 102 H 25 H 198/100 H 11/11/23 23:09 106 H 21 11/11/23 22:33 109 H 19 11/11/23 22:31 109 H 11/11/23 22:13 112 H 21 124/84 11/11/23 21:32 98.1 F 117 H 24 136/99 BP Pulse Ox O2 Del Method O2 Del Method 11/12/23 13:15 159/74 H 95 Room Air 11/12/23 12:36 11/12/23 11:52 Room Air 11/12/23 11:42 95 Room Air 11/12/23 11:29 11/12/23 11:29 11/12/23 10:56 11/12/23 10:53 11/12/23 08:19 94 Room Air 11/12/23 07:40 11/12/23 05:33 11/12/23 05:33 Room Air 11/12/23 05:33 95 Room Air 11/12/23 05:24 Room Air 11/12/23 05:24 Room Air 11/12/23 04:35 11/12/23 03:30 94 11/12/23 02:30 93 11/12/23 02:26 11/12/23 02:00 93 11/12/23 01:45 11/12/23 01:30 93 11/12/23 01:30 11/12/23 00:12 97 11/11/23 23:09 94 11/11/23 22:33 94 11/11/23 22:31 11/11/23 22:13 94 11/11/23 21:32 95 Room Air Cardiovascular + regular rate Respiratory + respiratory effort normal Pre-Sedation Airway Assessment Smoking Status: Former smoker Hx Sleep Apnea: No Hx Difficult Intubation: No Short, Thick Neck: No Thyromental Distance: > or= 3.5 Finger Breadths Oral Cavity: + WNL Mallampati Class: II ASA: ASA3 NPO Status Date of Last Intake of Fluids: 11/12/23 Time of Last Intake of Fluids: 12:00 Last Oral Intake of Fluids Comment: sips with med Date of Last Intake of Solid Food: 11/11/23 Procedure Planning Contraindications for Sedation: none Current Medications Reviewed: Yes Notes The planned sedation has been discussed with the patient. Informed Consent was obtained. I have identified the patient, determined the appropriateness of sedation and have assessed the patient immediately prior to the procedure. All medicine(s) and interventions are by my order.
[2023-11-12] MEDS: diphenhydrAMINE 50 MG/ML VIAL ONE (13:53)
[2023-11-12] MEDS: methylPREDNISolone 125 MG/2 ML VIAL ONE (13:53)
[2023-11-12] MEDS: FAMOTIDINE 20MG/5ML IV PUSH IV ONE (13:53)
[2023-11-12] MEDS: MIDAZOLAM HCL 1 MG/ML 2ML VIAL ONE (14:13)
[2023-11-12] MEDS: fentaNYL citrate PF 100 MCG/2 ML VIAL ONE (14:13)
[2023-11-12] MEDS: NITROGLYCERIN/D5W 100MCG/ML 20ML SYR ONE (14:14)
[2023-11-12] MEDS: niCARdipine HCL INJ 2.5 MG/ML 10 ML AMP ONE (14:14)
[2023-11-12] MEDS: LIDOCAINE 1% LOCAL 20 ML VIAL ONE ×2 (14:14→15:35)
[2023-11-12] MEDS: OPTIRAY 350 ONE (14:14)
[2023-11-12] MEDS: HEPARIN (PORCINE) 1000 UNIT/ML 10 ML (CATH LAB USE ONLY) ONE (14:15)
--- NOTE | 2023-11-12 14:19 | Post Anesthesia Assessment ---
Date of Service November 12, 2023 Post Sedation Assessment Vital Signs Temp Pulse Pulse Pulse Resp BP BP 11/12/23 13:15 81 18 11/12/23 12:36 196/94 H 11/12/23 11:52 11/12/23 11:42 97.5 F L 75 17 179/89 H 11/12/23 11:29 189/91 H 11/12/23 11:29 189/91 H 11/12/23 10:56 187/85 H 11/12/23 10:53 187/85 H 11/12/23 08:19 97.9 F 75 17 190/89 H 11/12/23 07:40 83 11/12/23 05:33 87 170/79 H 11/12/23 05:33 11/12/23 05:33 97.3 F L 87 16 170/79 H 11/12/23 05:24 11/12/23 05:24 11/12/23 04:35 97 H 189/99 H 11/12/23 03:30 104 H 21 183/97 H 11/12/23 02:30 102 H 18 192/100 H 11/12/23 02:26 102 H 11/12/23 02:00 101 H 17 169/96 H 11/12/23 01:45 172/94 H 11/12/23 01:30 103 H 16 204/104 H 11/12/23 01:30 204/104 H 11/12/23 00:12 102 H 25 H 198/100 H 11/11/23 23:09 106 H 21 11/11/23 22:33 109 H 19 11/11/23 22:31 109 H 11/11/23 22:13 112 H 21 124/84 11/11/23 21:32 98.1 F 117 H 24 136/99 BP Pulse Ox O2 Del Method O2 Del Method 11/12/23 13:15 159/74 H 95 Room Air 11/12/23 12:36 11/12/23 11:52 Room Air 11/12/23 11:42 95 Room Air 11/12/23 11:29 11/12/23 11:29 11/12/23 10:56 11/12/23 10:53 11/12/23 08:19 94 Room Air 11/12/23 07:40 11/12/23 05:33 11/12/23 05:33 Room Air 11/12/23 05:33 95 Room Air 11/12/23 05:24 Room Air 11/12/23 05:24 Room Air 11/12/23 04:35 11/12/23 03:30 94 11/12/23 02:30 93 11/12/23 02:26 11/12/23 02:00 93 11/12/23 01:45 11/12/23 01:30 93 11/12/23 01:30 11/12/23 00:12 97 11/11/23 23:09 94 11/11/23 22:33 94 11/11/23 22:31 11/11/23 22:13 94 11/11/23 21:32 95 Room Air Recovery Score Activity: Moves 4 extremities Respiration: Deep Breath/Cough Circulation: +/-20% PreAnes Value Consciousness: Fully Awake Oxygen Saturation: O2 needed for >90% Discharge Sedation Level of Care: Fast Track Phase II Post Sedation Plan On clinical assessment, the patient appears to have tolerated the sedation without complications. Patient is recovering as anticipated. Patient will continue to be monitored by nursing and may be discharged when sedation discharge criteria are met per below protocol. Upon Completions of procedure up to 15 minutes continue every 5 minute vital signs and the P.A.R. score; then discharge to a Phase I or Fast Track to Phase II per the following guidelines: * Discharge Patient to appropriate Phase II area if PAR is 8 or greater or return to pre- procedure baseline. The post - procedure orders will be as directed. * If PAR score is less than 8 or not return to pre-procedure baseline then patient will follow Phase I monitoring till PAR is reached for Phase II. The Phase I may be done in procedure room or may call to secure a Phase I area. * If naloxone or flumazenil are used for reversal, hold in Phase I for continued monitoring from when last reversal dose was given for a minimum of 60 minutes or longer pending the nurse and/or physician discretion of patient condition before discharge to Phase II. Please call the Sedation Physician to re-evaluate and complete post-note for discharge to Phase II area. Do NOT discharge from procedure sedation or Phase 1 until post- sedation evaluation note is complete by procedure /sedation MD Sedation Discharge Instructions to be given to the patient at discharge to home.
--- NOTE | 2023-11-12 14:38 | Cardiac Catheterization ---
[facility] Data: Public Information Coordinator Cardiac Status Clinical evaluation leading to the procedure CAD Presenation: Non STEMI Anginal Classification: CCS IV Diagnostic Physicians Name: Umer Mancia MD Closure Device Recommendations: Medical Therapy and/or Counseling Cardiac Cath Procedure Full Procedure Date November 12, 2023 Pre-Procedure Diagnosis Pre-Procedure Diagnosis: Non STEMI AUC Score AUC Score: 8 Post-Procedure Diagnosis Post-Procedure Diagnosis: Mild CAD and Normal Intracardiac Pressures Procedure(s) Performed Procedure(s) Performed: Coronary Angiography and Left Heart Cath General Production Manager Umer Mancia MD Fruit Harvester Machine Operator(s) Manuel Estimated Blood Loss Estimated Blood Loss: 10 Medication(s) Medication(s): Fentanyl, Heparin, Nicardipine, Nitroglycerin and Versed Summary of Findings Indication: NSTEMI Access: 6 Fr slender left radial artery Catheters: [place] Findings: LM -normal caliber, short, calcified, luminal irregularities LAD -medium caliber, calcified, luminal irregularities. Distal vessel wraps around apex. Gives off 2 small diagonals without significant disease. Circumflex -medium caliber, luminal irregularities. Medium caliber high OM1 with 30% ostial stenosis. Left PLB with 20-30% proximal disease RCA -medium caliber, dominant, 30-40% proximal stenosis, 20-30% mid segment disease. Distal vessel and RPDA, RPLBs without significant disease. LVEDP -9 Arterial Closure: TR band Summary: 1. Mild nonobstructive coronary artery disease -30-40% proximal, 25% mid RCA 30% ostial OM1, 25% proximal left PLB 2. Normal intracardiac filling pressure Recommendations: No acute or high risk CAD to explain patient's presenting symptoms. Echo findings most consistent with Takotsubo cardiomyopathy Recommend GDMT for cardiomyopathy and continued ASCVD risk factor modification Can resume Xarelto tomorrow AM. Hemodynamics Rest Ao:: 143/62/102 Final Ao: 150/60/94 LV: 149/9 Recommendations Recommendations: Medical Therapy and/or Counseling Radiation Exposure (mGy) 305 Contrast (mls) 65 Anesthesia Moderate 6428-2204 Procedural Complication(s) None Disposition PCU I attest to the content of the Intraoperative Record and any orders documented therein. Any exceptions are noted below. [facility] Card Cath Procedure Codes Cardiac Catheterization Procedure 1: Cardiovascular Cath Procedures: 44254 Coronaries and LHC (+/-LV) Moderate Sedation Procedure 1: Sedation/Anesthesia: 35930 Mod Sedation by the same physician;Init15 Min Child Age 5 & Up PG Care Time/CCT Total # of Minutes Spent Total Time Spent with Patient: Total time spent is greater than 50% in coordination of care (as documented) at patient's floor/unit and/or counseling patient:
[2023-11-12] MEDS: NORTRIPTYLINE HCL 25 MG CAP PO SCH (20:37)
[2023-11-13 03:34] VITALS: O2SAT 95
[2023-11-13 07:02] LABS: Basophils # (auto) 0.02 K/uL (0.00-0.20); Basophils % (auto) 0.2 %; Hematocrit (blood only) 33.8 % (37.0-47.0); Hemoglobin 11.4 g/dl (12.0-16.0); Immature Granulocytes # (auto) 0.29 K/uL (0.01-0.20); Immature Granulocytes % (auto) 2.5 %; Lymphocytes # (auto) 1.27 K/uL (1.20-3.40); Lymphocytes % (auto) 11.1 %; Mean Corpuscular Hemoglobin 30.6 pg (25.0-34.0); Mean Corpuscular Hgb Conc 33.7 g/dL (32.0-36.0); Mean Corpuscular Volume 90.6 fL (80.0-100.0); Mean Platelet Volume 8.9 fL (9.4-12.4); Monocytes # (auto) 0.39 K/uL (0.11-0.59); Monocytes % (auto) 3.4 %; Neutrophils # (auto) 9.52 K/uL (1.40-6.50); Neutrophils % (auto) 82.8 %; Platelet Count 382 K/uL (130-400); RDW Standard Deviation 49.7 fL (36.4-46.3); Red Blood Count 3.73 M/uL (4.20-5.40); White Blood Count 11.49 K/ul (4.8-10.8)
[2023-11-13 07:56] LABS: Calcium 8.1 mg/dl (8.6-10.3); Creatinine Clr Calc Pharmacy 67.8 ml/min; Est GFR (African American) 100.2 ml/min; Est GFR (Non-African American) 86.4 ml/min; Potassium 4.4 mmol/L (3.5-5.1)
[2023-11-13 07:58] LABS: Albumin Level 3.1 gm/dl (3.4-5.0); Magnesium 0.6 mg/dl (1.7-2.4); Phosphorus 4.9 mg/dl (2.5-4.9)
[2023-11-13] MEDS: MAGNESIUM SULFATE / D5W 1 GM/100 ML BAG IV SCH (08:09)
[2023-11-13 11:42] VITALS: RESP 18; TEMP 97.9
--- NOTE | 2023-11-13 14:26 | Electrocardiogram Report ---
Test Reason : Blood Pressure : */* mmHG Vent. Rate : 86 BPM Atrial Rate : 86 BPM P-R Int : 144 ms QRS Dur : 90 ms QT Int : 438 ms P-R-T Axes : 77 -70 88 degrees QTcB Int : 524 ms Normal sinus rhythm Left anterior fascicular block Anteroseptal infarct (cited on or before 28-Mar-2021) Anterior injury pattern T wave abnormality, consider lateral ischemia Prolonged QT Abnormal ECG When compared with ECG of 12-Nov-2023 05:24, Left anterior fascicular block is now Present Questionable change in initial forces of Anterior leads T wave inversion more evident in Anterolateral leads Confirmed by Barber Mccoy ([id number]) on 11/13/2023 2:26:19 PM Referred By: REFERRED SELF Confirmed By: Barber Mccoy
--- NOTE | 2023-11-13 14:41 | Electrocardiogram Report ---
Test Reason : Blood Pressure : */* mmHG Vent. Rate : 85 BPM Atrial Rate : 85 BPM P-R Int : 152 ms QRS Dur : 94 ms QT Int : 450 ms P-R-T Axes : 82 -55 95 degrees QTcB Int : 535 ms Normal sinus rhythm Left axis deviation Minimal voltage criteria for LVH, may be normal variant Septal infarct (cited on or before 28-Mar-2021) Anterior injury pattern Prolonged QT Abnormal ECG When compared with ECG of 12-Nov-2023 17:34, (unconfirmed) Questionable change in initial forces of Anterior leads ST no longer elevated in Anterior leads T wave inversion less evident in Anterolateral leads Confirmed by Barber Mccoy ([id number]) on 11/13/2023 2:41:08 PM Referred By: REFERRED SELF Confirmed By: Barber Mccoy
--- NOTE | 2023-11-13 16:19 | Discharge Summary ---
Discharge Summary Date of Service November 13, 2023 Principal Dx & Hospital Course #1 = Principal Diagnosis (1) Non-ST elevation [place] (NSTEMI): Palpitations/sinus tachycardia/chest pain/history of atrial fibrillation/CAD elevated [id number], patient in sinus rhythm did have minor ST elevation in the V lead which correlated with echocardiographic changes, was taken to the cardiac catheterization lab which showed nonocclusive coronary disease but con cerns for Takotsubo's cardiomyopathy. Patient reports that she had run out of her 2 heart medications, both metoprolol succinate and amiodarone, about 2 weeks ago, after completing what she thought w as a one-time 30-day course, metoprolol restarted, cardiology recommends increasing metoprolol succinate dose and feels postoperative atrial fibrillation was the culprit and completed course of amiodarone and would not recommend restarting it. Patient has been on Xarelto, begin Xarelto on 11/13/[address] Mancia did perform heart catheterization and feels nonocclusive coronary disease is present (2) C. difficile enteritis: C. difficile enteritis- Was on vancomycin 125 mg p.o. 4 times daily x 10 days, after being diagnosed during admission from 11/02-11/05/2023 completed dosing (3) Retroperitoneal fluid collection: Retroperitoneal fluid collection- Frost by vascular surgery from [place] to be a postoperative seroma that developed during and/or after aortobifemoral bypass surgery on 08/29/2023 CT scan today, compared to 11/02 does not show any significant change (4) COPD (chronic obstructive pulmonary disease): fluticsone, umeclidium and vilanterol (5) Type 2 diabetes mellitus: Diabetes mellitus- Hold metformin until 11/14 (6) Anxiety and depression: escitalopram and nortriptyline Plan magnesium on discharge with outpt follow up Notes For Next Care Provider please follow up on low magnesium and home supplementation Admission HPI Per Admitting Provider The patient is a 63-year-old female with a past medical history including C. 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 She presented to the emergency department due to symptoms of palpitations and noticing an increased heart rate. Heart rate in the emergency department was noted to be in the range of 101-117, and sinus tachycardia. Troponin was initially 521.7, with follow-up 636.8, with EKG showing a new T wave inversion in aVL. Discharge Exam awake and alert, no distress able to walk without chest pain cath site is clean with good distal pulses Discharge Plan Discharge Items Patient Disposition: Home - Self-Care Reason For Visit: NSTEMI, SINUS TACHYCARDIA, HYPERKALEMIA Discharge Diagnosis: takotsubo cardiomyopathy, complete recovery expected Activity: Per Instructions section Activity Comment: slowly increase physical activity Non-emergency contact: Primary Care Provider Call non-emergency contact if: your symptoms worsen Follow-up/Referrals: Fariba bAdi MD [Primary Care Provider] - Diet: Regular Addtl Attending Provider Instructions: please take magnesium daily until you see your primary care for further instructions because of the cardiac cath, please do not restart your metformin until friday Pending Studies at Discharge: No Stand-Alone Forms: My [facility] [employer], Smoking Cessation Medications and DC Order Prescriptions: New magnesium oxide 400 mg magnesium capsule 400 mg PO BID Qty: 60 0RF Continued nortriptyline 25 mg capsule 25 mg PO .qhs Qty: 30 2RF fluticasone propionate [Flonase Allergy Relief] 50 mcg/actuation spray,suspension 1 spray intranasal BID Qty: 18.2 2RF Rx Instructions: administer into each nostril chlorpheniramine maleate [Allergy Relief(chlorpheniramn)] 4 mg tablet 4 mg PO Q12H Qty: 90 1RF lisinopril-hydrochlorothiazide 10-12.5 mg tablet 1 tab PO DAILY Qty: 100 3RF omeprazole 20 mg capsule,delayed release(DR/EC) 20 mg PO DAILY Qty: 100 3RF glimepiride 1 mg tablet 1 mg PO QAM Qty: 100 3RF Rx Instructions: administer with breakfast escitalopram oxalate 10 mg tablet 10 mg PO DAILY Qty: 100 3RF atorvastatin 40 mg tablet 40 mg PO DAILY Qty: 100 3RF metoprolol succinate 25 mg tablet extended release 24 hr 25 mg PO DAILY Qty: 100 3RF Trelegy Ellipta 100-62.5-25 mcg blister with device 1 inh inhalation DAILY Qty: 180 3RF azithromycin 250 mg tablet 250 mg PO MOWEFR 30 Days Qty: 18 6RF Rx Instructions: 1 tablet orally every Friday, Friday, and Friday multivitamin Tablet 1 tab PO QAM aspirin 81 mg Tablet,Delayed Release (Dr/Ec) 81 mg PO QAM albuterol sulfate 90 mcg/actuation HFA aerosol inhaler 2 inh inhalation Q6H PRN (Reason: shortness of breath or wheezing) Qty: 6.7 0RF famotidine 20 mg Tablet 20 mg PO BID Qty: 60 0RF gabapentin 100 mg capsule 100 mg PO TID Xarelto 20 mg tablet 40 mg PO DAILY potassium chloride 20 mEq Tablet,Er Particles/Crystals 20 meq PO DAILY Qty: 30 0RF Held metformin 500 mg tablet extended release 24 hr 500 mg PO BID Qty: 200 3RF Hold Instructions: Resume on 11/15/23. Discontinued amiodarone 200 mg tablet 200 mg PO DAILY vancomycin 125 mg capsule 125 mg PO QID Qty: 32 0RF Discharge Orders: Discharge Order (Routine); Ordered 11/13/23 Ordered By: Sid Glynn Admission Data Admit Date/Time: 11/12/23 02:53 Attending Provider: Sid Glynn Admit Provider: Devendra Horowitz Primary Care Provider: Fariba Abdi. Other Providers: Devendra Horowitz; Umer Mancia; Cruzito Banegas [facility] Hospital Stay Data Consultations 11/12/23 01:56 ED Decision to Admit Stat 11/12/23 05:24 Consult Cardiology Routine Procedures Performed Operation Date: 11/12/23 11:15 Actual Procedures p Cineradiography w/Routine Exam - Umer Mancia MD s Cath, Left with Cors and Vent - Umer Mancia MD Diagnostic Imagining Performed 11/11/23 22:58 CT Abd and Pelvis [CT abd pelvis wo con] Stat 11/12/23 12:53 CL Cath Imgs for PACS use only Routine Pending Results Patient Have Any Pending Studies at Discharge: No Discharge Instructions Given to Patient (Per Discharging Provider) please take magnesium daily until you see your primary care for further instructions because of the cardiac cath, please do not restart your metformin until friday Total Time Total Time Spent Total Time Spent (In Minutes): It required greater than 30 minutes to prepare this patient for discharge. Coding Level of Care Code 72380 INP/OBS DISCH >30 MIN Diagnoses Non-ST elevation [place] (NSTEMI) I21.4 C. difficile enteritis A04.72 Retroperitoneal fluid collection R18.8 COPD (chronic obstructive pulmonary disease) J44.9 Type 2 diabetes mellitus E11.9 Anxiety and depression F41.9; F32.9
[2023-11-13] MEDS ORDERED: RIVAROXABAN 20 MG TAB PO SCH (16:30)
[2023-11-13 17:26] VITALS: BP 196/94; PULSE 87
== END 2023-11-13 17:26 | disposition home or self-care (01) | DRG 287 ==
LOC: ED 21:27 → SUATTDRO 11-12 02:53 → 4W 11-12 02:53

== ENCOUNTER 2023-11-17 18:56 | Inpatient (IN) ==
[2023-11-17 19:49] LABS: Basophils # (auto) 0.09 K/uL (0.00-0.20); Basophils % (auto) 0.5 %; Eosinophils # (auto) 0.07 K/uL (0.00-0.50); Eosinophils % (auto) 0.4 %; Hematocrit (blood only) 33.1 % (37.0-47.0); Hemoglobin 10.8 g/dl (12.0-16.0); Immature Granulocytes # (auto) 0.16 K/uL (0.01-0.20); Immature Granulocytes % (auto) 0.8 %; Lymphocytes % (auto) 9.7 %; Mean Corpuscular Hemoglobin 30.9 pg (25.0-34.0); Mean Corpuscular Hgb Conc 32.6 g/dL (32.0-36.0); Mean Corpuscular Volume 94.8 fL (80.0-100.0); Mean Platelet Volume 9.8 fL (9.4-12.4); Monocytes # (auto) 1.26 K/uL (0.11-0.59); Monocytes % (auto) 6.4 %; Neutrophils # (auto) 16.17 K/uL (1.40-6.50); Neutrophils % (auto) 82.2 %; Platelet Count 348 K/uL (130-400); RDW Standard Deviation 51.8 fL (36.4-46.3); Red Blood Count 3.49 M/uL (4.20-5.40); White Blood Count 19.65 K/ul (4.8-10.8)
--- NOTE | 2023-11-17 19:54 | CT Scan Report ---
Exam(s): CT C SPINE EXAM: CT Cervical Spine Without Intravenous Contrast CLINICAL HISTORY: Reason for exam: Trauma. TECHNIQUE: Axial computed tomography images of the cervical spine without intravenous contrast. CTDI is 26.96 mGy and DLP is 664.29 mGy-cm. Automated exposure control was utilized for the study. A dose lowering technique was utilized adhering to the principles of ALARA. COMPARISON: No relevant prior studies available. FINDINGS: Vertebrae: No acute fracture or malalignment. Soft tissues: Unremarkable. IMPRESSION: No acute fracture or malalignment. Electronically signed by: Aj Guadarrama MD 11/17/23 19:53 PM
[2023-11-17 19:57] LABS: Albumin Globulin Ratio 1.3 (0.9-2); Albumin Level 3.1 gm/dl (3.4-5.0); BUN Creatinine Ratio 15.9 (10-20); Bilirubin,Total 0.5 mg/dl (0.2-1.0); Calcium 8.2 mg/dl (8.6-10.3); Creatinine Clr Calc Pharmacy 35.7 ml/min; Est GFR (African American) 46.4 ml/min; Globulin 2.3 gm/dl (2.5-4.0); Potassium 4.9 mmol/L (3.5-5.1); Total Protein 5.4 gm/dl (6.0-8.3)
--- NOTE | 2023-11-17 19:58 | CT Scan Report ---
Exam(s): CT HEAD Without Contrast EXAM: CT Head Without Intravenous Contrast CLINICAL HISTORY: Reason for exam: Trauma. TECHNIQUE: Axial computed tomography images of the head/brain without intravenous contrast. CTDI is Ortiz the time 35.65 mGy and DLP is 624.41 mGy-cm. Automated exposure control was utilized for the study. A dose lowering technique was utilized adhering to the principles of ALARA. COMPARISON: No relevant prior studies available. FINDINGS: Brain: No hemorrhage, extra-axial fluid collection, mass effect, or edema. Ventricles: Unremarkable. Bones/joints: Unremarkable. No fracture. Soft tissues: Unremarkable. Sinuses: No acute sinusitis. Mastoid air cells: Unremarkable as visualized. IMPRESSION: 1. No acute intracranial abnormality. Electronically signed by: Aj Guadarrama MD 11/17/23 19:57 PM
--- NOTE | 2023-11-17 19:59 | CT Scan Report ---
Exam(s): CT FACIAL Without Contrast EXAM: CT Maxillofacial Without Intravenous Contrast CLINICAL HISTORY: Reason for exam: Trauma. TECHNIQUE: Axial computed tomography images of the face without intravenous contrast. CTDI is 26.96 mGy and DLP is 664.29 mGy-cm. Automated exposure control was utilized for the study. A dose lowering technique was utilized adhering to the principles of ALARA. COMPARISON: No relevant prior studies available. FINDINGS: Bones/joints: No facial fracture. Soft tissues: Unremarkable. Orbits: No intraorbital traumatic injury. Sinuses: Unremarkable. IMPRESSION: No facial fracture. Electronically signed by: Aj Guadarrama MD 11/17/23 19:58 PM
[2023-11-17 20:08] LABS: Troponin I High Sensitivity 57.3 pg/ml (0-14)
[2023-11-17] MEDS: SODIUM CHLORIDE 0.9% 500 ML IV ONE (20:20)
[2023-11-17] MEDS: ONDANSETRON INJ 2 MG/ML 2 ML VIAL IV STA (20:20)
[2023-11-17] MEDS: MoRPHine SULFATE 2 MG/ML CARP IV STA (20:20)
--- NOTE | 2023-11-17 20:20 | Emergency Department Note ---
Impression & Plan Generalized weakness, Acute dehydration, Elevated troponin, Multiple falls, Leukocytosis ED Provider Note NAME: PORTER MENDIOLA AGE: 63 SEX: Female INFORMANT: Patient and EMS ED PROVIDER(S): Hong Rojas MD CHIEF COMPLAINT: Generalized weakness and multiple falls PLAN: Disposition: Admitted Outpatient prescription management: none Referral: None MEDICAL DECISION MAKING: Patient presented because challenging this. Being that she is on thinners she was made a trauma alert. Patient was evaluated promptly. Primary and secondary surveys performed. Patient was in a c-collar. She was neurologically intact. I-STAT was performed revealed hyperglycemia. She had a significant leukocytosis on CBC. Chemistry panel revealed an elevated cardiac troponin and glucose. Her troponin was much improved from prior. Lactate and blood cultures were ordered. Patient was hydrated due to an elevated creatinine. Clinically she looked dry. The patient also requested something for pain due to the cervical collar causing discomfort in her neck. CT imaging of the head facial bones and cervical spine were negative. Chest x-ray revealed no evidence of pneumonia. Patient had no extremity injuries. Patient cervical collar was discontinued by me. She had full range of motion without any limitations or pain. Discussed the mild cervical strain without findings to suggest ligamentous injury or instability. Patient was found to have an elevated white blood cell count as well as a lactate. She has no abdominal symptoms, chest complaints or findings on examination to suggest an active infection. Patient is clinically dry. She was hydrated. On reassessment she was doing well. She will need further management in the hospital. [facility] Case was discussed and diagnostics were reviewed. We did discuss the patient's leukocytosis and lactic acidosis. Seems more consistent with dehydration than active infection and sepsis. Antibiotics were held and medicine in agreement secondary to the patient's recent C. difficile problems. 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 Triage Nursing notes: reviewed and agree them. Vital Signs: reviewed and remarkable for no significant abnormalities Additional History obtained from: none Chronic Medical/Social Conditions affecting care: Diabetes Prior/ Outside/ External records reviewed: none Differential Diagnosis: Trauma, infection, dehydration, metabolic abnormality, hypo/hyperglycemia, electrolyte disturbance, anemia, hypoxia, cardiac sources, intracerebral event, toxicologic, neurologic, as well as other pathologies. Diagnostics, independently interpreted by me: ECG: Twelve-lead ECG reveals a normal sinus rhythm 80 bpm. Anteroseptal infarct which is similar to prior. ST and T wave abnormality present. There is lateral T wave inversion. When compared to prior patient's anterior ST abnormality is similar. Q waves now present in V3. Patient has T wave inversions in 4, 5, and 6 which are new. Prior ECG is from 13 November 2023 Cardiac Monitoring: Cardiac monitoring ordered by me: The patient was placed on continuous cardiac monitoring and observed. It revealed a normal sinus rhythm at 88 beats per minute without ectopy or evidence of dysrhythmia. Medical decision rules: none Imaging studies: Head CT: A noncontrast CT scan of the head was performed and was negative for tumor, fracture, intracranial hemorrhage, or other acute pathology. C-spine and facial bones CT negative for acute process. Chest x-ray. Findings: A chest x-ray was performed and revealed no pneumothorax, effusion, infiltrate, pulmonary edema, free air under the diaphragm, or wide mediastinum. Impression: No acute disease. I refer you to the EMR for further details. HPI: 63 year old Female arrives for evaluation of generalized weakness and multiple falls. Patient states she was feeling weak. She was recently in the hospital. She think she has been eating and drinking okay. She felt lightheaded and fell over. She noted some pain in her face and neck. She denies any other injury. She is on Xarelto. Patient had some mild discomfort in her left arm but does not think it was from the fall as it was there prior. Patient suffered no injury to her legs, back or abdomen. She rated her compliant pain of a 10 out of 10. Patient did have C. difficile and states she completed her antibiotics. She was given aspirin and Zofran prehospital. She was also given a liter of normal saline. Pt denies LOC, headache, visual changes, chest pain, breathing difficulties, nausea, vomiting, abdominal pain, back pain, current extremity pain, numbness, weakness, open wounds, active bleeding, or other complaints.. PAST MEDICAL HISTORY: See Below, diabetes, C. difficile PAST SURGICAL HISTORY: See Below, SOCIAL HISTORY: See Below, former smoker HOME MEDICATIONS: See Below ALLERGIES: See Below VITALS: See Below PHYSICAL EXAMINATION: GENERAL: Awake, alert, we uncomfortable ll appearing, no acute distress HEAD: Normocephalic, atraumatic. No adkins sign. No raccoon eyes. EYES: Normal conjunctiva. PERRL. EARS: External ears normal. NOSE: Atraumatic OROPHARYNX: Lips, tongue, and mucosa unremarkable except dry mucous. No erythema or exudate. NECK: Cervical collar in place. No tracheal deviation or JVD. No posterior midline tenderness. No step offs noted. RESPIRATORY: CTA bilaterally CARDIAC: Regular rate, normal rhythm. ABDOMEN: Inspection reveals no abnormalities. Soft, non distended. No tenderness to palpation. No hernias. BACK: No CVA tenderness. PELVIS: Stable to rock. SKIN: Normal. LYMPH: No adenopathy. MUSCULOSKELETAL: Upper and lower extremities are atraumatic. NEURO: GCS 15. Normal sensorium. No sensory or motor deficits noted. PROCEDURES: none CRITICAL CARE: none OBSERVATION NOTE: none Past Med/Surg History Problem List (Updated 11/18/23 @ 02:49 by Hong Rojas MD) Leukocytosis (Acute) Multiple falls (Acute) Elevated troponin (Acute) Acute dehydration (Acute) Generalized weakness (Acute) Retroperitoneal fluid collection Hypomagnesemia (Acute) Peripheral artery disease (Chronic) Chronic low back pain Spondylolysis of thoracolumbar region Thoracic radiculopathy Thoracic back pain Tobacco abuse (Chronic) Chronic sinusitis (Chronic) Coronary artery disease (Chronic) nonobstructive disease on cath 11/2023 Osteoarthritis (Chronic) COPD (chronic obstructive pulmonary disease) (Chronic) Type 2 diabetes mellitus (Chronic) GERD (gastroesophageal reflux disease) (Chronic) Anxiety and depression (Chronic) Hyperlipidemia (Chronic) Hypertension (Chronic) Crohn's disease (Chronic) in remission Medical History (Updated 11/18/23 @ 02:49 by Hong Rojas MD) Atrial fibrillation with RVR (09/2023) post-op vascular surgery Non-ST elevation NM (NSTEMI) (11/2023) C. difficile enteritis Tubular adenoma (10/2020) Surgical History (Updated 11/17/23 @ 13:47 by Fariba Abdi MD) Status post aortobifemoral bypass surgery (08/2023) History of section History of bilateral tubal ligation History of esophagogastroduodenoscopy (EGD) History of colonoscopy History of tooth extraction History of tonsillectomy Family History Aunt Breast cancer Mother Diabetes Hypertension Other Cancer Heart disease Lung disease No family history of adverse response to anesthesia Denies family history of Ovarian cancer Prostate cancer Myocardial infarction Colorectal cancer Asthma Social History (Updated 11/14/23 @ 13:45 by OLGA Zuniga) Smoking Status: Former smoker Tobacco Type: Cigarettes Age Quit Using Tobacco: 11; packs per day: 1; Cigarettes Per Day: 1 PPD; Second Hand Exposure: No; Do You Dip or Chew Tobacco: No; Hx Alcohol Use: No Hx Substance Use: No Preferred Language: Malian Communication Ability: Effective Visual Impairment: No Limitations Hearing Ability: Normal 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 Beliefs That Will Affect Care: None marital status: / Current Living Situation: Family Current Living Situation Comment: son and daughter in law Feels Safe at Home: Yes Safety Concerns: Feels Safe At This Time Diet: regular caffeine: Yes (Rare ) Dental Care, Regularly: Yes Physical Activity Frequency: Does not Exercise Seatbelt Use: always Assistive Devices: Walker and Wheelchair Allergies Allergies Allergy/AdvReac Type Severity Reaction Status Date / Time Iodinated Contrast Media Allergy Intermediate Hives Verified 11/14/23 13:40 Home Meds Home Medications Medication Instructions Recorded Confirmed aspirin 81 mg tablet,delayed 81 mg PO QAM 08/21/20 11/14/23 release multivitamin 1 tab PO QAM 08/21/20 11/14/23 Previous Rx's Medication Instructions Recorded albuterol sulfate 90 mcg/actuation 2 inh inhalation Q6H PRN shortness 08/23/20 aerosol inhaler of breath or wheezing #6.7 grams fluticasone propionate 50 1 spray intranasal BID #18.2 mL 03/22/21 mcg/actuation nasal spray,suspension (Flonase Allergy Relief) chlorpheniramine maleate 4 mg 4 mg PO Q12H #90 tabs 12/27/21 tablet (Allergy Relief (chlorpheniramine)) nortriptyline 25 mg capsule 25 mg PO .qhs #30 caps 08/07/22 lisinopril 10 1 tab PO DAILY #100 tabs 07/03/23 mg-hydrochlorothiazide 12.5 mg tablet metformin 500 mg tablet,extended 500 mg PO BID #200 tabs 07/03/23 release 24 hr omeprazole 20 mg capsule,delayed 20 mg PO DAILY #100 caps 07/03/23 release glimepiride 1 mg tablet 1 mg PO QAM #100 tabs 07/07/23 escitalopram oxalate 10 mg tablet 10 mg PO DAILY #100 tabs 07/18/23 atorvastatin 40 mg tablet 40 mg PO DAILY #100 tabs 07/29/23 azithromycin 250 mg tablet 250 mg PO MOWEFR 30 days #18 tabs 08/04/23 fluticasone fur. 100 mcg-umeclid 1 inh inhalation DAILY #180 ea 08/04/23 62.5 mcg-vilant 25 mcg inhalat.powder (Trelegy Ellipta) potassium chloride 20 mEq 20 meq PO DAILY #30 tabs 11/05/23 tablet,extended release(part/cryst) magnesium oxide 400 mg PO BID #60 caps 11/13/23 gabapentin 300 mg capsule 300 mg PO TID #300 caps 11/14/23 metoprolol succinate 25 mg 25 mg PO DAILY #30 tabs 11/14/23 tablet,extended release 24 hr rivaroxaban 20 mg tablet (Xarelto) 20 mg PO DAILY #100 tabs 11/14/23 Results & Data (ED) Vital Signs Vital Signs - 24 hr 11/17/23 19:04 11/17/23 19:08 11/17/23 19:26 Temperature 36.4 C L Temperature Source Oral Pulse Rate 81 78 Pulse Rate [Apical] Respiratory Rate 19 Respiratory Effort / Characteristics Non-Labored Spontaneous Respiratory Depth Normal Respiratory Pattern Regular Blood Pressure 125/63 Blood Pressure [Left Arm] Blood Pressure Mean 83 Blood Pressure Mean [Left Arm] Blood Pressure Position Lying Blood Pressure Position [Left Arm] Pulse Oximetry 100 99 Oxygen Delivery Method Room Air Nasal Cannula Oxygen Flow Rate 2 Sepsis Recent Fever Within 48 Hours No Sepsis New/Unexplained Change in Mental Status N/A Sepsis Action Taken by Nursing No Action Required 11/17/23 19:33 11/17/23 19:48 11/17/23 19:51 Temperature 36.4 C L Temperature Source Pulse Rate 77 Pulse Rate [Apical] 80 Respiratory Rate 16 18 Respiratory Effort / Characteristics Non-Labored Spontaneous Respiratory Depth Normal Respiratory Pattern Regular Blood Pressure 99/57 L Blood Pressure [Left Arm] 121/67 Blood Pressure Mean Blood Pressure Mean [Left Arm] 85 Blood Pressure Position Blood Pressure Position [Left Arm] Lying Pulse Oximetry 98 100 99 Oxygen Delivery Method Nasal Cannula Nasal Cannula Nasal Cannula Oxygen Flow Rate 2 1 1 Sepsis Recent Fever Within 48 Hours Sepsis New/Unexplained Change in Mental Status Sepsis Action Taken by Nursing 11/17/23 19:51 11/17/23 20:23 Temperature 36.4 C L Temperature Source Oral Pulse Rate Pulse Rate [Apical] 80 78 Respiratory Rate 17 Respiratory Effort / Characteristics Non-Labored Spontaneous Respiratory Depth Normal Respiratory Pattern Regular Blood Pressure Blood Pressure [Left Arm] 113/63 Blood Pressure Mean Blood Pressure Mean [Left Arm] 79 Blood Pressure Position Blood Pressure Position [Left Arm] Lying Pulse Oximetry 97 Oxygen Delivery Method Nasal Cannula Oxygen Flow Rate 1 Sepsis Recent Fever Within 48 Hours Sepsis New/Unexplained Change in Mental Status Sepsis Action Taken by Nursing Laboratory Data 11/18/23 01:34 11/18/23 01:34 Lab Results 11/17/23 11/17/23 Range/Units 19:05 19:38 WBC 19.65 H (4.8-10.8) K/ul RBC 3.49 L (4.20-5.40) M/uL Hgb 10.8 L (12.0-16.0) g/dl Hct 33.1 L (37.0-47.0) % MCV 94.8 (80.0-100.0) fL MCH 30.9 (25.0-34.0) pg MCHC 32.6 (32.0-36.0) g/dL RDW Std Deviation 51.8 H (36.4-46.3) fL RDW Coeff of [place] 15.0 H (11.5-14.5) % Plt Count 348 (130-400) K/uL MPV 9.8 (9.4-12.4) fL Immature Gran % (Auto) 0.8 % Neut % (Auto) 82.2 % Lymph % (Auto) 9.7 % [place] % (Auto) 6.4 % Eos % (Auto) 0.4 % Baso % (Auto) 0.5 % Neut # (Auto) 16.17 H (1.40-6.50) K/uL Lymph # (Auto) 1.90 (1.20-3.40) K/uL [place] # (Auto) 1.26 H (0.11-0.59) K/uL Eos # (Auto) 0.07 (0.00-0.50) K/uL Baso # (Auto) 0.09 (0.00-0.20) K/uL Immature Gran # (Auto) 0.16 (0.01-0.20) K/uL Sodium 134 L (136-145) mmol/L Potassium 4.9 (3.5-5.1) mmol/L Chloride 99 (98-107) mmol/L Carbon Dioxide 24 (21-32) mmol/L Anion Gap 11 (3-11) BUN 22 (6-23) mg/dl Creatinine 1.38 H (0.6-1.2) mg/dl Est Cr Clr Drug Dosing 35.7 ml/min Est GFR ( Amer) 46.4 ml/min Est GFR (Non-Af Amer) 40.0 ml/min BUN/Creatinine Ratio 15.9 (10-20) Glucose 236 H (70-99(Fasting)) mg/dl POC Glucose 197 H (70-99) mg/dl Calcium 8.2 L (8.6-10.3) mg/dl Magnesium 0.8 L* (1.7-2.4) mg/dl Total Bilirubin 0.5 (0.2-1.0) mg/dl AST 12 L (13-39) U/L ALT 15 (7-52) U/L Alkaline Phosphatase 59 (34-104) U/L Troponin I High Sens 57.3 H* (0-14) pg/ml Total Protein 5.4 L (6.0-8.3) gm/dl Albumin 3.1 L (3.4-5.0) gm/dl Globulin 2.3 L (2.5-4.0) gm/dl Albumin/Globulin Ratio 1.3 (0.9-2) Administered Medications Lactated Ringer's (Lr) 1,000 mls @ 80 mls/hr IV .[id number] STA Stop: 11/18/23 09:45 Last Admin: 11/17/23 22:31 Dose: 80 mls/hr Documented By: BIGG Magnesium Sulfate/Dextrose (Magnesium Sulfate / D5w) 1 gm in 100 mls @ 50 mls/hr IV Q2H RHIANNON Stop: 11/18/23 05:29 Last Admin: 11/18/23 02:35 Dose: 50 mls/hr Documented By: Infusion: 11/18/23 02:32 Dose: Infused Documented By: Admin: 11/17/23 23:56 Dose: 50 mls/hr Documented By: Infusion: 11/17/23 23:52 Dose: Infused Documented By: Admin: 11/17/23 21:52 Dose: 50 mls/hr Documented By: SHIRA Discontinued Medications Sodium Chloride (Nss) 500 mls @ 999 mls/hr IV .Q31M ONE Stop: 11/17/23 20:42 Last Infusion: 11/17/23 20:47 Dose: Infused Documented By: Admin: 11/17/23 20:20 Dose: 999 mls/hr Documented By: Sodium Chloride (Nss) 1,000 mls @ 100 mls/hr IV .Q10H RHIANNON Stop: 12/17/23 20:14 Last Infusion: 11/17/23 22:59 Dose: Infused Documented By: Admin: 11/17/23 20:48 Dose: 100 mls/hr Documented By: Lactated Ringer's (Lr) 1,000 mls @ 999 mls/hr IV .Q1H1M ONE Stop: 11/18/23 00:47 Last Infusion: 11/18/23 01:19 Dose: Infused Documented By: Admin: 11/17/23 23:56 Dose: 999 mls/hr Documented By: BIGG Insulin Aspart (Insulin Aspart Per Unit Charge) 0 units SC ONE STA Stop: 11/17/23 21:18 Last Admin: 11/17/23 22:31 Dose: Not Given Documented By: BIGG Lidocaine (Lidocaine 5% 1 Patch) 1 patch TD NOW STA Stop: 11/17/23 21:00 Last Admin: 11/17/23 21:51 Dose: 1 patch Documented By: SHIRA Morphine Sulfate (Morphine Sulfate 2 Mg/Ml Carp) 2 mg IV NOW STA Stop: 11/17/23 20:13 Last Admin: 11/17/23 20:20 Dose: 2 mg Documented By: Ondansetron HCl (Ondansetron Inj 2 Mg/Ml 2 Ml Vial) 4 mg IV NOW STA Stop: 11/17/23 20:13 Last Admin: 11/17/23 20:20 Dose: 4 mg Documented By: Imaging Data Radiologist's Impression: Cervical Spine CT 11/17/23 19:21 Exam(s): CT C SPINE EXAM: CT Cervical Spine Without Intravenous Contrast CLINICAL HISTORY: Reason for exam: Trauma. TECHNIQUE: Axial computed tomography images of the cervical spine without intravenous contrast. CTDI is 26.96 mGy and DLP is 664.29 mGy-cm. Automated exposure control was utilized for the study. A dose lowering technique was utilized adhering to the principles of ALARA. COMPARISON: No relevant prior studies available. FINDINGS: Vertebrae: No acute fracture or malalignment. Soft tissues: Unremarkable. IMPRESSION: No acute fracture or malalignment. Electronically signed by: Aj Guadarrama MD 11/17/23 19:[address] 11/17/23 19:21 Exam(s): CT FACIAL Without Contrast EXAM: CT Maxillofacial Without Intravenous Contrast CLINICAL HISTORY: Reason for exam: Trauma. TECHNIQUE: Axial computed tomography images of the face without intravenous contrast. CTDI is 26.96 mGy and DLP is 664.29 mGy-cm. Automated exposure control was utilized for the study. A dose lowering technique was utilized adhering to the principles of ALARA. COMPARISON: No relevant prior studies available. FINDINGS: Bones/joints: No facial fracture. Soft tissues: Unremarkable. Orbits: No intraorbital traumatic injury. Sinuses: Unremarkable. IMPRESSION: No facial fracture. Electronically signed by: Aj Guadarrama MD 11/17/23 19:[address] 11/17/23 19:21 Exam(s): CT HEAD Without Contrast EXAM: CT Head Without Intravenous Contrast CLINICAL HISTORY: Reason for exam: Trauma. TECHNIQUE: Axial computed tomography images of the head/brain without intravenous contrast. CTDI is [place] the time 35.65 mGy and DLP is 624.41 mGy-cm. Automated exposure control was utilized for the study. A dose lowering technique was utilized adhering to the principles of ALARA. COMPARISON: No relevant prior studies available. FINDINGS: Brain: No hemorrhage, extra-axial fluid collection, mass effect, or edema. Ventricles: Unremarkable. Bones/joints: Unremarkable. No fracture. Soft tissues: Unremarkable. Sinuses: No acute sinusitis. Mastoid air cells: Unremarkable as visualized. IMPRESSION: 1. No acute intracranial abnormality. Electronically signed by: Aj Guadarrama MD 11/17/23 19:57 PM Discharge Plan Visit Data Chief Complaint: Trauma Stated Complaint: WEAKNESS ED Provider: Hong Rojas Discharge Problem: Generalized weakness, Acute dehydration, Elevated troponin, Multiple falls, Leukocytosis Patient Disposition: Admitted As Inpatient Discharge Instructions Interventions: ED Discharge Assessment Last Done: 11/17/23 21:59
--- NOTE | 2023-11-17 20:41 | History & Physical Report ---
Date of Service November 17, 2023 Assessment & Plan (1) Multiple falls: Plan: Admit to med telemetry Currently stable nontoxic-appearing Presented to the ED via EMS as a trauma alert after experiencing a fall while ambulating to the bathroom at home this afternoon No acute trauma on exam or imaging Fall appears to be due to recurrent orthostatic hypotension consistent with dehydration on exam, elevated creatinine, and history of malnutrition Fall precautions and PT/OT orders have been placed Daily orthostatic vitals Will order LR at 80 mL/h x 1 bag overnight for ongoing hydration Holding home lisinoprilHCTZ for now Start bilateral HALI stockings to assist with orthostasis, patient was also educated to change positions slowly moving forward and to take breaks between changing positions Heart healthy/DM type II diet Home Xarelto for DVT prophylaxis AM CBC, BMP, mag, PT/INR (2) Elevated troponin: Plan: Initial high-sensitivity troponin elevated at 57, 2-hour repeat is currently in process Patient has been without chest pain, no acute ST segment or T wave changes on EKG today Recent admission earlier this month for Takotsubo cardiomyopathy but nonobstru ctive cardiac cath Likely due to demand known nonobstructive coronary disease stress from fall/dehydration Continue to monitor on telemetry (3) Leukocytosis: Plan: Leukocytosis of 19 Initial lactate of 3.9 Patient has been afebrile without infectious symptoms since recent discharge Suspect her leukocytosis and elevated lactate are due to her significant dehydration on arrival instead of infection at this time Blood cultures were obtained in the ED As patient has been stable, afebrile, without signs of infection, patient had a recent case of C. difficile will hold empiric antibiotics at this time and continue to monitor fever curve and infectious workup If patient would become unstable will order broad-spectrum antibiotics (4) Acute dehydration: Plan: Patient appears dehydrated on exam with elevated creatinine compared to baseline but not true GENESIS at this time with initial lactate of 3.9 Has remained hemodynamically stable after initial fluid resuscitation, has been afebrile Received 1 L NSS by EMS and 1.5 L NSS in the ED Will give an additional 1 L LR overnight Will follow repeat lactate to ensure it is trending down (5) Generalized weakness: Plan: Ongoing generalized weakness due to malnutrition and multiple prolonged admissions over the past 3 months No signs of infection at this time, will follow-up with UA once obtained No recurrent diarrheal symptoms since completing course of p.o. vancomycin High suspicion that her magnesium level below again, mag levels added at the time of admission Neuro exam is nonfocal Fall precautions ordered along with PT/OT consults Continue titration with electrolyte repletion as needed (6) Atrial fibrillation: Plan: Currently in normal sinus rhythm Continue metoprolol and Xarelto (7) Coronary artery disease: Plan: No recent chest pain No acute ST segment T wave changes on EKG Continue aspirin, statin (8) COPD (chronic obstructive pulmonary disease): Plan: Currently stable on room air without wheezing on exam Incentive spirometry, continue home albuterol and Trelegy (9) Type 2 diabetes mellitus: Plan: Hold metformin and glimepiride Monitor BSG ACHS, goal is [id number] Consider regimen of CF of 50 and CR 15 ACHS for now to avoid hypoglycemia Adjust regimen as needed (10) Hypertension: Plan: Currently stable Holding home lisinoprilhydrochlorothiazide with dehydration/GENESIS and orthostatic hypotension Monitor orthostatic vitals moving forward and can consider holding/adjusting dose of lisinoprilhydrochlorothiazide moving forward Plan Patient was discussed with Dr. Rapp at the time of the admission History of Present Illness Chief Complaint: Syncope Primary Care Provider: Fariba Abdi MD Alysia is a 63-year-old female with a past medical history segment for severe peripheral arterial disease status post bilateral common femoral bypass graft [facility] aort[facility]emoral bypass at [facility] on 08/2023 with large right groin hematoma/wound, previous tobacco use and COPD, hypertension, hyperlipidemia, Atrial fibrillation (on Xarelto), DM type II, Crohn's disease (in remission for past 2 years), anxiety, recent C. difficile enteritis, Takotsubo's cardiomyopathy who presented manage [facility] ED via EMS on 11/17/2023 after sustaining a syncopal episode at home this evening. While in route by EMS she was given 4 mg p.o. Zofran, 324 mg aspirin, and 1 L normal saline. Patient was made a trauma alert on arrival and is placed in a c- collar. Was initially noted to be mildly hypotensive at 99/57 but was otherwise stable. Labs were significant for a leukocytosis of 19 with neutrophil predominance of 16, creatinine of 1.38 (baseline is near 0.8), initial high- sensitivity troponin of 57 (down from 636 as of 11/11/2023). CT of the head/face/cervical spine were read as negative for acute findings. Prior to admission the patient was given 1.5 L normal saline, 4 mg IV Zofran, and 2 mg IV morphine. Patient was lying in bed no acute distress at time of exam. States that since her discharge home on 11/13/2023 she has had ongoing generalized weakness. States that she has been taking her medications as prescribed. Oral intake has been improved compared to earlier this month with significant increase in her appetite. States that she has been experiencing frequent episodes of lightheadedness/dizziness with positional changes causing amatory dysfunction an d falls at home. States that she was at home earlier today and got up to walk to the bathroom when she started to feel lightheaded/dizzy with seeing stars/spots. Did not lose consciousness but did lose her balance falling backwards landing on her buttocks and experiencing upper back/neck pain after the fall. Confirm she did not hit her head. Feels significant improved compared to arrival. When asked, she states that her diarrhea has resolved since completing her p.o. vancomycin recent C. difficile infection. Currently having soft/formed stool daily. No recent fever/chills, chest pain, shortness of breath, cough, abdominal pain, nausea/vomiting, dysuria/hematuria, melena, bloody stool, lower extremity swelling. Did have all of her a.m. medications including her Xarelto. Confirms she is a DNR/DNI. Please refer to Dr. Rapp's attestation for any changes to the treatment plan Allergies Allergy/AdvReac Type Severity Reaction Status Date / Time Iodinated Contrast Media Allergy Intermediate Hives Verified 11/14/23 13:40 Home Medications Medication Instructions Recorded Confirmed Type aspirin 81 mg tablet,delayed 81 mg PO QAM 08/21/20 11/14/23 History release multivitamin 1 tab PO QAM 08/21/20 11/14/23 History albuterol sulfate 90 mcg/actuation 2 inh inhalation Q6H PRN shortness 08/23/20 11/14/23 Rx aerosol inhaler of breath or wheezing #6.7 grams fluticasone propionate 50 1 spray intranasal BID #18.2 mL 03/22/21 11/14/23 Rx mcg/actuation nasal spray,suspension (Flonase Allergy Relief) chlorpheniramine maleate 4 mg 4 mg PO Q12H #90 tabs 12/27/21 11/14/23 Rx tablet (Allergy Relief (chlorpheniramine)) nortriptyline 25 mg capsule 25 mg PO .qhs #30 caps 08/07/22 11/14/23 Rx lisinopril 10 1 tab PO DAILY #100 tabs 07/03/23 11/14/23 Rx mg-hydrochlorothiazide 12.5 mg tablet metformin 500 mg tablet,extended 500 mg PO BID #200 tabs 07/03/23 11/14/23 Rx release 24 hr omeprazole 20 mg capsule,delayed 20 mg PO DAILY #100 caps 07/03/23 11/14/23 Rx release glimepiride 1 mg tablet 1 mg PO QAM #100 tabs 07/07/23 11/14/23 Rx escitalopram oxalate 10 mg tablet 10 mg PO DAILY #100 tabs 07/18/23 11/14/23 Rx atorvastatin 40 mg tablet 40 mg PO DAILY #100 tabs 07/29/23 11/14/23 Rx azithromycin 250 mg tablet 250 mg PO MOWEFR 30 days #18 tabs 08/04/23 11/14/23 Rx fluticasone fur. 100 mcg-umeclid 1 inh inhalation DAILY #180 ea 08/04/23 11/14/23 Rx 62.5 mcg-vilant 25 mcg inhalat.powder (Trelegy Ellipta) potassium chloride 20 mEq 20 meq PO DAILY #30 tabs 11/05/23 11/14/23 Rx tablet,extended release(part/cryst) magnesium oxide 400 mg PO BID #60 caps 11/13/23 11/14/23 Rx gabapentin 300 mg capsule 300 mg PO TID #300 caps 11/14/23 11/14/23 Rx metoprolol succinate 25 mg 25 mg PO DAILY #30 tabs 11/14/23 11/14/23 Rx tablet,extended release 24 hr rivaroxaban 20 mg tablet (Xarelto) 20 mg PO DAILY #100 tabs 11/14/23 11/14/23 Rx Past Med/Surg History Problem List (Updated 11/18/23 @ 02:49 by Hong Rojas MD) Leukocytosis (Acute) Multiple falls (Acute) Elevated troponin (Acute) Acute dehydration (Acute) Generalized weakness (Acute) Retroperitoneal fluid collection Hypomagnesemia (Acute) Peripheral artery disease (Chronic) Chronic low back pain Spondylolysis of thoracolumbar region Thoracic radiculopathy Thoracic back pain Tobacco abuse (Chronic) Chronic sinusitis (Chronic) Coronary artery disease (Chronic) nonobstructive disease on cath 11/2023 Osteoarthritis (Chronic) COPD (chronic obstructive pulmonary disease) (Chronic) Type 2 diabetes mellitus (Chronic) GERD (gastroesophageal reflux disease) (Chronic) Anxiety and depression (Chronic) Hyperlipidemia (Chronic) Hypertension (Chronic) Crohn's disease (Chronic) in remission Medical History (Updated 11/18/23 @ 02:49 by Hong Rojas MD) Atrial fibrillation with RVR (09/2023) post-op vascular surgery Non-ST elevation PR (NSTEMI) (11/2023) C. difficile enteritis Tubular adenoma (10/2020) Surgical History (Updated 11/17/23 @ 13:47 by Fariba Abdi MD) Status post aortobifemoral bypass surgery (08/2023) History of section History of bilateral tubal ligation History of esophagogastroduodenoscopy (EGD) History of colonoscopy History of tooth extraction History of tonsillectomy Family History Aunt Breast cancer Mother Diabetes Hypertension Other Cancer Heart disease Lung disease No family history of adverse response to anesthesia Denies family history of Ovarian cancer Prostate cancer Myocardial infarction Colorectal cancer Asthma Social History (Updated 11/14/23 @ 13:45 by OLGA Zuniga) Smoking Status: Former smoker Tobacco Type: Cigarettes Age Quit Using Tobacco: 11; packs per day: 1; Cigarettes Per Day: 1 PPD; Second Hand Exposure: No; Do You Dip or Chew Tobacco: No; Hx Alcohol Use: No Hx Substance Use: No Preferred Language: Portuguese Communication Ability: Effective Visual Impairment: No Limitations Hearing Ability: Normal 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 Beliefs That Will Affect Care: None marital status: / Current Living Situation: Family Current Living Situation Comment: son and daughter in law Feels Safe at Home: Yes Safety Concerns: Feels Safe At This Time Diet: regular caffeine: Yes (Rare ) Dental Care, Regularly: Yes Physical Activity Frequency: Does not Exercise Seatbelt Use: always Assistive Devices: Walker and Wheelchair Physical Exam Physical Exam: Physical Exam: General: In no acute distress, stated age, malnourished and chronic ill- appearing but nontoxic HEENT: Normocephalic, atraumatic, no scleral icterus, pupils around round, symmetrical, and reactive to light, dry mucus membranes, trachea midline, no thyromegaly Chest/Pulm: No respiratory distress, symmetrical chest expansion, clear breath sounds throughout Cardiac: RRR, no murmurs noted Abdomen: Negative for ascites and bruising, previous abdominal surgical scars appear intact and well-healed, normoactive bowel sounds, soft, non-tender to palpation throughout Musculoskeletal: Symmetrical and without signs of acute trauma, upper and lower extremities with full ROM, no tenderness or crepitus on palpation of the neck, thoracic spine, lumbar spine, bilateral hips, significant muscle atrophy, no spasticity, or flaccidity Extremities: Radial, dorsalis pedis, and posterior tibial pulses are intact and symmetrical, no edema noted in the BL LE's Skin: Warm, dry, no rashes , lesions, or scars noted Neuro: Alert and oriented to person, place, month, year, and president, no focal defects, no tremors noted Psych: No acute distress, calm and cooperative during the exam Results & Data Results & Data Vital Signs (Past 12 Hours) Vital Signs Temp Pulse Pulse Resp BP BP Pulse Ox 11/17/23 20:23 36.4 C L 78 17 113/63 97 11/17/23 19:51 80 11/17/23 19:51 99 11/17/23 19:48 80 18 121/67 100 11/17/23 19:33 36.4 C L 77 16 99/57 L 98 11/17/23 19:26 99 11/17/23 19:08 36.4 C L 78 19 125/63 100 11/17/23 19:04 81 O2 Del Method O2 Flow Rate 11/17/23 20:23 Nasal Cannula 1 11/17/23 19:51 11/17/23 19:51 Nasal Cannula 1 11/17/23 19:48 Nasal Cannula 1 11/17/23 19:33 Nasal Cannula 2 11/17/23 19:26 Nasal Cannula 2 11/17/23 19:08 Room Air 11/17/23 19:04 Laboratory Results Abnormal lab results 11/17/23 11/17/23 Range/Units 19:05 19:38 WBC 19.65 H (4.8-10.8) K/ul RBC 3.49 L (4.20-5.40) M/uL Hgb 10.8 L (12.0-16.0) g/dl Hct 33.1 L (37.0-47.0) % RDW Std Deviation 51.8 H (36.4-46.3) fL RDW Coeff of Bijan 15.0 H (11.5-14.5) % Neut # (Auto) 16.17 H (1.40-6.50) K/uL Bledsoe # (Auto) 1.26 H (0.11-0.59) K/uL Sodium 134 L (136-145) mmol/L Creatinine 1.38 H (0.6-1.2) mg/dl Glucose 236 H (70-99(Fasting)) mg/dl POC Glucose 197 H (70-99) mg/dl Calcium 8.2 L (8.6-10.3) mg/dl AST 12 L (13-39) U/L Troponin I High Sens 57.3 H* (0-14) pg/ml Total Protein 5.4 L (6.0-8.3) gm/dl Albumin 3.1 L (3.4-5.0) gm/dl Globulin 2.3 L (2.5-4.0) gm/dl Diagnostic Findings Cervical Spine CT 11/17/23 19:21 Exam(s): CT C SPINE EXAM: CT Cervical Spine Without Intravenous Contrast CLINICAL HISTORY: Reason for exam: Trauma. TECHNIQUE: Axial computed tomography images of the cervical spine without intravenous contrast. CTDI is 26.96 mGy and DLP is 664.29 mGy-cm. Automated exposure control was utilized for the study. A dose lowering technique was utilized adhering to the principles of ALARA. COMPARISON: No relevant prior studies available. FINDINGS: Vertebrae: No acute fracture or malalignment. Soft tissues: Unremarkable. IMPRESSION: No acute fracture or malalignment. Electronically signed by: Aj Guadarrama MD 11/17/23 19:[address] 11/17/23 19:21 Exam(s): CT FACIAL Without Contrast EXAM: CT Maxillofacial Without Intravenous Contrast CLINICAL HISTORY: Reason for exam: Trauma. TECHNIQUE: Axial computed tomography images of the face without intravenous contrast. CTDI is 26.96 mGy and DLP is 664.29 mGy-cm. Automated exposure control was utilized for the study. A dose lowering technique was utilized adhering to the principles of ALARA. COMPARISON: No relevant prior studies available. FINDINGS: Bones/joints: No facial fracture. Soft tissues: Unremarkable. Orbits: No intraorbital traumatic injury. Sinuses: Unremarkable. IMPRESSION: No facial fracture. Electronically signed by: Aj Guadarrama MD 11/17/23 19:[address] 11/17/23 19:21 Exam(s): CT HEAD Without Contrast EXAM: CT Head Without Intravenous Contrast CLINICAL HISTORY: Reason for exam: Trauma. TECHNIQUE: Axial computed tomography images of the head/brain without intravenous contrast. CTDI is [place] the time 35.65 mGy and DLP is 624.41 mGy-cm. Automated exposure control was utilized for the study. A dose lowering technique was utilized adhering to the principles of ALARA. COMPARISON: No relevant prior studies available. FINDINGS: Brain: No hemorrhage, extra-axial fluid collection, mass effect, or edema. Ventricles: Unremarkable. Bones/joints: Unremarkable. No fracture. Soft tissues: Unremarkable. Sinuses: No acute sinusitis. Mastoid air cells: Unremarkable as visualized. IMPRESSION: 1. No acute intracranial abnormality. Electronically signed by: Aj Guadarrama MD 11/17/23 19:57 PM ECG Additional Comments: Normal sinus rhythm without acute ST segment or T wave changes compared to previous Code Status & VTE Plan Code Status DNR/DNI VTE Prophylaxis Plan VTE Prophylaxis will be ordered: Yes Supervising Physician Co-Signing Physician Notes Patient seen and examined, chart reviewed, case discussed with DIMA Jacobs and I agree with the assessment and plan as above PG Care Time/CCT Total # of Minutes Spent Total Time Spent with Patient: Total time spent is greater than 50% in coordination of care (as documented) at patient's floor/unit and/or counseling patient: Coding [place] [address] INT INP/OBS CARE 3/75MIN Patient Type Established Medical Decision Making High Complexity Diagnoses Multiple falls R29.6 Elevated troponin R79.89 Leukocytosis D72.829 Leukocytosis type: unspecified Acute dehydration E86.0 Generalized weakness R53.1 Atrial fibrillation I48.91 Coronary artery disease I25.10 COPD (chronic obstructive pulmonary disease) J44.9 Type 2 diabetes mellitus E11.9 Hypertension I10 (3) Leukocytosis Leukocytosis type: unspecified Qualified Code(s): D72.829 - Elevated white blood cell count, unspecified
[2023-11-17] MEDS: SODIUM CHLORIDE 0.9% 1,000 ML IV SCH (20:48)
[2023-11-17] MEDS ORDERED: GLUCAGON FOR INJ 1 MG VIAL SQ PRN (20:59)
[2023-11-17] MEDS ORDERED: DEXTROSE 50% 50 ML SYRINGE IV PRN (20:59)
[2023-11-17] MEDS ORDERED: GLUCOSE 10 TAB/TUBE PO PRN (20:59)
[2023-11-17] MEDS ORDERED: ACETAMINOPHEN 325 MG TAB PO PRN (20:59)
[2023-11-17] MEDS ORDERED: GLUCOSE 40% GEL 15 GM TUBE PO PRN (20:59)
[2023-11-17] MEDS ORDERED: CARBOHYDRATES FOR HYPOGLYCEMIA PO PRN (20:59)
[2023-11-17 21:16] LABS: Magnesium 0.8 mg/dl (1.7-2.4)
[2023-11-17] MEDS: LIDOCAINE 5% 1 PATCH TD STA (21:51)
[2023-11-17] MEDS: MAGNESIUM SULFATE / D5W 1 GM/100 ML BAG IV SCH (21:52)
[2023-11-17] MEDS: LACTATED RINGER'S 1,000 ML IV STA (22:31)
[2023-11-17] MEDS: INSULIN ASPART PER UNIT CHARGE SC STA (22:31)
[2023-11-17] MEDS: LACTATED RINGER'S 1,000 ML IV ONE (23:56)
[2023-11-18 01:55] LABS: Basophils # (auto) 0.05 K/uL (0.00-0.20); Basophils % (auto) 0.5 %; Eosinophils # (auto) 0.08 K/uL (0.00-0.50); Eosinophils % (auto) 0.7 %; Hematocrit (blood only) 28.8 % (37.0-47.0); Hemoglobin 9.3 g/dl (12.0-16.0); Immature Granulocytes # (auto) 0.08 K/uL (0.01-0.20); Immature Granulocytes % (auto) 0.7 %; Lymphocytes # (auto) 2.08 K/uL (1.20-3.40); Lymphocytes % (auto) 18.8 %; Mean Corpuscular Hemoglobin 30.7 pg (25.0-34.0); Mean Corpuscular Hgb Conc 32.3 g/dL (32.0-36.0); Mean Platelet Volume 9.6 fL (9.4-12.4); Monocytes # (auto) 0.76 K/uL (0.11-0.59); Monocytes % (auto) 6.9 %; Neutrophils # (auto) 8.02 K/uL (1.40-6.50); Neutrophils % (auto) 72.4 %; Platelet Count 297 K/uL (130-400); RDW Coefficient of Variation 15.1 % (11.5-14.5); RDW Standard Deviation 52.5 fL (36.4-46.3); Red Blood Count 3.03 M/uL (4.20-5.40); White Blood Count 11.07 K/ul (4.8-10.8)
[2023-11-18 02:07] LABS: Albumin Globulin Ratio 1.5 (0.9-2); Albumin Level 2.9 gm/dl (3.4-5.0); Bilirubin,Total 0.3 mg/dl (0.2-1.0); Calcium 8.2 mg/dl (8.6-10.3); Creatinine Clr Calc Pharmacy 40.5 ml/min; Est GFR (African American) 55.5 ml/min; Est GFR (Non-African American) 47.9 ml/min; Magnesium 1.3 mg/dl (1.7-2.4); Potassium 5.4 mmol/L (3.5-5.1); Total Protein 4.9 gm/dl (6.0-8.3)
[2023-11-18 02:21] LABS: INR 1.1 (0.9-1.1); Prothrombin Time 11.7 Seconds (9.0-12.0)
[2023-11-18] MEDS: MAGNESIUM SULFATE / D5W 1 GM/100 ML BAG IV SCH ×2 (07:37→12:02)
--- NOTE | 2023-11-18 07:47 | XRay Report ---
XR chest 1V portable HISTORY: trauma COMPARISON: Chest 11/11/2023. FINDINGS: No pneumothorax. No pleural effusions. The heart is normal in size. The lungs are clear. Ol d, healed left-sided rib fractures again noted. No acute fractures identified. IMPRESSION: No significant change compared to the prior study. No acute process. ACT 112: Negative or not required by law. Electronically signed by: Shlomo Cottrell M.D. 11/18/2023 7:46 AM
[2023-11-18] MEDS ORDERED: ALBUTEROL HFA 8 GM INHALER INH PRN (08:05)
--- NOTE | 2023-11-18 08:11 | Hospitalist Progress Note ---
Date of Service November 18, 2023 Assessment & Plan (1) Multiple falls: Plan: Presented to the ED via EMS as a trauma alert after experiencing a fall while ambulating to the bathroom at home this afternoon. No acute trauma on exam/imaging. Fall appears to be due to recurrent orthostatic hypotension c/w dehydration on exam, elevated Cr and hx malnutrition. ? hypomagnesemia in setting of such suspected contributing to weakness/multiple falls. * Of note, patient did endorse good PO intake however reports her sister told EMS she DOES NOT drink enough. 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 On admission, IVF hydration with 1L LR @ 80cc/hr overnight. Home lisinopril-HCTZ placed on hold. Fall precautions, therapy evaluations to be undertaken and b/l ed stockings to assist with orthostasis with instructions to change positions slowly Patient with troponin in 50s on admission, no CP but did report lightheaded/dizziness. Continue to monitor w/ IVF, -- 1L LR ordered but switched to NS x 1L for now given hyperkalemia (K 5.4) and continue to hold home HCTZ/lisinopril Cr improved from 1.38--> 1.19 (peaked at 2.8 last admission). Encourage PO intake. Nutrition consult placed Mag LOW 0.8 on admission - see below, ongoing replacement/monitoring. Orthostatic vitals not too impressive, 120s systolic w/ drop to 110s with standing. Continue to monitor orthostatic VS, repeat labs this afternoon to ensure potassium level improved/renal function PT/OT consults placed, patient hopeful for dc in AM DVT proph: Xarelto resumed 20mg daily (monitor renal function in AM to see if needing reduced to 15mg) (2) Hypomagnesemia: Plan: MAGNESIUM VERY LOW at 0.8 on admission . Is on PPI once daily at baseline --> 4gm IV ordered on admission Mag 1.3 on repeat --> Additional 4gm total ordered for today and will monitor/additional replacement as indicated. She reports she had improvement in symptoms last admission w/ replacement and appeared MAG OXIDE BID sent last admission, which was discussed with patient however she DID NOT GET FILLED as was sent to mail order. With her hx cdiff enteritis/chrons (completed vancomycin PO, no further diarrhea reported), doubt having good absorption and will monitor repeat levels but suspect replacement with SLOW MAG would be better for patient w/ IBD/hx cdiff for absorption. Is also on PPI daily Mag level w/ repeat BMP this afternoon and will continue to monitor. (3) Elevated troponin: Plan: Trop 57.3--> 51.4 on high sensitivity testing Patient has been without chest pain, no acute ST segment or T wave changes on EKG today Recent admission earlier this month for Takotsubo cardiomyopathy but nonobstructive cardiac cath Likely due to demand known nonobstructive coronary disease stress from fall/dehydration, hypomagnesemia Monitor on telemetry --> NSR 70-80s Consider holter given hx afib and low mag at dc (4) Leukocytosis: Plan: WBC 19k on admission with lactic 3.9 Afebrile/without infectious sx since discharge, no further diarrhea and had completed course of vancomycin. Empiric abx deferred given recent cdiff Blood cultures pending from admission WBC trending down, 11k and suspect from dehydration/electrolyte abn as above. Monitor for any infectious symptoms/CBC in AM (5) Acute dehydration: Plan: elevated Cr, lactic on admission. IVF 1L NS by EMS, additional 1.5L NSS in ER and ordered 1L LR overnight. Lactic trending down on repeat. Switched to NSS for additional 1L for today and encouraged PO intake. Nutrition consulted. Did discuss w/ patient and she notes her sister reports she does not drink enough at baseline. Encouraged taking her cup with her at dc and counting but recs for 3-4 daily to maintain status (6) Generalized weakness: Plan: Suspect 2nd to malnutrition and prolonged hospitalizations/deconditioning and electrolyte abn as above No further diarrhea, monitor w/ hx cdiff Mag LOW as above, ongoing replacement as outlined and IVF hydration/nutrition consult Fall precautions Monitor repeat orthostatic VSs Patient hopeful for dc tomorrow, monitor PT/OT evals to ensure no needs (7) Atrial fibrillation: Plan: NSR on admission EKG. Resumed metoprolol 25mg daily, Xarelto 20mg (monitor for reduction in dose if renal function remains elevated) Remains in NSR Monitor on telemetry --> keep k/mag replete ?holter monitor at dc (8) Coronary artery disease: Plan: No recent chest pain. No acute ST segment T wave changes on EKG. Trop decreased compared to last admission and suspect demand ischemia, no CP reported Resumed home aspirin, statin, metoprolol Monitor on telemetry Outpt cards f/u (9) COPD (chronic obstructive pulmonary disease): Plan: on RA, no wheezing Continue IS Resumed home trelegy/hospital equivalent, albuterol HFA available as needed (10) Type 2 diabetes mellitus: Plan: Home metformin, glimepiride on hold and utilizing sliding scale. BSGs acceptable and monitor/adjust as needed A1c 7.2 last year, will add to AM labs to see where she is, Glu 182 on Am labs Monitor renal function but may need to consider adjusting metformin/alternative agents Gabapentin 300mg TID resumed and max dose 900mg/day based on CURRENT renal function but may need adjusted pending repeat clearance/would continue to monitor in follow up (11) Hypertension: Plan: BP 125/63, 99/57 on admission - 2nd to dehydration/BP medications/diuretics Home lisinopril/HCTZ on HOLD, renal function improving and IVF for additional 1L as above Home metoprolol resumed given afib/Takotsubo's cardiomyopathy as above Monitor orthostatic VS on repeat, consideration to resume home agents in AM vs slow resumption with outpatient follow up -If holding certain agent, may be more beneficial to hold HCTZ to prevent worsening dehydration vs adjusting dose/half tablet (would be lisinopril 5mg/HCTZ 7.25mg from 10mg/12.5mg dose) Rec f/u cards/PCP Plan continued inpatient stay, electrolyte replacement/therapy evaluations and telemetry monitoring Dispo: patient hopeful for [place] 11/18 if labs improved/stable and therapy cleared for return home consideration for slow mag pending repeat levels as well as holter monitor to see about her flipping in/out of afib if not having any episodes on telemetry while inpatient Admission and Anticipated Discharge Date Admission Date: November 17, 2023 Subjective Evaluated around lunch. Reports feeling better. Less lightheaded/dizziness with ambulation. Orthostatic VS obtained and acceptable, will time out IVF after current bag. Discussed low magnesium, similar symptoms last admission when low and improved once normalized. Completed course of Vanco for cdiff, no significant diarrhea reported. Discused prior rx for mag oxide and w/ her chrons probably better with slow mag. Interestingly enough she reports not getting her magnesium as was sent to mail order pharmacy. When asked if drinks enough fluids, she reports she is but that her sister reported to EMS that she does not. Encouraged having her take her drink jug at discharge and tracking her intake. Results & Data Results & Data Vital Signs (Past 12 Hours) Vital Signs Temp Pulse Pulse Pulse Resp BP Pulse Ox 11/18/23 07:45 11/18/23 07:44 36.5 C 81 17 124/58 L 94 11/18/23 06:14 81 11/18/23 02:52 36.7 C 78 18 114/58 L 97 11/17/23 23:03 81 11/17/23 22:49 11/17/23 22:33 36.6 C 79 16 95/56 L 98 11/17/23 21:09 36.7 C 76 17 104/56 L 94 11/17/23 20:23 36.4 C L 78 17 113/63 97 O2 Del Method O2 Flow Rate 11/18/23 07:45 Room Air 11/18/23 07:44 Room Air 11/18/23 06:14 11/18/23 02:52 Room Air 11/17/23 23:03 11/17/23 22:49 Room Air 11/17/23 22:33 Room Air 11/17/23 21:09 Room Air 11/17/23 20:23 Nasal Cannula 1 Laboratory Results 11/18/23 01:34 11/18/23 01:34 Lactic 3.4--> 2.7 Mag 0.8--> 1.3 Troponin 57.3--> 51.4 Diagnostic Findings Cervical Spine CT 11/17/23 19:21 Exam(s): CT C SPINE EXAM: CT Cervical Spine Without Intravenous Contrast CLINICAL HISTORY: Reason for exam: Trauma. TECHNIQUE: Axial computed tomography images of the cervical spine without intravenous contrast. CTDI is 26.96 mGy and DLP is 664.29 mGy-cm. Automated exposure control was utilized for the study. A dose lowering technique was utilized adhering to the principles of ALARA. COMPARISON: No relevant prior studies available. FINDINGS: Vertebrae: No acute fracture or malalignment. Soft tissues: Unremarkable. IMPRESSION: No acute fracture or malalignment. Electronically signed by: Aj Guadarrama MD 11/17/23 19:53 PM Chest X-Ray 11/17/23 19:21 XR chest 1V portable HISTORY: trauma COMPARISON: Chest 11/11/2023. FINDINGS: No pneumothorax. No pleural effusions. The heart is normal in size. The lungs are clear. Old, healed left-sided rib fractures again noted. No acute fractures identified. IMPRESSION: No significant change compared to the prior study. No acute process. ACT 112: Negative or not required by law. Electronically signed by: Shlomo Cottrell M.D. 11/18/2023 7:[address] 11/17/23 19:21 Exam(s): CT FACIAL Without Contrast EXAM: CT Maxillofacial Without Intravenous Contrast CLINICAL HISTORY: Reason for exam: Trauma. TECHNIQUE: Axial computed tomography images of the face without intravenous contrast. CTDI is 26.96 mGy and DLP is 664.29 mGy-cm. Automated exposure control was utilized for the study. A dose lowering technique was utilized adhering to the principles of ALARA. COMPARISON: No relevant prior studies available. FINDINGS: Bones/joints: No facial fracture. Soft tissues: Unremarkable. Orbits: No intraorbital traumatic injury. Sinuses: Unremarkable. IMPRESSION: No facial fracture. Electronically signed by: Aj Guadarrama MD 11/17/23 19:[address] 11/17/23 19:21 Exam(s): CT HEAD Without Contrast EXAM: CT Head Without Intravenous Contrast CLINICAL HISTORY: Reason for exam: Trauma. TECHNIQUE: Axial computed tomography images of the head/brain without intravenous contrast. CTDI is [place] the time 35.65 mGy and DLP is 624.41 mGy-cm. Automated exposure control was utilized for the study. A dose lowering technique was utilized adhering to the principles of ALARA. COMPARISON: No relevant prior studies available. FINDINGS: Brain: No hemorrhage, extra-axial fluid collection, mass effect, or edema. Ventricles: Unremarkable. Bones/joints: Unremarkable. No fracture. Soft tissues: Unremarkable. Sinuses: No acute sinusitis. Mastoid air cells: Unremarkable as visualized. IMPRESSION: 1. No acute intracranial abnormality. Electronically signed by: Aj Guadarrama MD 11/17/23 19:57 PM PG Care Time/CCT Total # of Minutes Spent Total Time Spent with Patient: Total time spent is greater than 50% in coordination of care (as documented) at patient's floor/unit and/or counseling patient: Coding Level of Care Code 80458 SUB INP/OBS CARE 3/50MIN Diagnoses Multiple falls R29.6 Hypomagnesemia E83.42 Elevated troponin R79.89 Leukocytosis D72.829 Leukocytosis type: unspecified Acute dehydration E86.0 Generalized weakness R53.1 Atrial fibrillation I48.91 Coronary artery disease I25.10 COPD (chronic obstructive pulmonary disease) J44.9 Type 2 diabetes mellitus E11.9 Hypertension I10 (4) Leukocytosis Leukocytosis type: unspecified Qualified Code(s): D72.829 - Elevated white blood cell count, unspecified
--- NOTE | 2023-11-18 08:17 | Electrocardiogram Report ---
Test Reason : Blood Pressure : */* mmHG Vent. Rate : 80 BPM Atrial Rate : 80 BPM P-R Int : 162 ms QRS Dur : 78 ms QT Int : 440 ms P-R-T Axes : 86 -6 266 degrees QTcB Int : 507 ms Normal sinus rhythm Persistent ST elevation in Anteroseptal leads T-wave inversion in Anterior leads , consider ischemia Abnormal ECG When compared with ECG of 13-Nov-2023 05:54, T-wave inversion in Anterior leads now present Confirmed by Abraham Shen ([id number]) on 11/18/2023 8:17:12 AM Referred By: REFERRED SELF Confirmed By: Abraham Shen
[2023-11-18] MEDS: INSULIN ASPART PER UNIT CHARGE SC SCH (09:05)
[2023-11-18] MEDS: SODIUM CHLORIDE 0.9% 1,000 ML IV SCH (09:36)
[2023-11-18] MEDS: ASPIRIN 81 MG ECTAB PO SCH (09:47)
[2023-11-18] MEDS: ESCITALOPRAM OXALATE 10 MG TAB PO SCH (09:48)
[2023-11-18] MEDS: GABAPENTIN 300 MG CAP PO SCH (09:48)
[2023-11-18] MEDS: METOPROLOL SUCC 25MG EXT REL TAB PO SCH (09:48)
[2023-11-18] MEDS: UMECLIDINIUM/VILANTEROL 62.5/25MCG 7 PUFFS/INHALER INH SCH (09:48)
[2023-11-18] MEDS: FLUTICASONE FUROATE 100MCG 14 PUFFS/INHALER INH SCH (09:48)
[2023-11-18] MEDS: RIVAROXABAN 20 MG TAB PO SCH (09:49)
[2023-11-18] MEDS: PANTOprazole 40 MG TAB PO SCH (09:49)
[2023-11-18 15:22] LABS: iSTAT Creatinine 1.4 mg/dl (0.6-1.3); iSTAT Hemoglobin 11.2 g/dl (12.0-16.0); iSTAT Ionized Calcium 1.07 mmol/l (1.12-1.32)
[2023-11-18 15:37] LABS: BUN Creatinine Ratio 18.3 (10-20); Calcium 8.6 mg/dl (8.6-10.3); Creatinine Clr Calc Pharmacy 46.3 ml/min; Est GFR (African American) 65.3 ml/min; Est GFR (Non-African American) 56.3 ml/min; Magnesium 2.7 mg/dl (1.7-2.4); Potassium 5.1 mmol/L (3.5-5.1)
[2023-11-18] MEDS: ATORVASTATIN 40 MG TAB PO SCH (21:39)
[2023-11-19 02:11] LABS: Appearance Urine Clear (Clear); Bacteria Urine Automated None Seen (None Seen); Bilirubin Urine Negative (Negative); Blood Urine Negative (Negative); Color Urine Yellow; Glucose Urine UA Negative (Negative); Ketones Urine Negative (Negative); Leukocyte Esterase Urine Trace (Negative); Nitrite Urine Negative (Negative); Protein Urine Negative (Negative); RBC Urine Automated 0-2 /hpf (0-2); Specific Gravity Urine 1.007 (1.000-1.030); Urobilinogen Urine Negative (Negative); WBC Urine Automated 0-5 /hpf (0-5)
[2023-11-19 06:22] LABS: Basophils # (auto) 0.07 K/uL (0.00-0.20); Basophils % (auto) 0.7 %; Eosinophils # (auto) 0.18 K/uL (0.00-0.50); Eosinophils % (auto) 1.7 %; Hematocrit (blood only) 30.5 % (37.0-47.0); Hemoglobin 9.7 g/dl (12.0-16.0); Immature Granulocytes # (auto) 0.06 K/uL (0.01-0.20); Immature Granulocytes % (auto) 0.6 %; Lymphocytes # (auto) 1.95 K/uL (1.20-3.40); Lymphocytes % (auto) 18.2 %; Mean Corpuscular Hemoglobin 30.7 pg (25.0-34.0); Mean Corpuscular Hgb Conc 31.8 g/dL (32.0-36.0); Mean Corpuscular Volume 96.5 fL (80.0-100.0); Mean Platelet Volume 9.7 fL (9.4-12.4); Monocytes # (auto) 0.83 K/uL (0.11-0.59); Monocytes % (auto) 7.8 %; Platelet Count 307 K/uL (130-400); RDW Coefficient of Variation 15.2 % (11.5-14.5); RDW Standard Deviation 53.8 fL (36.4-46.3); Red Blood Count 3.16 M/uL (4.20-5.40); White Blood Count 10.69 K/ul (4.8-10.8)
[2023-11-19 06:42] LABS: Albumin Globulin Ratio 1.4 (0.9-2); Albumin Level 3.2 gm/dl (3.4-5.0); BUN Creatinine Ratio 16.7 (10-20); Bilirubin,Total 0.4 mg/dl (0.2-1.0); Calcium 8.4 mg/dl (8.6-10.3); Creatinine Clr Calc Pharmacy 47.4 ml/min; Est GFR (African American) 62.4 ml/min; Est GFR (Non-African American) 53.8 ml/min; Globulin 2.3 gm/dl (2.5-4.0); Magnesium 1.9 mg/dl (1.7-2.4); Potassium 5.5 mmol/L (3.5-5.1); Total Protein 5.5 gm/dl (6.0-8.3)
[2023-11-19 07:44] LABS: Estimated Average Glucose 128 mg/dl; Hemoglobin A1C 6.1 % (4.5-5.6)
--- NOTE | 2023-11-19 07:45 | Hospitalist Progress Note ---
Date of Service November 19, 2023 Assessment & Plan (1) Multiple falls: Plan: Presented to the ED via EMS as a trauma alert after experiencing a fall while ambulating to the bathroom at home this afternoon. No acute trauma on exam/imaging. Fall appears to be due to recurrent orthostatic hypotension c/w dehydration on exam, elevated Cr and hx malnutrition. ? hypomagnesemia in setting of such suspected contributing to weakness/multiple falls. * Of note, patient did endorse good PO intake however reports her sister told EMS she DOES NOT drink enough. 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 On admission, IVF hydration with 1L LR @ 80cc/hr overnight. Home lisinopril-HCTZ placed on hold. Fall precautions, therapy evaluations to be undertaken and b/l ed stockings to assist with orthostasis with instructions to change positions slowly Patient with troponin in 50s on admission, no CP but did report lightheaded/dizziness. Continue to monitor w/ IVF, -- 1L LR ordered but switched to NS x 1L for now given hyperkalemia (K 5.4) and continue to hold home HCTZ/lisinopril Cr improved from 1.38--> 1.19 (peaked at 2.8 last admission). Encourage PO intake. Nutrition consult placed Mag LOW 0.8 on admission - see below, ongoing replacement/monitoring. Orthostatic vitals not too impressive, 120s systolic w/ drop to 110s with standing. Continue to monitor orthostatic VS, repeat labs this afternoon to ensure potassium level improved/renal function PT/OT consults placed, patient hopeful for dc in AM DVT proph: Xarelto resumed 20mg daily (monitor renal function in AM to see if needing reduced to 15mg) 11/18 BP 160/67. WBC now wnl, afebrile K down to 5.1 last evening, diet changed to low K diet. Home lisinopril/HCTZ remain on hold. Will provide additional 500cc NSS. BUN/Cr 20/03.08. Mag 1.9, will plan to start slow mag BID (mag was 2.7 last night following 8gm IV total) Repeat orthostatic VS Monitor BSGs - DM educator consulted. On metformin 500mg BID, glimeperide - cautious w/ renal function/poor PO intake ? hypoglycemia at home -A1c only 6.1, consideration to have patient HOLD OFF RESUMING HER GLIMEPERIDE AND METFORMIN FOR NOW AND F/U PCP for ongoing management/possible resumption of metformin once daily and follow up with BSG checks/repeat A1c in 3 months with PCP. Iron panel/B12/folate given chronic anemia for completeness If repeat labs this afternoon w/ stable/improved potassium can consider dc off of HCTZ/lisinopril given dehydration/poor PO intake and GENESIS on admission. Low K diet to be encouraged. Repeat BMP/Mag on friday to ensure remaining stable with close follow up with PCP at discharge PT/OT evals undertaken and ok for return home Eval this afternoon around lunch, doing well. Decreased lightheaded/dizziness , resolving with mag/IVF replacement. Hopeful for dc, discussed repeat labs this afternoon and if stable K/renal funtion can plan to dc. Has glucometer and going to check more frequently. Discussed stopping her glimepiride as well as HCTZ and lisinopril at nd. Continue metformin. Will arrange f/u Dr Ponce at [place] as to her f/u after last admission. Repeat labs friday (noting she has repeat labs end of the month with PCP for mag check). Rx for slow mag to [facility] (got her mail order today but instructed to hold off to prevent diarrhea/diarrheal losses). Question/concerns addressed at this time. (2) Hypomagnesemia: Plan: MAGNESIUM VERY LOW at 0.8 on admission . Is on PPI once daily at baseline --> 4gm IV ordered on admission Mag 1.3 on repeat --> Additional 4gm total ordered for today and will monitor/additional replacement as indicated. She reports she had improvement in symptoms last admission w/ replacement and appeared MAG OXIDE BID sent last admission, which was discussed with patient however she DID NOT GET FILLED as was sent to mail order. With her hx cdiff enteritis/chrons (completed vancomycin PO, no further diarrhea reported), doubt having good absorption and will monitor repeat levels but suspect replacement with SLOW MAG would be better for patient w/ IBD/hx cdiff for absorption. Is also on PPI daily Mag level w/ repeat BMP this afternoon and will continue to monitor. (3) Elevated troponin: Plan: Trop 57.3--> 51.4 on high sensitivity testing Patient has been without chest pain, no acute ST segment or T wave changes on EKG today Recent admission earlier this month for Takotsubo cardiomyopathy but nonobstructive cardiac cath Likely due to demand known nonobstructive coronary disease stress from fall/dehydration, hypomagnesemia Monitor on telemetry --> NSR 70-80s Consider holter given hx afib and low mag at dc (4) Leukocytosis: Plan: WBC 19k on admission with lactic 3.9 Afebrile/without infectious sx since discharge, no further diarrhea and had completed course of vancomycin. Empiric abx deferred given recent cdiff Blood cultures pending from admission WBC trending down, 11k and suspect from dehydration/electrolyte abn as above. Monitor for any infectious symptoms/CBC in AM (5) Acute dehydration: Plan: elevated Cr, lactic on admission. IVF 1L NS by EMS, additional 1.5L NSS in ER and ordered 1L LR overnight. Lactic trending down on repeat. Switched to NSS for additional 1L for today and encouraged PO intake. Nutrition consulted. Did discuss w/ patient and she notes her sister reports she does not drink enough at baseline. Encouraged taking her cup with her at dc and counting but recs for 3-4 daily to maintain status (6) Generalized weakness: Plan: Suspect 2nd to malnutrition and prolonged hospitalizations/deconditioning and electrolyte abn as above No further diarrhea, monitor w/ hx cdiff Mag LOW as above, ongoing replacement as outlined and IVF hydration/nutrition consult Fall precautions Monitor repeat orthostatic VSs Patient hopeful for dc tomorrow, monitor PT/OT evals to ensure no needs (7) Atrial fibrillation: Plan: NSR on admission EKG. Resumed metoprolol 25mg daily, Xarelto 20mg (monitor for reduction in dose if renal function remains elevated) Remains in NSR Monitor on telemetry --> keep k/mag replete ?holter monitor at dc (8) Coronary artery disease: Plan: No recent chest pain. No acute ST segment T wave changes on EKG. Trop decreased compared to last admission and suspect demand ischemia, no CP reported Resumed home aspirin, statin, metoprolol Monitor on telemetry Outpt cards f/u (9) COPD (chronic obstructive pulmonary disease): Plan: on RA, no wheezing Continue IS Resumed home trelegy/hospital equivalent, albuterol HFA available as needed (10) Type 2 diabetes mellitus: Plan: Home metformin, glimepiride on hold and utilizing sliding scale. BSGs acceptable and monitor/adjust as needed A1c 7.2 last year, will add to AM labs to see where she is, Glu 182 on Am labs Monitor renal function but may need to consider adjusting metformin/alternative agents Gabapentin 300mg TID resumed and max dose 900mg/day based on CURRENT renal fun ction but may need adjusted pending repeat clearance/would continue to monitor in follow up (11) Hypertension: Plan: BP 125/63, 99/57 on admission - 2nd to dehydration/BP medications/diuretics Home lisinopril/HCTZ on HOLD, renal function improving and IVF for additional 1L as above Home metoprolol resumed given afib/Takotsubo's cardiomyopathy as above Monitor orthostatic VS on repeat, consideration to resume home agents in AM vs slow resumption with outpatient follow up -If holding certain agent, may be more beneficial to hold HCTZ to prevent worsening dehydration vs adjusting dose/half tablet (would be lisinopril 5mg/HCTZ 7.25mg from 10mg/12.5mg dose) Rec f/u cards/PCP Plan continued inpatient stay, electrolyte replacement/therapy evaluations and telemetry monitoring Dispo: patient hopeful for dc 11/18 if labs improved/stable and therapy cleared for return home consideration for slow mag pending repeat levels as well as holter monitor to see about her flipping in/out of afib if not having any episodes on telemetry while inpatient Admission and Anticipated Discharge Date Admission Date: November 17, 2023 Subjective Eval this afternoon around lunch, doing well. Decreased lightheaded/dizziness , resolving with mag/IVF replacement. Hopeful for dc, discussed repeat labs this afternoon and if stable K/renal funtion can plan to dc. Has glucometer and going to check more frequently. Discussed stopping her glimepiride as well as HCTZ and lisinopril at nd. Continue metformin. Will arrange f/u Dr Ponce at [place] as to her f/u after last admission. Repeat labs friday (noting she has repeat labs end of the month with PCP for mag check). Rx for slow mag to [facility] (got her mail order today but instructed to hold off to prevent diarrhea/diarrheal losses). Question/concerns addressed at this time. Results & Data Results & Data Vital Signs (Past 12 Hours) Vital Signs Temp Pulse Pulse Resp BP Pulse Ox O2 Del Method 11/19/23 07:18 36.5 C 83 16 160/67 H 94 Room Air 11/19/23 02:30 36.7 C 79 18 148/70 H 93 Room Air 11/18/23 22:54 36.6 C 75 18 130/63 94 Room Air 11/18/23 21:49 78 PG Care Time/CCT Total # of Minutes Spent Total Time Spent with Patient: Total time spent is greater than 50% in coordination of care (as documented) at patient's floor/unit and/or counseling patient: Coding Diagnoses Multiple falls R29.6 Hypomagnesemia E83.42 Elevated troponin R79.89 Leukocytosis D72.829 Leukocytosis type: unspecified Acute dehydration E86.0 Generalized weakness R53.1 Atrial fibrillation I48.91 Coronary artery disease I25.10 COPD (chronic obstructive pulmonary disease) J44.9 Type 2 diabetes mellitus E11.9 Hypertension I10 (4) Leukocytosis Leukocytosis type: unspecified Qualified Code(s): D72.829 - Elevated white blood cell count, unspecified
[2023-11-19] MEDS: MAGNESIUM CHLORIDE W/CALCIUM 64MG DELAYED REL TAB PO SCH (08:51)
[2023-11-19 09:30] LABS: Ferritin 637.4 ng/ml (8-388)
[2023-11-19] MEDS: SODIUM CHLORIDE 0.9% 500 ML IV SCH (09:39)
[2023-11-19 10:45] LABS: Folate (Folic Acid),Ser orPlas 7.73 ng/ml (>5.38); Vitamin B12 > 1500 pg/ml (180-914)
--- NOTE | 2023-11-19 12:19 | Discharge Summary ---
Discharge Summary Date of Service November 19, 2023 Principal Dx & Hospital Course #1 = Principal Diagnosis (1) Multiple falls: Presented to the ED via EMS as a trauma alert after experiencing a fall while ambulating to the bathroom at home . No acute trauma on exam/imaging. Fall appears to be due to recurrent orthostatic hypotension c/w dehydration on exam, elevated Cr and hx malnutrition. ? hypomagnesemia in setting of such suspected contributing to weakness/multiple falls -- rx for such at hi last admission but sent mail order and was not received. Mag 0.8 on admission Of note, patient also endorsed she does not have good PO intake at baseline with recent weight loss and multiple hospitalizations at [facility] and this institution for vascular intervention, post-op afib and then admission for NSTEMI earlier this month with non-obstructive disease and suspected Takusubos cardiomyopathy with reduced EF and recs for GDMT Copious IVF hydration and magnesium replacement while inpatient with improvement in symptoms and orthostatic VS and decision to hold her HCTZ/lisinopril given GENESSI and hyperkalemia and renal function improved however repeat K 5.5 at discharge and discussed with supervising provider given improvement in symptoms and STOPPING HCTZ/lisinopril AND supplemental KCL at discharge with recs for low potassium diet at discharge and close monitoring of repeat BMP/mag as outpatient this friday and results to PCP. Xarelto 20mg dialy continued for afib, CrCl >50 prior to dc and no need for reduction but if <50 consider reducing to 15mf daily in follow up Mag 1.5 on check for completeness and suspect given underlying Crohns' disease and recent cdiff enteritis has poor absorption and need for PPI on eliquis/aspirin therapy and increased SLOW MAG from BID to TID at hi and asked RN to provide prior to dc as well. To have f/u with Dr Ponce from cardiology at hi, relationship executive arranged. Could consider event monitor to eval in/out of afib but has been stable telemetry without issues. Of note, her A1c was only 6.1 and while no hypoglycemia on admission is on metformin BID and glimepiride and doesn't check BSGs frequently at home and with decreased PO intake is at risk for hypoglycemia and discontinued glimepiride and continue metformin and to follow up with PCP. (2) Hypomagnesemia: MAGNESIUM VERY LOW at 0.8 on admission . Is on PPI once daily at baseline but need for GI protection w/ eliquis/aspirin therapy Copious replacemnt and was to 2.7 however 1.9 on am labs and started slow mag BID AM 11/18 however was added to afternoon labs to monitor with renal function/potassium and was low at 1.5. Wanting to go home and asked RN to provide evening magnesium replacement and decision to INCREASE to TID at hi. Outpt labs for repeat mag on Friday in place Consideration to switch PPI therapy to H2 dali if acceptable risk in f/u with PCP/cardiology to prevent ongoing issues if contributing No further diarrhea reported and completed course vanco for cdiff Poor absorption at baseline suspected with underlying IBD - continued replacement/monitoring at dc (3) Elevated troponin: Trop 57.3--> 51.4 on high sensitivity testing Patient has been without chest pain, no acute ST segment or T wave changes on EKG Recent admission earlier this month for Takotsubo cardiomyopathy but nonobstructive cardiac cath Likely due to demand known nonobstructive coronary disease stress from fall/dehydration, hypomagnesemia Monitor on telemetry --> NSR 70-80s. Consider holter given hx afib and low mag as above Outpt f/u Dr Ponce as above (4) Leukocytosis: WBC 19k on admission with lactic 3.9 Afebrile/without infectious sx since discharge, no further diarrhea and had completed course of vancomycin. Empiric abx deferred given recent cdiff and WBC normalized prior to dc without any fevers Blood cultures from admission without growth at time of discharge (5) Acute dehydration: elevated Cr, lactic on admission as above with ongoing HCTZ/diuretics and lisinopril with poor PO intake/absorption as above IVF provided, lactic trended down. WBC normalized and afebrile. blood cx neg to date Improvement in PO intake, encouraged increased intake at hi (reports her family member will push her at home) and provided nutritional supplements while inpatient Albumin 3.2 and does appear chronically ill Encouraged increased nutrition at hi Outpt f/u at hi (6) Generalized weakness: Suspect 2nd to malnutrition and prolonged hospitalizations/deconditioning and electrolyte abn as above with improvement with hydration and replacement ongoing mag replacement at hi and outpatient therapy to be resumed as getting prior to admission Improvement in orthostatic VS on repeat and improvement in symptoms and wanting to go home Cleared by PT to return w/ prior level of care/outpatient therapy (7) Atrial fibrillation: NSR on admission EKG and remained NSR on telemetry despite magnesium issues above Continued on metoprolol, xarelto SLOW mag, increased to TID as above at dc and prior did not get her rx Consideration for event monitor in f/u with cardiology to eval if flipping in/out given mag issues and hx paroxsymal afib (8) Coronary artery disease: No recent chest pain. No acute ST segment T wave changes on EKG. Trop decreased compared to last admission and suspect demand ischemia, no CP reported Resumed home aspirin, statin, metoprolol and continued Stable telemetry, no CP/SOB reported Did have lisinopril placed on hold given GENESIS/hyperkalemia as above but could consider pending repeat labs in follow up for GDMT Outpt f/u Dr Ponce (9) COPD (chronic obstructive pulmonary disease): on RA, no wheezing, on room air Trelegy/hospital equivalent, albuterol HFA available as needed (10) Type 2 diabetes mellitus: Home metformin, glimepiride on hold and utilizing sliding scale while inpatient but as above DISCONTINUE glimiperide at dc and continuing metformin A1c 6.1 from 7.2 last year Encouraged more frequent BSG checks to ensure not having hypoglycemia but ho pefully risk decreased with dc glimepiride Was seen by DM educator while inpatient Outpt f/u Gabapentin acceptable for renal function at current dose (11) Hypertension: BP 125/63, 99/57 on admission - 2nd to dehydration/BP medications/diuretics Home lisinopril/HCTZ on HOLD, renal function improving and IVF as outlined Continued on metoprolol Home lisinopril/HCTZ as above ON HOLD/DC at discharge for now -- suspect HCTZ not helpful in patient w/ poor PO intake at baseline/risk for dehydration but holding lisinopril given K 5.5 and stopped supplemental potassium/encouraged low K diet at dc BP 147/73 and stable prior to dc and to continue metoprolol alone for now Outpt cards f/u as above Plan Discharged home on magnesium replacement TID. DC HCTZ/lisinopril/PO Kcl for now. DC glimiperide Outpt f/u with PCP and Dr Ponce Repeat BMP/Mag for Friday to ensure stable/improved and have results forwarded to PCP as well Notes For Next Care Provider Follow up repeat BMP/Mag on Friday to see if needing adjustment to magnesium replacement HCTZ/lisinopril discontinued (at least for now) due to dehydration/GENESIS as well as hyperkalemia Consideration for holter monitor to see if having paroxysms of afib/RVR however has been rate controlled while inpatient without issue however could have had episodes leading to presentation however suspect more from dehydration/GENESIS/hypomagnesium in patient w/ multiple hospitalizations/chrons/cdiff enteritis and suspect poor absorption and continued encouragement for fluids/hydration and intake at discharge which has improved prior to dc but again low and increased replacement to TID. K discussed with supervising provider and given holding lisinopril/PO supplementation at dc suspect will normalize. Low K diet recommended Encouraged more frequent BSG checks and stopped her glimepiride given A1c 6.1 and not checking frequent at home and could have had some hypoglycemia but certainly at ongoing risk and decision to hold Xarelto continued at 20mg dose but pharmacy did note possible need for reduction if CrCl further reduced as outpatient but hopefully w/ holding diuretics/lisinopril will remain stable to continue current dose. Cr Cl >50 prior to dc Medication Changes From Visit STOPPED HCTZ/LISINOPRIL daily FOR NOW STOP POTASSIUM CHLORIDE 20mEQ daily DISCONTINUE GLIMEPIRIDE daily SLOW MAG PO TID Admission HPI Per Admitting Provider Alysia is a 63-year-old female with a past medical history segment for severe peripheral arterial disease status post bilateral common femoral bypass graft [facility] aortofemoral bypass at [facility] on 08/2023 with large right groin hematoma/wound, previous tobacco use and COPD, hypertension, hyperlipidemia, Atrial fibrillation (on Xarelto), DM type II, Crohn's disease (in remission for past 2 years), anxiety, recent C. difficile enteritis, Takotsubo's cardiomyopathy who presented manage [facility] ED via EMS on 11/17/2023 after sustaining a syncopal episode at home this evening. While in route by EMS she was given 4 mg p.o. Zofran, 324 mg aspirin, and 1 L normal saline. Patient was made a trauma alert on arrival and is placed in a c- collar. Was initially noted to be mildly hypotensive at 99/57 but was otherwise stable. Labs were significant for a leukocytosis of 19 with neutrophil predominance of 16, creatinine of 1.38 (baseline is near 0.8), initial high- sensitivity troponin of 57 (down from 636 as of 11/11/2023). CT of the head/face/cervical spine were read as negative for acute findings. Prior to admission the patient was given 1.5 L normal saline, 4 mg IV Zofran, and 2 mg IV morphine. Patient was lying in bed no acute distress at time of exam. States that since her discharge home on 11/13/2023 she has had ongoing generalized weakness. States that she has been taking her medications as prescribed. Oral intake has been improved compared to earlier this month with significant increase in her appetite. States that she has been experiencing frequent episodes of lightheadedness/dizziness with positional changes causing amatory dysfunction and falls at home. States that she was at home earlier today and got up to walk to the bathroom when she started to feel lightheaded/dizzy with seeing stars/spots. Did not lose consciousness but did lose her balance falling backwards landing on her buttocks and experiencing upper back/neck pain after the fall. Confirm she did not hit her head. Feels significant improved compared to arrival. When asked, she states that her diarrhea has resolved since completing her p.o. vancomycin recent C. difficile infection. Currently having soft/formed stool daily. No recent fever/chills, chest pain, shortness of breath, cough, abdominal pain, nausea/vomiting, dysuria/hematuria, melena, bloody stool, lower extremity swelling. Did have all of her a.m. medications including her Xarelto. Confirms she is a DNR/DNI. Please refer to Dr. Rapp's attestation for any changes to the treatment plan Admission Exam Per Admitting Provider Physical Exam: General: In no acute distress, stated age, malnourished and chronic ill- appearing but nontoxic HEENT: Normocephalic, atraumatic, no scleral icterus, pupils around round, symmetrical, and reactive to light, dry mucus membranes, trachea midline, no thyromegaly Chest/Pulm: No respiratory distress, symmetrical chest expansion, clear breath sounds throughout Cardiac: RRR, no murmurs noted Abdomen: Negative for ascites and bruising, previous abdominal surgical scars ap pear intact and well-healed, normoactive bowel sounds, soft, non-tender to palpation throughout Musculoskeletal: Symmetrical and without signs of acute trauma, upper and lower extremities with full ROM, no tenderness or crepitus on palpation of the neck, thoracic spine, lumbar spine, bilateral hips, significant muscle atrophy, no spasticity, or flaccidity Extremities: Radial, dorsalis pedis, and posterior tibial pulses are intact and symmetrical, no edema noted in the BL LE's Skin: Warm, dry, no rashes , lesions, or scars noted Neuro: Alert and oriented to person, place, month, year, and president, no focal defects, no tremors noted Psych: No acute distress, calm and cooperative during the exam Discharge Exam General: 63yo female ambulating to the bathroom with a walker, thin, cachectic appearing, not well nourished but hydration appears improved HEENT: head atraumatic, normocephalic, mmm, trachea midline Resp: even/unlabored, no w/c/r, on room air CV: RRR, +systolic murmur, NO pitting edema/calf tenderness, calves nontender, pulses present GI: +BS, soft, scaphoid, nontender MSK/Neuro: extremities thin, muscle atrophy but nonfocal, no slurred speech/facial droop, following commands Psych: AOx3, cooperative/pleasant during encounter Discharge Plan Discharge Items Patient Disposition: Home - Home Health Services Reason For Visit: FALLS, DEHYDRATION, GENERALIZED WEAKNESS Discharge Diagnosis: Falls, Dehydration, Hypomagnesemia Goals: You have been hospitalized for an acute medical problem. During your stay at [facility], we have made an effort to correct the problem that brought you to the hospital while keeping you as comfortable as possible. Medications were used to bring your condition under control and your discharge instructions will include directions for any medications you should take after leaving the hospital. Please make sure you see your Primary Care Provider as part of your follow up plan. Activity: Resume your previous activity Activity Comment: change positions slowly Non-emergency contact: Primary Care Provider and Husbandry Person Call non-emergency contact if: you have any medication questions, your symptoms worsen, your pain is not controlled, your pain is concerning for you and you have a fever Follow-up/Referrals: Fariba Abdi MD [Primary Care Provider] - 12/01/23 2:00 pm Dav Ponce DO [Physician] - 11/21/23 10:15 am Diet: Carb Consistent or DM2 and Heart Healthy Ambulatory Orders: Basic Metabolic Panel (Routine) Timeframe: 20231121 Location: Determined by Patient Ordered By: Debora Low Magnesium (Routine) Timeframe: 20231121 Location: Determined by Patient Ordered By: Debora Low Addtl Attending Provider Instructions: You have been hospitalized for falls/weakness and found to again have a very low magnesium level as well as elevated kidney numbers likely due to poor oral intake/dehydration as well as medications with diuretics called hydrochlorothiazide. We have provided IV fluids and COPIOUS magnesium replacement and decision was to send on THREE TIMES DAILY SLOW MAGNESIUM to help keep your stores stable. Your vital signs have improved with sitting/standing with hydration and your blood pressure medications with HYDROCHLOROTHIAZIDE AND LISINOPRIL have been placed on hold at discharge and you should discuss with primary care/Dr Ponce from cardiology about resuming these if needed in the future. At present, we do not want to worsen your renal function or elevate potassium levels which have been high and treated and we are having repeat labs for Friday with renal function and magnesium which will be forwarded to primary care to ensure staying stable. You should also STOP your oral potassium replacement and avoid high potassium foods like bananas and oranges/citrus fruits in the meantime until repeat labs r esulted/further instruction from your primary care doctor. Regarding your diabetes, you have had significant weight loss and your A1c was not significantly elevated at 6.1 and some medications can cause low blood sugars and we are STOPPING your GLIMEPIRIDE and you can continue the metformin. Please check your blood sugars more frequently as discussed and keep a log to take in follow up. Please follow up with primary care in the next 7-10 days after discharge. You may want to discuss an event monitor to ensure not having elevated heart rate with afib but have been stable on telemetry while in the hospital. Please return to the ER with any increased weakness/lightheaded/dizziness, chest pain, shortness of breath or for any other symptoms concerning for you. It has been a pleasure being a part of the medical team providing for you while you have been in the hospital. Take care! Pending Studies at Discharge: Yes Studies:: Blood cultures - no growth to date Stand-Alone Forms: My [facility], Smoking Cessation Medications and DC Order Prescriptions: New Slow-Mag 71.5 mg tablet,delayed release (DR/EC) 71.5 mg PO TID Qty: 90 0RF Continued nortriptyline 25 mg capsule 25 mg PO .qhs Qty: 30 2RF fluticasone propionate [Flonase Allergy Relief] 50 mcg/actuation spray,suspension 1 spray intranasal BID Qty: 18.2 2RF Rx Instructions: administer into each nostril metformin 500 mg tablet extended release 24 hr 500 mg PO BID Qty: 200 3RF Hold Instructions: Resume on 11/15/23. omeprazole 20 mg capsule,delayed release(DR/EC) 20 mg PO DAILY Qty: 100 3RF escitalopram oxalate 10 mg tablet 10 mg PO DAILY Qty: 100 3RF atorvastatin 40 mg tablet 40 mg PO DAILY Qty: 100 3RF metoprolol succinate 25 mg tablet extended release 24 hr 25 mg PO DAILY Qty: 30 0RF Xarelto 20 mg tablet 20 mg PO DAILY Qty: 100 1RF gabapentin 300 mg capsule 300 mg PO TID Qty: 300 1RF Trelegy Ellipta 100-62.5-25 mcg blister with device 1 inh inhalation DAILY Qty: 180 3RF azithromycin 250 mg tablet 250 mg PO MOWEFR 30 Days Qty: 18 6RF Rx Instructions: 1 tablet orally every Friday, Friday, and Friday multivitamin Tablet 1 tab PO QAM aspirin 81 mg Tablet,Delayed Release (Dr/Ec) 81 mg PO QAM albuterol sulfate 90 mcg/actuation HFA aerosol inhaler 2 inh inhalation Q6H PRN (Reason: shortness of breath or wheezing) Qty: 6.7 0RF Changed chlorpheniramine maleate [Allergy Relief(chlorpheniramn)] 4 mg tablet 4 mg PO Q12H PRN (Reason: allergies) Qty: 90 1RF Discontinued lisinopril-hydrochlorothiazide 10-12.5 mg tablet 1 tab PO DAILY Qty: 100 3RF glimepiride 1 mg tablet 1 mg PO QAM Qty: 100 3RF Rx Instructions: administer with breakfast potassium chloride 20 mEq Tablet,Er Particles/Crystals 20 meq PO DAILY Qty: 30 0RF magnesium oxide 400 mg magnesium capsule 400 mg PO BID Qty: 60 0RF Discharge Orders: Discharge Order (Routine); Ordered 11/19/23 Ordered By: Debora Rhoades/Other Patient Handouts: High Blood Sugar (Hyperglycemia), Managing Type 2 Diabetes Admission Data Admit Date/Time: 11/17/23 21:10 Attending Provider: Evon Longoria Admit Provider: Tere Rapp Primary Care Provider: Fariba Abdi Other Providers: Tere Rapp; Cruzito Bnaegas dionisio Hospital Stay Data Consultations 11/17/23 20:31 ED Decision to Admit Stat Diagnostic Imagining Performed Cervical Spine CT 11/17/23 19:21 Exam(s): CT C SPINE EXAM: CT Cervical Spine Without Intravenous Contrast CLINICAL HISTORY: Reason for exam: Trauma. TECHNIQUE: Axial computed tomography images of the cervical spine without intravenous contrast. CTDI is 26.96 mGy and DLP is 664.29 mGy-cm. Automated exposure control was utilized for the study. A dose lowering technique was utilized adhering to the principles of ALARA. COMPARISON: No relevant prior studies available. FINDINGS: Vertebrae: No acute fracture or malalignment. Soft tissues: Unremarkable. IMPRESSION: No acute fracture or malalignment. Electronically signed by: Aj Guadarrama MD 11/17/23 19:53 PM Chest X-Ray 11/17/23 19:21 XR chest 1V portable HISTORY: trauma COMPARISON: Chest 11/11/2023. FINDINGS: No pneumothorax. No pleural effusions. The heart is normal in size. The lungs are clear. Old, healed left-sided rib fractures again noted. No acute fractures identified. IMPRESSION: No significant change compared to the prior study. No acute process. ACT 112: Negative or not required by law. Electronically signed by: Shlomo Cottrell M.D. 11/18/2023 7:[address] 11/17/23 19:21 Exam(s): CT FACIAL Without Contrast EXAM: CT Maxillofacial Without Intravenous Contrast CLINICAL HISTORY: Reason for exam: Trauma. TECHNIQUE: Axial computed tomography images of the face without intravenous contrast. CTDI is 26.96 mGy and DLP is 664.29 mGy-cm. Automated exposure control was utilized for the study. A dose lowering technique was utilized adhering to the principles of ALARA. COMPARISON: No relevant prior studies available. FINDINGS: Bones/joints: No facial fracture. Soft tissues: Unremarkable. Orbits: No intraorbital traumatic injury. Sinuses: Unremarkable. IMPRESSION: No facial fracture. Electronically signed by: Aj Guadarrama MD 11/17/23 19:[address] 11/17/23 19:21 Exam(s): CT HEAD Without Contrast EXAM: CT Head Without Intravenous Contrast CLINICAL HISTORY: Reason for exam: Trauma. TECHNIQUE: Axial computed tomography images of the head/brain without intravenous contrast. CTDI is [place] the time 35.65 mGy and DLP is 624.41 mGy-cm. Automated exposure control was utilized for the study. A dose lowering technique was utilized adhering to the principles of ALARA. COMPARISON: No relevant prior studies available. FINDINGS: Brain: No hemorrhage, extra-axial fluid collection, mass effect, or edema. Ventricles: Unremarkable. Bones/joints: Unremarkable. No fracture. Soft tissues: Unremarkable. Sinuses: No acute sinusitis. Mastoid air cells: Unremarkable as visualized. IMPRESSION: 1. No acute intracranial abnormality. Electronically signed by: Aj Guadarrama MD 11/17/23 19:57 PM Discharge Instructions Given to Patient (Per Discharging Provider) You have been hospitalized for falls/weakness and found to again have a very low magnesium level as well as elevated kidney numbers likely due to poor oral intake/dehydration as well as medications with diuretics called hydrochlorothiazide. We have provided IV fluids and COPIOUS magnesium replacement and decision was to send on THREE TIMES DAILY SLOW MAGNESIUM to help keep your stores stable. Your vital signs have improved with sitting/standing with hydration and your blood pressure medications with HYDROCHLOROTHIAZIDE AND LISINOPRIL have been placed on hold at discharge and you should discuss with primary care/Dr Ponce from cardiology about resuming these if needed in the future. At present, we do not want to worsen your renal function or elevate potassium levels which have been high and treated and we are having repeat labs for Friday with renal function and magnesium which will be forwarded to primary care to ensure staying stable. You should also STOP your oral potassium replacement and avoid high potassium foods like bananas and oranges/citrus fruits in the meantime until repeat labs resulted/further instruction from your primary care doctor. Regarding your diabetes, you have had significant weight loss and your A1c was not significantly elevated at 6.1 and some medications can cause low blood sugars and we are STOPPING your GLIMEPIRIDE and you can continue the metformin. Please check your blood sugars more frequently as discussed and keep a log to take in follow up. Please follow up with primary care in the next 7-10 days after discharge. You may want to discuss an event monitor to ensure not having elevated heart rate with afib but have been stable on telemetry while in the hospital. Please return to the ER with any increased weakness/lightheaded/dizziness, chest pain, shortness of breath or for any other symptoms concerning for you. It has been a pleasure being a part of the medical team providing for you while you have been in the hospital. Take care! Total Time Total Time Spent Total Time Spent (In Minutes): 55 Coding Level of Care Code 35961 INP/OBS DISCH >30 MIN Diagnoses Multiple falls R29.6 Hypomagnesemia E83.42 Elevated troponin R79.89 Leukocytosis D72.829 Leukocytosis type: unspecified Acute dehydration E86.0 Generalized weakness R53.1 Atrial fibrillation I48.91 Coronary artery disease I25.10 COPD (chronic obstructive pulmonary disease) J44.9 Type 2 diabetes mellitus E11.9 Hypertension I10
[2023-11-19 14:40] VITALS: BP 147/73; RESP 16; TEMP 98.2; O2SAT 95
[2023-11-19 15:26] LABS: BUN Creatinine Ratio 23.2 (10-20); Calcium 8.6 mg/dl (8.6-10.3); Creatinine Clr Calc Pharmacy 53.9 ml/min; Est GFR (African American) 72.8 ml/min; Est GFR (Non-African American) 62.9 ml/min; Magnesium 1.5 mg/dl (1.7-2.4); Potassium 5.5 mmol/L (3.5-5.1)
[2023-11-19 16:23] VITALS: PULSE 76
[2023-11-20 17:31] LABS: A calco-baum cmplx NotReported Not Detected (NotDetected); Bact fragilis Not Reported Not Detected (NotDetected); Blood Culture Id Panel PCR Panel Negative (NotDetected); C auris Not Reported Not Detected (NotDetected); Calbicans Not Reported Not Detected (NotDetected); Candida glabrata Not Reported Not Detected (NotDetected); Candida krusei Not Reported Not Detected (NotDetected); Cneoformans/gatti Not Reported Not Detected (NotDetected); Cparapsilosis Not Reported Not Detected (NotDetected); E cloacae compx Not Reported Not Detected (NotDetected); Efaecalis Not Reported Not Detected (NotDetected); Efaecium Not Reported Not Detected (NotDetected); Enterobacterales Not Reported Not Detected (NotDetected); Escherichia coli Not Reported Not Detected (NotDetected); H influenzae Not Reported Not Detected (NotDetected); K aerogenes Not Reported Not Detected (NotDetected); Koxytoca Not Reported Not Detected (NotDetected); Kpneumoniae grp Not Reported Not Detected (NotDetected); Lmonocyt Not Reported Not Detected (NotDetected); N meningitidis Not Reported Not Detected (NotDetected); P aeruginosa Not Reported Not Detected (NotDetected); Proteus spp Not Reported Not Detected (NotDetected); Salmonella spp Not Reported Not Detected (NotDetected); Staph lugdunensis Not Reported Not Detected (NotDetected); Staph spp. Not Reported Not Detected (NotDetected); Staphaureus Not Reported Not Detected (NotDetected); Staphepi Not Reported Not Detected (NotDetected); Stenmaltophilia Not Reported Not Detected (NotDetected); Strep agal(GrpB) Not Reported Not Detected (NotDetected); Strep pneum Not Reported Not Detected (NotDetected); Strep pyog (GrpA) Not Reported Not Detected (NotDetected); Strep spp Not Reported Not Detected (NotDetected)
== END 2023-11-19 17:06 | disposition home health service (06) | DRG 312 ==
LOC: ED 18:56 → SUATTDRO 20:49 → 2N 20:49

== ENCOUNTER 2023-11-20 20:23 | Inpatient (IN) ==
[2023-11-20 21:06] LABS: Basophils % (auto) 0.8 %; Eosinophils # (auto) 0.22 K/uL (0.00-0.50); Eosinophils % (auto) 1.7 %; Hemoglobin 10.9 g/dl (12.0-16.0); Immature Granulocytes # (auto) 0.06 K/uL (0.01-0.20); Immature Granulocytes % (auto) 0.5 %; Lymphocytes % (auto) 22.4 %; Mean Corpuscular Hemoglobin 30.7 pg (25.0-34.0); Mean Corpuscular Hgb Conc 32.1 g/dL (32.0-36.0); Mean Corpuscular Volume 95.8 fL (80.0-100.0); Mean Platelet Volume 9.6 fL (9.4-12.4); Monocytes # (auto) 1.23 K/uL (0.11-0.59); Monocytes % (auto) 9.5 %; Neutrophils # (auto) 8.43 K/uL (1.40-6.50); Neutrophils % (auto) 65.1 %; Platelet Count 389 K/uL (130-400); RDW Coefficient of Variation 14.7 % (11.5-14.5); RDW Standard Deviation 51.9 fL (36.4-46.3); Red Blood Count 3.55 M/uL (4.20-5.40); White Blood Count 12.94 K/ul (4.8-10.8)
[2023-11-20 21:46] LABS: Alanine Aminotransferase 16 U/L (7-52); Albumin Globulin Ratio 1.4 (0.9-2); Alkaline Phosphatase 79 U/L (34-104); Anion Gap 7 (3-11); Aspartate Aminotransferase 14 U/L (13-39); BUN Creatinine Ratio 27.4 (10-20); Bilirubin,Total 0.4 mg/dl (0.2-1.0); Blood Urea Nitrogen 23 mg/dl (6-23); Calcium 9.3 mg/dl (8.6-10.3); Carbon Dioxide 27 mmol/L (21-32); Chloride 99 mmol/L (98-107); Est GFR (African American) 84.5 ml/min; Est GFR (Non-African American) 72.9 ml/min; Globulin 2.9 gm/dl (2.5-4.0); Glucose 140 mg/dl (70-99(Fasting)); Potassium 4.9 mmol/L (3.5-5.1); Sodium 133 mmol/L (136-145); Total Protein 6.9 gm/dl (6.0-8.3)
[2023-11-20] MEDS ORDERED: VANCOMYCIN CONSULT ACTIVE PRN (22:05)
--- NOTE | 2023-11-20 22:10 | Emergency Department Note ---
History of Present Illness General Chief complaint: Infection Stated complaint: BLOOD INFECTION PER PROVIDER Time Seen by Provider: 11/20/23 21:53 History of Present Illness This is a 63-year-old female presenting to the emergency department for evaluation of positive blood cultures. Patient was recently admitted to this facility for general weakness and dehydration. Patient did have an elevated white count and has a history of C. difficile. There was no distinct source for any infection and antibiotics were held during her admission. She started feeling better after supportive care and was discharged with blood cultures pending. Blood cultures returned this evening preliminary positive for gram- positive bacilli with additional testing pending. Patient continues to have weakness, but is difficult to determine if this is better or worse than normal as she also had physical therapy today. Patient rates her current discomfort a 2/10. Home Medications Medication Instructions Recorded Confirmed Type aspirin 81 mg tablet,delayed 81 mg PO QAM 08/21/20 11/20/23 History release multivitamin 1 tab PO QAM 08/21/20 11/20/23 History albuterol sulfate 90 mcg/actuation 2 inh inhalation Q6H PRN shortness 08/23/20 11/20/23 Rx aerosol inhaler of breath or wheezing #6.7 grams metformin 500 mg tablet,extended 500 mg PO BID #200 tabs 07/03/23 11/20/23 Rx release 24 hr azithromycin 250 mg tablet 250 mg PO MOWEFR 30 days #18 tabs 08/04/23 11/20/23 Rx fluticasone fur. 100 mcg-umeclid 1 inh inhalation DAILY #180 ea 08/04/23 11/20/23 Rx 62.5 mcg-vilant 25 mcg inhalat.powder (Trelegy Ellipta) gabapentin 300 mg capsule 300 mg PO TID #300 caps 11/14/23 11/20/23 Rx metoprolol succinate 25 mg 25 mg PO DAILY #30 tabs 11/14/23 11/20/23 Rx tablet,extended release 24 hr chlorpheniramine maleate 4 mg 4 mg PO Q12H PRN allergies #90 tabs 11/19/23 11/20/23 Rx tablet (Allergy Relief (chlorpheniramine)) magnesium chloride 71.5 mg 71.5 mg PO TID #90 tabs 11/19/23 11/20/23 Rx (magnesium chloride) tablet,delayed release (Slow-Mag) atorvastatin 40 mg tablet 40 mg PO QPM 11/20/23 11/20/23 History calcium carbonate 600 mg-vitamin 1 tab PO DAILY 11/20/23 11/20/23 History D3 10 mcg (400 unit) tablet (Calcium 600 + D(3)) cholecalciferol (vitamin D3) 25 25 mcg PO QAM 11/20/23 11/20/23 History mcg (1,000 unit) tablet (Vitamin D3) cyanocobalamin (vitamin B-12) 1,000 mcg PO QAM 11/20/23 11/20/23 History 1,000 mcg tablet (Vitamin B-12) escitalopram oxalate 10 mg tablet 10 mg PO QAM 11/20/23 11/20/23 History fluticasone propionate 50 1 spray intranasal BID PRN 11/20/23 11/20/23 History mcg/actuation nasal Congestion spray,suspension (Flonase Allergy Relief) nortriptyline 25 mg capsule 25 mg PO HS 11/20/23 11/20/23 History omeprazole 20 mg capsule,delayed 20 mg PO QAM 11/20/23 11/20/23 History release rivaroxaban 20 mg tablet (Xarelto) 20 mg PO QAM 11/20/23 11/20/23 History Allergies Allergy/AdvReac Type Severity Reaction Status Date / Time Iodinated Contrast Media Allergy Intermediate Hives Verified 11/14/23 13:40 Past Med/Surg History Problem List (Updated 11/21/23 @ 00:16 by Siddharth Delvalle PA-C) Positive blood culture (Acute) Leukocytosis (Acute) Multiple falls (Acute) Elevated troponin (Acute) Acute dehydration (Acute) Generalized weakness (Acute) Retroperitoneal fluid collection Hypomagnesemia (Acute) Peripheral artery disease (Chronic) Chronic low back pain Spondylolysis of thoracolumbar region Thoracic radiculopathy Thoracic back pain Tobacco abuse (Chronic) Chronic sinusitis (Chronic) Coronary artery disease (Chronic) nonobstructive disease on cath 11/2023 Osteoarthritis (Chronic) COPD (chronic obstructive pulmonary disease) (Chronic) Type 2 diabetes mellitus (Chronic) GERD (gastroesophageal reflux disease) (Chronic) Anxiety and depression (Chronic) Hyperlipidemia (Chronic) Hypertension (Chronic) Crohn's disease (Chronic) in remission Medical History Atrial fibrillation with RVR (09/2023) post-op vascular surgery Non-ST elevation [place] (NSTEMI) (11/2023) C. difficile enteritis Tubular adenoma (10/2020) Surgical History Status post aortobifemoral bypass surgery (08/2023) History of section History of bilateral tubal ligation History of esophagogastroduodenoscopy (EGD) History of colonoscopy History of tooth extraction History of tonsillectomy Family History Aunt Breast cancer Mother Diabetes Hypertension Other Cancer Heart disease Lung disease No family history of adverse response to anesthesia Denies family history of Ovarian cancer Prostate cancer Myocardial infarction Colorectal cancer Asthma Social History Smoking Status: Former smoker Tobacco Type: Cigarettes Age Quit Using Tobacco: 11; packs per day: 1; Cigarettes Per Day: 1 PPD; Second Hand Exposure: No; Do You Dip or Chew Tobacco: No; Hx Alcohol Use: No Hx Substance Use: No Preferred Language: Persian Communication Ability: Effective Visual Impairment: No Limitations Hearing Ability: Normal Last Putter Away Required: No Beliefs That Will Affect Care: None marital status: / Current Living Situation: Family Current Living Situation Comment: son and daughter in law Feels Safe at Home: Yes Diet: regular caffeine: Yes (Rare ) Dental Care, Regularly: Yes Physical Activity Frequency: Does not Exercise Seatbelt Use: always Assistive Devices: Glasses and Walker Review of Systems A total of 10 systems reviewed and were otherwise negative Physical Exam Vital Signs Vital Signs - 24 hr 11/20/23 20:32 Temperature 36.9 C Temperature Source Temporal Artery Scan Pulse Rate 85 Respiratory Rate 18 Respiratory Effort / Characteristics Non-Labored Respiratory Depth Normal Respiratory Pattern Regular Blood Pressure 139/70 Blood Pressure Mean 93 Pulse Oximetry 96 Oxygen Delivery Method Room Air Sepsis Recent Fever Within 48 Hours No Sepsis New/Unexplained Change in Mental Status N/A Sepsis Action Taken by Nursing No Action Required VITALS: Vitals are noted on the nurse's note and reviewed by myself. Vital signs stable. GENERAL: Well-developed, well-nourished, white female, who is in no acute distress and resting comfortably. Patient is cooperative with the examination. HEAD: Normocephalic atraumatic. HEART: Regular rate and rhythm without murmurs gallops or rubs. LUNGS: Clear to auscultation bilaterally without wheezes, rales or rhonchi. No retractions or accessory muscle use. ABDOMEN: Positive normal bowel sounds x 4. Soft, nontender, without masses or organomegaly. No guarding or rebound tenderness. MUSCULOSKELETAL: No muscle atrophy, erythema, or edema noted. Full range of motion in all extremities. Course Administered Medications Vancomycin HCl 1,250 mg/ (Sodium Chloride) 525 mls @ 200 mls/hr IV NOW ONE Stop: 11/21/23 00:42 Last Admin: 11/20/23 22:37 Dose: 200 mls/hr Documented By: SOPHIE Discontinued Medications Sodium Chloride (Nss) 1,000 mls @ 999 mls/hr IV .Q1H1M RHIANNON Stop: 11/21/23 00:11 Last Admin: 11/20/23 22:38 Dose: 999 mls/hr Documented By: Infusion: 11/20/23 22:38 Dose: Infused Documented By: Admin: 11/20/23 22:37 Dose: 999 mls/hr Documented By: SOPHIE Medical Decision Making Differential Diagnosis Differential diagnosis: Etiologies such as viral syndrome, otitis, pharyngitis, pneumonia, influenza, meningitis, urinary tract infection, septic arthritis, soft tissue infectious process, intra-abdominal process, sepsis, bacteremia, as well as others were entertained. Laboratory Data 11/20/23 20:45 11/20/23 20:45 Lab Results 11/20/23 Range/Units 20:45 WBC 12.94 H (4.8-10.8) K/ul RBC 3.55 L (4.20-5.40) M/uL Hgb 10.9 L (12.0-16.0) g/dl Hct 34.0 L (37.0-47.0) % MCV 95.8 (80.0-100.0) fL MCH 30.7 (25.0-34.0) pg MCHC 32.1 (32.0-36.0) g/dL RDW Std Deviation 51.9 H (36.4-46.3) fL RDW Coeff of Bijan 14.7 H (11.5-14.5) % Plt Count 389 (130-400) K/uL MPV 9.6 (9.4-12.4) fL Immature Gran % (Auto) 0.5 % Neut % (Auto) 65.1 % Lymph % (Auto) 22.4 % Centre % (Auto) 9.5 % Eos % (Auto) 1.7 % Baso % (Auto) 0.8 % Neut # (Auto) 8.43 H (1.40-6.50) K/uL Lymph # (Auto) 2.90 (1.20-3.40) K/uL Centre # (Auto) 1.23 H (0.11-0.59) K/uL Eos # (Auto) 0.22 (0.00-0.50) K/uL Baso # (Auto) 0.10 (0.00-0.20) K/uL Immature Gran # (Auto) 0.06 (0.01-0.20) K/uL Sodium 133 L (136-145) mmol/L Potassium 4.9 (3.5-5.1) mmol/L Chloride 99 (98-107) mmol/L Carbon Dioxide 27 (21-32) mmol/L Anion Gap 7 (3-11) BUN 23 (6-23) mg/dl Creatinine 0.84 (0.6-1.2) mg/dl Est Cr Clr Drug Dosing Not Reportable Est GFR ( Amer) 84.5 ml/min Est GFR (Non-Af Amer) 72.9 ml/min BUN/Creatinine Ratio 27.4 H (10-20) Glucose 140 H (70-99(Fasting)) mg/dl Calcium 9.3 (8.6-10.3) mg/dl Total Bilirubin 0.4 (0.2-1.0) mg/dl AST 14 (13-39) U/L ALT 16 (7-52) U/L Alkaline Phosphatase 79 (34-104) U/L Total Protein 6.9 D (6.0-8.3) gm/dl Albumin 4.0 (3.4-5.0) gm/dl Globulin 2.9 (2.5-4.0) gm/dl Albumin/Globulin Ratio 1.4 (0.9-2) MDM Narrative Physical exam and history were performed. Nursing notes, EMR, and Medication List were personally reviewed. No social concerns were identified as barriers to patients care. Patient appears to have preliminary positive blood cultures that were drawn during an admission a few days ago. The patient vital signs are stable and she certainly does not seem toxic. IV access was established and labs were obtained. Case was discussed with pharmacy, and it is possible that her culture is contaminated. It does seem to be growing gram-positive bacilli, and because of this she will be started on vancomycin. First dose was begun here in the ER. Patient was hydrated with normal saline. Patient's blood work is as above and was reviewed. She has a slightly elevated white count at 12.9 which is up from yesterday at 10.6. She does not have significant anemia or gross electrolyte imbalance. Transaminases are not diagnostic. Escalation of care is felt to be necessary for the patient. Case was discussed with the on-call hospitalist team who agreed to evaluate the patient here in the ER. Please see their dictation for further patient course, plan, disposition. The chart was completed utilizing [employer] Speech Voice Recognition Software. Grammatical errors, random word insertions, pronoun errors, and incomplete sentences are an occasional consequence of this system due to software limitations, ambient noise, and hardware issues. Any formal questions or concerns about the content, text, or information contained within the body of this dictation should be directly addressed to the provider for clarification. Impression & Plan Positive blood culture Discharge Plan Visit Data Chief Complaint: Infection Stated Complaint: BLOOD INFECTION PER PROVIDER ED Provider: Kwabena Galvan ED Midlevel Provider: Siddharth Delvalle Discharge Problem: Positive blood culture Forms Stand Alone Forms: [facility] Prescriptions Prescriptions: No Action metformin 500 mg tablet extended release 24 hr 500 mg PO BID Qty: 200 3RF Hold Instructions: Resume on 11/15/23. metoprolol succinate 25 mg tablet extended release 24 hr 25 mg PO DAILY Qty: 30 0RF gabapentin 300 mg capsule 300 mg PO TID Qty: 300 1RF Trelegy Ellipta 100-62.5-25 mcg blister with device 1 inh inhalation DAILY Qty: 180 3RF azithromycin 250 mg tablet 250 mg PO MOWEFR 30 Days Qty: 18 6RF Rx Instructions: 1 tablet orally every Friday, Friday, and Friday multivitamin Tablet 1 tab PO QAM aspirin 81 mg Tablet,Delayed Release (Dr/Ec) 81 mg PO QAM albuterol sulfate 90 mcg/actuation HFA aerosol inhaler 2 inh inhalation Q6H PRN (Reason: shortness of breath or wheezing) Qty: 6.7 0RF chlorpheniramine maleate [Allergy Relief(chlorpheniramn)] 4 mg tablet 4 mg PO Q12H PRN (Reason: allergies) Qty: 90 1RF Slow-Mag 71.5 mg tablet,delayed release (DR/EC) 71.5 mg PO TID Qty: 90 0RF atorvastatin 40 mg tablet 40 mg PO QPM nortriptyline 25 mg capsule 25 mg PO HS omeprazole 20 mg capsule,delayed release(DR/EC) 20 mg PO QAM fluticasone propionate [Flonase Allergy Relief] 50 mcg/actuation spray,suspension 1 spray intranasal BID PRN (Reason: Congestion) Rx Instructions: administer into each nostril escitalopram oxalate 10 mg tablet 10 mg PO QAM Xarelto 20 mg tablet 20 mg PO QAM cyanocobalamin (vitamin B-12) [Vitamin B-12] 1,000 mcg Tablet 1,000 mcg PO QAM cholecalciferol (vitamin D3) [Vitamin D3] 25 mcg (1,000 unit) Tablet 25 mcg PO QAM calcium carbonate-vitamin D3 [Calcium 600 + D(3)] 600 mg-10 mcg (400 unit) Tablet 1 tab PO DAILY Referrals Referrals: Fariba Abdi MD [Primary Care Provider] -
[2023-11-20] MEDS: SODIUM CHLORIDE 0.9% 1,000 ML IV SCH (22:37)
[2023-11-20] MEDS: VANCOMYCIN HCL 1,250 MG in SODIUM CHLORIDE 0.9% 500 ML IV ONE (22:37)
--- NOTE | 2023-11-21 00:18 | History & Physical Report ---
Date of Service November 21, 2023 Assessment & Plan (1) Positive blood culture: Plan: - blood culture from 11/16 positive for gram + bacilli - plan to continue vancomycin until final culture results - no infectious symptoms- could be contaminant (2) Leukocytosis: Plan: - WBC= 12.9 - no signs of infection - antibiotics as per above, f/u blood cultures - continue to trend (3) Hypomagnesemia: Plan: - noted from prior admission - repeat mag is pending at time of admission (4) Type 2 diabetes mellitus: Plan: - last hemoglobin a1c= 6.1 on 11/2023 - hold metformin - will check blood glucose ACHS-> glimepiride stopped last admission with concern for hypoglycemia - SSI as needed while IP Plan Chronic Medical Conditions: A Fib: Continue metoprolol and Xarelto CAD: Continue aspirin, statin HTN: continue home meds COPD: continue home inhalers/azithromycin Anxiety: Continue home meds Code: DNR/DNI VTE Prophylaxis: Xarelto Diet: DM2 Dispo: Med Surg History of Present Illness Primary Care Provider: Fariba Abdi MD 63 year old female with a past medical history of peripheral arterial disease s/p bilateral common femoral bypass graft on 08/2023 previous tobacco use and COPD, hypertension, hyperlipidemia, Atrial fibrillation (on Xarelto), DM type II, Crohn's disease, anxiety, recent C. difficile enteritis, Takotsubo's cardiomyopathy presenting with concern for positive blood culture. Was recently admitted at [facility] from 11/16-11/18 for multiple falls, hypomagnesemia. She did have a leukocytosis to 19k and lactate= 3.9 during that admission which was felt to be secondary to dehydration and resolved with fluids. At present she denies URI symptoms- cough, congestion. Denies fever chills, urinary symptoms- dysuria/hematuria. No new skin rashes/wounds. In the ED was given 2L IVF and started on vancomycin. Allergies Allergy/AdvReac Type Severity Reaction Status Date / Time Iodinated Contrast Media Allergy Intermediate Hives Verified 11/14/23 13:40 Home Medications Medication Instructions Recorded Confirmed Type aspirin 81 mg tablet,delayed 81 mg PO QAM 08/21/20 11/20/23 History release multivitamin 1 tab PO QAM 08/21/20 11/20/23 History albuterol sulfate 90 mcg/actuation 2 inh inhalation Q6H PRN shortness 08/23/20 11/20/23 Rx aerosol inhaler of breath or wheezing #6.7 grams metformin 500 mg tablet,extended 500 mg PO BID #200 tabs 07/03/23 11/20/23 Rx release 24 hr azithromycin 250 mg tablet 250 mg PO MOWEFR 30 days #18 tabs 08/04/23 11/20/23 Rx fluticasone fur. 100 mcg-umeclid 1 inh inhalation DAILY #180 ea 08/04/23 11/20/23 Rx 62.5 mcg-vilant 25 mcg inhalat.powder (Trelegy Ellipta) gabapentin 300 mg capsule 300 mg PO TID #300 caps 11/14/23 11/20/23 Rx metoprolol succinate 25 mg 25 mg PO DAILY #30 tabs 11/14/23 11/20/23 Rx tablet,extended release 24 hr chlorpheniramine maleate 4 mg 4 mg PO Q12H PRN allergies #90 tabs 11/19/23 11/20/23 Rx tablet (Allergy Relief (chlorpheniramine)) magnesium chloride 71.5 mg 71.5 mg PO TID #90 tabs 11/19/23 11/20/23 Rx (magnesium chloride) tablet,delayed release (Slow-Mag) atorvastatin 40 mg tablet 40 mg PO QPM 11/20/23 11/20/23 History calcium carbonate 600 mg-vitamin 1 tab PO DAILY 11/20/23 11/20/23 History D3 10 mcg (400 unit) tablet (Calcium 600 + D(3)) cholecalciferol (vitamin D3) 25 25 mcg PO QAM 11/20/23 11/20/23 History mcg (1,000 unit) tablet (Vitamin D3) cyanocobalamin (vitamin B-12) 1,000 mcg PO QAM 11/20/23 11/20/23 History 1,000 mcg tablet (Vitamin B-12) escitalopram oxalate 10 mg tablet 10 mg PO QAM 11/20/23 11/20/23 History fluticasone propionate 50 1 spray intranasal BID PRN 11/20/23 11/20/23 History mcg/actuation nasal Congestion spray,suspension (Flonase Allergy Relief) nortriptyline 25 mg capsule 25 mg PO HS 11/20/23 11/20/23 History omeprazole 20 mg capsule,delayed 20 mg PO QAM 11/20/23 11/20/23 History release rivaroxaban 20 mg tablet (Xarelto) 20 mg PO QAM 11/20/23 11/20/23 History Past Med/Surg History Problem List (Updated 11/21/23 @ 00:16 by Siddharth Delvalle PA-C) Positive blood culture (Acute) Leukocytosis (Acute) Multiple falls (Acute) Elevated troponin (Acute) Acute dehydration (Acute) Generalized weakness (Acute) Retroperitoneal fluid collection Hypomagnesemia (Acute) Peripheral artery disease (Chronic) Chronic low back pain Spondylolysis of thoracolumbar region Thoracic radiculopathy Thoracic back pain Tobacco abuse (Chronic) Chronic sinusitis (Chronic) Coronary artery disease (Chronic) nonobstructive disease on cath 11/2023 Osteoarthritis (Chronic) COPD (chronic obstructive pulmonary disease) (Chronic) Type 2 diabetes mellitus (Chronic) GERD (gastroesophageal reflux disease) (Chronic) Anxiety and depression (Chronic) Hyperlipidemia (Chronic) Hypertension (Chronic) Crohn's disease (Chronic) in remission Medical History Atrial fibrillation with RVR (09/2023) post-op vascular surgery Non-ST elevation [place] (NSTEMI) (11/2023) C. difficile enteritis Tubular adenoma (10/2020) Surgical History Status post aortobifemoral bypass surgery (08/2023) History of section History of bilateral tubal ligation History of esophagogastroduodenoscopy (EGD) History of colonoscopy History of tooth extraction History of tonsillectomy Family History Aunt Breast cancer Mother Diabetes Hypertension Other Cancer Heart disease Lung disease No family history of adverse response to anesthesia Denies family history of Ovarian cancer Prostate cancer Myocardial infarction Colorectal cancer Asthma Social History Smoking Status: Former smoker Tobacco Type: Cigarettes Age Quit Using Tobacco: 11; packs per day: 1; Cigarettes Per Day: 1 PPD; Second Hand Exposure: No; Do You Dip or Chew Tobacco: No; Hx Alcohol Use: No Hx Substance Use: No Preferred Language: Malawian Communication Ability: Effective Visual Impairment: No Limitations Hearing Ability: Normal Collection Administrator Required: No Beliefs That Will Affect Care: None marital status: / Current Living Situation: Family Current Living Situation Comment: son and daughter in law Feels Safe at Home: Yes Diet: regular caffeine: Yes (Rare ) Dental Care, Regularly: Yes Physical Activity Frequency: Does not Exercise Seatbelt Use: always Assistive Devices: Glasses and Walker Review of Systems Review of Systems: As per above Physical Exam Physical Exam: Constitutional: well-appearing, no acute distress HEENT: NCAT, no conjunctival injection CV: regular rhythm, no murmur appreciated, extremities well-perfused, no LE edema Resp: CTABL, no wheezes/rales/rhonchi appreciated, no increased work of breathing GI: soft, nondistended, nontender MSK: no gross deformities appreciated Skin: warm, dry, no rash appreciated Neuro: alert, oriented, no focal neurologic deficit appreciated Results & Data Results & Data Vital Signs (Past 12 Hours) Vital Signs Temp Pulse Resp BP Pulse Ox O2 Del Method 11/20/23 20:32 36.9 C 85 18 139/70 96 Room Air Supervising Physician Co-Signing Physician Notes Attending addendum: I have physically seen this patient, have supervised the medical residents activities, and agree with the H&P unless as otherwise noted. Assessment and Plan: Gram-positive bacilli blood culture- Patient was called from outpatient physician due to report of positive blood culture Vancomycin IV was started in the emergency department Culture initially drawn on 11/16, and became positive on 11/19. Suspect Corynebacterium contaminant, however, will continue vancomycin IV until speciation is completed Patient does not appear ill, and makes it less likely to have some of the more significant bacteria in this class as a cause Diabetes mellitus- Hold metformin and glimepiride Placed on Accu-Cheks with NovoLog SSI Hypomagnesemia- Magnesium 1.2 on admission To receive IV and oral replacement, recheck laboratories in a.m. Atrial fibrillation/CAD/hypertension- Continue aspirin, metoprolol, Xarelto, atorvastatin Remaining orders and notations as noted Resident Activity Tracking Resident Involvement: Resident Care Provided Care Provided: Adult [facility]
[2023-11-21 01:22] LABS: Magnesium 1.3 mg/dl (1.7-2.4)
[2023-11-21] MEDS ORDERED: DEXTROSE 50% 50 ML SYRINGE IV PRN (01:46)
[2023-11-21] MEDS ORDERED: GLUCOSE 40% GEL 15 GM TUBE PO PRN (01:46)
[2023-11-21] MEDS ORDERED: FLUTICASONE PROPIONATE NA SPR 16 GM BTL PRN (01:46)
[2023-11-21] MEDS ORDERED: CARBOHYDRATES FOR HYPOGLYCEMIA PO PRN (01:46)
[2023-11-21] MEDS ORDERED: GLUCAGON FOR INJ 1 MG VIAL SQ PRN (01:46)
[2023-11-21] MEDS ORDERED: ALBUTEROL HFA 8 GM INHALER INH PRN (01:46)
[2023-11-21] MEDS ORDERED: GLUCOSE 10 TAB/TUBE PO PRN (01:46)
[2023-11-21] MEDS: MAGNESIUM SULFATE / D5W 1 GM/100 ML BAG IV SCH ×3 (04:18→14:50)
[2023-11-21 04:40] LABS: Basophils # (auto) 0.08 K/uL (0.00-0.20); Basophils % (auto) 0.9 %; Eosinophils # (auto) 0.31 K/uL (0.00-0.50); Eosinophils % (auto) 3.3 %; Hematocrit (blood only) 31.2 % (37.0-47.0); Immature Granulocytes # (auto) 0.06 K/uL (0.01-0.20); Immature Granulocytes % (auto) 0.6 %; Lymphocytes # (auto) 2.57 K/uL (1.20-3.40); Lymphocytes % (auto) 27.5 %; Mean Corpuscular Hemoglobin 30.8 pg (25.0-34.0); Mean Corpuscular Hgb Conc 32.1 g/dL (32.0-36.0); Mean Platelet Volume 9.8 fL (9.4-12.4); Monocytes # (auto) 1.14 K/uL (0.11-0.59); Monocytes % (auto) 12.2 %; Neutrophils # (auto) 5.17 K/uL (1.40-6.50); Neutrophils % (auto) 55.5 %; Platelet Count 302 K/uL (130-400); RDW Standard Deviation 52.3 fL (36.4-46.3); Red Blood Count 3.25 M/uL (4.20-5.40); White Blood Count 9.33 K/ul (4.8-10.8)
[2023-11-21 04:56] LABS: BUN Creatinine Ratio 23.6 (10-20); Calcium 8.2 mg/dl (8.6-10.3); Creatinine Clr Calc Pharmacy 71.1 ml/min; Est GFR (African American) 101.9 ml/min; Est GFR (Non-African American) 87.9 ml/min; Magnesium 1.2 mg/dl (1.7-2.4); Potassium 4.4 mmol/L (3.5-5.1)
[2023-11-21] MEDS: VANCOMYCIN HCL 1,500 MG in SODIUM CHLORIDE 0.9% 500 ML IV SCH (06:32)
--- NOTE | 2023-11-21 06:42 | Billing Data ---
Date of Service November 21, 2023 Coding Level of Care Code 35845 INT INP/OBS CARE
--- NOTE | 2023-11-21 07:44 | Hospitalist Progress Note ---
Date of Service November 21, 2023 Assessment & Plan (1) Positive blood culture: Plan: - blood culture from 11/16 positive for gram + bacilli - plan to continue vancomycin until final culture results - no infectious symptoms- could be contaminant repeat blood culture order placed in event is positive as well. 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 Afebrile. WBC normalized on repeat but did have fall yesterday/no trauma/LOC/head trauma and could be from ongoing hypomagnesemia. Mag 1.3 on admission and replacement as below Discussed with patient will monitor blood cultures/repeat bcx on vancomycin IV but suspect able to dc in AM (2) Leukocytosis: Plan: WBC 12.9k on admission but no fevers at home/no infectious findings. Did have fall day prior 500cc NSS provided but hydration improving Vanco as above WBC normalized Follow up blood cultures but as above suspect contaminant (3) Hypomagnesemia: Plan: Mag 1.3 on admission, 1.2 on AM labs. 2gm IV ordered on admission, additional 2gm + 2gm for 4gm from me today. Continue slow mag TID as recently rx (only two doses at home) Monitor mag in AM but may need to change her PPI to H2 dali for GI proph if no prior hx GIB but does have underlying crohns and will need to monitor (4) Type 2 diabetes mellitus: Plan: a1c= 6.1 on 11/2023 Metformin on hold and BSG AC/HS and sliding scale while inpatient Recently stopped PO glimepiride given risk for hypoglycemia in thin/frail patient w/ not the best PO intake (however has improved) Plan Chronic Medical Conditions: A Fib: Continue metoprolol and Xarelto (renal function stable) CAD: Continue aspirin, statin HTN: continue home meds COPD: continue home inhalers/azithromycin, on room air Anxiety: Continue home meds Code: DNR/DNI VTE Prophylaxis: Xarelto Diet: DM2 Dispo: hopeful dc 11/21 Admission and Anticipated Discharge Date Admission Date: November 20, 2023 Subjective Evaluated in ER, laying in bed. No acute distress. Dissappointed to be back in the hospital but discussed suspect bcx contaminant but w/ short supply only having 1 and w/ prior hx continuing such. WBC normalized. Repeat bcx from this morning. BP up and prior dc 2 meds, start amlodipine PO x1,monitor and likely daily but will monitor response. Improvment in PO intake at home, less dehydrated than seen last. Mag still low and got 2 doses at home but will order replacement and continue. Discussed given no further diarrhea could be poor absorption from recent cdiff on top of her IBD and PPI use which is for GI proph and may need to consider switching to pepcid if able in outpt f/u if ongoing issues with magnesium. No fevers/chills at home. Did have small fall/neck discomfort but no bruising/trauma/fractures. Denies want for lidocaine/pain control Discusssed monitoring initial blood culture results but suspect able to dc in AM but not wanting to dc/readmit as has been admitted 3 times already this month to prevent rebound again/starting process over. Physical Exam 2 Physical Exam: Constitutional: 63yo female, frail, malnourished but improved appearing from prior admission HEENT; head atraumatic, normocephalic, some paraspinal neck tightness but no bruising/redness/bony step off, no meningeal signs Resp: even/unlabored, on room air, no tachypnea/cough CV: sinus rhythm on telemetry, rates controlled, +systolic murmur, NO LE edema, pulses present, cap refill acceptable GI: +BS, soft/nontender, scaphoid no lira MSK/Neuro: moving all extremities, no slurred speech/facial droop, generalized weakness but nonfocal Psych: AOx3, cooperative Results & Data Results & Data Vital Signs (Past 12 Hours) Vital Signs Temp Pulse Pulse Resp BP BP Pulse Ox 11/21/23 06:30 78 16 196/98 H 94 11/21/23 04:30 80 17 175/82 H 94 11/21/23 04:25 85 11/21/23 03:30 82 16 191/92 H 99 11/20/23 23:06 18 96 11/20/23 20:32 36.9 C 85 18 139/70 96 O2 Del Method 09/20/24 06:30 Room Air 11/21/23 04:30 Room Air 11/21/23 04:25 11/21/23 03:30 Room Air 11/20/23 23:06 Room Air 11/20/23 20:32 Room Air Laboratory Results 11/21/23 04:10 11/21/23 04:10 Mag 1.2 PG Care Time/CCT Total # of Minutes Spent Total Time Spent with Patient: Total time spent is greater than 50% in coordination of care (as documented) at patient's floor/unit and/or counseling patient: Coding Level of Care Code 99137 SUB INP/OBS CARE 3/50MIN Diagnoses Positive blood culture R78.81 Leukocytosis D72.829 Hypomagnesemia E83.42 Type 2 diabetes mellitus E11.9
[2023-11-21] MEDS: CALCIUM 600MG + VIT D 400 IU TAB PO SCH (08:10)
[2023-11-21] MEDS: METOPROLOL SUCC 25MG EXT REL TAB PO SCH (08:10)
[2023-11-21] MEDS: MULTIVITAMIN TAB PO SCH (08:11)
[2023-11-21] MEDS: RIVAROXABAN 20 MG TAB PO SCH (08:11)
[2023-11-21] MEDS: CYANOCOBALAMIN (B-12) 500 MCG TABLET PO SCH (08:11)
[2023-11-21] MEDS: AZITHROMYCIN 250 MG TAB PO SCH (08:11)
[2023-11-21] MEDS: GABAPENTIN 300 MG CAP PO SCH (08:11)
[2023-11-21] MEDS: ESCITALOPRAM OXALATE 10 MG TAB PO SCH (08:12)
[2023-11-21] MEDS: ASPIRIN 81 MG ECTAB PO SCH (08:12)
[2023-11-21] MEDS: PANTOprazole 40 MG TAB PO SCH (08:12)
[2023-11-21] MEDS: MAGNESIUM CHLORIDE W/CALCIUM 64MG DELAYED REL TAB PO SCH (08:12)
[2023-11-21] MEDS: FLUTICASONE FUROATE 100MCG 14 PUFFS/INHALER INH SCH (08:13)
[2023-11-21] MEDS: UMECLIDINIUM/VILANTEROL 62.5/25MCG 7 PUFFS/INHALER INH SCH (08:14)
[2023-11-21] MEDS ORDERED: hydrALAZINE HCL 20 MG/ML VIAL IV PRN (08:42)
[2023-11-21] MEDS ORDERED: FLUTICASONE FUROATE 100MCG 14 PUFFS/INHALER INH SCH (09:00)
[2023-11-21] MEDS ORDERED: UMECLIDINIUM/VILANTEROL 62.5/25MCG 7 PUFFS/INHALER INH SCH (09:00)
[2023-11-21] MEDS ORDERED: NON-FORMULARY MEDICATION (Fluticasone-Umeclidin-Vilanter [Trelegy Ellipta] 100-62.5-25 mcg INH SCH (09:00)
[2023-11-21] MEDS: INSULIN ASPART PER UNIT CHARGE SC SCH (09:33)
[2023-11-21] MEDS: SODIUM CHLORIDE 0.9% 500 ML IV SCH (10:41)
--- NOTE | 2023-11-21 11:09 | Pharmacy Report ---
Pharmacy PK ABX Note - Date of Service November 21, 2023 - Assessment and Plan Assessment * 63 year old F receiving VANCOMYCIN for treatment of possible bacteremia vs contaminant * Pertinent microbiologic data includes: 11/16 BLCX (single set) growing gram + rods w/ corresponding BioFire negative (could be an organism not included in the panel such as corynebacterium, cutibacterium/propionibacterium, etc); repeat BLCX drawn 11/20 * Renal fxn appears to be at baseline * Day # 2 of antimicrobial therapy. Plan Vancomycin * Received 1250mg IV x 1 11/19 @2237 and then 1500mg IV x 1 11/20 @ 0632 * Maintenance dose: 1000 mg IV every 12 hours will begin tomorrow (11/21) AM at 0600 * Regimen is predicted to achieve target AUC/SHANDA of 400-600 mg/L.hr for the first 3 days, however dosage may need decreased if therapy exceeds 3 days per current model * Random level ordered for: 11/21 Pharmacy will continue to follow and will adjust dose/frequency as necessary. Thank you. Pharmacy has transitioned to AUC monitoring for vancomycin. AUC/SHANDA is the preferred PK/PD target and is associated with decreased risk of nephrotoxicity compared to traditional trough targets.
--- NOTE | 2023-11-21 12:26 | Electrocardiogram Report ---
Test Reason : Blood Pressure : */* mmHG Vent. Rate : 83 BPM Atrial Rate : 83 BPM P-R Int : 146 ms QRS Dur : 80 ms QT Int : 354 ms P-R-T Axes : 82 60 71 degrees QTcB Int : 415 ms Normal sinus rhythm Anteroseptal infarct (cited on or before 28-Mar-2021) Abnormal ECG When compared with ECG of 17-Nov-2023 19:04, Questionable change in QRS axis T wave inversion no longer evident in Inferior leads QT has shortened Confirmed by Marcelino Sifuentes ([id number]) on 11/21/2023 12:25:25 PM Referred By: REFERRED SELF Confirmed By: Marcelino Sifuentes
[2023-11-21] MEDS: amLODIPine BESYLATE 5 MG TAB PO ONE (14:16)
[2023-11-21] MEDS: ATORVASTATIN 40 MG TAB PO SCH (20:42)
[2023-11-21] MEDS: NORTRIPTYLINE HCL 25 MG CAP PO SCH (20:43)
[2023-11-22] MEDS: VANCOMYCIN HCL 1,000 MG in SODIUM CHLORIDE 0.9% 250 ML IV SCH (00:40)
[2023-11-22] MEDS ORDERED: VANCOMYCIN HCL 1,000 MG in SODIUM CHLORIDE 0.9% 250 ML IV SCH (06:00)
[2023-11-22 07:52] LABS: Basophils # (auto) 0.07 K/uL (0.00-0.20); Basophils % (auto) 0.7 %; Hematocrit (blood only) 32.3 % (37.0-47.0); Hemoglobin 10.3 g/dl (12.0-16.0); Immature Granulocytes # (auto) 0.08 K/uL (0.01-0.20); Immature Granulocytes % (auto) 0.8 %; Lymphocytes # (auto) 1.84 K/uL (1.20-3.40); Lymphocytes % (auto) 18.4 %; Mean Corpuscular Hemoglobin 30.4 pg (25.0-34.0); Mean Corpuscular Hgb Conc 31.9 g/dL (32.0-36.0); Mean Corpuscular Volume 95.3 fL (80.0-100.0); Mean Platelet Volume 9.8 fL (9.4-12.4); Monocytes # (auto) 1.04 K/uL (0.11-0.59); Monocytes % (auto) 10.4 %; Neutrophils # (auto) 6.69 K/uL (1.40-6.50); Neutrophils % (auto) 66.7 %; Platelet Count 314 K/uL (130-400); RDW Coefficient of Variation 14.9 % (11.5-14.5); RDW Standard Deviation 52.1 fL (36.4-46.3); Red Blood Count 3.39 M/uL (4.20-5.40); White Blood Count 10.02 K/ul (4.8-10.8)
--- NOTE | 2023-11-22 07:58 | Hospitalist Progress Note ---
Date of Service November 22, 2023 Assessment & Plan (1) Positive blood culture: Plan: - blood culture from 11/16 positive for gram + bacilli - plan to continue vancomycin until final culture results - no infectious symptoms- could be contaminant repeat blood culture order placed in event is positive as well. Procal 11/13 was 0.13 Also noting PCR ID panel negative, suspect contaminant but will monitor on Vancomycin No diarrhea, infectious symptoms. Afebrile. WBC normalized on repeat but did have fall yesterday/no trauma/LOC/head trauma and could be from ongoing hypomagnesemia. Mag 1.3 on admission and replacement as below Discussed with patient will monitor blood cultures/repeat bcx on vancomycin IV but suspect able to dc in AM 11/21 WBC wnl but is further elevated than day prior however did apparently have another fall overnight. No LOC/head trauma but similar to prior fall. Did report hit chest, reproducible on palpation -->Tylenol x 1, prn. Oxycodone 5mg PO for additional control as reports no issues w/ opiates and will make q4h prn. Lidocaine patch to breast. Incentive spirometer CXR WITHOUT fracture/acute process EKG obtained, concerns for acute OR but reviewed and compared to prior and similar and no radiating pain/etc. Discussed w/ broadcast operations manager cardiology and felt similar to prior/no need for further intervention serafin w/ patient having reproducible discomfort with known fall and no need for further workup Am checking echo limited for completeness to see if any changes, trop is LESS than prior admissions Vancomycin DISCONTINUED, blood cx from 11/16 w/ bacillus species and repeat NGTD x 24 hours Mag 1.7, did order additional to keep closer to 2 w/ continued PO but if not stable in AM will consider STOPPING her protonix and switching to PEPCID to prevent ongoing hypomagnesemia Consults for PT/OT given fall, maintain fall precautions Did report getting up too quickly and sounds like orthostatic hypotension w/ position changes and legs giving out but will move to monitored bed to ensure no arrythmia. Consider holter monitor at dc. Denies leg pain but could consider repeat CTAP given recent aortofemoral bypass (2) Leukocytosis: Plan: WBC 12.9k on admission but no fevers at home/no infectious findings. Did have fall day prior and could be stress related 500cc NSS provided, Vanco for above WBC normalized/no fever WBC borderline on repeat but again fall overnight and tx as outlined (3) Hypomagnesemia: Plan: Mag 1.3 on admission, 1.2 on AM labs. 6gm additional ordered Mag 1.7 on AM labs, 2gm ordered and remains on TID Monitor mag in AM but if ongoing issues given NO FURTHER DIARRHEA, would SWITCH PPI TO H2 for ongoing losses (4) Type 2 diabetes mellitus: Plan: a1c= 6.1 on 11/2023 Metformin on hold and BSG AC/HS and sliding scale while inpatient Recently stopped PO glimepiride given risk for hypoglycemia in thin/frail patient w/ not the best PO intake (however has improved) Plan Chronic Medical Conditions: A Fib: Continue metoprolol and Xarelto (renal function stable) CAD: Continue aspirin, statin HTN: continue home meds COPD: continue home inhalers/azithromycin, on room air. CXR clear, incentive spirometer to prevent atelectasis Anxiety: Continue home meds Code: DNR/DNI VTE Prophylaxis: Xarelto Diet: DM2 Dispo: moving to med tele for closer monitoring given recent NSTEMI and fall however does not appear w/ ACS but want to make sure no arrhythmia. Plan to switch PPI to H2 if ongoing issues w/ mag despite no diarrhea PT/OT consults in place and Oxycodone/tylenol and incentive spirometer for rib pain from fall Monitor for CTAP if needed Admission and Anticipated Discharge Date Admission Date: November 20, 2023 Subjective Eval this morning, had fall overnight. Reports getting up quickly and feeling funny/shaky and her legs gave out and fell forward. Caught herself on left elbow but hit her right breast/chest on corner of biohazard waste container. Is reproducible on exam, did get dose of tylenol and denies issues with opiates in the past and will order oxycodone x 1 and lidocaine patch and RN to provide incentive spirometer. Discussed EKG w/ Dr Mccoy, feels similar to prior/no need for monitored bed given reproducible nature and recent cath. Will continue inpatient stay/mag replacement, repeat echo for completeness/eval EF/valves w/ concerns for blood cultures. Consideration for CTAP will be discussed with supervising provider given prior procedure and feeling like legs giving out if ongoing issues. No fever/chills, no nausea/vomiting, no abdominal pain or diarrhea at this time. Physical Exam 2 Physical Exam: Constitutional: 63yo female, frail, malnourished, fatigued appearing, NAD but reporting discomfort to RIGHT breast, reproducible on palpation HEENT; head atraumatic, normocephalic, some paraspinal neck tightness but no bruising/redness/bony step off, no meningeal signs Resp: even/unlabored, on room air, no tachypnea/cough CV: NSR, rates controlled, +systolic murmur, NO LE edema, pulses present, cap refill acceptable GI: +BS, soft/nontender, scaphoid no lira MSK/Neuro: moving all extremities, no slurred speech/facial droop, generalized weakness but nonfocal Psych: AOx3, cooperative but tired/fatigued appearing Results & Data Results & Data Vital Signs (Past 12 Hours) Vital Signs Temp Pulse Resp BP Pulse Ox O2 Del Method 11/22/23 05:30 36.3 C L 76 17 124/75 95 Room Air 11/21/23 20:33 36.7 C 80 18 160/70 H 96 Room Air Laboratory Results 11/22/23 07:23 11/22/23 07:23 Mag 1.7 Troponin 25.7 Diagnostic Findings Cervical Spine X-Ray 11/22/23 08:00 XR cervical spine 2 or 3V HISTORY: 63 years-old Female fall at home, repeat fall, eval acute neck trauma status post fall COMPARISON: CT cervical spine 11/17/2023 TECHNIQUE: 3 views of the cervical spine FINDINGS: Straightening of the normal cervical lordosis. Demineralized appearance of the bones. Multilevel degenerative changes include moderate disc space narrowing at C5-C6 and C6-C7 with associated moderate spondylitic spurring. There is syub-sw-enralfge multilevel facet arthrosis. Calcified plaque of the carotid bulbs. IMPRESSION: 1. No acute fracture or subluxation. 2. Moderate degenerative changes at C5-C6 and C6-C7. ACT 112: Negative or not required by law. The above report was generated using voice recognition software. It may contain grammatical, syntax or spelling errors. Electronically signed by: Cristiano Huber M.D. 11/22/2023 10:29 AM Chest X-Ray 11/22/23 08:00 XR chest 1V not portable HISTORY: 63 years-old Female fall acute chest trauma status post fall COMPARISON: 11/17/2023 TECHNIQUE: AP view of the chest FINDINGS: Cardiomediastinal and hilar silhouettes are within normal limits. No pneumothorax, pleural effusion or airspace consolidation. Degenerative changes of the shoulders and spine. Chronic appearing left-sided rib fractures. IMPRESSION: No acute process. ACT 112: Negative or not required by law. The above report was generated using voice recognition software. It may contain grammatical, syntax or spelling errors. Electronically signed by: Cristiano Huber M.D. 11/22/2023 10:34 AM PG Care Time/CCT Total # of Minutes Spent Total Time Spent with Patient: Total time spent is greater than 50% in coordination of care (as documented) at patient's floor/unit and/or counseling patient: Coding Level of Care Code 80016 SUB INP/OBS CARE 3/50MIN Diagnoses Positive blood culture R78.81 Leukocytosis D72.829 Hypomagnesemia E83.42 Type 2 diabetes mellitus E11.9
[2023-11-22 08:06] LABS: BUN Creatinine Ratio 16.5 (10-20); Calcium 8.7 mg/dl (8.6-10.3); Creatinine Clr Calc Pharmacy 51.5 ml/min; Est GFR (Non-African American) 61.3 ml/min; Magnesium 1.7 mg/dl (1.7-2.4); Potassium 4.4 mmol/L (3.5-5.1)
[2023-11-22] MEDS: amLODIPine BESYLATE 5 MG TAB PO SCH (08:30)
--- NOTE | 2023-11-22 10:31 | XRay Report ---
XR cervical spine 2 or 3V HISTORY: 63 years-old Female fall at home, repeat fall, eval acute neck trauma status post fall COMPARISON: CT cervical spine 11/17/2023 TECHNIQUE: 3 views of the cervical spine FINDINGS: Straightening of the normal cervical lordosis. Demineralized appearance of the bones. Multilevel dege nerative changes include moderate disc space narrowing at C5-C6 and C6-C7 with associated moderate sp ondylitic spurring. There is hhqt-bd-uslxaksz multilevel facet arthrosis. Calcified plaque of the car otid bulbs. IMPRESSION: 1. No acute fracture or subluxation. 2. Moderate degenerative changes at C5-C6 and C6-C7. ACT 112: Negative or not required by law. The above report was generated using voice recognition software. It may contain grammatical, syntax o r spelling errors. Electronically signed by: Cristiano Huber M.D. 11/22/2023 10:29 AM
--- NOTE | 2023-11-22 10:35 | XRay Report ---
XR chest 1V not portable HISTORY: 63 years-old Female fall acute chest trauma status post fall COMPARISON: 11/17/2023 TECHNIQUE: AP view of the chest FINDINGS: Cardiomediastinal and hilar silhouettes are within normal limits. No pneumothorax, pleural effusion o r airspace consolidation. Degenerative changes of the shoulders and spine. Chronic appearing left-kenyatta ed rib fractures. IMPRESSION: No acute process. ACT 112: Negative or not required by law. The above report was generated using voice recognition software. It may contain grammatical, syntax o r spelling errors. Electronically signed by: Cristiano Huber M.D. 11/22/2023 10:34 AM
[2023-11-22] MEDS: MAGNESIUM SULFATE / D5W 1 GM/100 ML BAG IV SCH (10:43)
[2023-11-22] MEDS: ACETAMINOPHEN 500 MG TAB PO PRN (10:44)
[2023-11-22] MEDS: oxyCODONE HCL IR 5 MG TAB (IMMEDIATE RELEASE) PO STA (11:19)
[2023-11-22] MEDS: LIDOCAINE 5% 1 PATCH TD SCH (12:22)
[2023-11-22] MEDS: oxyCODONE HCL IR 5 MG TAB (IMMEDIATE RELEASE) PO PRN (15:40)
[2023-11-22] MEDS: INSULIN ASPART PER UNIT CHARGE SC SCH (20:21)
[2023-11-23 06:20] LABS: Basophils # (auto) 0.08 K/uL (0.00-0.20); Eosinophils # (auto) 0.38 K/uL (0.00-0.50); Eosinophils % (auto) 4.7 %; Hematocrit (blood only) 31.8 % (37.0-47.0); Immature Granulocytes # (auto) 0.04 K/uL (0.01-0.20); Immature Granulocytes % (auto) 0.5 %; Lymphocytes # (auto) 2.75 K/uL (1.20-3.40); Mean Corpuscular Hemoglobin 30.5 pg (25.0-34.0); Mean Corpuscular Hgb Conc 31.4 g/dL (32.0-36.0); Mean Platelet Volume 9.6 fL (9.4-12.4); Monocytes # (auto) 1.05 K/uL (0.11-0.59); Neutrophils # (auto) 3.79 K/uL (1.40-6.50); Neutrophils % (auto) 46.8 %; Platelet Count 321 K/uL (130-400); RDW Coefficient of Variation 15.1 % (11.5-14.5); RDW Standard Deviation 53.4 fL (36.4-46.3); Red Blood Count 3.28 M/uL (4.20-5.40); White Blood Count 8.09 K/ul (4.8-10.8)
[2023-11-23 06:42] LABS: Albumin Globulin Ratio 1.3 (0.9-2); Albumin Level 3.4 gm/dl (3.4-5.0); BUN Creatinine Ratio 25.5 (10-20); Bilirubin,Total 0.4 mg/dl (0.2-1.0); Est GFR (African American) 73.8 ml/min; Est GFR (Non-African American) 63.7 ml/min; Globulin 2.7 gm/dl (2.5-4.0); Magnesium 1.8 mg/dl (1.7-2.4); Potassium 5.3 mmol/L (3.5-5.1); Total Protein 6.1 gm/dl (6.0-8.3)
--- NOTE | 2023-11-23 07:38 | Hospitalist Progress Note ---
Date of Service November 23, 2023 Assessment & Plan (1) Fall: Plan: - blood culture from 11/16 positive for gram + bacilli - plan to continue vancomycin until final culture results - no infectious symptoms- could be contaminant repeat blood culture order placed in event is positive as well. Procal 11/13 was 0.13 Also noting PCR ID panel negative, suspect contaminant but will monitor on Vancomycin No diarrhea, infectious symptoms. Afebrile. WBC normalized on repeat but did have fall day prior to admission at home. No LOC/head trauma, ?mag 1.3 Blood cx contaminent suspected, repeat negative DC Vanco 11/21 11/21 WBC wnl but is further elevated than day prior however did apparently have another fall overnight while in the hospital. No LOC/head trauma but similar to prior fall. Did report hit chest. Appeared patient getting up too quickly, orthostatic hypotension leading to her fall. No CP but R breast discomfort, reproducible on palpation and controlled with oxycodone/lidocaine patch. EKG obtained w/ concerns for findings but similar to prior and discussed w/ cardiology and not concerned given no CP and reason for reproducible discomfort. No need for further eval/move, however did move to [employer] to ensure if any repeat episodes would be able to catch any arrhythmia but hadn't had issues last week even with mag being significantly deplete CXR w/o acute fracture/consolidation. Cervial xray without acute fracture but does have spinal stenosis -Notable does have prior lower back imaging w/ stenosis as well and could be contributing as well as damaged nerve w/ prior surgery/R foot drop. She does report has inserts for such and ordered new shoes Continue pain control, lidocaine patch, incentive spirometer Vanco discontinued as suspect contaminant. Repeat without growth Additional 2gm IV mag for mag 1.7 and keeping on TID. Discussed stopping if remaining low/H2 dali, serafin given hx cdiff/poor absorption and other risks factors that seem to outweigh current benefit. PT/OT placed and likely benefit at least short term rehab and will monitor but patient agreeable. Limited echo to eval EF if any changes 11/22 WBC wnl off antibiotics, noting fall in the hospital 11/21 comptometrist attempting to get up to go to the bathroom and did have slight elevation. Remains off vancomycin, WBC wnl Na 135, K 5.3. Low K diet. Off lisinopril since last week. (reports getting bananas on tray but has not eaten them) BUN/Cr slight elevation and orthostatic VS for continued lightheaded/dizziness this morning POSITIVE and additional 1L NSS ordered and nursing to repeat orthostatic VS this afternoon STOPPING HER PPI, Mag only 1.8 despite COPIOUS replacement and placing on pepcid daily. Monitor for any issues/need for increase Fall precautions, PT/OT and recs for rehab hopefully this upcoming week. Limited echo pending for repeat (2) Hyperkalemia: Plan: Prior elevation w/ such. ?dehydration. Prior admission/discharge last week and DISCONTINUED her potassium and was normal on admission despite elevation at discharge. IVF as above, changing diet to low potassium Monitor level on repeat (3) Hypomagnesemia: Plan: Mag 1.3, 1.2 on repeat. 6gm IV given and continued on TID replacmeent and mag 1.7 and additional 2gm w/ continued PO and as above discussed w/ patient given her hx cdiff enteritis and hx inflammatory bowel likely not best choice. No hx bleed DC PPI, placing on pepcid as above Continue slow mag TID PO Monitor mag in AM OFF PPI and continued PO TID and if stable may even be able to decrease oral supplementation but will continue for now given frequent/continued low values w/ hx afib on eliquis (4) Positive blood culture: Plan: Called in due to positive blood cultures 11/16 for gram ++ bacilli. ID PCR negative but given vanco/continued until speciated and repeat obtained bacillus on final, repeat without growth and suspected contaminant and Vanco discontinued 11/21 and WBC stable 8k/afebrile (5) Leukocytosis: Plan: Suspected 2nd to fall prior to admission but IV vanco as outlined for blood cultures and now off. No fever/chills reported IVF hydration as outlined and could have some elevations with dehydration and will monitor for any infectious sx (6) Type 2 diabetes mellitus: Plan: a1c= 6.1 on 11/2023 Metformin on hold and BSG AC/HS and sliding scale while inpatient Recently stopped PO glimepiride given risk for hypoglycemia in thin/frail patient w/ not the best PO intake (however has improved per patient) Plan Chronic Medical Conditions: A Fib: Continue metoprolol and Xarelto (renal function stable) CAD: Continue aspirin, statin HTN: continue home meds COPD: continue home inhalers/azithromycin, on room air. CXR clear, incentive spirometer to prevent atelectasis Anxiety: Continue home meds Code: DNR/DNI Dispo: telemetry stable NSR and can downgrade in AM if no further issues given recent fall/NSTEMI earlier this month. DC PPI, starting H2. IVF hydration for +orthostatics and will monitor repeat orthostatics/hydration status PT/OT pending and planning on rehab at ar pending recs given repeat falls for safety at home, CM to follow Admission and Anticipated Discharge Date Admission Date: November 20, 2023 Subjective Eval this morning. Pain to ribs this morning, improved with oxy. Reports stable at current dose/no need for increase. Remains on room air. This morning, got up to go to the bathroom and felt lightheaded/dizzy. NSR on telemetry. Orthostatic VS obtained and positive. IVF replacement ordered. Mag stable but borderline and will continue PO supplementation but discussed STOPPING PPI and placing on H2 dali. No increased reflux today but to monitor with switch. No diarrhea. Breathing stable. No shortness of breath. Nursing to repeat orthostatic VS this afternoon and will wait repeat ECHO to review if any changes. No abdominal pain/nausea. Appetite ok. Planning for rehab at discharge prior to returning home. Physical Exam 2 Physical Exam: Constitutional: 63yo female, frail appearing sitting up in bed, more comfortable than yesterday, reports pain controlled with oxycodone/lidocaine patch HEENT; head atraumatic, normocephalic, some paraspinal neck tightness but no bruising/redness/bony step off, no meningeal signs Chest: discomfort to RIGHT breast, reproducible on palpation Resp: even/unlabored, on room air, no tachypnea/cough 93% CV: NSR, rates controlled, +systolic murmur, NO LE edema, pulses present, cap refill acceptable GI: +BS, soft/nontender, scaphoid no lira MSK/Neuro: moving all extremities, no slurred speech/facial droop, generalized weakness but nonfocal RIGHT foot drop Psych: AOx3, cooperative but tired/fatigued appearing Results & Data Results & Data Vital Signs (Past 12 Hours) Vital Signs Temp Pulse Pulse Resp BP Pulse Ox O2 Del Method 11/23/23 07:18 Room Air 11/23/23 02:58 36.6 C 66 18 103/59 L 93 Room Air 11/22/23 22:35 36.5 C 68 16 103/61 94 Room Air 11/22/23 21:56 Room Air 11/22/23 21:44 66 Laboratory Results 11/23/23 05:54 11/23/23 05:54 Mag 1.8 PG Care Time/CCT Total # of Minutes Spent Total Time Spent with Patient: Total time spent is greater than 50% in coordination of care (as documented) at patient's floor/unit and/or counseling patient: Coding Level of Care Code 26245 SUB INP/OBS CARE 3/50MIN Diagnoses Fall W19.XXXA Hyperkalemia E87.5 Hypomagnesemia E83.42 Positive blood culture R78.81 Leukocytosis D72.829 Type 2 diabetes mellitus E11.9
[2023-11-23] MEDS: SODIUM CHLORIDE 0.9% 1,000 ML IV SCH (07:53)
[2023-11-23] MEDS: FAMOTIDINE 20 MG TAB PO SCH (08:07)
--- NOTE | 2023-11-23 11:34 | XCELERA ---
[id number] \\[email or web address]\[id number]
--- NOTE | 2023-11-23 12:12 | Electrocardiogram Report ---
Test Reason : Blood Pressure : */* mmHG Vent. Rate : 72 BPM Atrial Rate : 72 BPM P-R Int : 158 ms QRS Dur : 90 ms QT Int : 448 ms P-R-T Axes : 66 0 94 degrees QTcB Int : 490 ms Normal sinus rhythm Anteroseptal infarct (cited on or before 28-Mar-2021) T wave abnormality, consider lateral ischemia Abnormal ECG When compared with ECG of 20-Nov-2023 20:42, Serial changes of evolving Anterior infarct T wave inversion now evident in Anterior leads QT has lengthened Confirmed by Barber Mccoy ([id number]) on 11/23/2023 12:12:21 PM Referred By: REFERRED SELF Confirmed By: Barber Mccoy
--- NOTE | 2023-11-24 07:44 | Hospitalist Progress Note ---
Date of Service November 24, 2023 Assessment & Plan (1) Fall: Plan: Called back for admission due to positive blood cultures from 11/16 with gram negative bacilli. Procal 0.13. NO fever/chills. Suspected contaminant but placed on Vancomycin IV empiricially and repeat blood cultures obtained and no growth and initial with bacillus species and suspected contaminent and discontinued. WBC elevation from stress/fall while in the hospital. CXR negative/cervical spine negative for acute fracture and moved to monitored bed for closer monitoring given prior NSTEMI earlier this month and repeat limited ECHO w/ improvement in EF back to prior 50-55%, mild concentric LVH, distal septal hypokinesis/limited wall motion abn w/ prior cath with nonobstructive disease/suspected Takotsubo cardiomyopathy Continued inpatient stay given ongoing issues with hypomagnesemia/recurrent falls at home over the past week or two and need for rehab prior to returning home Orthostatic VS positive and placed on IVF w/ improvement in orthostatic VS last evening and reported feeling well but again positive this morning and 250cc NSS bolus provided w/ plans to continue to monitor orthostatic VS Telemetry without arrhythmia, remains NSR. EKG reviewed w/ cards last week and similar to prior/no chest pain reported and trop lower than last admission Cortisol AM not elevated Mag 1.4, IV ordered. PPI STOPPED given continued lows/hx cdiff and denied diarrhea and recently placed on Mag replacement w/ slow mag TID due to absorption w/ recent cdiff and inflammatory bowel disease and placed on H2 without reports for reflux Discussed further with patient any new medications in the past weeks/months and she reports SHE HAS NEW RX FOR GABAPENTIN 100mg TID initially from vascular provider and WAS INCREASED TO 300mg TID and SUSPECT THIS IS CONTRIBUTING TO HYPOTENSION as did already discontinue her HCTZ/lisinopril last admission --> Is getting oxycodone 5mg prn for rib pain/lidocaine patch with stable pain control and moving bowels/formed. 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 CM following and referrals being sent today. Can plan for dc to rehab in AM if auth received/med available and mag stable w/ improvement in orthostatic VS/symptoms with reduction in gabapentin as above (2) Hyperkalemia: Plan: ?2nd to dehydration, medications. Bananas w/ trays but declined, low K diet in place. Prior dc lisinopril last admission as well as HCTZ, ECHO w/ improvement in EF and issues w/ PO intake and would avoid diuretics Was given IVF overnight for orthostatic VS,stable on AM labs. decreasing gabapentin as above and ?contributing to GENESIS/K elevation from GENESIS maybe Monitor, but should remain off VERITO (3) Hypomagnesemia: Plan: Mag 1.2, COPIOUS replacement ordered, ?if contributing but is on PPI daily and hx cdiff enteritis/inflammatory bowel disease likely not best choice and no hx GI bleed Discontinued PPI, placed on H2 dali Mag replacement has been ordered for LOW today but deferred for mag 1.7 day prior and will continue SLOW MAG TID and monitor on repeat Continue H2 at dc in place of PPI and would continue mag replacement to keep stores replete w/ hx afib but NSR on telemetry 60-70s (4) Positive blood culture: Plan: Called in due to positive blood cultures 11/16 for gram ++ bacilli. ID PCR negative but given vanco/continued until speciated and repeat obtained bacillus on final, repeat without growth and suspected contaminant and Vanco discontinued 11/21 and WBC stable 7.5k/remains afebrile (5) Leukocytosis: Plan: Suspected 2nd to fall prior to admission but IV vanco as outlined for blood cultures and now off. No fever/chills reported IVF hydration as outlined and could have some elevations with dehydration and will monitor for any infectious sx (6) Type 2 diabetes mellitus: Plan: a1c= 6.1 on 11/2023 Metformin on hold and BSG AC/HS and sliding scale while inpatient and recently stopped PO glimepiride given risk for hypoglycemia SSI while inpatient, some elevations ?2nd to gabapentin as can cause Good PO intake and BSGs stable and will monitor/adjust as needed given improvement in PO intake compared to prior weeks Plan Chronic Medical Conditions: A Fib: Continue metoprolol and Xarelto (renal function stable at present time for 20mg dose- monitor if <50 for reduction to 15mg daily) CAD: Continue aspirin, statin, metoprolol HTN: recently dc lisinopril/HCTZ, remains on metoprolol but ?hypotension issues w/ gabapentin as above and have reduced to 100mg TID and will monitor COPD: continue home inhalers/azithromycin, on room air. CXR clear, incentive spirometer to prevent atelectasis. On room air Anxiety: Continue home meds Code: DNR/DNI Dispo: continued inpatient stay, reduction in Gabapentin and continued monitoring of orthostatic VS. Switched PPI--> H2 and Mag IV replacement/continued PO supplementation and PT/OT consulted with plans for rehab and CM notified to send referrals today and hopefully with reduction in recent increased gabapentin can dc to rehab in next 24-48 hours once auth/bed available given repeated falls at home (and here) for safety prior to returning home. Admission and Anticipated Discharge Date Admission Date: November 20, 2023 Subjective Eval this afternoon, sitting up eating lunch. Orthostatic VS improved/stable last night and reports having felt pretty good but this morning positive and having a little dizziness. 250cc NS bolus to be provided. Formed BM and no diarrhea. Mag is low but also discussed any new medications such as gabapentin over the past couple of weeks/months and reports was placed on gabapentin in the last 6 wks 100mg TID initially and her PCP increased to 300mg TID this past wk. Discussed could be cause for symptoms and will decrease dosing. Does have nerve pain and discussed will not cut cold turkey but oxycodone effective for pain for breast/MSK pain and will continue that in the meantime. No SOB reported, no nausea/vomiting. Discussed ECHO results. Will monitor status/VSS w/ reduction. Rehab planned at [facility]. Questions/concerns addressed at this time. Physical Exam 2 Physical Exam: Constitutional: 63yo female, frail appearing sitting up in bed eating lunch, more comfortable than yesterday, reports pain controlled with oxycodone/lidocaine patch HEENT; head atraumatic, normocephalic, some paraspinal neck tightness, but no bruising/redness/bony step off, no meningeal signs Chest: discomfort to RIGHT breast, reproducible on palpation, controlled with ordered medications Resp: even/unlabored, on room air, no tachypnea/cough 93% CV: NSR, rates controlled, +systolic murmur, NO LE edema, pulses present, cap refill acceptable GI: +BS, soft/nontender, scaphoid, reports moving bowels this morning no lira MSK/Neuro: moving all extremities, no slurred speech/facial droop, generalized weakness but nonfocal. RIGHT foot drop since this summer, unchanged, no dorsiflexion on that foot, decreased plantarflexion (has special shoes at baseline) Psych: AOx3, cooperative and pleasant Results & Data Results & Data Vital Signs (Past 12 Hours) Vital Signs Temp Pulse Pulse Resp BP BP Pulse Ox 11/24/23 07:25 11/24/23 07:18 73 11/24/23 03:16 37 C 73 16 166/78 H 94 11/23/23 23:45 72 11/23/23 23:16 36.7 C 74 18 137/62 94 11/23/23 21:21 11/23/23 20:02 36.8 C 72 16 124/72 93 O2 Del Method 11/24/23 07:25 Room Air 11/24/23 07:18 11/24/23 03:16 Room Air 11/23/23 23:45 11/23/23 23:16 Room Air 11/23/23 21:21 Room Air 11/23/23 20:02 Room Air Laboratory Results 11/24/23 07:29 11/24/23 07:29 Mag 1.4 Cortisol AM 7.21 PG Care Time/CCT Total # of Minutes Spent Total Time Spent with Patient: Total time spent is greater than 50% in coordination of care (as documented) at patient's floor/unit and/or counseling patient: Coding Level of Care Code 71814 SUB INP/OBS CARE 3/50MIN Diagnoses Fall W19.XXXA Hyperkalemia E87.5 Hypomagnesemia E83.42 Positive blood culture R78.81 Leukocytosis D72.829 Type 2 diabetes mellitus E11.9
[2023-11-24 07:55] LABS: Basophils # (auto) 0.07 K/uL (0.00-0.20); Basophils % (auto) 0.9 %; Eosinophils # (auto) 0.33 K/uL (0.00-0.50); Eosinophils % (auto) 4.4 %; Hematocrit (blood only) 30.4 % (37.0-47.0); Hemoglobin 9.5 g/dl (12.0-16.0); Immature Granulocytes # (auto) 0.04 K/uL (0.01-0.20); Immature Granulocytes % (auto) 0.5 %; Lymphocytes # (auto) 2.34 K/uL (1.20-3.40); Lymphocytes % (auto) 31.2 %; Mean Corpuscular Hemoglobin 30.2 pg (25.0-34.0); Mean Corpuscular Hgb Conc 31.3 g/dL (32.0-36.0); Mean Corpuscular Volume 96.5 fL (80.0-100.0); Mean Platelet Volume 9.7 fL (9.4-12.4); Monocytes # (auto) 0.85 K/uL (0.11-0.59); Monocytes % (auto) 11.3 %; Neutrophils # (auto) 3.88 K/uL (1.40-6.50); Neutrophils % (auto) 51.7 %; Platelet Count 285 K/uL (130-400); RDW Coefficient of Variation 14.8 % (11.5-14.5); Red Blood Count 3.15 M/uL (4.20-5.40); White Blood Count 7.51 K/ul (4.8-10.8)
[2023-11-24 08:10] LABS: BUN Creatinine Ratio 21.5 (10-20); Calcium 8.8 mg/dl (8.6-10.3); Creatinine Clr Calc Pharmacy 58.1 ml/min; Est GFR (African American) 74.7 ml/min; Est GFR (Non-African American) 64.5 ml/min; Magnesium 1.4 mg/dl (1.7-2.4); Potassium 4.8 mmol/L (3.5-5.1)
[2023-11-24] MEDS: MAGNESIUM SULFATE / D5W 1 GM/100 ML BAG IV SCH (09:10)
[2023-11-24] MEDS: SODIUM CHLORIDE 0.9% 250 ML IV ONE (12:14)
[2023-11-24] MEDS: GABAPENTIN 100 MG CAP PO SCH (13:03)
[2023-11-25 07:26] LABS: BUN Creatinine Ratio 21.1 (10-20); Est GFR (African American) 72.8 ml/min; Est GFR (Non-African American) 62.9 ml/min; Magnesium 1.4 mg/dl (1.7-2.4); Potassium 4.8 mmol/L (3.5-5.1)
[2023-11-25] MEDS: MAGNESIUM SULFATE / D5W 1 GM/100 ML BAG IV SCH (08:33)
--- NOTE | 2023-11-25 17:58 | Hospitalist Progress Note ---
Date of Service November 25, 2023 Assessment & Plan (1) Fall: Plan: Called back for admission due to positive blood cultures from 11/16 with gram negative bacilli. Procal 0.13. NO fever/chills. Suspected contaminant but placed on Vancomycin IV empiricially and repeat blood cultures obtained and no growth and initial with bacillus species and suspected contaminent and discontinued. WBC elevation from stress/fall while in the hospital. CXR negative/cervical spine negative for acute fracture and moved to monitored bed for closer monitoring given prior NSTEMI earlier this month and repeat limited ECHO w/ improvement in EF back to prior 50-55%, mild concentric LVH, distal septal hypokinesis/limited wall motion abn w/ prior cath with nonobstructive disease/suspected Takotsubo cardiomyopathy Continued inpatient stay given ongoing issues with hypomagnesemia/recurrent falls at home over the past week or two and need for rehab prior to returning home Orthostatic VS positive and placed on IVF w/ improvement in orthostatic VS last evening and reported feeling well but again positive this morning and 250cc NSS bolus provided w/ plans to continue to monitor orthostatic VS Telemetry without arrhythmia, remains NSR. EKG reviewed w/ cards last week and similar to prior/no chest pain reported and trop lower than last admission Cortisol AM not elevated Mag 1.4, IV ordered. PPI STOPPED given continued lows/hx cdiff and denied diarrhea and recently placed on Mag replacement w/ slow mag TID due to absorption w/ recent cdiff and inflammatory bowel disease and placed on H2 without reports for reflux Discussed further with patient any new medications in the past weeks/months and she reports SHE HAS NEW RX FOR GABAPENTIN 100mg TID initially from vascular provider and WAS INCREASED TO 300mg TID and SUSPECT THIS IS CONTRIBUTING TO HYPOTENSION as did already discontinue her HCTZ/lisinopril last admission --> Is getting oxycodone 5mg prn for rib pain/lidocaine patch with stable pain control and moving bowels/formed. 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 CM following and referral sent. (2) Hyperkalemia: Plan: ?2nd to dehydration, medications. Bananas w/ trays but declined, low K diet in place. Prior dc lisinopril last admission as well as HCTZ, ECHO w/ improvement in EF and issues w/ PO intake and would avoid diuretics Was given IVF overnight for orthostatic VS,stable on AM labs. decreasing gabapentin as above and ?contributing to GENESIS/K elevation from GENESIS maybe Monitor, but should remain off VERITO (3) Hypomagnesemia: Plan: Mag 1.2, COPIOUS replacement ordered, ?if contributing but is on PPI daily and hx cdiff enteritis/inflammatory bowel disease likely not best choice and no hx GI bleed Discontinued PPI, placed on H2 dali Mag replacement has been ordered for LOW today but deferred for mag 1.7 day prior and will continue SLOW MAG TID and monitor on repeat Continue H2 at dc in place of PPI and would continue mag replacement to keep stores replete w/ hx afib but NSR on telemetry 60-70s (4) Positive blood culture: Plan: Called in due to positive blood cultures 11/16 for gram ++ bacilli. ID PCR negative but given vanco/continued until speciated and repeat obtained bacillus on final, repeat without growth and suspected contaminant and Vanco discontinued 11/21 and WBC stable 7.5k/remains afebrile (5) Leukocytosis: Plan: Suspected 2nd to fall prior to admission but IV vanco as outlined for blood cultures and now off. No fever/chills reported IVF hydration as outlined and could have some elevations with dehydration and will monitor for any infectious sx (6) Type 2 diabetes mellitus: Plan: a1c= 6.1 on 11/2023 Metformin on hold and BSG AC/HS and sliding scale while inpatient and recently stopped PO glimepiride given risk for hypoglycemia SSI while inpatient, some elevations ?2nd to gabapentin as can cause Good PO intake and BSGs stable and will monitor/adjust as needed given improvement in PO intake compared to prior weeks Plan Repleted magnesium Discussed discharge planning with case management Chronic Medical Conditions: A Fib: Continue metoprolol and Xarelto (renal function stable at present time for 20mg dose- monitor if <50 for reduction to 15mg daily) CAD: Continue aspirin, statin, metoprolol HTN: recently dc lisinopril/HCTZ, remains on metoprolol but ?hypotension issues w/ gabapentin as above and have reduced to 100mg TID and will monitor COPD: continue home inhalers/azithromycin, on room air. CXR clear, incentive spirometer to prevent atelectasis. On room air Anxiety: Continue home meds Code: DNR/DNI Dispo: continued inpatient stay, reduction in Gabapentin and continued monitoring of orthostatic VS. Switched PPI--> H2 and Mag IV replacement/continued PO supplementation and PT/OT consulted with plans for rehab and CM notified to send referrals today and hopefully with reduction in recent increased gabapentin can dc to rehab in next 24-48 hours once auth/bed available given repeated falls at home (and here) for safety prior to returning home. Admission and Anticipated Discharge Date Admission Date: November 20, 2023 Subjective Patient seen and evaluated at bedside. She reports feeling well no complaints at this time. We discussed her hypomagnesemia and she reports that she had low mag many years ago but was told by her doctor at that time that she did not need to be on daily mag supplementation. We discussed that her repeat blood cultures been negative for 48 hours. Continue inpatient stay while waiting to hear from rehab referrals. Physical Exam Physical Exam: General: No acute distress, nondiaphoretic, well-developed, well-nourished. Skin: The skin was without rashes, erythema, edema, or bruising. Cardiac: Regular rate and rhythm without murmurs gallops or rubs. Pulm: Clear to auscultation bilaterally without wheezes, rales or rhonchi. No respiratory distress. 96% on room air. Abdominal: Soft, nontender, nondistended. Bowel sounds present. Neuro: A&O x3. No focal neurological deficits. MSK: moving all extremities, no slurred speech/facial droop, generalized weakness but nonfocal. RIGHT foot drop since this summer, unchanged, no dorsiflexion on that foot, decreased plantarflexion (has special shoes at baseline) Results & Data Results & Data Vital Signs (Past 12 Hours) Vital Signs Temp Pulse Pulse Resp BP Pulse Ox O2 Del Method 11/25/23 14:48 98.2 F 71 16 127/66 96 Room Air 11/25/23 14:30 78 11/25/23 11:36 98.2 F 76 16 149/75 H 95 Room Air 11/25/23 09:26 Room Air 11/25/23 07:58 98.2 F 75 16 172/70 H 95 Room Air 11/25/23 07:06 68 Laboratory Results Reviewed CBC Reviewed blood cultures PG Care Time/CCT Total # of Minutes Spent Total Time Spent with Patient: Total time spent is greater than 50% in coordination of care (as documented) at patient's floor/unit and/or counseling patient: Coding Level of Care Code 13753 SUB INP/OBS CARE 2/35MIN Diagnoses Fall W19.XXXA Hyperkalemia E87.5 Hypomagnesemia E83.42 Positive blood culture R78.81 Leukocytosis D72.829 Type 2 diabetes mellitus E11.9
[2023-11-26 07:02] LABS: BUN Creatinine Ratio 21.2 (10-20); Calcium 9.6 mg/dl (8.6-10.3); Creatinine Clr Calc Pharmacy 51.3 ml/min; Est GFR (African American) 65.3 ml/min; Est GFR (Non-African American) 56.3 ml/min; Magnesium 1.6 mg/dl (1.7-2.4); Potassium 5.5 mmol/L (3.5-5.1)
--- NOTE | 2023-11-26 16:51 | Hospitalist Progress Note ---
Date of Service November 26, 2023 Assessment & Plan (1) Fall: Plan: Called back for admission due to positive blood cultures from 11/16 with gram negative bacilli. - Suspected contaminant but placed on Vancomycin IV empirically and repeat blood cultures obtained -- no growth and antibiotics discontinued. No leukocytosis, afebrile. - CXR negative/cervical spine negative for acute fracture - Repeat echo showed left ventricular systolic function returned to normal with EF 50-55%, with a limited wall motion abnormality. - She has had orthostatic hypotension. Discussed recent medication changes which revealed recent increase in the gabapentin to 300 mg 3 times daily (was previously on 100 mg 3 times daily). > Suspect recent increase in gabapentin may be contributing to hypotension. Decreased gabapentin back to 100 mg 3 times daily. Continue to monitor pain control with reduction in dose and repletion of magnesium. - Persistent issues with hypomagnesemia, though improving. PPI stopped given continued low mag/history of C. diff and IBD. Placed on H2 dali. > Continue mag supplement 3 times daily. - PT/OT recommending rehab. Anticipate discharge to [facility] 11/27/23. (2) Hypomagnesemia: Plan: Persistent issues with hypomagnesemia despite repletion, though improving. - Discontinued PPI, placed on H2 dali - Continue H2 at discharge in place of PPI and would continue mag replacement to keep stores replete with history of A-fib. She does remain NSR on telemetry in the 60s70s. (3) Hyperkalemia: Plan: Intermittent hyperkalemia, suspect multifactorial between dehydration and medications. - Lisinopril and HCTZ were discontinued last admission. - K stable at 4.5 on 11/25. Continue to encourage hydration and patient should remain off VERITO. (4) Leukocytosis: Plan: Leukocytosis of 12.9 on admission, suspect secondary to fall prior to admission. - Leukocytosis resolved, remains afebrile, repeat blood cultures negative. No additional signs or symptoms of infectious etiology. (5) Type 2 diabetes mellitus: Plan: A1c= 6.1 on 11/2023 - Metformin on hold and BSG AC/HS and SSI while inpatient - Recently stopped PO glimepiride given risk for hypoglycemia - Good PO intake and BSGs stable and will monitor/adjust as needed given improvement in PO intake compared to prior weeks Plan Discussed discharge planning with case management - anticipate discharge to [facility] tomorrow, 11/27/2023. Chronic Medical Conditions: A Fib: Continue metoprolol and Xarelto (renal function stable at present time for 20mg dose- monitor if <50 for reduction to 15mg daily) CAD: Continue aspirin, statin, metoprolol HTN: recently dc lisinopril/HCTZ, remains on metoprolol but ?hypotension issues w/ gabapentin as above and have reduced to 100mg TID and will monitor COPD: continue home inhalers/azithromycin, on room air. CXR clear, incentive spirometer to prevent atelectasis. On room air Anxiety: Continue home meds Code: DNR/DNI Admission and Anticipated Discharge Date Admission Date: November 20, 2023 Subjective Patient seen and evaluated at bedside. He reports feeling tired today but no acute complaints. We discussed that her potassium was elevated this morning, but her repeat this afternoon was normal. This is likely due to hemolysis of the blood from her morning lab draw. Plan for discharge to [facility] tomorrow, 11/26. No additional complaints or concerns at this time. Physical Exam Physical Exam: General: No acute distress, nondiaphoretic, well-developed, well-nourished. Skin: The skin was without rashes, erythema, edema, or bruising. Cardiac: Regular rate and rhythm without murmurs gallops or rubs. Pulm: Clear to auscultation bilaterally without wheezes, rales or rhonchi. No respiratory distress. 96% on room air. Abdominal: Soft, nontender, nondistended. Bowel sounds present. Neuro: A&O x3. No focal neurological deficits. MSK: moving all extremities, no slurred speech/facial droop, generalized weakness but nonfocal. RIGHT foot drop since this summer, unchanged, no dorsiflexion on that foot, decreased plantarflexion (has special shoes at baseline) Results & Data Results & Data Vital Signs (Past 12 Hours) Vital Signs Temp Pulse Pulse Resp BP Pulse Ox O2 Del Method 11/26/23 16:40 97.9 F 74 17 123/71 96 Room Air 11/26/23 13:00 88 11/26/23 11:32 97.9 F 77 17 136/71 95 Room Air 11/26/23 08:21 98.1 F 78 17 150/70 H 97 Room Air 11/26/23 05:40 77 Laboratory Results Reviewed BMP PG Care Time/CCT Total # of Minutes Spent Total Time Spent with Patient: Total time spent is greater than 50% in coordination of care (as documented) at patient's floor/unit and/or counseling patient: Coding Level of Care Code 45923 SUB INP/OBS CARE 2/35MIN Diagnoses Fall W19.XXXA Hypomagnesemia E83.42 Hyperkalemia E87.5 Leukocytosis D72.829 Type 2 diabetes mellitus E11.9
[2023-11-27 08:48] LABS: Calcium 9.7 mg/dl (8.6-10.3); Magnesium 1.4 mg/dl (1.7-2.4); Potassium 4.7 mmol/L (3.5-5.1)
[2023-11-27 08:54] LABS: BUN Creatinine Ratio 24.5 (10-20); Est GFR (African American) 63.8 ml/min; Est GFR (Non-African American) 55.1 ml/min
[2023-11-27 11:14] VITALS: PULSE 76; RESP 16; TEMP 97.9; O2SAT 92
--- NOTE | 2023-11-27 11:34 | Discharge Summary ---
Discharge Summary Date of Service November 27, 2023 Principal Dx & Hospital Course #1 = Principal Diagnosis (1) Fall: Called back for admission due to positive blood cultures from 11/16 with gram negative bacilli. - Suspected contaminant but placed on Vancomycin IV empirically and repeat blood cultures negative, antibiotics stopped. No leukocytosis, afebrile. - Had a fall at night during this hospitalization, where she hit her right breast/chest on the corner of moist container. CXR negative/cervical spine negative for acute fracture - Repeat echo showed left ventricular systolic function returned to normal with EF 50-55%, with a limited wall motion abnormality. - She has had orthostatic hypotension. Discussed recent medication changes which revealed recent increase in the gabapentin to 300 mg 3 times daily (was previously on 100 mg 3 times daily). > Suspect recent increase in gabapentin may be contributing to hypotension. Decreased gabapentin back to 100 mg 3 times daily. Continue to monitor pain control with reduction in dose and repletion of mag. - PT/OT recommending rehab. Discharged to [facility] on 11/27/2023. (2) Hypomagnesemia: Persistent issues with hypomagnesemia despite repletion, though improving. - Discontinued PPI given continued low mag/history of C. difficile and IBD, placed on H2 dali. - Continue H2 in place of PPI and would continue mag replacement to keep stores replete with history of A-fib. She does remain NSR on telemetry in the 60s70s. - Started amiloride 5 mg daily on discharge to further augment hypomagnesemia. > Lab slip given on discharge for BMP/mag check in 1 week. - Recommend follow-up with PCP in 1 week. (3) Hyperkalemia: Intermittent hyperkalemia, suspect multifactorial between dehydration and medications. - Lisinopril and HCTZ were discontinued last admission. - K stable at 4.5 on 11/25. Continue to encourage hydration and patient should remain off VERITO. (4) Leukocytosis: Leukocytosis of 12.9 on admission, suspect secondary to fall prior to admission. - Leukocytosis resolved, remains afebrile, repeat blood cultures negative. No additional signs or symptoms of infectious etiology. (5) Type 2 diabetes mellitus: A1c= 6.1 on 11/2023 - Metformin on hold and BSG AC/HS and SSI while inpatient - Recently stopped PO glimepiride given risk for hypoglycemia - Good PO intake and BSGs stable and will monitor/adjust as needed given improvement in PO intake compared to prior weeks Plan Chronic Medical Conditions: A Fib: Continue metoprolol and Xarelto (renal function stable at present time for 20mg dose- monitor if <50 for reduction to 15mg daily) CAD: Continue aspirin, statin, metoprolol HTN: recently dc lisinopril/HCTZ, remains on metoprolol but ?hypotension issues w/ gabapentin as above and have reduced to 100mg TID and will monitor COPD: continue home inhalers/azithromycin, on room air. CXR clear, incentive spirometer to prevent atelectasis. On room air Anxiety: Continue home meds Code: DNR/DNI Notes For Next Care Provider Patient was admitted due to positive blood cultures from 11/16, however suspect contaminant and repeat blood cultures were negative. Decreased gabapentin back to 100 mg 3 times daily due to hypotension. Persistent issues with hypomagnesemia despite repletion, though improving. Discontinued PPI and started H2 dali. Also started amiloride 5 mg daily. Lab slip given for BMP/mag check in 1 week. Recommend PCP follow-up. Medication Changes From Visit Reduced gabapentin to 100 mg 3 times daily Started mag supplement 3 times daily Discontinued PPI Started H2 dali Started amlodipine Started amiloride Admission HPI Per Admitting Provider 63 year old female with a past medical history of peripheral arterial disease s/p bilateral common femoral bypass graft on 08/2023 previous tobacco use and COPD, hypertension, hyperlipidemia, Atrial fibrillation (on Xarelto), DM type II, Crohn's disease, anxiety, recent C. difficile enteritis, Takotsubo's cardiomyopathy presenting with concern for positive blood culture. Was recently admitted at [facility] from 11/16-11/18 for multiple falls, hypomagnesemia. She did have a leukocytosis to 19k and lactate= 3.9 during that admission which was felt to be secondary to dehydration and resolved with fluids. At present she denies URI symptoms- cough, congestion. Denies fever chills, urinary symptoms- dysuria /hematuria. No new skin rashes/wounds. In the ED was given 2L IVF and started on vancomycin. Admission Exam Per Admitting Provider Constitutional: well-appearing, no acute distress HEENT: NCAT, no conjunctival injection CV: regular rhythm, no murmur appreciated, extremities well-perfused, no LE edema Resp: CTABL, no wheezes/rales/rhonchi appreciated, no increased work of breathing GI: soft, nondistended, nontender MSK: no gross deformities appreciated Skin: warm, dry, no rash appreciated Neuro: alert, oriented, no focal neurologic deficit appreciated Discharge Exam General: No acute distress, nondiaphoretic, well-developed, well-nourished. Skin: Warm, dry, no rash or edema appreciated. Cardiac: Regular rate and rhythm without murmurs gallops or rubs. Pulm: Clear to auscultation bilaterally without wheezes, rales or rhonchi. No respiratory distress. 92% on room air. Abdominal: Soft, nontender, nondistended. Bowel sounds present. Neuro: A&O x3. No focal neurological deficits. MSK: moving all extremities, no slurred speech/facial droop, generalized wea kness but nonfocal. RIGHT foot drop since this summer, unchanged, no dorsiflexion on that foot, decreased plantarflexion (has special shoes at baseline) Discharge Plan Discharge Items Patient Disposition: Transfer Alf Fac Reason For Visit: POSITIVE BLOOD CULTURE Discharge Diagnosis: Fall, hypomagnesemia Activity: Per Instructions section Non-emergency contact: Primary Care Provider and [employer] Call non-emergency contact if: you have any medication questions and your symptoms worsen Follow-up/Referrals: Fariba Abdi MD [Primary Care Provider] - 12/01/23 2:00 pm Dav Ponce DO [Physician] - (Follow-up 2 weeks after discharge) Diet: Carb Consistent or DM2 and Low Potassium (2gm) Ambulatory Orders: Basic Metabolic Panel (Routine) Timeframe: 1 Week Location: Determined by Patient Ordered By: Evon Aguilar Magnesium (Routine) Timeframe: 1 Week Location: Determined by Patient Ordered By: Evon Aguilar Addtl Attending Provider Instructions: Mrs. Calloway, You were hospitalized due to being called back for positive blood cultures and given IV antibiotics, but as discussed, this was a suspected contaminant and not a true positive. Your repeat blood cultures have been negative. You did have repeat fall while in the hospital. Chest xray was negative but probably have contusion from the fall. Continue oxycodone for pain control and incentive spirometer to prevent pneumonia. Xray of the neck was negative for fracture, but you do have some stenosis which is likely throughout your spine. We have STOPPED your PPI (omeprazole) given ongoing issues with low magnesium and placed on daily pepcid for GI prophylaxis while on eliquis/aspirin. You should continue oral magnesium supplementation as prescribed. Additionally, amiloride was prescribed on discharge to help with the low magnesium levels. A lab slip has been provided on discharge for you to get lab work done in 1 week this is to monitor your electrolytes after starting amiloride (potassium sparing diuretic). Upon further discussion with drops in blood pressure and RECENT change in your gabapentin dose from 100mg three times daily to 300mg three times daily is likely contributing and have had improvements in pressures with decreasing back to 100mg three times daily. You were also started on amlodipine for better blood pressure control. Therapy evaluations were undertaken and arrangements made for rehab at [facility] on discharge. You should follow up with primary care and Dr Ponce from cardiology after discharge. Your repeat echo showed pumping function back to prior level. Your PCP follow-up appointment is scheduled for 12/01/2023 at 2:00 PM. It was a pleasure taking care of you while you were in the hospital! Pending Studies at Discharge: No Stand-Alone Forms: My [facility] Skilled Items Patient informed of condition?: Yes DNR: Yes Discharge Level of Care: Acute rehab Communicable Disease: No Discharge Prognosis: Stable Lines: None Urinary Catheter: No Medications and DC Order Prescriptions: New famotidine 20 mg Tablet 20 mg PO QAM Qty: 30 0RF magnesium chloride [Mag 64] 64 mg Tablet,Delayed Release (Dr/Ec) 64 mg PO TID Qty: 90 0RF amlodipine [Norvasc] 5 mg Tablet 5 mg PO QAM Qty: 30 0RF gabapentin 100 mg Capsule 100 mg PO TID Qty: 90 0RF oxycodone 5 mg Tablet 5 mg PO Q4H PRN (Reason: pain) Qty: 15 0RF amiloride 5 mg tablet 5 mg PO DAILY Qty: 30 0RF Continued metformin 500 mg tablet extended release 24 hr 500 mg PO BID Qty: 200 3RF Hold Instructions: Resume on 11/15/23. metoprolol succinate 25 mg tablet extended release 24 hr 25 mg PO DAILY Qty: 30 0RF Trelegy Ellipta 100-62.5-25 mcg blister with device 1 inh inhalation DAILY Qty: 180 3RF azithromycin 250 mg tablet 250 mg PO WEFR 30 Days Qty: 18 6RF Rx Instructions: 1 tablet orally every Friday, Friday, and Friday multivitamin Tablet 1 tab PO QAM aspirin 81 mg Tablet,Delayed Release (Dr/Ec) 81 mg PO QAM albuterol sulfate 90 mcg/actuation HFA aerosol inhaler 2 inh inhalation Q6H PRN (Reason: shortness of breath or wheezing) Qty: 6.7 0RF chlorpheniramine maleate [Allergy Relief(chlorpheniramn)] 4 mg tablet 4 mg PO Q12H PRN (Reason: allergies) Qty: 90 1RF atorvastatin 40 mg tablet 40 mg PO QPM fluticasone propionate [Flonase Allergy Relief] 50 mcg/actuation spray,suspension 1 spray intranasal BID PRN (Reason: Congestion) Rx Instructions: administer into each nostril escitalopram oxalate 10 mg tablet 10 mg PO QAM Xarelto 20 mg tablet 20 mg PO QAM cyanocobalamin (vitamin B-12) [Vitamin B-12] 1,000 mcg Tablet 1,000 mcg PO QAM cholecalciferol (vitamin D3) [Vitamin D3] 25 mcg (1,000 unit) Tablet 25 mcg PO QAM calcium carbonate-vitamin D3 [Calcium 600 + D(3)] 600 mg-10 mcg (400 unit) Tablet 1 tab PO DAILY Discontinued gabapentin 300 mg capsule 300 mg PO TID Qty: 300 1RF Slow-Mag 71.5 mg tablet,delayed release (DR/EC) 71.5 mg PO TID Qty: 90 0RF omeprazole 20 mg capsule,delayed release(DR/EC) 20 mg PO QAM Discharge Orders: Discharge Order (Routine); Ordered 11/27/23 Ordered By: Evon Aguilar Admission Data Admit Date/Time: 11/20/23 22:59 Attending Provider: Sid Glynn Admit Provider: Poonam Li Primary Care Provider: Fariba Abdi Other Providers: Cruzito Banegas [facility]; Devendra Horowitz; [facility]; [facility] Hospital Stay Data Consultations 11/20/23 22:10 ED Decision to Admit Stat Diagnostic Imagining Performed Cervical Spine X-Ray 11/22/23 08:00 XR cervical spine 2 or 3V HISTORY: 63 years-old Female fall at home, repeat fall, eval acute neck trauma status post fall COMPARISON: CT cervical spine 11/17/2023 TECHNIQUE: 3 views of the cervical spine FINDINGS: Straightening of the normal cervical lordosis. Demineralized appearance of the bones. Multilevel degenerative changes include moderate disc space narrowing at C5-C6 and C6-C7 with associated moderate spondylitic spurring. There is [id number] multilevel facet arthrosis. Calcified plaque of the carotid bulbs. IMPRESSION: 1. No acute fracture or subluxation. 2. Moderate degenerative changes at C5-C6 and C6-C7. ACT 112: Negative or not required by law. The above report was generated using voice recognition software. It may contain grammatical, syntax or spelling errors. Electronically signed by: Cristiano Huber M.D. 11/22/2023 10:29 AM Chest X-Ray 11/22/23 08:00 XR chest 1V not portable HISTORY: 63 years-old Female fall acute chest trauma status post fall COMPARISON: 11/17/2023 TECHNIQUE: AP view of the chest FINDINGS: Cardiomediastinal and hilar silhouettes are within normal limits. No pneumothorax, pleural effusion or airspace consolidation. Degenerative changes of the shoulders and spine. Chronic appearing left-sided rib fractures. IMPRESSION: No acute process. ACT 112: Negative or not required by law. The above report was generated using voice recognition software. It may contain grammatical, syntax or spelling errors. Electronically signed by: Cristiano Huber M.D. 11/22/2023 10:34 AM Pending Results Patient Have Any Pending Studies at Discharge: No Discharge Instructions Given to Patient (Per Discharging Provider) Mrs. Calloway, You were hospitalized due to being called back for positive blood cultures and given IV antibiotics, but as discussed, this was a suspected contaminant and not a true positive. Your repeat blood cultures have been negative. You did have repeat fall while in the hospital. Chest xray was negative but probably have contusion from the fall. Continue oxycodone for pain control and incentive spirometer to prevent pneumonia. Xray of the neck was negative for fracture, but you do have some stenosis which is likely throughout your spine. We have STOPPED your PPI (omeprazole) given ongoing issues with low magnesium and placed on daily pepcid for GI prophylaxis while on eliquis/aspirin. You should continue oral magnesium supplementation as prescribed. Additionally, amiloride was prescribed on discharge to help with the low magnesium levels. A lab slip has been provided on discharge for you to get lab work done in 1 week this is to monitor your electrolytes after starting amiloride (potassium sparing diuretic). Upon further discussion with drops in blood pressure and RECENT change in your gabapentin dose from 100mg three times daily to 300mg three times daily is likely contributing and have had improvements in pressures with decreasing back to 100mg three times daily. You were also started on amlodipine for better blood pressure control. Therapy evaluations were undertaken and arrangements made for rehab at [facility] on discharge. You should follow up with primary care and Dr Ponce from cardiology after discharge. Your repeat echo showed pumping function back to prior level. Your PCP follow-up appointment is scheduled for 12/01/2023 at 2:00 PM. It was a pleasure taking care of you while you were in the hospital! Total Time Total Time Spent Total Time Spent (In Minutes): Greater than 30 minutes spent completing this discharge process including direct patient care, medication reconciliation, documentation, review of labs and images, and coordination of care. Coding Level of Care Code 68477 INP/OBS DISCH >30 MIN Diagnoses Fall W19.XXXA Hypomagnesemia E83.42 Hyperkalemia E87.5 Leukocytosis D72.829 Type 2 diabetes mellitus E11.9
[2023-11-27 13:43] VITALS: BP 152/74
== END 2023-11-27 14:45 | DRG 872 ==
LOC: ED 20:23 → SUATTDRO 22:59 → EDINP 22:59 → 3W 11-21 01:47 → 2N 11-22 17:50